=== PATIENT | female | born 1930 | race Caucasian/White ===

== ENCOUNTER 2018-06-20 20:42 | Inpatient (IN) | payer OTHER ==
--- OUTSIDE RECORDS SUMMARY | 2018-06-20 20:44 | XMS REPORT | Clinical Summary ---
:1930 Author Organization [facility] Address [address] [place] [address] Care Team Providers Name Role Phone Pop Severino Primary Care Provider Allergies Active Allergy Reactions Severity Noted Date Comments Codeine Itching 09/28/2015 Doxycycline 09/28/2015 UNKNOWN Morphine 09/28/2015 AWARENESS Nitrofuran Analogues 09/28/2015 UNKNOWN Sulfa (Sulfonamide Antibiotics) 09/28/2015 ORAL BLISTERS Medications Medication Sig Dispensed Refills Start Date End Date Status ALPRAZolam (XANAX XR) Take 0.5 mg by 0 Active 0.5 MG 24 hr tablet mouth as needed. HYDROmorphone Take 2 mg by mouth 0 Active (DILAUDID) 2 MG tablet every 4 (four) hours as needed for Pain. metoprolol (LOPRESSOR) Take 50 mg by 0 Active 50 MG tablet mouth 2 (two) times daily. isosorbide mononitrate Take 30 mg by 0 Active (IMDUR) 30 MG 24 hr mouth daily. tablet levothyroxine Take 150 mcg by 0 Active (SYNTHROID, mouth Every LEVOTHROID) 150 MCG morning on an tablet empty stomach. nitroglycerin Place 0.4 mg under 0 Active (NITROSTAT) 0.4 MG SL the tongue every 5 tablet (five) minutes as needed for Chest pain Put 1 pill under tongue every 5min as needed for chest pain.No more than 3 doses in 15min.Call 911 if pain is unrelieved 5min after 1st dose . omeprazole (PRILOSEC) Take 40 mg by 0 Active 40 MG capsule mouth daily. zolpidem (AMBIEN) 10 Take 10 mg by 0 Active mg tablet mouth every night as needed for Insomnia. rosuvastatin (CRESTOR) Take 10 mg by 0 Active 10 MG tablet mouth daily. aspirin 81 MG EC Take 81 mg by 0 Active tablet mouth daily. Active Problems Not on file Social History Tobacco Use Types Packs/Day Years Used Date Never Smoker Alcohol Use Drinks/Week oz/Week Comments No Sex Assigned at Date Recorded Not on file Job Start Date Occupation Industry Not on file Not on file Not on file Travel History Travel Start Travel End No recent travel history available. Last Filed Vital Signs Not on file Plan of Treatment Not on file Results Not on fileafter 06/19/2017 Insurance Payer Benefit Plan / Group Subscriber ID Type Phone Address MEDICARE MEDICARE A B xxxxxxxxxx Medicare [employer] - [employer] CARE [employer] INDEMNITY NON CONTR xxxxxxxxx Comm
--- OUTSIDE RECORDS SUMMARY | 2018-06-20 20:47 | XMS REPORT | Continuity of Care Document ---
:1930 Author Organization Interface Problems Problem Status Onset Classification Date Comments Source Date Reported COAG Active 12/20/[address] LOW BLOOD Active 11/26/19 [facility] PRESSURE, [address] [place] [address] WEAKNESS ATRIAL Active 11/26/19 [facility] FIBRILLATION WITH 17 [facility] RAPID VENTRICUL FALL Active 11/17/[address] FALL Active 11/17/[address] COAG - ATRIAL FIB Active 09/18/[address] COAG - ATRIAL Active 02/22/20 [facility] [address] ISCHEMIC STROKE Active 02/20/[address] LFLT TRANSFER Active 02/20/20 [facility] #[id number] [place] [address] Breast ca Resolved Problem 01/20/2017 [facility] Diverticulosis of Resolved Problem 01/20/2017 [facility] colon [facility] DM (<span Resolved Problem 01/20/2017 [facility] ID="[id number]" Medical >Confirmed</span> Center, ) [facility] Heart attack Resolved Problem 01/20/2017 [facility] TIA Resolved Problem 01/20/2017 [facility] Atrial Active Problem 01/20/2017 [facility] fibrillation [facility] CEREBRAL Active [facility] ANEURYSM, Medical NONRUPTURED Center UNSPECIFIED Active [facility] ATRIAL Medical FIBRILLATION Center,[facility] Medications Medication Details Route Status Patient Ordering Order Source Instructions Provider Date levothyroxine 125 microgram=1 Active 12/30/ [facility] 125 mcg (0.125 tab, PO, Daily, # 2017 Medical mg) oral tablet 30 tab, 0 Center Refill(s) metoprolol 25 mg=0.5 tab, Active 12/30/ [facility] tartrate 50 mg PO, BID, # 180 2017 Medical oral tablet tab, 0 Refill(s) [place] Thyroxine 125 microgram, No Longer Route: PO, Drug Active 2016 Greater form: TAB, Daily, [facility] Dosing Weight 89.455, kg, Start date: 11/27/16 9:00:00 CDT, Duration: 30 day, Stop date: 12/26/16 9:00:00 CDT Isosorbide 30 mg, 1 tab, No Longer Route: PO, Drug Active 2016 Greater form: ERTAB, QAM, [place] Dosing Weight 89.455, kg, Start date: 11/27/16 9:00:00 CDT, Duration: 30 day, Stop date: 12/26/16 9:00:00 CDTNotes: (Same as:Imdur) "Do Not Crush" Take on empty stomach/ full glass of water. Do not crush aspirin 81 mg 81 mg, 1 tab, No Longer tablet, enteric Route: PO, Drug Active 2016 Greater coated form: ECTAB, [place] Daily, Dosing Weight 89.455, kg, Start date: 11/27/16 9:00:00 CDT, Duration: 30 day, Stop date: 12/26/16 9:00:00 CDTNotes: Do not crush or chew. (Same As: Ecotrin) atorvastatin 80 mg, 2 tab, Inactive Route: PO, Drug 2016 Greater form: TAB, [place] Bedtime, Dosing Weight 89.455, kg, Start date: 11/26/16 21:00:00 CDT, Duration: 30 day, Stop date: 12/25/16 21:00:00 CDTNotes: (Same as: Lipitor) Lopressor 50 mg, 1 tab, Inactive Route: PO, Drug 2016 Greater form: TAB, Q6H, [place] Dosing Weight 89.455, kg, Start date: 11/26/16 18:00:00 CDT, Duration: 30 day, Stop date: 12/26/16 12:00:00 CDTNotes: (Same as: Lopressor) atorvastatin 80 80 mg=1 tab, PO, Active mg oral tablet Bedtime, # 90 2017 [facility] tab, 0 Refill(s) [place] aspirin 81 mg 81 mg=1 tab, PO, Active tablet, enteric Daily, # 90 tab, 2017 [facility] coated 0 Refill(s) [place] warfarin 7.5 mg 7.5 mg=1 tab, PO, Active oral tablet Q5PM, # 30 tab, 0 2017 [facility] Refill(s) [place] levothyroxine 150 microgram=1 Active 150 mcg (0.15 tab, PO, Q630AM, 2017 Greater mg) oral tablet # 100 tab, 0 [place] Refill(s) Meclizine 25 mg, 2 tab, Inactive Route: PO, Drug 2016 Greater form: TAB, TID, [place] Dosing Weight 89.455, kg, PRN as needed for dizziness, Start date: 11/26/16 16:47:00 CDT, Duration: 30 day, Stop date: 12/26/16 16:46:00 CDTNotes: (Same as: Antivert) Acetaminophen 1 tab, Route: PO, Inactive 325 MG / Drug Form: TAB, 2016 [facility] Hydrocodone Dosing Weight [place] Bitartrate 10 89.455, kg, Q4H, MG Oral Tablet PRN Abnormal Lab [[place] 10/325] Result, Start date: 11/26/16 16:47:00 CDT, Duration: 30 day, Stop date: 12/26/16 16:46:00 CDTNotes: Do not exceed 4gm/day of acetaminophen. (Same as: [place] 325/10) Protonix 40 mg, Route: Inactive IVP, Drug form: 2016 INJ, Daily, [place] Dosing Weight 86.364, kg, Patient is NPO, Start date: 11/26/16 9:00:00 CDT, Duration: 30 day, Stop date: 12/25/16 9:00:00 CDTNotes: For IV push reconstitute with 10 ml 0.9% sodium chloride and push over 2 minutes. (Same as: Protonix) Thyroxine 150 microgram, 1 Inactive tab, Route: PO, 2016 Drug form: TAB, [place] Q630AM, Dosing Weight 86.364, kg, Start date: 11/26/16 6:30:00 CDT, Duration: 30 day, Stop date: 12/25/16 6:30:00 CDTNotes: Take 1 hour before or 2 hours after meal; Enteral feeds may interefere with the absorption of this medication. (Same as: Levothroid) Zofran 4 mg, 2 mL, Inactive Route: IVP, Drug 2016 Greater form: INJ, Q4H, [place] Dosing Weight 86.364, kg, PRN Nausea, Start date: 11/26/16 0:33:00 CDT, Duration: 30 day, Stop date: 12/26/16 0:32:00 CDTNotes: (Same as: Zofran) MEDICATION WASTE Product Size: 4 mg Product Wasted: ___ mg Acetaminophen 650 mg, 2 tab, Inactive Route: PO, Drug 2016 Greater form: TAB, Q4H, [place] Dosing Weight 89.455, kg, PRN Pain 1-3/Temp > 100.4 F, Start date: 11/26/16 0:33:00 CDT, Duration: 30 day, Stop date: 12/26/16 0:32:00 CDTNotes: Do not exceed 4 gm/day. (Same as: Tylenol) Saline Flush 10 ml, Route: Inactive 0.9% IVP, Drug Form: 2016 [facility] INJ, Dosing [place] Weight 89.455, kg, PRN, PRN Line Flush, Start date: 11/26/16 0:33:00 CDT, Duration: 30 day, Stop date: 12/26/16 0:32:00 CDTNotes: Same as: BD Posiflush Sterile Sodium Chloride 1,000 mL, Rate: Inactive 0.0769 MEQ/ML 100 ml/hr, Infuse 2016 Greater Injectable over: 10 hr, [place] Solution Route: IV, Dosing Weight 89.455 kg, Total Volume: 1,000, Start date: 11/26/16 0:33:00 CDT, Duration: 30 day, Stop date: 12/26/16 0:32:00 CDT Ondansetron 4 mg, 2 mL, Inactive Route: IVP, Drug 2016 Greater form: INJ, Q6H, [place] Dosing Weight 89.455, kg, PRN Nausea & Vomiting, Start date: 11/26/16 0:33:00 CDT, Duration: 30 day, Stop date: 12/26/16 0:32:00 CDTNotes: (Same as: Zofran) MEDICATION WASTE Product Size: 4 mg Product Wasted: ___ mg Coumadin 7.5 mg, 1 tab, No Longer Route: PO, Drug Active 2017 Greater form: TAB, Q5PM, [place] Dosing Weight 86.364, kg, Start date: 11/25/16 22:00:00 CDT, Duration: 30 day, Stop date: 12/25/16 17:00:00 CDTNotes: Nurse to ensure documentation of patient education per anticoagulation policy. Avoid large intake of vitamin-K containing foods diet. WASTE: F/P - P Waste Black; E - P Waste Black (Same As: Coumadin) Protonix 40 mg, Route: Inactive IVP, Drug form: 2017 [facility] INJ, ONCE, Dosing [place] Weight 86.364, kg, Patient is NPO, Priority: STAT, Start date: 11/25/16 21:56:00 CDT, Stop date: 11/25/16 21:56:00 CDTNotes: For IV push reconstitute with 10 ml 0.9% sodium chloride and push over 2 minutes. (Same as: Protonix) Zofran 4 mg, Route: IV, Inactive ONCE, Dosing 2016 Greater Weight 86.364, [place] kg, Start date: 11/25/16 21:24:00 CDT, Stop date: 11/25/16 21:24:00 CDT Zofran 4 mg, Route: IV, Inactive ONCE, Dosing 2017 Greater Weight 86.364, [place] kg, Start date: 11/25/16 20:11:00 CDT, Stop date: 11/25/16 20:11:00 CDT Metoprolol 5 mg, 5 mL, Inactive Route: IVP, Drug 2017 Greater form: INJ, ONCE, [place] Dosing Weight 86.364, kg, Priority: STAT, Start date: 11/25/16 20:08:00 CDT, Stop date: 11/25/16 20:08:00 CDTNotes: (Same as: Lopressor) Push over 2 minutes Tylenol 650 mg, 2 tab, Inactive [place] Route: PO, Drug 2017 Medical form: TAB, ONCE, Center Dosing Weight 86.364, kg, Priority: STAT, Start date: 11/16/16 19:48:00 CDT, Stop date: 11/16/16 19:48:00 CDTNotes: Do not exceed 4 gm/day. (Same as: Tylenol) meclizine 25 mg 25 mg=1 tab, PO, Active [facility] oral tablet TID, PRN 2017 Medical Other-See Center Comments, # 30 tab, 0 Refill(s) Acetaminophen 1 tab, PO, Q4H, Active [place] 325 MG / PRN for pain, # 2017 Medical Hydrocodone 24 tab, 0 Center Bitartrate 10 Refill(s) MG Oral Tablet [[place] 10/325] Zofran 4 mg, 1 tab, Inactive [facility] Route: PO, Drug 2015 Medical form: TABDIS, Center ONCE, Dosing Weight 79.545, kg, Priority: STAT, Start date: 02/22/16 11:09:00 CDT, Stop date: 02/22/16 11:09:00 CDTNotes: (Same as: Zofran ODT) Warfarin Sodium 5 mg=1 tab, PO, Active [facility] 5 MG Oral Daily, # 10 tab, 2016 Medical Tablet 0 Refill(s) Center [Coumadin] Warfarin Sodium 5 mg=1 tab, PO, Inactive [facility] 5 MG Oral Daily, # 10 tab, 2016 Medical Tablet 0 Refill(s), Center [Coumadin] other Cetirizine 10 mg, 1 tab, Inactive [facility] Route: PO, Drug 2015 Medical form: TAB, ONCE, Center Dosing Weight 79.545, kg, Priority: STAT, Start date: 02/22/16 8:14:00 CDT, Stop date: 02/22/16 8:14:00 CDTNotes: (Same As: Zyrtec) lisinopril 10 10 mg=1 tab, PO, Active [facility] mg oral tablet Daily, # 90 tab, 2016 Medical 0 Refill(s) Center atorvastatin 80 80 mg=1 tab, PO, Active [facility] mg oral tablet Bedtime, # 90 2016 Medical tab, 0 Refill(s) Center Aspirin 81 MG 81 mg=1 tab, PO, Active [facility] Enteric Coated Daily, # 90 tab, 2016 Medical Tablet 0 Refill(s) Center Zofran 4 mg, 1 tab, No Longer [place] Route: PO, Drug Active 2015 Medical form: TAB, Q8H, Center Dosing Weight 79.545, kg, PRN Nausea, Priority: NOW, Start date: 02/21/16 21:10:00 CDT, Duration: 30 day, Stop date: 03/22/16 21:09:00 CDTNotes: (Same as: Zofran) Lipitor 10 mg, 1 tab, No Longer [facility] Route: PO, Drug Active 2015 Medical form: TAB, Center Bedtime, Start date: 02/21/16 21:00:00 CDT, Duration: 30 day, Stop date: 03/21/16 21:00:00 CDTNotes: (Same As: Lipitor) Lovastatin 20 mg, Route: PO, Inactive [facility] Drug form: TAB, 2016 Medical Bedtime, Dosing Center Weight 79.545, kg, Start date: 02/21/16 21:00:00 CDT, Duration: 30 day, Stop date: 03/21/16 21:00:00 CDT Warfarin 5 mg, 1 tab, Inactive [facility] Route: PO, Drug 2015 Medical form: TAB, Q5PM, Center Dosing Weight 79.545, kg, Start date: 02/21/16 17:00:00 CDT, Duration: 1 doses or times, Stop date: 02/21/16 17:00:00 CDTNotes: Nurse to ensure documentation of patient education per anticoagulation policy. Avoid large intake of vitamin-K containing foods diet. WASTE: F/P - P Waste Black; E - P Waste Black (Same As: Coumadin) Lisinopril 10 mg, 1 tab, No Longer [place] Route: PO, Drug Active 2015 Medical form: TAB, Daily, Center Dosing Weight 79.545, kg, Priority: NOW, Start date: 02/21/16 16:48:00 CDT, Duration: 30 day, Stop date: 03/22/16 9:00:00 CDTNotes: (Same as: Prinivil, Zestril) Rosuvastatin 10 mg=1 tab, PO, No Longer [place] calcium 10 MG Bedtime, 0 Active 2015 Medical Oral Tablet Refill(s) Center [Crestor] levothyroxine 125 microgram=1 Active [facility] 125 mcg (0.125 tab, PO, Daily, 0 2015 Medical mg) oral tablet Refill(s) Center Zolpidem 10 mg=1 tab, PO, Active [facility] tartrate 10 MG Bedtime, 0 2015 Medical Oral Tablet Refill(s) Center [Ambien] cetirizine 10 10 mg=1 tab, PO, Active [facility] mg oral tablet Daily, 0 2015 Medical Refill(s) Center metoprolol 25 mg=1 tab, PO, Active [facility] tartrate 25 mg Daily, 0 2015 Medical oral tablet Refill(s) Center omeprazole 10 10 mg=1 cap, PO, Active [facility] mg oral delayed Daily, 0 2015 Medical release capsule Refill(s) Center isosorbide 30 mg=1 tab, PO, Active [facility] mononitrate 30 QAM, 0 Refill(s) 2015 Medical mg oral tablet, Center extended release Aspirin 81 MG 81 mg=1 tab, PO, No Longer [facility] Enteric Coated Daily, # 90 tab, Active 2015 Medical Tablet 3 Refill(s) [place] Saline Flush 10 ml, Route: No Longer [facility] 0.9% IVP, Drug Form: Active 2015 Medical INJ, Dosing Center Weight 79.545, kg, Q12H, Start date: 02/21/16 9:00:00 CDT, Duration: 30 day, Stop date: 03/21/16 21:00:00 CDTNotes: Same as: BD Posiflush Sterile Aspirin 325 MG 325 mg, 1 tab, No Longer [facility] Enteric Coated Route: PO, Drug Active 2015 Medical Tablet form: ECTAB, Center Daily, Dosing Weight 79.545, kg, Start date: 02/21/16 9:00:00 CDT, Duration: 30 day, Stop date: 03/21/16 9:00:00 CDTNotes: (Do Not Crush) Do not crush or chew. pantoprazole 40 mg, Route: No Longer [facility] IVP, Drug form: Active 2015 Medical INJ, Daily, Center Dosing Weight 79.545, kg, Start date: 02/21/16 9:00:00 CDT, Duration: 30 day, Stop date: 03/21/16 9:00:00 CDTNotes: For IV push reconstitute with 10 ml 0.9% sodium chloride and push over 2 minutes. (Same as: Protonix) Rocephin 1 gm, Route: No Longer [facility] IVPB, Drug form: Active 2015 Medical PDR/INJ, [id number], Center Dosing Weight 79.545, kg, Start date: 02/21/16 7:00:00 CDT, Duration: 30 day, Stop date: 03/21/16 7:00:00 CDTNotes: (Same As: Rocephin). Use with 100 mL NS and infuse over 30 min MEDICATION WASTE Product Size: 1000 mg Product Wasted: ___ mg Ativan 0.5 mg, 0.25 mL, No Longer [place] Route: IV, Drug Active 2015 Medical form: INJ, Center Q15Min, Dosing Weight 79.545, kg, PRN Anxiety, Start date: 02/21/16 3:55:00 CDT, Duration: 2 doses or times, Stop date: Limited # of timesNotes: (Same as: Ativan) iodixanol 60 mL, Route: Inactive [place] IVP, Drug Form: 2015 Medical SOLN, Dosing Center Weight 79.545, kg, ONCALL, STAT, Start date: 02/21/16 3:22:00 CDT, Duration: 1 doses or times, Dose=2.2ml/kg, Max fvio=060yg -- "To be infused by Radiology Staff ONLY" Ativan 0.5 mg, 1 tab, Inactive [facility] Route: PO, Drug 2015 Medical form: TAB, TID, Center Dosing Weight 79.545, kg, PRN Anxiety, Start date: 02/21/16 3:16:00 CDT, Duration: 2 doses or times, Stop date: Limited # of timesNotes: (Same as: Ativan) heparin 5,000 unit, 1 mL, No Longer [facility] Route: SUB-Q, Active 2015 Medical Drug form: INJ, Center Q8H, Dosing Weight 79.545, kg, (For patients weighing Notes: porcine heparin Saline Flush 10 ml, Route: No Longer [facility] 0.9% IVP, Drug Form: Active 2016 Medical INJ, Dosing Center Weight 79.545, kg, PRN, PRN Line Flush, Start date: 02/20/16 23:33:00 CDT, Duration: 30 day, Stop date: 03/21/16 23:32:00 CDTNotes: Same as: BD Posiflush Sterile Allergies, Adverse Reactions, Alerts Substance Category Reaction Severity Reaction Status Date Comments Source type Reported morphine Assertion Allergy to Active [facility] sulfa drugs Assertion Drug Active [facility] allergy [facility] Immunizations Immunization Date Given Site Status Last Comments Source Updated pneumococcal 11/26/2016 Not Given [facility] 13-valent Medical vaccine<sup>2</ Center, p> [facility] pneumococcal 11/26/2016 Left completed Mer Result [facility] 13-valent deltoid Comment: Medical vaccine<sup>1</ patient Center, p> refused [facility] Results Order Name Results Value Reference Date Interpretation Comments Source Range HEMATOLOGY POC PT 18.2 s 12.0 - 12/30 [facility] 14.7 [facility] HEMATOLOGY POC INR 1.6 0.9 - 1.2 12/30 [facility] HEMATOLOGY POC INR 1.9 0.9 - 1.2 12/19 [facility] HEMATOLOGY POC PT 22.0 s 12.0 - 12/19 [facility] 14.7 [facility] CARDIAC CK MB Index 1.6 0.0 - 2.5 11/26 [facility] CARDIAC Troponin-I null 0.00 - 11/26 [facility] 0.40 /2017 [facility] CARDIAC CK MB 1.8 ng/mL 0.5 - 3.6 11/26 [facility] CARDIAC Total CK 112 unit/L 12 - 191 11/26 [facility] CHEM PANEL Magnesium Lvl 2.1 mg/dL 1.8 - 2.4 11/26 [facility] CHEM PANEL Lipase Lvl 272 unit/L 73 - 393 11/26 [facility] ELECTROLYTE Sodium Lvl 143 meq/L 135 - 145 11/26 S [facility] ELECTROLYTE Potassium Lvl 3.7 meq/L 3.5 - 5.1 11/26 [facility] ELECTROLYTE Chloride Lvl 107 meq/L 95 - 109 11/26 [facility] ELECTROLYTE CO2 25 meq/L 24 - 32 11/26 [facility] ELECTROLYTE Calcium Lvl 8.4 mg/dL 8.5 - 10.5 11/26 [facility] ELECTROLYTE Glucose Lvl 168 mg/dL 70 - 99 11/26 [facility] ELECTROLYTE BUN 16 mg/dL 7 - 22 11/26 [facility] ELECTROLYTE Creatinine 1.06 mg/dL 0.50 - 11/26 S Lvl 1.40 /2016 [facility] ELECTROLYTE A/G Ratio 1.0 0.7 - 1.6 11/26 [facility] ELECTROLYTE Bili Total 0.5 mg/dL 0.2 - 1.3 11/26 [facility] ELECTROLYTE AGAP 14.7 meq/L 10.0 - 11/26 S 20.0 /2016 [facility] ELECTROLYTE B/C Ratio 15 6 - 25 11/26 [facility] ELECTROL[facility]TE Globulin 3.9 g/dL 2.7 - 4.2 11/26 [facility] ELECTROLYTE Alk Phos 117 unit/L 39 - 136 11/26 [facility] ELECTROLYTE Total Protein 7.8 g/dL 6.4 - 8.4 11/26 [facility] ELECTROLYTE Albumin Lvl 3.9 g/dL 3.5 - 5.0 11/26 [facility] ELECTROLYTE ALT 10 unit/L 0 - 65 11/26 [facility] ELECTROLYTE AST 19 unit/L 0 - 37 11/26 [facility] ELECTROLYTE eGFR 47 11/26 Result Comment: The eGFR is calculated using the CKD-EPI formula. In most young, healthy individuals the eGFR will be >90 mL/ min/1.73m2. The eGFR declines with age. An eGFR of 60-89 may be normal in mL/min/1.7 /2017 some populations, particularly the elderly, for whom the CKD-EPI formula has not been extensively validated. Use of the eGFR is not recommended in the following populations: [place] 3m2 [place] Individuals with unstable creatinine concentrations, including patients and those with serious co-morbid conditions. Patients with extremes in muscle mass or diet. The data above are obtained from the National Kidney Disease Education Program (NKDEP) which additionally recommends that when the eGFR is used in patients with extremes of body mass index for purposes of drug dosing, the eGFR should be multiplied by the estimated BMI. HEMATOLOGY Segs-Bands # 4.3 K/CMM 1.5 - 8.1 / [facility] HEMATOLOGY Lymphocytes # 1.3 K/CMM 1.0 - 5.5 / [facility] HEMATOLOGY Monocytes # 0.4 K/CMM 0.0 - 0.8 / [facility] HEMATOLOGY Eosinophils 1.8 % 0.0 - 4.0 / [facility] HEMATOLOGY Lymphocytes 21.0 % 20.0 - 05/ MH 40.0 /2016 [facility] HEMATOLOGY Monocytes 6.6 % 2.0 - 12.0 / [facility] HEMATOLOGY Basophils 0.6 % 0.0 - 1.0 11/26 [facility] HEMATOLOGY Eosinophils # 0.1 K/CMM 0.0 - 0.5 11/26 [facility] HEMATOLOGY Segs 70.0 % 45.0 - 05 MH 75.0 /2017 [facility] HEMATOLOGY PT 16.9 s 12.0 - 05/ MH 14.7 /2017 [facility] HEMATOLOGY INR 1.35 0.85 - 05/ MH 1.17 /2016 [facility] HEMATOLOGY PTT 33.5 s 22.9 - / MH 35.8 /2017 [facility] HEMATOLOGY RBC 4.34 M/CMM 4.20 - 05/02 MH 5.40 /2017 [facility] HEMATOLOGY MCV 89.8 fL 80.0 - / MH 98.0 /2017 [facility] HEMATOLOGY Hct 39.0 % 36.0 - 05 MH 48.0 /2017 [facility] HEMATOLOGY Hgb 12.5 g/dL 12.0 - 05/ MH 16.0 /2017 [facility] HEMATOLOGY MCH 28.7 pg 27.0 - 05/ MH 31.0 /2017 [facility] HEMATOLOGY MPV 8.7 fL 7.4 - 10.4 11/26 [facility] HEMATOLOGY WBC 6.1 K/CMM 3.7 - 10.4 / [facility] HEMATOLOGY MCHC 32.0 g/dL 32.0 - 05/ MH 36.0 /2016 [facility] HEMATOLOGY Platelet 159 K/CMM 133 - 450 05/2017 [facility] HEMATOLOGY RDW 17.2 % 11.5 - 11/26 14.5 [facility] Brain wo Brain wo Patient Name: LOUISA PALMA 11/25 - contrast CT contrast CT [facility] : 1930; Age: 86 years y/o [place] MR: [id number] Read by: Steven Stahl MD Dictated Date/time: 11/25/16 21:24 Electronically Signed by: Steven Stahl MD 11/25/16 21:33 FINAL REPORT Study: Brain wo contrast CT 11/25/2016 7:52 PM CDT Clinical Indication: Altered mental status OBO, dizzy, Vomiting, on Coumadin - DLP: 1029.93; Comparison: 02/20/2016 TECHNIQUE: CT images were obtained from the foramen magnum to the vertex without the use of intravenous contrast on a multidetector CT. Coronal and sagittal reconstructions were obtained. FINDINGS: BRAIN PARENCHYMA: Bilateral carotid artery calcification. Patchy low density in the subinsular cortex bilaterally, right thalamus, basal ganglia bilaterally, anterior and posterior limbs of the left int ernal capsule, external capsule bilaterally and fenton radiata bilaterally consistent with small vessel changes. 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 No evidence for subarachnoid, intrapar enchymal or intraventricular hemorrhage. No significant extra-axial fluid collection, mass effect or shift. No evidence for an acute infarction. VENTRICLES: Ventricles and sulci are within normal limits for the patient' s age. ORBITS, MASTOIDS AND PARANASAL SINUSES: The visualized orbits and paranasal sinuses are unremarkable. The mastoid air cells are clear. SKULL: There are no osseous abnormalities. If there is further concern for intracranial pathology or acute stroke, MRI of the brain may be performed for complete assessment. IMPRESSION: 1. Bilateral carotid artery calcification. 2. Small vessel changes. 3. 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 4. Otherwise unremarkable head CT without contrast. SL: PENNYOM-PC Chest 1view Chest 1view EXAM: XR CHEST 1 VIEW 11/25 DX DX - [facility] DATE: 11/25/2016 7:51 PM CDT Read by: Steven Lozano MD Dictated Date/time: 11/25/16 20:27 Electronically Signed by: Steven Lozano MD 11/25/16 20:29 FINAL REPORT INDICATION: Shortness of Breath. COMPARISON: 02/21/2016. TECHNIQUE: A single AP view of the chest was obtained. FINDINGS: The examination is limited by patient rotation. Interstitial opacities are noted throughout the lungs. The cardiac silhouette is mildly prominent, with atherosclerotic calcification of the aorta. No acu te osseous abnormality is identified. Multiple surgical clips are noted within the right axillary region. Median sternotomy wires are present. IMPRESSION: Interstitial opacities may represent mild pulmonary edema or atypical infection. SL: [id number] HEMATOLOGY POC INR 1.5 0.9 - 1.2 11/[address] HEMATOLOGY POC PT 17.4 s 12.0 - 11/18 [facility] 14.7 [facility] ELECTROLYTE AGAP 11.7 meq/L 10.0 - 11/16 [facility] 20.0 [facility] ELECTROLYTE Glucose Lvl 168 mg/dL 70 - 99 11/[address] ELECTROLYTE BUN 23 mg/dL 7 - 11/[address] ELECTROLYTE eGFR 36 11/16 Result Comment: The eGFR is calculated using the CKD-EPI formula. In most young, healthy individuals the eGFR will be >90 mL/ min/1.73m2. The eGFR declines with age. An eGFR of 60-89 may be normal in [facility] mL/min/1. some populations, particularly the elderly, for whom the CKD-EPI formula has not been extensively validated. Use of the eGFR is not recommended in the following populations: [address] Individuals with unstable creatinine concentrations, including patients and those with serious co-morbid conditions. Patients with extremes in muscle mass or diet. The data above are obtained from the National Kidney Disease Education Program (NKDEP) which additionally recommends that when the eGFR is used in patients with extremes of body mass index for purposes of drug dosing, the eGFR should be multiplied by the estimated BMI. ELECTROLYTE Calcium Lvl 8.4 mg/dL 8.5 - 10.5 11/[address] ELECTROLYTE CO2 29 meq/L 24 - 32 11/[address] ELECTROLYTE Chloride Lvl 107 meq/L 95 - 109 11/[address] ELECTROLYTE Potassium Lvl 3.7 meq/L 3.5 - 5.1 11/[address] ELECTROLYTE Sodium Lvl 144 meq/L 135 - 145 11/16 [facility] S [facility] ELECTROLYTE Creatinine 1.34 mg/dL 0.50 - 11/16 [facility] S Lvl 1.40 [facility] HEMATOLOGY INR 2.03 0.85 - 11/16 [place] 1.17 [facility] HEMATOLOGY PT 23.3 s 12.0 - 11/16 14.7 [facility] HEMATOLOGY Hgb 11.9 g/dL 12.0 - 11/16 16.0 [facility] HEMATOLOGY MCV 88.3 fL 80.0 - 11/16 98.0 [facility] HEMATOLOGY Hct 36.1 % 36.0 - 11/16 48.0 [facility] HEMATOLOGY MCH 29.1 pg 27.0 - 11/16 [facility] 31.0 [facility] HEMATOLOGY RBC 4.09 M/CMM 4.20 - 11/16 [facility] 5.40 [facility] HEMATOLOGY WBC 4.5 K/CMM 3.7 - 10.4 11/16 [facility] HEMATOLOGY MCHC 32.9 g/dL 32.0 - 11/16 [facility] 36.0 [facility] HEMATOLOGY MPV 9.0 fL 7.4 - 10.4 11/16 [facility] HEMATOLOGY Platelet 145 K/CMM 133 - 450 11/16 [facility] HEMATOLOGY RDW 17.7 % 11.5 - 11/16 [facility] 14.5 [facility] HEMATOLOGY Monocytes # 0.3 K/CMM 0.0 - 0.8 11/16 [facility] HEMATOLOGY Eosinophils # 0.2 K/CMM 0.0 - 0.5 11/16 [facility] HEMATOLOGY Monocytes 7.5 % 2.0 - 12.0 11/16 [facility] HEMATOLOGY Eosinophils 4.5 % 0.0 - 4.0 11/16 [facility] HEMATOLOGY Lymphocytes 24.0 % 20.0 - 11/16 40.0 [facility] HEMATOLOGY Segs-Bands # 2.9 K/CMM 1.5 - 8.1 11/16 [facility] HEMATOLOGY Basophils 0.5 % 0.0 - 1.0 11/16 [facility] HEMATOLOGY Lymphocytes # 1.1 K/CMM 1.0 - 5.5 11/16 [facility] /2016 [facility] HEMATOLOGY Segs 63.5 % 45.0 - 11/16 [facility] 75.0 [facility] Pelvis AP Pelvis AP DX EXAM: XR PELVIS 1 VIEW 11/16 - [facility] - [facility] DATE: 11/16/2016 5:34 PM CDT Read by: Pedro Mckeon MD Dictated Date/time: 11/16/16 18:42 Electronically Signed by: Pedro Mckeon MD 11/16/16 18:43 FINAL REPORT INDICATION: right hip pain - right hip pain COMPARISON: None TECHNIQUE: A single AP supine radiograph of the pelvis FINDINGS: Alignment is normal. There are mild bilateral hip and sacroiliac joint degenerative changes. No acute fracture or dislocation. Mild degenerative changes of the lower lumbar spine are also visualized. No significant soft tissue abnormality. IMPRESSION: 1. Mild degenerative changes of the hip and sacroiliac joints 2. No acute fracture or dislocation Knee 3 Knee 3 views EXAM: XR RIGHT KNEE 3 VIEWS 11/16 - [facility] views DX - [facility] EXAM: XR RIGHT TIBIA-FIBULA 2 VIEWS [place] EXAM: XR RIGHT ANKLE 3 VIEWS Read by: Pedro Mckeon MD Dictated Date/time: 11/16/16 17:56 EXAM: XR RIGHT FOOT 3 VIEWS Electronically Signed by: Pedro Mckeon MD 11/16/16 18:01 FINAL REPORT DATE: 11/16/2016 5:01 PM CDT INDICATION: Pain Post Trauma - coumadin, fall COMPARISON: None TECHNIQUE: AP, lateral and oblique views of the right knee, AP and lateral views of the right tibia-fibula, AP, lateral and oblique radiographs of the right ankle, PA lateral and oblique radiographs of the right foot FINDINGS: Knee: No acute fracture or malalignment is identified. No excessive knee joint fluid is identified. Minimal degenerative changes of the knee joint are visualized with tibial spiking. Joint spaces are preserved. Tibia-fibula: No acute fracture or malalignment is identified. Ankle / Foot: No acute fracture or malalignment is identified. The ankle mortise is congruent. Note made of enthesopathy changes at the insertion of Achilles tendon. Small chronic appearing calcificatio n is visualized in the medial head of 1st metatarsal. Soft tissues: There is diffuse soft tissue swelling most pronounced along the distal leg, ankle and foot. Note made of vascular calcifications. IMPRESSION: 1. Diffuse soft tissue swelling most pronounced along the distal leg, ankle and foot. 2. No underlying acute osseous abnormality. 3. Minimal degenerative changes of the knee joint. Ankle 3 Ankle 3 views EXAM: XR RIGHT KNEE 3 VIEWS 11/16 [place] views DX DX - Medical EXAM: XR RIGHT TIBIA-FIBULA 2 VIEWS Center EXAM: XR RIGHT ANKLE 3 VIEWS Read by: Pedro Mckeon MD Dictated Date/time: 11/16/16 17:56 EXAM: XR RIGHT FOOT 3 VIEWS Electronically Signed by: Pedro Mckeon MD 11/16/16 18:01 FINAL REPORT DATE: 11/16/2016 5:01 PM CDT INDICATION: Pain Post Trauma - coumadin, fall COMPARISON: None TECHNIQUE: AP, lateral and oblique views of the right knee, AP and lateral views of the right tibia-fibula, AP, lateral and oblique radiographs of the right ankle, PA lateral and oblique radiographs of the right foot FINDINGS: Knee: No acute fracture or malalignment is identified. No excessive knee joint fluid is identified. Minimal degenerative changes of the knee joint are visualized with tibial spiking. Joint spaces are preserved. Tibia-fibula: No acute fracture or malalignment is identified. Ankle / Foot: No acute fracture or malalignment is identified. The ankle mortise is congruent. Note made of enthesopathy changes at the insertion of Achilles tendon. Small chronic appearing calcificatio n is visualized in the medial head of 1st metatarsal. Soft tissues: There is diffuse soft tissue swelling most pronounced along the distal leg, ankle and foot. Note made of vascular calcifications. IMPRESSION: 1. Diffuse soft tissue swelling most pronounced along the distal leg, ankle and foot. 2. No underlying acute osseous abnormality. 3. Minimal degenerative changes of the knee joint. Foot series Foot series EXAM: XR RIGHT KNEE 3 VIEWS 11/16 - [place] DX DX - Medical EXAM: XR RIGHT TIBIA-FIBULA 2 VIEWS Center EXAM: XR RIGHT ANKLE 3 VIEWS Read by: Pedro Mckeon MD Dictated Date/time: 11/16/16 17:56 EXAM: XR RIGHT FOOT 3 VIEWS Electronically Signed by: Pedro Mckeon MD 11/16/16 18:01 FINAL REPORT DATE: 11/16/2016 5:01 PM CDT INDICATION: Pain Post Trauma - coumadin, fall COMPARISON: None TECHNIQUE: AP, lateral and oblique views of the right knee, AP and lateral views of the right tibia-fibula, AP, lateral and oblique radiographs of the right ankle, PA lateral and oblique radiographs of the right foot FINDINGS: Knee: No acute fracture or malalignment is identified. No excessive knee joint fluid is identified. Minimal degenerative changes of the knee joint are visualized with tibial spiking. Joint spaces are preserved. Tibia-fibula: No acute fracture or malalignment is identified. Ankle / Foot: No acute fracture or malalignment is identified. The ankle mortise is congruent. Note made of enthesopathy changes at the insertion of Achilles tendon. Small chronic appearing calcificatio n is visualized in the medial head of 1st metatarsal. Soft tissues: There is diffuse soft tissue swelling most pronounced along the distal leg, ankle and foot. Note made of vascular calcifications. IMPRESSION: 1. Diffuse soft tissue swelling most pronounced along the distal leg, ankle and foot. 2. No underlying acute osseous abnormality. 3. Minimal degenerative changes of the knee joint. Tibia Tibia fibula EXAM: XR RIGHT KNEE 3 VIEWS 11/16 - [place] fibula series DX /2016 - Medical series DX EXAM: XR RIGHT TIBIA-FIBULA 2 VIEWS Center EXAM: XR RIGHT ANKLE 3 VIEWS Read by: Pedro Mckeon MD Dictated Date/time: 11/16/16 17:56 EXAM: XR RIGHT FOOT 3 VIEWS Electronically Signed by: Pedro Mckeon MD 11/16/16 18:01 FINAL REPORT DATE: 11/16/2016 5:01 PM CDT INDICATION: Pain Post Trauma - coumadin, fall COMPARISON: None TECHNIQUE: AP, lateral and oblique views of the right knee, AP and lateral views of the right tibia-fibula, AP, lateral and oblique radiographs of the right ankle, PA lateral and oblique radiographs of the right foot FINDINGS: Knee: No acute fracture or malalignment is identified. No excessive knee joint fluid is identified. Minimal degenerative changes of the knee joint are visualized with tibial spiking. Joint spaces are preserved. Tibia-fibula: No acute fracture or malalignment is identified. Ankle / Foot: No acute fracture or malalignment is identified. The ankle mortise is congruent. Note made of enthesopathy changes at the insertion of Achilles tendon. Small chronic appearing calcificatio n is visualized in the medial head of 1st metatarsal. Soft tissues: There is diffuse soft tissue swelling most pronounced along the distal leg, ankle and foot. Note made of vascular calcifications. IMPRESSION: 1. Diffuse soft tissue swelling most pronounced along the distal leg, ankle and foot. 2. No underlying acute osseous abnormality. 3. Minimal degenerative changes of the knee joint. HEMATOLOGY POC INR 2.1 0.9 - 1.2 09/19 [facility] HEMATOLOGY POC PT 24.6 s 12.0 - 09/19 [place] [facility] HEMATOLOGY POC 40.0 % 36.0 - 03/12 [facility] Hematocrit 48.0 [facility] HEMATOLOGY POC 13.6 g/dL 12.0 - 03/12 [facility] Hemoglobin 16.0 [facility] HEMATOLOGY POC PT 37.1 s 12.0 - 03/12 [place] 14. [facility] HEMATOLOGY POC INR 3.3 0.9 - 1.2 03/12 [facility] HEMATOLOGY POC PT 35.1 s 12.0 - 03/05 [place] 14. [facility] HEMATOLOGY POC INR 3.1 0.9 - 1.2 03/05 [facility] HEMATOLOGY POC INR 1.8 0.9 - 1.2 02/27 [facility] HEMATOLOGY POC PT 20.7 s 12.0 - 02/27 [place] 14. [facility] HEMATOLOGY PT 14.3 s 12.0 - 02/21 [place] 14. [facility] HEMATOLOGY INR 1.08 0.85 - 02/21 [place] 1.17 [facility] HEMATOLOGY PTT 31.3 s 22.9 - 02/21 [place] 35.8 [facility] CHEM PANEL eGFR 39 02/21 Result Comment: The eGFR is calculated using the CKD-EPI formula. In most young, healthy individuals the eGFR will be >90 mL/ min/1.73m2. The eGFR declines with age. An eGFR of 60-89 may be normal in [facility] mL/min/1. some populations, particularly the elderly, for whom the CKD-EPI formula has not been extensively validated. Use of the eGFR is not recommended in the following populations: Medical 3m2 Center Individuals with unstable creatinine concentrations, including patients and those with serious co-morbid conditions. Patients with extremes in muscle mass or diet. The data above are obtained from the National Kidney Disease Education Program (NKDEP) which additionally recommends that when the eGFR is used in patients with extremes of body mass index for purposes of drug dosing, the eGFR should be multiplied by the estimated BMI. CHEM PANEL AGAP 14.0 meq/L 10.0 - 02/21 [facility] 20.0 [facility] CHEM PANEL Calcium Lvl 8.6 mg/dL 8.5 - 10.5 02/[address] CHEM PANEL Glucose Lvl 196 mg/dL 70 - 99 02/[address] CHEM PANEL BUN 22 mg/dL 7 - 22 02/[address] CHEM PANEL Potassium Lvl 4.0 meq/L 3.5 - 5.1 02/[address] CHEM PANEL Chloride Lvl 106 meq/L 95 - 109 02/[address] CHEM PANEL Creatinine 1.26 mg/dL 0.50 - 02/21 [facility] Lvl 1.40 [facility] CHEM PANEL Sodium Lvl 142 meq/L 135 - 145 02/[address] CHEM PANEL CO2 26 meq/L 24 - 32 02/[address] HEMATOLOGY Segs 63.9 % 45.0 - 02/21 [facility] 75.0 [facility] HEMATOLOGY Lymphocytes 22.6 % 20.0 - 02/21 40.0 [facility] HEMATOLOGY Eosinophils 5.2 % 0.0 - 4.0 02/[address] HEMATOLOGY Monocytes 7.4 % 2.0 - 12.0 02/[address] HEMATOLOGY Basophils 0.9 % 0.0 - 1.0 02/[address] HEMATOLOGY Segs-Bands # 3.3 K/CMM 1.5 - 8.1 02/[address] HEMATOLOGY Lymphocytes # 1.2 K/CMM 1.0 - 5.5 02/[address] HEMATOLOGY Eosinophils # 0.3 K/CMM 0.0 - 0.5 02/[address] HEMATOLOGY Monocytes # 0.4 K/CMM 0.0 - 0.8 02/[address] HEMATOLOGY MPV 9.4 fL 7.4 - 10.4 02/21 [facility] HEMATOLOGY MCHC 32.0 g/dL 32.0 - 02/21 [place] 36.0 [facility] HEMATOLOGY RDW 16.9 % 11.5 - 02/21 [place] 14.5 [facility] HEMATOLOGY Platelet 133 K/CMM 133 - 450 02/21 [facility] HEMATOLOGY WBC 5.1 K/CMM 3.7 - 10.4 02/21 [facility] HEMATOLOGY RBC 4.16 M/CMM 4.20 - 02/21 [facility] 5.40 [facility] HEMATOLOGY Hgb 11.2 g/dL 12.0 - 02/21 [facility] 16.0 [facility] HEMATOLOGY Hct 35.2 % 36.0 - 02/21 [facility] 48.0 [facility] HEMATOLOGY MCV 84.5 fL 80.0 - 02/21 [facility] 98.0 [facility] HEMATOLOGY MCH 27.0 pg 27.0 - 02/21 [place] 31.0 [facility] ELECTROLYTE AGAP 14.3 meq/L 10.0 - 02/20 [facility] S 20.0 [facility] ELECTROLYTE eGFR 45 02/20 Result Comment: The eGFR is calculated using the CKD-EPI formula. In most young, healthy individuals the eGFR will be >90 mL/ min/1.73m2. The eGFR declines with age. An eGFR of 60-89 may be normal in [facility] mL/min/1. some populations, particularly the elderly, for whom the CKD-EPI formula has not been extensively validated. Use of the eGFR is not recommended in the following populations: [address] Individuals with unstable creatinine concentrations, including patients and those with serious co-morbid conditions. Patients with extremes in muscle mass or diet. The data above are obtained from the National Kidney Disease Education Program (NKDEP) which additionally recommends that when the eGFR is used in patients with extremes of body mass index for purposes of drug dosing, the eGFR should be multiplied by the estimated BMI. ELECTROLYTE Chloride Lvl 104 meq/L 95 - 109 02/20 [facility] ELECTROLYTE Potassium Lvl 4.3 meq/L 3.5 - 5.1 02/20 [facility] ELECTROLYTE Calcium Lvl 8.8 mg/dL 8.5 - 10.5 02/20 [facility] ELECTROLYTE CO2 27 meq/L 24 - 32 02/20 [facility] ELECTROLYTE Creatinine 1.12 mg/dL 0.50 - 02/20 [facility] S Lvl 1.40 [facility] ELECTROLYTE Sodium Lvl 141 meq/L 135 - 145 02/20 [facility] ELECTROLYTE Glucose Lvl 123 mg/dL 70 - 99 02/20 [facility] ELECTROLYTE BUN 21 mg/dL 7 - 22 02/20 [facility] HEMATOLOGY Basophils # 0.1 K/CMM 0.0 - 0.2 02/20 [facility] HEMATOLOGY Eosinophils # 0.2 K/CMM 0.0 - 0.5 02/20 [facility] HEMATOLOGY Monocytes # 0.4 K/CMM 0.0 - 0.8 02/20 [facility] HEMATOLOGY Monocytes 7.3 % 2.0 - 12.0 02/20 [facility] HEMATOLOGY Segs 65.3 % 45.0 - 02/20 75.0 [facility] HEMATOLOGY Lymphocytes 23.4 % 20.0 - 02/20 40.0 [facility] HEMATOLOGY Lymphocytes # 1.3 K/CMM 1.0 - 5.5 02/20 [facility] HEMATOLOGY Basophils 1.0 % 0.0 - 1.0 02/20 [facility] HEMATOLOGY Eosinophils 3.0 % 0.0 - 4.0 02/20 [facility] HEMATOLOGY Segs-Bands # 3.6 K/CMM 1.5 - 8.1 02/20 [facility] HEMATOLOGY RBC 4.09 M/CMM 4.20 - 02/20 5.40 [facility] HEMATOLOGY Hgb 11.2 g/dL 12.0 - 02/20 16.0 [facility] HEMATOLOGY WBC 5.5 K/CMM 3.7 - 10.4 02/20 [facility] HEMATOLOGY Hct 34.5 % 36.0 - 02/20 [place] 48.0 [facility] HEMATOLOGY MCV 84.3 fL 80.0 - 02/20 98.0 [facility] HEMATOLOGY RDW 16.6 % 11.5 - 02/20 [facility] 14.5 [facility] HEMATOLOGY MCH 27.3 pg 27.0 - 02/20 [facility] 31.0 [facility] HEMATOLOGY MCHC 32.4 g/dL 32.0 - 02/20 [facility] 36.0 [facility] HEMATOLOGY Platelet 131 K/CMM 133 - 450 02/20 [facility] HEMATOLOGY MPV 9.6 fL 7.4 - 10.4 02/20 [facility] LIPIDS VLDL 20 02/20 [facility] LIPIDS LDL 130 mg/dL <=99 mg/dL 02/20 [facility] (Calculated) [facility] LIPIDS HDL 31 mg/dL >=61 mg/dL 02/20 [facility] LIPIDS Chol 181 mg/dL <=199 02/20 [facility] mgdL [facility] LIPIDS Trig 101 mg/dL <=149 02/20 [facility] mg/dL [facility] LIPIDS CHD Risk 5.84 3.90 - 02/20 [facility] 5.80 [facility] SPECIAL Hgb A1C 7.0 % <=5.6 % 02/20 [facility] CHEM PANEL eGFR 45 02/20 Result Comment: The eGFR is calculated using the CKD-EPI formula. In most young, healthy individuals the eGFR will be >90 mL/ min/1.73m2. The eGFR declines with age. An eGFR of 60-89 may be normal in [facility] mL/min/1.7 some populations, particularly the elderly, for whom the CKD-EPI formula has not been extensively validated. Use of the eGFR is not recommended in the following populations: [address] Individuals with unstable creatinine concentrations, including patients and those with serious co-morbid conditions. Patients with extremes in muscle mass or diet. The data above are obtained from the National Kidney Disease Education Program (NKDEP) which additionally recommends that when the eGFR is used in patients with extremes of body mass index for purposes of drug dosing, the eGFR should be multiplied by the estimated BMI. CHEM PANEL Bili Total 0.4 mg/dL 0.2 - 1.3 02/20 [facility] CHEM PANEL CO2 27 meq/L 24 - 32 02/20 [facility] CHEM PANEL Calcium Lvl 8.8 mg/dL 8.5 - 10.5 02/20 [facility] CHEM PANEL AST 11 unit/L 0 - 37 02/20 [facility] CHEM PANEL ALT 9 unit/L 0 - 65 02/20 [facility] CHEM PANEL Alk Phos 120 unit/L 39 - 136 02/20 [facility] CHEM PANEL Potassium Lvl 4.2 meq/L 3.5 - 5.1 02/20 [facility] CHEM PANEL Chloride Lvl 105 meq/L 95 - 109 02/20 [facility] CHEM PANEL Sodium Lvl 141 meq/L 135 - 145 02/20 [facility] CHEM PANEL Albumin Lvl 3.6 g/dL 3.5 - 5.0 02/20 [facility] CHEM PANEL Total Protein 7.3 g/dL 6.4 - 8.4 02/20 [facility] CHEM PANEL BUN 21 mg/dL - 02/20 [facility] CHEM PANEL Creatinine 1.12 mg/dL 0.50 - 02/20 [facility] Lvl 1.40 [facility] CHEM PANEL Glucose Lvl 125 mg/dL 70 - 99 02/20 [facility] CHEM PANEL A/G Ratio 1.0 0.7 - 1.6 02/20 [facility] CHEM PANEL Globulin 3.7 g/dL 2.0 - 4.0 02/20 [facility] CHEM PANEL AGAP 13.2 meq/L 10.0 - 02/20 20.0 [facility] CHEM PANEL B/C Ratio 19 6 - 25 02/20 [facility] DRUG SCREEN U Amph Scr Negative Negative 02/20 [facility] *NA* Center (02/21/16 1:34 AM) DRUG SCREEN U Lilian Scr Negative Negative 02/20 [facility] *NA* Center (02/21/16 1:34 AM) DRUG SCREEN U Cannab Scr Negative Negative 02/20 [facility] *NA* Center (02/21/16 1:34 AM) DRUG SCREEN U Phencyc Scr Negative Negative 02/20 [facility] *NA* Center (02/21/16 1:34 AM) DRUG SCREEN U Cocaine Scr Negative Negative 02/20 [facility] *NA* Center (02/21/16 1:34 AM) DRUG SCREEN U Opiate Scr Negative Negative 02/20 [facility] *NA* [place] (02/21/16 1:34 AM) DRUG SCREEN U Benzodia Negative Negative 02/20 [facility] [place] (02/21/16 1:34 AM) DRUG SCREEN UDS Note See Note 02/[facility] [place] (02/21/16 1:34 AM) HEMATOLOGY INR 1.12 0.85 - 02/20 [facility] 1.17 /2015 [facility] HEMATOLOGY PT 14.7 s 12.0 - 02/20 [facility] 14.7 [facility] HEMATOLOGY PTT 31.5 s 22.9 - 02/20 [facility] 35.8 /2015 [facility] IMMUNOLOGY Treponemal Non Reactive Non 02/20 [facility] [place] (02/21/16 1:34 AM) URINE AND UA <=1.0 0.1 - 1.0 02/20 [facility] Urobilinogen mg/dL [facility] URINE AND UA Sq Epi None Seen 02/20 [facility] STOOL [facility] URINE AND UA [place] Yeast Occasional None Seen 02/20 [facility] STOOL /HPF /HPF /2015 [facility] URINE AND UA Bacteria Few /HPF None Seen 02/20 [facility] STOOL /HPF /2015 [facility] URINE AND UA Ketones Negative Negative 02/20 [facility] mg/dL mg/dL [facility] URINE AND UA Glucose Negative Negative 02/20 [facility] mg/dL mg/dL [facility] URINE AND UA Protein Negative Negative 02/20 [facility] mg/dL mg/dL [facility] URINE AND UA pH 5.0 5.0 - 8.0 02/20 [facility] STOOL [facility] URINE AND UA Spec Grav 1.005 <=1.030 02/20 [facility] STOOL [facility] URINE AND UA WBC 8 /HPF 0 - 5 02/20 [facility] URINE AND UA Leuk Est Large Negative 02/20 [facility] [place] (02/21/16 1:34 AM) URINE AND UA Nitrite Negative Negative 02/20 [facility] (02/21/16 1:34 AM) [place] URINE AND UA Blood Negative Negative 02/20 [facility] (02/21/16 1:34 AM) [place] URINE AND UA Bili Negative Negative 02/20 [facility] *NA* Center (02/21/16 1:34 AM) URINE AND UA Turbidity Slight Clear 02/20 [facility] *ABN* Center (02/21/16 1:34 AM) URINE AND UA Color Light Yellow Yellow 02/20 [facility] *NA* Center (02/21/16 1:34 AM) Brain/Neck Brain/Neck EXAM: CT ANGIOGRAM OF THE HEAD 02/20 [facility] CTA CTA - Medical EXAM: CT ANGIOGRAM OF THE NECK Center Read by: Tyler Munoz MD Dictated Date/time: 02/21/16 15:40 DATE: 02/21/2016 Electronically Signed by: Tyler Munoz MD 02/21/16 15:53 FINAL REPORT CLINICAL HISTORY: 85 years old Female patient with Acute cognitive change TECHNIQUE: Rapid acquisition spiral CT images of the neck were obtained between the aortic arch and the skull base during intravenous infusion of iodinated contrast for the purposes of CT angiography. 3 -D CT angiographic images are created using MIP technique at the acquisition workstation. The source images are also presented for interpretation. COMPARISON: MR angiogram of the head dated 11/17/2004 FINDINGS: CT ANGIOGRAM OF THE NECK: The vertebral arteries from V1 to V4 segments including origins are patent bilaterally. The common carotid arteries including origins and carotid bulbs are patent bilaterally. The cervical segments of b ilateral internal carotid arteries are patent bilaterally. Partial retropharyngeal course of the cervical right internal carotid artery. CT ANGIOGRAM OF THE HEAD: No focal occlusion, severe stenosis or aneurysmal dilatation of the anterior or posterior circulation is identified. The vertebral arteries are codominant and patent bilaterally. The basilar artery and posterior cerebral circulation are unremarkable. Visualized paranasal sinuses are clear. No massive effusion is identified. The brain parenchyma is unremarkable except for arachnoid cysts overlying bilateral anterior frontal lobes toward the vertex. IMPRESSION: 1. No definite evidence of flow-limiting stenosis, major branch occlusion, vascular injury or aneurysm is identified of the arteries of [place]. Patent major neck arteries. All quantitative and qualitative measurements of the carotid arteries in the neck are performed utilizing the distal internal carotid artery for reference as per standard NASCET criteria. 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 COMPARISON: Brain CT dated 02/20/2016 TECHNIQUE: Multiplanar, multisequence MRI of the brain without contrast. IV contrast: None. FINDINGS: Restricted diffusion is demonstrated in the right hippocampal formation, with T2 signal changes that are more evident in the posterior portion of the hippocampus. Confluent areas of high T2 signal in the periventricular and subcortical white matter, consistent with chronic microvascular ischemic changes are identified. The vascular flow voids are normal. The ventricles and sulci are normal in size. IMPRESSION: 1. Restricted diffusion in the right hippocampal formation with subtle T2 signal changes. 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 2. Underlying chronic microvascular ischemic changes. Vital Signs Vital Sign Value Date Comments Source Heart Rate 88 11/26/2016 [facility] Respitory Rate 18 11/26/2016 [facility] Systolic (mm Hg) 154 11/26/2016 [facility] Diastolic (mm Hg) 81 11/26/2016 [facility] Temperature Oral (F) 97.5 F 11/26/2016 [facility] Systolic (mm Hg) 146 11/26/2016 [facility] Diastolic (mm Hg) 68 11/26/2016 [facility] Respitory Rate 18 11/26/2016 [facility] Temperature Oral (F) 97.4 F 11/26/2016 [facility] Heart Rate 84 11/26/2016 [facility] Systolic (mm Hg) 121 11/26/2016 [facility] Diastolic (mm Hg) 74 11/26/2016 [facility] Respitory Rate 18 11/26/2016 [facility] Heart Rate 86 11/26/2016 [facility] Temperature Oral (F) 97.3 F 11/26/2016 [facility] Weight 89.455 11/26/2016 [facility] BMI Calculated 31.83 11/26/2016 [facility] Height 167.64 cm 11/26/2016 [facility] Height 167.64 cm 11/26/2016 [facility] Weight 86.364 11/26/2016 [facility] Height 167.64 cm 11/26/2016 [facility] BMI Calculated 30.73 11/26/2016 [facility] Respitory Rate 19 11/17/2016 [facility] Systolic (mm Hg) 137 11/17/2016 [facility] Diastolic (mm Hg) 90 11/17/2016 [facility] Heart Rate 87 11/17/2016 [facility] Temperature Oral (F) 97.8 F 11/17/2016 [facility] Temperature Oral (F) 97.6 F 11/17/2016 [facility] Respitory Rate 18 11/17/2016 [facility] Systolic (mm Hg) 135 11/17/2016 [facility] Diastolic (mm Hg) 89 11/17/2016 [facility] Heart Rate 80 11/17/2016 [facility] Respitory Rate 18 11/16/2016 [facility] Heart Rate 82 11/16/2016 [facility] Temperature Oral (F) 97.4 F 11/16/2016 [facility] Systolic (mm Hg) 139 11/16/2016 [facility] Diastolic (mm Hg) 96 11/16/2016 [facility] BMI Calculated 30.73 11/16/2016 [facility] Height 167.64 cm 11/16/2016 [facility] Weight 86.364 11/16/2016 [facility] Systolic (mm Hg) 136 09/19/2016 [facility] Diastolic (mm Hg) 74 09/19/2016 [facility] Heart Rate 80 09/19/2016 [facility] Height 167.64 cm 09/19/2016 [facility] Weight 86.875 09/19/2016 [facility] BMI Calculated 30.91 09/19/2016 [facility] BMI Calculated 28.3 03/12/2016 [facility] Weight 79.545 03/12/2016 [facility] Height 167.64 cm 03/12/2016 [facility] Heart Rate 74 03/12/2016 [facility] Systolic (mm Hg) 142 03/12/2016 [facility] Diastolic (mm Hg) 86 03/12/2016 [facility] Systolic (mm Hg) 142 03/05/2016 [facility] Diastolic (mm Hg) 78 03/05/2016 [facility] Height 167.64 cm 03/05/2016 [facility] BMI Calculated 28.3 03/05/2016 [facility] Weight 79.545 03/05/2016 [facility] Heart Rate 92 03/05/2016 [facility] Respitory Rate 20 02/22/2016 [facility] Systolic (mm Hg) 122 02/22/2016 [facility] Diastolic (mm Hg) 68 02/22/2016 [facility] Systolic (mm Hg) 168 02/22/2016 [facility] Diastolic (mm Hg) 80 02/22/2016 [facility] Respitory Rate 24 02/22/2016 [facility] Temperature Oral (F) 99.3 F 02/22/2016 [facility] Systolic (mm Hg) 116 02/22/2016 [facility] Diastolic (mm Hg) 55 02/22/2016 [facility] Respitory Rate 02/22/2016 [facility] Temperature Oral (F) 98.4 F 02/22/2016 [facility] Temperature Oral (F) 97.4 F 02/21/2016 [facility] Height 167.64 cm 02/21/2016 [facility] BMI Calculated 28.3 02/21/2016 [facility] Weight 79.545 02/21/2016 [facility] Encounters Location Location Encounter Encounter Reason Attending ADM DC Status Source Details Type Number For Provider Date Date Visit [facility] [id number] Stanton Brannon 02/20 02/21 Nazia Mcbride /2015 [facility] Rec[facility]ring [id number] Girma 02/27 03/29 Nazia Mcbride Doty /2015 [facility] Recurring [id number] Non 09/19 10/19 Nazia Mcbride Physician /2016 [facility] Recurring [id number] Non 10/28 11/27 Nazia Mcbride Physician /2016 [facility] Emergency [id number] Barbara 11/16 11/17 Nazia Mcbride Ann /2016 [facility] Observation [id number] 11/26 11/26 Reed Weimed /2016 [facility] [id number] Non 12/19 01[facility] Procedures Procedure Code Date Perfomer Comments Source Open heart [id number] 07/28/1992 tumor 5cm [facility] surgery<sup>1</sup> [facility] Open heart [id number] 07/28/1992 tumor 5cm [facility]<sup>1</sup> [facility] Abdominal [id number] [facility] Endoscopic laser [id number] [facility] surgery on colon [facility] Mastectomy of right [id number] [facility] Open heart surgery [id number] [facility] Appendectomy [id number] [facility] Partial resection [id number] [facility] Abdominal [id number] [facility] hysterectomy [facility] Appendectomy [id number] [facility] Endoscopic laser [id number] [facility] surgery on colon [facility] Mastectomy of right [id number] [facility] breast [facility] Partial resection [id number] [facility]
--- OUTSIDE RECORDS SUMMARY | 2018-06-20 20:48 | XMS REPORT | Summary of Care ---
:1930 Author Organization [facility] Address [address], [place] [address]- Encounter HQ Lauryn(FIN) [id number] Date(s): 12/19/16 - 01/17/17 [facility] [address] [place] [address] [place] Discharge Disposition: Home or Self Care Attending Physician: Girma Doty MD Referring Physician: Physician, Non Associated MD Vital Signs No data available for this section Problem List Condition Effective Dates Status Health Status Informant Atrial fibrillation(Confirmed) Active Breast ca(Confirmed) Resolved Diverticulosis of colon(Confirmed) Resolved DM (diabetes mellitus)(Confirmed) Resolved Heart attack(Confirmed) Resolved TIA(Confirmed) Resolved Allergies, Adverse Reactions, Alerts Substance Reaction Severity Status morphine Active sulfa drugs Active Medications levothyroxine 125 mcg (0.125 mg) oral tablet 125 microgram=1 tab, PO, Daily, # 30 tab, 0 Refill(s) Start Date: 12/30/16 Status: Orderedmetoprolol tartrate 50 mg oral tablet 25 mg=0.5 tab, PO, BID, # 180 tab, 0 Refill(s) Start Date: 12/30/16 Status: Ordered Results HEMATOLOGY Most recent to oldest [Reference Range]: 1 2 POC PT [12.0-14.7 seconds] 18.2 seconds 22.0 seconds *HI* *HI* (12/30/16 2:47 PM) (12/19/16 2:54 PM) POC INR [0.9-1.2] 1.6 1.9 *HI* *HI* (12/30/16 2:47 PM) (12/19/16 2:54 PM) Immunizations Given and Recorded Vaccine Date Status Refusal Reason pneumococcal 13-valent vaccine1 11/26/16 Given Not Given Vaccine Date Status Refusal Reason pneumococcal 13-valent vaccine2 11/26/16 Not Given Patient Refuses 1Result Comment: patient [id number] Comment: During admission patient said she would take the vaccine but then after already taking the cap off and already said she would take it, she refused and said she wanted to double check with her doctor's office. Procedures Procedure Date Related Diagnosis Body Site Open heart surgery1 1992 Abdominal hysterectomy Appendectomy Endoscopic laser surgery on colon Mastectomy of right breast Partial resection of colon 1tumor 5cm Social History Social History Type Response Substance Abuse Use: None. Alcohol Past, Type Beer. Frequency: 1-2 times per year. Smoking Status Never smoker; Exposure to Tobacco Smoke None; Cigarette Smoking Last 365 Days No; Reg Smoking Cessation Counseling No Assessment and Plan No data available for this section
--- OUTSIDE RECORDS SUMMARY | 2018-06-20 20:48 | XMS REPORT | Summary of Care ---
:1930 Author Organization [facility] Address [address], [place] [address]- Encounter HQ Lauryn(COLIN) [id number] Date(s): 02/28/16 - 03/28/16 [facility] [address] [place] [address]- [place] Discharge Disposition: Home or Self Care Attending Physician: Girma Doty MD Referring Physician: Girma Doty MD Vital Signs Most recent to oldest [Reference Range]: 1 2 Height 167.64 cm 167.64 cm (03/12/16 1:38 PM) (03/05/16 9:23 AM) Blood Pressure [90-140/60-90 mmHg] 142/86 mmHg 142/78 mmHg *HI* *HI* (03/12/16 1:38 PM) (03/05/16 9:23 AM) Peripheral Pulse Rate [60-100 bpm] 74 bpm 92 bpm (03/12/16 1:38 PM) (03/05/16 9:23 AM) Weight 79.545 kg 79.545 kg (03/12/16 1:38 PM) (03/05/16 9:23 AM) Body Mass Index 28.3 m2 28.3 m2 (03/12/16 1:38 PM) (03/05/16 9:23 AM) Problem List Condition Effective Dates Status Health Status Informant Breast ca(Confirmed) Resolved Diverticulosis of colon(Confirmed) Resolved DM (diabetes mellitus)(Confirmed) Resolved Heart attack(Confirmed) Resolved TIA(Confirmed) Resolved Allergies, Adverse Reactions, Alerts Substance Reaction Severity Status morphine Active Medications No data available for this section Results HEMATOLOGY Most recent to oldest 1 2 3 [Reference Range]: POC Hemoglobin [12.0-16.0 13.6 g/dL g/dL] (03/12/16 2:42 PM) POC Hematocrit [36.0-48.0 %] 40.0 % (03/12/16 2:42 PM) POC PT [12.0-14.7 seconds] 37.1 seconds 35.1 seconds 20.7 seconds *HI* *HI* *HI* (03/12/16 1:27 PM) (03/05/16 9:32 AM) (02/28/16 9:52 AM) POC INR [0.9-1.2] 3.3 3.1 1.8 *HI* *HI* *HI* (03/12/16 1:27 PM) (03/05/16 9:32 AM) (02/28/16 9:52 AM) Immunizations No data available for this section Procedures Procedure Date Related Diagnosis Body Site Abdominal hysterectomy Endoscopic laser surgery on colon Mastectomy of right breast Open heart surgery Social History Social History Type Response Smoking Status Never smoker; Exposure to Tobacco Smoke None; Cigarette Smoking Last 365 Days No; Reg Smoking Cessation Counseling No Assessment and Plan No data available for this section
--- OUTSIDE RECORDS SUMMARY | 2018-06-20 20:48 | XMS REPORT | Summary of Care ---
:1930 Author Organization [facility] Address [address], [place] [address]- Encounter HQ Cheri_erwin(FIN) [phone] Date(s): 02/20/16 - 02/22/[address] Professional Services provided by [facility] [place] [address]- Discharge Disposition: Home or Self Care Attending Physician: Girma Doty MD Admitting Physician: Girma Doty MD Referring Physician: Stanton Brannon MD Vital Signs Most recent to oldest 1 2 3 [Reference Range]: Height 167.64 cm (02/20/16 11:24 PM) Temperature Oral [96.4-99.1 99.3 DegF 98.4 DegF 97.4 DegF DegF] *HI* (02/21/16 11:39 PM) (02/21/16 3:48 PM) (02/22/16 8:21 AM) Blood Pressure [90-140/60-90 122/68 mmHg 168/80 mmHg 116/55 mmHg mmHg] (02/22/16 11:30 AM) *HI* (02/22/16 8:21 AM) (02/22/16 9:00 AM) Respiratory Rate [14-20 20 BRMIN 24 BRMIN 27 BRMIN BRMIN] (02/22/16 11:30 AM) *HI* *HI* (02/22/16 9:00 AM) (02/22/16 8:21 AM) Weight 79.545 kg (02/20/16 11:24 PM) Body Mass Index 28.3 m2 (02/20/16 11:24 PM) Problem List Condition Effective Dates Status Health Status Informant Breast ca(Confirmed) Resolved Diverticulosis of colon(Confirmed) Resolved DM (diabetes mellitus)(Confirmed) Resolved Heart attack(Confirmed) Resolved TIA(Confirmed) Resolved Allergies, Adverse Reactions, Alerts Substance Reaction Severity Status morphine Active Medications Ambien 10 mg oral tablet 10 mg=1 tab, PO, Bedtime, 0 Refill(s) Start Date: 02/21/16 Status: Orderedaspirin 325 mg tablet, enteric coated 325 mg, 1 tab, Route: PO, Drug form: ECTAB, Daily, Dosing Weight 79.545, kg, Start date: 02/21/16 9:00:00 CDT, Duration: 30 day, Stop date: 03/21/16 9:00:00 CDT Notes: (Do Not Crush) Do not crush or chew. Start Date: 02/21/16 Stop Date: 02/22/16 Status: Discontinuedaspirin 81 mg tablet, enteric coated 81 mg=1 tab, PO, Daily, # 90 tab, 0 Refill(s) Start Date: 02/22/16 Stop Date: 05/22/16 Status: Orderedaspirin 81 mg tablet, enteric coated 81 mg=1 tab, PO, Daily, # 90 tab, 3 Refill(s) Start Date: 02/21/16 Stop Date: 02/22/16 Status: DiscontinuedAtivan 0.5 mg, 0.25 mL, Route: IV, Drug form: INJ, Q15Min, Dosing Weight 79.545, kg, PRN Anxiety, Start date: 02/21/16 3:55:00 CDT, Duration: 2 doses or times, Stop date: Limited # of times Notes: (Same as: Ativan) Start Date: 02/21/16 Stop Date: 02/22/16 Status: DiscontinuedAtivan 0.5 mg, 1 tab, Route: PO, Drug form: TAB, TID, Dosing Weight 79.545, kg, PRN Anxiety, Start date: 02/21/16 3:16:00 CDT, Duration: 2 doses or times, Stop date : Limited # of times Notes: (Same as: Ativan) Start Date: 02/21/16 Stop Date: 02/21/16 Status: Discontinuedatorvastatin 80 mg oral tablet 80 mg=1 tab, PO, Bedtime, # 90 tab, 0 Refill(s) Start Date: 02/22/16 Status: Orderedcetirizine 10 mg, 1 tab, Route: PO, Drug form: TAB, ONCE, Dosing Weight 79.545, kg, Priority: STAT, Start date:02/22/16 8:14:00 CDT, Stop date: 02/22/16 8:14:00 CDT Notes: (Same As: Zyrtec) Start Date: 02/22/16 Stop Date: 02/22/16 Status: Completedcetirizine 10 mg oral tablet 10 mg=1 tab, PO, Daily, 0 Refill(s) Start Date: 02/21/16 Status: OrderedCoumadin 5 mg oral tablet 5 mg=1 tab, PO, Daily, # 10 tab, 0 Refill(s), other Start Date: 02/22/16 Stop Date: 02/22/16 Status: DiscontinuedCoumadin 5 mg oral tablet 5 mg=1 tab, PO, Daily, # 10 tab, 0 Refill(s) Start Date: 02/22/16 Status: OrderedCrestor 10 mg oral tablet 10 mg=1 tab, PO, Bedtime, 0 Refill(s) Start Date: 02/21/16 Stop Date: 02/22/16 Status: Discontinuedheparin 5,000 unit, 1 mL, Route: SUB-Q, Drug form: INJ, Q8H, Dosing Weight 79.545, kg, ( For patients weighing < 100 kg)., Start date: 02/21/16 0:00:00 CDT, Duration : 30 day, Stop date: 03/21/16 16:00:00 CDT Notes: porcine heparin Start Date: 02/21/16 Stop Date: 02/22/16 Status: Discontinuedisosorbide mononitrate 30 mg oral tablet, extended release 30 mg=1 tab, PO, QAM, 0 Refill(s) Start Date: 02/21/16 Status: Orderedlevothyroxine 125 mcg (0.125 mg) oral tablet 125 microgram=1 tab, PO, Daily, 0 Refill(s) Start Date: 02/21/16 Status: OrderedLipitor 10 mg, 1 tab, Route: PO, Drug form: TAB, Bedtime, Start date: 02/21/16 21:00:00 CDT, Duration: 30 day, Stop date: 03/21/16 21:00:00 CDT Notes: (Same As: Lipitor) Start Date: 02/21/16 Stop Date: 02/22/16 Status: Discontinuedlisinopril 10 mg, 1 tab, Route: PO, Drug form: TAB, Daily, Dosing Weight 79.545, kg, Priority: NOW, Start date:02/21/16 16:48:00 CDT, Duration: 30 day, Stop date: 9:00:00 CDT Notes: (Same as: Prinivil, Zestril) Start Date: 02/21/16 Stop Date: 02/22/16 Status: Discontinuedlisinopril 10 mg oral tablet 10 mg=1 tab, PO, Daily, # 90 tab, 0 Refill(s) Start Date: 02/22/16 Stop Date: 05/22/16 Status: Orderedlovastatin 20 mg, Route: PO, Drug form: TAB, Bedtime, Dosing Weight 79.545, kg, Start date : 02/21/16 21:00:00 CDT, Duration: 30 day, Stop date: 03/21/16 21:00:00 CDT Start Date: 02/21/16 Stop Date: 02/21/16 Status: Deletedmetoprolol tartrate 25 mg oral tablet 25 mg=1 tab, PO, Daily, 0 Refill(s) Start Date: 02/21/16 Status: Orderedomeprazole 10 mg oral delayed release capsule 10 mg=1 cap, PO, Daily, 0 Refill(s) Start Date: 02/21/16 Status: Orderedondansetron 4 mg oral tablet, disintegrating 4 mg, 1 tab, Route: PO, Drug form: TABDIS, ONCE, Dosing Weight 79.545, kg, Priority: STAT, Start date: 02/22/16 11:09:00 CDT, Stop date: 02/22/16 11:09:00 CDT Notes: (Same as: Zofran ODT) Start Date: 02/22/16 Stop Date: 02/22/16 Status: Orderedpantoprazole 40 mg, Route: IVP, Drug form: INJ, Daily, Dosing Weight 79.545, kg, Start date: 02/21/16 9:00:00 CDT, Duration: 30 day, Stop date: 03/21/16 9:00:00 CDT Notes: For IV push reconstitute with 10 ml 0.9% sodium chloride and push over 2 minutes. (Same as: Protonix) Start Date: 02/21/16 Stop Date: 02/22/16 Status: DiscontinuedRocephin 1 gm, Route: IVPB, Drug form: PDR/INJ, [id number], Dosing Weight 79.545, kg, Start date: 02/21/16 7:00:00 CDT, Duration: 30 day, Stop date: 03/21/16 7:00:00 CDT Notes: (Same As: Rocephin).Use with 100 mL NS and infuse over 30 min MEDICATION WASTE Product Size: 1000 mgProduct Wasted: ___ mg Start Date: 02/21/16 Stop Date: 02/22/16 Status: DiscontinuedSaline Flush 0.9% 10 ml, Route: IVP, Drug Form: INJ, Dosing Weight 79.545, kg, PRN, PRN Line Flush , Start date: 02/20/16 23:33:00 CDT, Duration: 30 day, Stop date: 03/21/16 23:32 :00 CDT Notes: Same as: BD Posiflush Sterile Start Date: 02/20/16 Stop Date: 02/22/16 Status: DiscontinuedSaline Flush 0.9% 10 ml, Route: IVP, Drug Form: INJ, Dosing Weight 79.545, kg, Q12H, Start date: 02/21/16 9:00:00 CDT,Duration: 30 day, Stop date: 03/21/16 21:00:00 CDT Notes: Same as: BD Posiflush Sterile Start Date: 02/21/16 Stop Date: 02/22/16 Status: DiscontinuedVisipaque 320mg/ml 60 mL, Route: IVP, Drug Form: SOLN, Dosing Weight 79.545, kg, ONCALL, STAT, Start date: 02/21/16 3:22:00 CDT, Duration: 1 doses or times, Dose=2.2ml/kg, Max dxhn=[id number] -- "To be infused by Radiology Staff ONLY" Start Date: 02/21/16 Stop Date: 02/21/16 Status: Completedwarfarin 5 mg, 1 tab, Route: PO, Drug form: TAB, Q5PM, Dosing Weight 79.545, kg, Start date: 02/21/16 17:00:00 CDT, Duration: 1 doses or times, Stop date: 02/21/16 17: 00:00 CDT Notes: Nurse to ensure documentation of patient education per anticoagulation policy.Avoid large intake of vitamin-K containing foods diet.WASTE: F/P - P Waste Black; E - P Waste Black(Same As: Coumadin) Start Date: 02/21/16 Stop Date: 02/21/16 Status: CompletedZofran 4 mg, 1 tab, Route: PO, Drug form: TAB, Q8H, Dosing Weight 79.545, kg, PRN Nausea, Priority: NOW, Start date: 02/21/16 21:10:00 CDT, Duration: 30 day, Stop date: 03/22/16 21:09:00 CDT Notes: (Same as: Zofran) Start Date: 02/21/16 Stop Date: 02/22/16 Status: Discontinued Results ELECTROLYTES Most recent to oldest 1 2 3 [Reference Range]: Sodium Lvl [135-145 mEq/L] 142 mEq/L 141 mEq/L 141 mEq/L (02/22/16 1:05 AM) (02/21/16 1:38 AM) (02/21/16 1:34 AM) Potassium Lvl [3.5-5.1 4.0 mEq/L 4.3 mEq/L 4.2 mEq/L mEq/L] (02/22/16 1:05 AM) (02/21/16 1:38 AM) (02/21/16 1:34 AM) Chloride Lvl [95-109 mEq/L] 106 mEq/L 104 mEq/L 105 mEq/L (02/22/16 1:05 AM) (02/21/16 1:38 AM) (02/21/16 1:34 AM) CO2 [24-32 mEq/L] 26 mEq/L 27 mEq/L 27 mEq/L (02/22/16 1:05 AM) (02/21/16 1:38 AM) (02/21/16 1:34 AM) AGAP [10.0-20.0 mEq/L] 14.0 mEq/L 14.3 mEq/L 13.2 mEq/L (02/22/16 1:05 AM) (02/21/16 1:38 AM) (02/21/16 1:34 AM) CHEM PANEL Most recent to oldest 1 2 3 [Reference Range]: Creatinine Lvl [0.50-1.40 1.26 mg/dL 1.12 mg/dL 1.12 mg/dL mg/dL] (02/22/16 1:05 AM) (02/21/16 1:38 AM) (02/21/16 1:34 AM) eGFR 39 mL/min/1.73m2 1 45 mL/min/1.73m2 2 45 mL/min/1.73m2 3 *NA* *NA* *NA* (02/22/16 1:05 AM) (02/21/16 1:38 AM) (02/21/16 1:34 AM) BUN [7-22 mg/dL] 22 mg/dL 21 mg/dL 21 mg/dL (02/22/16 1:05 AM) (02/21/16 1:38 AM) (02/21/16 1:34 AM) B/C Ratio [6-25] 19 (02/21/16 1:34 AM) Glucose Lvl [70-99 mg/dL] 196 mg/dL 123 mg/dL 125 mg/dL *HI* *HI* *HI* (02/22/16 1:05 AM) (02/21/16 1:38 AM) (02/21/16 1:34 AM) Total Protein [6.4-8.4 g/dL] 7.3 g/dL (02/21/16 1:34 AM) Albumin Lvl [3.5-5.0 g/dL] 3.6 g/dL (02/21/16 1:34 AM) Globulin [2.0-4.0 g/dL] 3.7 g/dL (02/21/16 1:34 AM) A/G Ratio [0.7-1.6] 1.0 (02/21/16 1:34 AM) Calcium Lvl [8.5-10.5 mg/dL] 8.6 mg/dL 8.8 mg/dL 8.8 mg/dL (02/22/16 1:05 AM) (02/21/16 1:38 AM) (02/21/16 1:34 AM) ALT [0-65 unit/L] 9 unit/L (02/21/16 1:34 AM) AST [0-37 unit/L] 11 unit/L (02/21/16 1:34 AM) Alk Phos [39-136 unit/L] 120 unit/L (02/21/16 1:34 AM) Bili Total [0.2-1.3 mg/dL] 0.4 mg/dL (02/21/16 1:34 AM) 1Result Comment: The eGFR is calculated using the CKD-EPI formula. In most young , healthy individualsthe eGFR will be >90 mL/min/1.73m2. The eGFR declines with age. An eGFR of 60-89 may be normal in some populations, particularly the elderly, for whom the CKD-EPI formula has not been extensively validated. Use of the eGFR is not recommended in the following populations: Individuals with unstable creatinine concentrations, including patients and those with serious co-morbid conditions. Patients with extremes in muscle mass or diet. The data above are obtained from the National Kidney Disease Education Program ( NKDEP) which additionally recommends that when the eGFR is used in patients with extremes of body mass index for purposesof drug dosing, the eGFR should be multiplied by the estimated BMI.2Result Comment: The eGFR is calculated using the CKD-EPI formula. In most young, healthy individualsthe eGFR will be >90 mL/ min/1.73m2. The eGFR declines with age. An eGFR of 60-89 may be normal in some populations, particularly the elderly, for whom the CKD-EPI formula has not been extensively validated. Use of the eGFR is not recommended in the following populations: Individuals with unstable creatinine concentrations, including patients and those with serious co-morbid conditions. Patients with extremes in muscle mass or diet. The data above are obtained from the National Kidney Disease Education Program ( NKDEP) which additionally recommends that when the eGFR is used in patients with extremes of body mass index for purposesof drug dosing, the eGFR should be multiplied by the estimated BMI.3Result Comment: The eGFR is calculated using the CKD-EPI formula. In most young, healthy individualsthe eGFR will be >90 mL/ min/1.73m2. The eGFR declines with age. An eGFR of 60-89 may be normal in some populations, particularly the elderly, for whom the CKD-EPI formula has not been extensively validated. Use of the eGFR is not recommended in the following populations: Individuals with unstable creatinine concentrations, including patients and those with serious co-morbid conditions. Patients with extremes in muscle mass or diet. The data above are obtained from the National Kidney Disease Education Program ( NKDEP) which additionally recommends that when the eGFR is used in patients with extremes of body mass index for purposesof drug dosing, the eGFR should be multiplied by the estimated BMI.LIPIDS Most recent to oldest [Reference Range]: 1 2 3 CHD Risk [3.90-5.80] 5.84 *HI* (02/21/16 1:38 AM) Chol [<=199 mg/dL] 181 mg/dL (02/21/16 1:38 AM) Trig [<=149 mg/dL] 101 mg/dL (02/21/16 1:38 AM) HDL [>=61 mg/dL] 31 mg/dL *LOW* (02/21/16 1:38 AM) LDL (Calculated) [<=99 mg/dL] 130 mg/dL *HI* (02/21/16 1:38 AM) VLDL 20 *NA* (02/21/16 1:38 AM) SPECIAL CHEMISTRY Most recent to oldest [Reference Range]: 1 2 3 Hgb A1C [<=5.6 %] 7.0 % *HI* (02/21/16 1:38 AM) DRUG SCREEN Most recent to oldest [Reference Range]: 1 2 3 U Amph Scr [Negative] Negative *NA* (02/21/16 1:34 AM) U Lilian Scr [Negative] Negative *NA* (02/21/16 1:34 AM) U Benzodia Scr [Negative] Negative *NA* (02/21/16 1:34 AM) U Cocaine Scr [Negative] Negative *NA* (02/21/16 1:34 AM) U Opiate Scr [Negative] Negative *NA* (02/21/16 1:34 AM) U Phencyc Scr [Negative] Negative *NA* (02/21/16 1:34 AM) U Cannab Scr [Negative] Negative *NA* (02/21/16 1:34 AM) UDS Note See Note *NA* (02/21/16 1:34 AM) URINE AND STOOL Most recent to oldest [Reference Range]: 1 2 3 UA Turbidity [Clear] Slight *ABN* (02/21/16 1:34 AM) UA Color [Yellow] Light Yellow *NA* (02/21/16 1:34 AM) UA pH [5.0-8.0] 5.0 (02/21/16 1:34 AM) UA Spec Grav [<=1.030] 1.005 (02/21/16 1:34 AM) UA Glucose [Negative mg/dL] Negative mg/dL *NA* (02/21/16 1:34 AM) UA Blood [Negative] Negative (02/21/16 1:34 AM) UA Ketones [Negative mg/dL] Negative mg/dL *NA* (02/21/16 1:34 AM) UA Protein [Negative mg/dL] Negative mg/dL (02/21/16 1:34 AM) UA Urobilinogen [0.1-1.0 mg/dL] <=1.0 mg/dL *NA* (02/21/16 1:34 AM) UA Bili [Negative] Negative *NA* (02/21/16 1:34 AM) UA Leuk Est [Negative] Large *ABN* (02/21/16 1:34 AM) UA Nitrite [Negative] Negative (02/21/16 1:34 AM) UA WBC [0-5 /HPF] 8 /HPF *HI* (02/21/16 1:34 AM) UA Bacteria [None Seen /HPF] Few /HPF *NA* (02/21/16 1:34 AM) UA Sq Epi None Seen *NA* (02/21/16 1:34 AM) UA [place] Yeast [None Seen /HPF] Occasional /HPF *ABN* (02/21/16 1:34 AM) IMMUNOLOGY Most recent to oldest [Reference Range]: 1 2 3 Treponemal Scr [Non Reactive] Non Reactive *NA* (02/21/16 1:34 AM) HEMATOLOGY Most recent to oldest [Reference Range]: 1 2 3 WBC [3.7-10.4 K/CMM] 5.1 K/CMM 5.5 K/CMM (02/22/16 1:05 AM) (02/21/16 1:38 AM) RBC [4.20-5.40 M/CMM] 4.16 M/CMM 4.09 M/CMM *LOW* *LOW* (02/22/16 1:05 AM) (02/21/16 1:38 AM) Hgb [12.0-16.0 g/dL] 11.2 g/dL 11.2 g/dL *LOW* *LOW* (02/22/16 1:05 AM) (02/21/16 1:38 AM) Hct [36.0-48.0 %] 35.2 % 34.5 % *LOW* *LOW* (02/22/16 1:05 AM) (02/21/16 1:38 AM) MCV [80.0-98.0 fL] 84.5 fL 84.3 fL (02/22/16 1:05 AM) (02/21/16 1:38 AM) MCH [27.0-31.0 pg] 27.0 pg 27.3 pg (02/22/16 1:05 AM) (02/21/16 1:38 AM) MCHC [32.0-36.0 g/dL] 32.0 g/dL 32.4 g/dL (02/22/16 1:05 AM) (02/21/16 1:38 AM) RDW [11.5-14.5 %] 16.9 % 16.6 % *HI* *HI* (02/22/16 1:05 AM) (02/21/16 1:38 AM) Platelet [133-450 K/CMM] 133 K/CMM 131 K/CMM (02/22/16 1:05 AM) *LOW* (02/21/16 1:38 AM) MPV [7.4-10.4 fL] 9.4 fL 9.6 fL (02/22/16 1:05 AM) (02/21/16 1:38 AM) Segs [45.0-75.0 %] 63.9 % 65.3 % (02/22/16 1:05 AM) (02/21/16 1:38 AM) Lymphocytes [20.0-40.0 %] 22.6 % 23.4 % (02/22/16 1:05 AM) (02/21/16 1:38 AM) Monocytes [2.0-12.0 %] 7.4 % 7.3 % (02/22/16 1:05 AM) (02/21/16 1:38 AM) Eosinophils [0.0-4.0 %] 5.2 % 3.0 % *HI* (02/21/16 1:38 AM) (02/22/16 1:05 AM) Basophils [0.0-1.0 %] 0.9 % 1.0 % (02/22/16 1:05 AM) (02/21/16 1:38 AM) Segs-Bands # [1.5-8.1 K/CMM] 3.3 K/CMM 3.6 K/CMM (02/22/16 1:05 AM) (02/21/16 1:38 AM) Lymphocytes # [1.0-5.5 K/CMM] 1.2 K/CMM 1.3 K/CMM (02/22/16 1:05 AM) (02/21/16 1:38 AM) Monocytes # [0.0-0.8 K/CMM] 0.4 K/CMM 0.4 K/CMM (02/22/16 1:05 AM) (02/21/16 1:38 AM) Eosinophils # [0.0-0.5 K/CMM] 0.3 K/CMM 0.2 K/CMM (02/22/16 1:05 AM) (02/21/16 1:38 AM) Basophils # [0.0-0.2 K/CMM] 0.1 K/CMM (02/21/16 1:38 AM) PT [12.0-14.7 seconds] 14.3 seconds 14.7 seconds (02/22/16 9:53 AM) (02/21/16 1:34 AM) INR [0.85-1.17] 1.08 1.12 (02/22/16 9:53 AM) (02/21/16 1:34 AM) PTT [22.9-35.8 seconds] 31.3 seconds 31.5 seconds (02/22/16 9:53 AM) (02/21/16 1:34 AM) Immunizations No data available for this section Procedures Procedure Date Related Diagnosis Body Site Abdominal hysterectomy Endoscopic laser surgery on colon Mastectomy of right breast Open heart surgery Social History Social History Type Response Smoking Status Never smoker; Exposure to Tobacco Smoke None; Cigarette Smoking Last 365 Days No; Reg Smoking Cessation Counseling No Assessment and Plan Extracted from: Title: Stroke Follow Up Author: Marta Gillette Date: 02/22/16 Arranged for patient to follow up with the [facility] [phone] on March 22, 2016 at 10:30am with Tonio. Patient will also follow up with the [facility] for evens toring of Coumadin on February 26, 2016 at 2pm. Patient is aware and agreeable to appointment. Will remain available to assist as needed. Marta Gillette, [facility] Spectralink#[id number] Complex Chute Operator Extracted from: Title: Stroke admission note Author: Juliocesar Bai MD Date: 02/20/16 Stroke History & Physical Requesting Physician/Service: Chief Complaint: History of Present Illness Patient is a 85 year old R haned lady with PMH of TIA, ventricular myxoma and paroxysmal AF not on anticoagulation who refers arounede 4-5 pm had onset of unsteadiness and L hemiparesis. Per patient she was on her usual state of health (as baseline is independent to her ADL, and only uses a walked when she goes out shopping) until today around 4-5 (she does not specify this) and she not iced that sha was walking "unsteady" later noticed L face and arm numbness, for this reason he called her son around that time, and he called 911. There is some inconsistency on the LSN as the OSH paper work refered 7 pm but she refers 4-5 pm. She refers she does not feel any symptoms now and they resolfed at he OSH, sher she was able to walk to the restroom with no problems. 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 Patient refers she has never been on anticoagulation. OSH paperwork revealed: EKG sinus bobby, NIHSS art OSH 2, for left leg drif anf L arm drift, refused tPa, SPB: 151/67, no major medis given, BG 130, BNP 108 , GFR 49CXR: perhiliar opacities, CT negative. She was supposed to be seen by telemedicine, but this was not used due to issues with the internet. She refused tPa there and was trasnfered here for HLOC. At my evlauation patient does not have any current complaints. ACUTE STROKE BENCHMARKS: TIME PATIENT LAST SEEN NORMAL not clear arouund 4-5 pm per patient. CODE STROKE ACTIVATION (CARE4 COMPUTER TIME page time) n/a NEUROLOGY RESIDENT ARRIVAL AT THE BEDSIDE (CARE4 COMPUTER TIME) after admission IV TPA BOLUS (TIME AND DOSE) n/a IV TPA INFUSION (TIME AND DOSE) n/a DELAYS IN THE CODE STROKE PROCESS OSH not able to do telemedicine due to issues with connection. Review of Systems: 1. GEN: no fever, chills, weight loss, fatigue 2. EYES: no blurred vision, double vision 3. CARDIO: no chest pain, palpitations 4. PULM: no shortness of breath, cough 5. GI: no nausea, vomiting, diarrhea, no abdominal pain 6. : no frequency, dysuria, burning, hematuria, no urinary incontinence 7. NEURO: see HPI 8. SKIN: no rash or lesion 9. ENDOCRINE: No constipation, palpitation or diarrhea or fatigue 10. MUSCULOSKELETAL: No joint pain Past Medical History: GI bleed Heart Myxoma Past Surgical History: Hysterectomy, colon resection due to diverticulitis Family Medical History: DM, HTN. Social History: The patient is a . From [place], living on [facility]. Baseline indepentent, sometimes uses a walker. Her son moved with her redcently. No OH, drugs, cigarretes. 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 Medications: She is not sure about this and does not have list or bottles with her: Levothyroxyne 125 daily ASA 81 daily Metoprolol 1 tab daily Isosorbide 50 mg daily? Allergies: Morphine Physical Exam: Vital Signs: Vitals Tmp(F) Pulse BP RR SpO2 FIO2 02/20 00:01 ---- 48 181/78 38 95 --- 02/19 23:24 ---- 52 ----- 31 --- --- 24 Hr Tmax: No Data Available Vital Signs are the last 5 in the past 48 hours. GENERAL: Awake, alert HEENT: - Normocephalic and atraumatic LUNGS - Clear to auscultation bilaterally with no wheezes CV - S1S2 RRR, no m/r/g, equal pulses bilaterally. ABDOMEN - Soft, nontender, nondistended with normoactive BS NEUROLOGY: AAO*3 Speech: fluent, comprehension intact, repetition and naming intact forensic dna analyst: 2-12 intact Motor: - Tone: Normal - Power: 5/5 in all groups of muscles in all four limbs - Reflexes: 2+ symmetrical bilaterally - Plantar: Flexor - Drift: absent Sensory: - Intact light touch and pin prick sensation - Intact vibration and position sense Cerebellar signs: Intact FNT, Rombergs negative Gait: normal NIH Stroke Scale (NIHSS) 0 1a. Level of Consciousness; 0-alert 1-drowsy 2-stupor 0 1b. LOC Questions month and age; 0-both 1-one 2-neither 0 1c. LOC Commands open/close eyes, postage machine operator/release non-paretic hand; 0-both 1- one 2-neither 0 2. Best Gaze; 0-nl 1-partial 2-forced gaze 0 3. Visual Busby; 0-No visual loss. 1-Partial hemianopia 2-Complete 3-Bilateral 0 4. Facial Palsy; 0-none 1-minor 2-partial 3-complete 0 5. Motor - R arm; 0-No drift 1-Drift 2-Some antigravity 3-No antigravity 4- No movement 0 6. Motor - R leg; 0-No drift 1-Drift 2-Some antigravity 3-No antigravity 4- No movement 0 7. Motor - L arm; 0-No drift 1-Drift 2-Some antigravity 3-No antigravity 4- No movement 0 8. Motor - L leg; 0-No drift 1-Drift 2-Some antigravity 3-No antigravity 4- No movement 0 9. Limb Ataxia; 0 absent 1 - 1limb 2 - 2 limbs 0 10. Sensory; 0-nl 1-partial loss 2-dense loss 0 11. Best Language; 0-nl 1-mild/mod 2-severe 3-mute 0 12. Dysarthria; 0-nl 1-mild/mod 2-severe x-untestable 0 13. 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 CTA Head and Neck: Pending MRI brain: Ordered 2 D Echo: Ordered Lab w/up: [facility] BUN: 21 02/21/16 Hct: 34.5 Low 02/21/16 Hgb: 11.2 Low 02/21/16 MCH: 27.3 02/21/16 MCHC: 32.4 02/21/16 MCV: 84.3 02/21/16 MPV: 9.6 02/21/16 Platelet: 131 Low 02/21/16 RBC: 4.09 Low 02/21/16 RDW: 16.6 High 02/21/16 WBC: 5.5 02/21/16 CHD Risk: 5.84 High 02/21/16 Chol: 181 02/21/16 HDL: 31 Low 02/21/16 LDL (Calculated): 130 High 02/21/16 Tri 02/21/16 VLDL: 20 02/21/16 ASSESSMENT: 85 year old R handed lady presenting with TIA, now resolved, at OSH NIHSS 2 but refused tPa. Not asymptomatic. The patient's symptoms are concerning for R /MCA syndrome and patient's imaging has pos sible ischgemic changes on L subcortical area. The patient will be admitted to the Stroke Unit under the stroke service. Etiology: TBD, cardioembolic: myxoma vs AF? PLAN # Acute Ischemic Stroke: NO TpA - ASA 81 mg po daily - Lipitor 80 mg po daily, order lipid panel and hepatic panel, adjust Lipitor accordingly - Sliding scale insulin for tight glucose control, send A1c - MRI of brain ordered - 2D echo with bubble study consider CONCHA later? - PT/OT/ ST evaluation - DVT Prophylaxis: Heparin 5000 units sq q8h, SCD, SHARON - Code Status: Full code -Disposition: Pending OT, PT evaluation Hypothyroidism: Restart levothyroxyne. PMH AF: Will need to discuss anticoagulation? (PMH GI bleeding) CHF? Conisder restart metoprolol F/u ECHO Juliocesar More MD Neurology resident/ PGY2 Pager [phone] STROKE NEUROLOGY ATTENDING I have seen and examined the patient. Furthermore, I have discussed the case with and reviewed the resident's note and agree with the history, exam, assessment and plan. See note below for additions a nd/or exceptions and my findings. I have personally viewed the patient's radiographic studies and laboratory tests. Transient episode of NIHSS=2. Transferred from OSH at to our center with NIHSS =0. History of pAfib, but not on anticoagulation. She refused tPA at OSH. Notable Exam findings: no VF cut for me on confrontation. 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 No other LVO or flow-limiting stenoses. 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 cardiac telemetry. Treatment/Plan: Antiplatelet (ASA) bridge to coumadin (she does not want to take any of the NOACs) High-dose statin (lovastatin). PT/OT/Speech therapy evaluations. I10 Essential (primary) hypertension Treatment: Start low-dose ACIE (oral BP meds). Holding beta-sabas due to pulse of 49. CAD - history of cardiac stents - aspirin 81mg. I48.0 Paroxysmal atrial fibrillation Treatment: Rate control, will discuss anticoagulants - she has chosen coumadin. Chronic and acute bacteruia - denies dysuria or symptoms. She does not want antibiotics (refusing). Follow-up Urine Culture. E78.5 Hyperlipidemia, unspecified Treatment: start statin. Goal LDL is <70. Physical Therapy/Occupational Therapy Evaluation Disposition recommendation: pending Speech and Language Recommendations: evaluation today DVT Prophylaxis Treatment: SHARON madera and SCD s. SQ Heparin. I discussed the philosophy of care with patient and available family, reviewed and updated on plan of care and prognosis. CORE MEASURES: 1) Antithrombotics have been ordered and given before the end of hospital day 2 and continued on discharge. 2) Statins have been ordered for LDL > 100 and will be continued on discharge. 3) Rehab assessment has been ordered 4) Stroke education: I have discussed with the patient and/or family in detail about 1. the signs and symptoms of stroke; 2. the importance of their early recognition and activation of EMS via 911; 3. s troke risk factors have been clearly identified and communicated to the patient ; 4. The importance of taking prescribed medication to treat these risk factors for secondary stroke prevention; and 5. th e importance of regular follow- up appointments to prevent stroke has also been emphasized. Girma Doty MD MS Vascular Neurology [employer] - [facility] Pager: [phone]
--- OUTSIDE RECORDS SUMMARY | 2018-06-20 20:48 | XMS REPORT | Summary of Care ---
:1930 Author Organization [facility] Address [address], [place] [address]- Encounter HQ Lauryn(COLIN) [id number] Date(s): 11/25/16 - 11/26/16 [facility] [address] [place] [address]- [phone] Discharge Disposition: Home or Self Care Attending Physician: Sheikh Ronal Hernadez MD Admitting Physician: Sheikh Ronal Hernadez MD Vital Signs Most recent to oldest [Reference 1 2 3 Range]: Height 167.64 cm 167.64 cm 167.64 cm (11/26/16 12:32 AM) (11/25/16 11:15 PM) (11/25/16 7:32 PM) Current Weight 89.318 kg (11/25/16 11:15 PM) Temperature Oral [96.4-99.1 97.5 DegF 97.4 DegF 97.3 DegF DegF] (11/26/16 3:32 PM) (11/26/16 11:36 AM) (11/26/16 7:51 AM) Blood Pressure [90-140/60-90 154/81 mmHg 146/68 mmHg 121/74 mmHg mmHg] *HI* *HI* (11/26/16 7:51 AM) (11/26/16 3:32 PM) (11/26/16 11:36 AM) Respiratory Rate [14-20 BRMIN] 18 BRMIN 18 BRMIN 18 BRMIN (11/26/16 3:32 PM) (11/26/16 11:36 AM) (11/26/16 7:51 AM) Peripheral Pulse Rate [60-100 88 bpm 84 bpm 86 bpm bpm] (11/26/16 3:32 PM) (11/26/16 11:36 AM) (11/26/16 7:51 AM) Weight 89.455 kg 86.364 kg (11/26/16 12:32 AM) (11/25/16 7:32 PM) Body Mass Index 31.83 m2 30.73 m2 (11/26/16 12:32 AM) (11/25/16 7:32 PM) Problem List Condition Effective Dates Status Health Status Informant Atrial fibrillation(Confirmed) Active Breast ca(Confirmed) Resolved Diverticulosis of colon(Confirmed) Resolved DM (diabetes mellitus)(Confirmed) Resolved Heart attack(Confirmed) Resolved TIA(Confirmed) Resolved Allergies, Adverse Reactions, Alerts Substance Reaction Severity Status morphine Active sulfa drugs Active Medications acetaminophen 650 mg, 2 tab, Route: PO, Drug form: TAB, Q4H, Dosing Weight 89.455, kg, PRN Pain 1-3/Temp > 100.4 F, Start date: 11/26/16 0:33:00 CDT, Duration: 30 day, Stop date: 12/26/16 0:32:00 CDT Notes: Do not exceed 4 gm/day. (Same as: Tylenol) Start Date: 11/26/16 Stop Date: 11/26/16 Status: Discontinuedaspirin 81 mg tablet, enteric coated 81 mg, 1 tab, Route: PO, Drug form: ECTAB, Daily, Dosing Weight 89.455, kg, Start date: 11/27/16 9:00:00 CDT, Duration: 30 day, Stop date: 12/26/16 9:00:00 CDT Notes: Do not crush or chew.(Same As: Ecotrin) Start Date: 11/27/16 Stop Date: 11/26/16 Status: Canceledaspirin 81 mg tablet, enteric coated 81 mg=1 tab, PO, Daily, # 90 tab, 0 Refill(s) Start Date: 11/26/16 Stop Date: 02/24/17 Status: Orderedatorvastatin 80 mg, 2 tab, Route: PO, Drug form: TAB, Bedtime, Dosing Weight 89.455, kg, Start date: 11/26/16 21:00:00 CDT, Duration: 30 day, Stop date: 12/25/16 21:00: 00 CDT Notes: (Same as: Lipitor) Start Date: 11/26/16 Stop Date: 11/26/16 Status: Canceledatorvastatin 80 mg oral tablet 80 mg=1 tab, PO, Bedtime, # 90 tab, 0 Refill(s) Start Date: 11/26/16 Status: OrderedCoumadin 7.5 mg, 1 tab, Route: PO, Drug form: TAB, Q5PM, Dosing Weight 86.364, kg, Start date: 11/25/16 22:00:00 CDT, Duration: 30 day, Stop date: 12/25/16 17:00:00 CDT Notes: Nurse to ensure documentation of patient education per anticoagulation policy.Avoid large intake of vitamin-K containing foods diet.WASTE: F/P - P Waste Black; E - P Waste Black(Same As: Coumadin) Start Date: 11/25/16 Stop Date: 11/26/16 Status: Discontinuedisosorbide mononitrate 30 mg, 1 tab, Route: PO, Drug form: ERTAB, QAM, Dosing Weight 89.455, kg, Start date: 11/27/16 9:00:00 CDT, Duration: 30 day, Stop date: 12/26/16 9:00:00 CDT Notes: (Same as:Imdur)"Do Not Crush" Take on empty stomach/ full glass of water. Do not crush Start Date: 11/27/16 Stop Date: 11/26/16 Status: Canceledlevothyroxine 125 microgram, Route: PO, Drug form: TAB, Daily, Dosing Weight 89.455, kg, Start date: 11/27/16 9:00:00 CDT, Duration: 30 day, Stop date: 12/26/16 9:00:00 CDT Start Date: 11/27/16 Stop Date: 11/26/16 Status: Canceledlevothyroxine 150 microgram, 1 tab, Route: PO, Drug form: TAB, Q630AM, Dosing Weight 86.364, kg, Start date: 11/26/16 6:30:00 CDT, Duration: 30 day, Stop date: 12/25/16 6:30 :00 CDT Notes: Take 1 hour before or 2 hours after meal; Enteral feeds may interefere with the absorption ofthis medication. (Same as: Levothroid) Start Date: 11/26/16 Stop Date: 11/26/16 Status: Voided With Resultslevothyroxine 150 mcg (0.15 mg) oral tablet 150 microgram=1 tab, PO, Q630AM, # 100 tab, 0 Refill(s) Start Date: 11/26/16 Status: OrderedLopressor 50 mg, 1 tab, Route: PO, Drug form: TAB, Q6H, Dosing Weight 89.455, kg, Start date: 11/26/16 18:00:00 CDT, Duration: 30 day, Stop date: 12/26/16 12:00:00 CDT Notes: (Same as: Lopressor) Start Date: 11/26/16 Stop Date: 11/26/16 Status: Canceledmeclizine 25 mg, 2 tab, Route: PO, Drug form: TAB, TID, Dosing Weight 89.455, kg, PRN as needed for dizziness,Start date: 11/26/16 16:47:00 CDT, Duration: 30 day, Stop date: 12/26/16 16:46:00 CDT Notes: (Same as: Antivert) Start Date: 11/26/16 Stop Date: 11/26/16 Status: Discontinuedmetoprolol 5 mg/5 ml INJ 5 mg, 5 mL, Route: IVP, Drug form: INJ, ONCE, Dosing Weight 86.364, kg, Priority : STAT, Start date: 11/25/16 20:08:00 CDT, Stop date: 11/25/16 20:08:00 CDT Notes: (Same as: Lopressor)Push over 2 minutes Start Date: 11/25/16 Stop Date: 11/25/16 Status: CompletedNorco 10/325 oral tablet 1 tab, Route: PO, Drug Form: TAB, Dosing Weight 89.455, kg, Q4H, PRN Abnormal Lab Result, Start date: 11/26/16 16:47:00 CDT, Duration: 30 day, Stop date: 08/13 16:46:00 CDT Notes: Do not exceed 4gm/day of acetaminophen. (Same as: [place] 325/10) Start Date: 11/26/16 Stop Date: 11/26/16 Status: Discontinuedondansetron 4 mg, 2 mL, Route: IVP, Drug form: INJ, Q6H, Dosing Weight 89.455, kg, PRN Nausea & Vomiting, Start date: 11/26/16 0:33:00 CDT, Duration: 30 day, Stop date: 12/26/16 0:32:00 CDT Notes: (Same as: Johnnie) MEDICATION WASTE Product Size: 4 mgProduct Wasted: ___ mg Start Date: 11/26/16 Stop Date: 11/26/16 Status: DiscontinuedProtonix 40 mg, Route: IVP, Drug form: INJ, ONCE, Dosing Weight 86.364, kg, Patient is NPO, Priority: STAT, Start date: 11/25/16 21:56:00 CDT, Stop date: 11/25/16 21: 56:00 CDT Notes: For IV push reconstitute with 10 ml 0.9% sodium chloride and push over 2 minutes. (Same as: Protonix) Start Date: 11/25/16 Stop Date: 11/25/16 Status: CompletedProtonix 40 mg, Route: IVP, Drug form: INJ, Daily, Dosing Weight 86.364, kg, Patient is NPO, Start date: 11/26/16 9:00:00 CDT, Duration: 30 day, Stop date: 12/25/16 9: 00:00 CDT Notes: For IV push reconstitute with 10 ml 0.9% sodium chloride and push over 2 minutes. (Same as: Protonix) Start Date: 11/26/16 Stop Date: 11/26/16 Status: DiscontinuedSaline Flush 0.9% 10 ml, Route: IVP, Drug Form: INJ, Dosing Weight 89.455, kg, PRN, PRN Line Flush , Start date: 11/26/16 0:33:00 CDT, Duration: 30 day, Stop date: 12/26/16 0:32: 00 CDT Notes: Same as: BD Posiflush Sterile Start Date: 11/26/16 Stop Date: 11/26/16 Status: Discontinuedsodium chloride 0.45% 1000 ml INJ 1,000 mL 1,000 mL, Rate: 100 ml/hr, Infuse over: 10 hr, Route: IV, Dosing Weight 89.455 kg, Total Volume: 1,000, Start date: 11/26/16 0:33:00 CDT, Duration: 30 day, Stop date: 12/26/16 0:32:00 CDT Start Date: 11/26/16 Stop Date: 11/26/16 Status: Discontinuedwarfarin 7.5 mg oral tablet 7.5 mg=1 tab, PO, Q5PM, # 30 tab, 0 Refill(s) Start Date: 11/26/16 Status: OrderedZofran 4 mg, 2 mL, Route: IVP, Drug form: INJ, Q4H, Dosing Weight 86.364, kg, PRN Nausea, Start date: 11/26/16 0:33:00 CDT, Duration: 30 day, Stop date: 12/26/16 0:32:00 CDT Notes: (Same as: Zofran) MEDICATION WASTE Product Size: 4 mgProduct Wasted: ___ mg Start Date: 11/26/16 Stop Date: 11/26/16 Status: DiscontinuedZofran 4 mg, Route: IV, ONCE, Dosing Weight 86.364, kg, Start date: 11/25/16 21:24:00 CDT, Stop date: 11/25/16 21:24:00 CDT Start Date: 11/25/16 Stop Date: 11/25/16 Status: CompletedZofran 4 mg, Route: IV, ONCE, Dosing Weight 86.364, kg, Start date: 11/25/16 20:11:00 CDT, Stop date: 11/25/16 20:11:00 CDT Start Date: 11/25/16 Stop Date: 11/25/16 Status: Completed Results ELECTROLYTES Most recent to oldest [Reference Range]: 1 Sodium Lvl [135-145 mEq/L] 143 mEq/L (11/25/16 8:18 PM) Potassium Lvl [3.5-5.1 mEq/L] 3.7 mEq/L (11/25/16 8:18 PM) Chloride Lvl [95-109 mEq/L] 107 mEq/L (11/25/16 8:18 PM) CO2 [24-32 mEq/L] 25 mEq/L (11/25/16 8:18 PM) AGAP [10.0-20.0 mEq/L] 14.7 mEq/L (11/25/16 8:18 PM) CHEM PANEL Most recent to oldest [Reference Range]: 1 Creatinine Lvl [0.50-1.40 mg/dL] 1.06 mg/dL (11/25/16 8:18 PM) eGFR 47 mL/min/1.73m2 1 *NA* (11/25/16 8:18 PM) BUN [7-22 mg/dL] 16 mg/dL (11/25/16 8:18 PM) B/C Ratio [6-25] 15 (11/25/16 8:18 PM) Glucose Lvl [70-99 mg/dL] 168 mg/dL *HI* (11/25/16 8:18 PM) Total Protein [6.4-8.4 g/dL] 7.8 g/dL (11/25/16 8:18 PM) Albumin Lvl [3.5-5.0 g/dL] 3.9 g/dL (11/25/16 8:18 PM) Globulin [2.7-4.2 g/dL] 3.9 g/dL (11/25/16 8:18 PM) A/G Ratio [0.7-1.6] 1.0 (11/25/16 8:18 PM) Calcium Lvl [8.5-10.5 mg/dL] 8.4 mg/dL *LOW* (11/25/16 8:18 PM) Magnesium Lvl [1.8-2.4 mg/dL] 2.1 mg/dL (11/25/16 8:18 PM) ALT [0-65 unit/L] 10 unit/L (11/25/16 8:18 PM) AST [0-37 unit/L] 19 unit/L (11/25/16 8:18 PM) Alk Phos [39-136 unit/L] 117 unit/L (11/25/16 8:18 PM) Bili Total [0.2-1.3 mg/dL] 0.5 mg/dL (11/25/16 8:18 PM) Lipase Lvl [73-393 unit/L] 272 unit/L (11/25/16 8:18 PM) 1Result Comment: The eGFR is calculated using [...] eGFR should be multiplied by the estimated BMI.CARDIAC ENZYMES Most recent to oldest [Reference Range]: 1 Total CK [12-191 unit/L] 112 unit/L (11/25/16 8:18 PM) CK MB [0.5-3.6 ng/mL] 1.8 ng/mL (11/25/16 8:18 PM) CK MB Index [0.0-2.5] 1.6 (11/25/16 8:18 PM) Troponin-I [0.00-0.40 ng/mL] <0.02 ng/mL (11/25/16 8:18 PM) HEMATOLOGY Most recent to oldest [Reference Range]: 1 WBC [3.7-10.4 K/CMM] 6.1 K/CMM (11/25/16 8:18 PM) RBC [4.20-5.40 M/CMM] 4.34 M/CMM (11/25/16 8:18 PM) Hgb [12.0-16.0 g/dL] 12.5 g/dL (11/25/16 8:18 PM) Hct [36.0-48.0 %] 39.0 % (11/25/16 8:18 PM) MCV [80.0-98.0 fL] 89.8 fL (11/25/16 8:18 PM) MCH [27.0-31.0 pg] 28.7 pg (11/25/16 8:18 PM) MCHC [32.0-36.0 g/dL] 32.0 g/dL (11/25/16 8:18 PM) RDW [11.5-14.5 %] 17.2 % *HI* (11/25/16 8:18 PM) Platelet [133-450 K/CMM] 159 K/CMM (11/25/16 8:18 PM) MPV [7.4-10.4 fL] 8.7 fL (11/25/16 8:18 PM) Segs [45.0-75.0 %] 70.0 % (11/25/16 8:18 PM) Lymphocytes [20.0-40.0 %] 21.0 % (11/25/16 8:18 PM) Monocytes [2.0-12.0 %] 6.6 % (11/25/16 8:18 PM) Eosinophils [0.0-4.0 %] 1.8 % (11/25/16 8:18 PM) Basophils [0.0-1.0 %] 0.6 % (11/25/16 8:18 PM) Segs-Bands # [1.5-8.1 K/CMM] 4.3 K/CMM (11/25/16 8:18 PM) Lymphocytes # [1.0-5.5 K/CMM] 1.3 K/CMM (11/25/16 8:18 PM) Monocytes # [0.0-0.8 K/CMM] 0.4 K/CMM (11/25/16 8:18 PM) Eosinophils # [0.0-0.5 K/CMM] 0.1 K/CMM (11/25/16 8:18 PM) PT [12.0-14.7 seconds] 16.9 seconds *HI* (11/25/16 8:18 PM) INR [0.85-1.17] 1.35 *HI* (11/25/16 8:18 PM) PTT [22.9-35.8 seconds] 33.5 seconds (11/25/16 8:18 PM) Immunizations Given and Recorded Vaccine Date Status Refusal Reason pneumococcal 13-valent vaccine1 11/26/16 Given Not Given Vaccine Date Status Refusal Reason pneumococcal 13-valent vaccine2 11/26/16 Not Given Patient Refuses 1Result Comment: patient [id number] Comment: During admission patient said she would [...]
--- OUTSIDE RECORDS SUMMARY | 2018-06-20 20:48 | XMS REPORT | Summary of Care ---
:1930 Author Organization [facility] Address [address], [place] [address]- Encounter HQ Cheri_erwin(FIN) [id number] Date(s): 11/16/16 - 11/16/[address] Professional Services provided by [facility] [place] [address]- Discharge Disposition: Home or Self Care Attending Physician: Barbara Juarez MD Vital Signs Most recent to oldest 1 2 3 [Reference Range]: Height 167.64 cm (11/16/16 4:43 PM) Temperature Oral [96.4-99.1 97.8 DegF 97.6 DegF 97.4 DegF DegF] (11/16/16 9:29 PM) (11/16/16 7:30 PM) (11/16/16 6:17 PM) Blood Pressure [90-140/60-90 137/90 mmHg 135/89 mmHg 139/96 mmHg mmHg] (11/16/16 9:29 PM) (11/16/16 7:30 PM) (11/16/16 6:17 PM) Respiratory Rate [14-20 BRMIN] 19 BRMIN 18 BRMIN 18 BRMIN (11/16/16 9:29 PM) (11/16/16 7:30 PM) (11/16/16 6:17 PM) Peripheral Pulse Rate [60-100 87 bpm 80 bpm 82 bpm bpm] (11/16/16 9:29 PM) (11/16/16 7:30 PM) (11/16/16 6:17 PM) Weight 86.364 kg (11/16/16 4:43 PM) Body Mass Index 30.73 m2 (11/16/16 4:43 PM) Problem List Condition Effective Dates Status Health Status Informant Breast ca(Confirmed) Resolved Diverticulosis of colon(Confirmed) Resolved DM (diabetes mellitus)(Confirmed) Resolved Heart attack(Confirmed) Resolved TIA(Confirmed) Resolved Allergies, Adverse Reactions, Alerts Substance Reaction Severity Status morphine Active sulfa drugs Active Medications Tylenol 650 mg, 2 tab, Route: PO, Drug form: TAB, ONCE, Dosing Weight 86.364, kg, Priority: STAT, Start date: 11/16/16 19:48:00 CDT, Stop date: 11/16/16 19:48:00 CDT Notes: Do not exceed 4 gm/day. (Same as: Tylenol) Start Date: 11/16/16 Stop Date: 11/16/16 Status: Completed Results ELECTROLYTES Most recent to oldest [Reference Range]: 1 Sodium Lvl [135-145 mEq/L] 144 mEq/L (11/16/16 5:40 PM) Potassium Lvl [3.5-5.1 mEq/L] 3.7 mEq/L (11/16/16 5:40 PM) Chloride Lvl [95-109 mEq/L] 107 mEq/L (11/16/16 5:40 PM) CO2 [24-32 mEq/L] 29 mEq/L (11/16/16 5:40 PM) AGAP [10.0-20.0 mEq/L] 11.7 mEq/L (11/16/16 5:40 PM) CHEM PANEL Most recent to oldest [Reference Range]: 1 Creatinine Lvl [0.50-1.40 mg/dL] 1.34 mg/dL (11/16/16 5:40 PM) eGFR 36 mL/min/1.73m2 1 *NA* (11/16/16 5:40 PM) BUN [7-22 mg/dL] 23 mg/dL *HI* (11/16/16 5:40 PM) Glucose Lvl [70-99 mg/dL] 168 mg/dL *HI* (11/16/16 5:40 PM) Calcium Lvl [8.5-10.5 mg/dL] 8.4 mg/dL *LOW* (11/16/16 5:40 PM) 1Result Comment: The eGFR is calculated [...] eGFR should be multiplied by the estimated BMI.HEMATOLOGY Most recent to oldest [Reference Range]: 1 WBC [3.7-10.4 K/CMM] 4.5 K/CMM (11/16/16 5:40 PM) RBC [4.20-5.40 M/CMM] 4.09 M/CMM *LOW* (11/16/16 5:40 PM) Hgb [12.0-16.0 g/dL] 11.9 g/dL *LOW* (11/16/16 5:40 PM) Hct [36.0-48.0 %] 36.1 % (11/16/16 5:40 PM) MCV [80.0-98.0 fL] 88.3 fL (11/16/16 5:40 PM) MCH [27.0-31.0 pg] 29.1 pg (11/16/16 5:40 PM) MCHC [32.0-36.0 g/dL] 32.9 g/dL (11/16/16 5:40 PM) RDW [11.5-14.5 %] 17.7 % *HI* (11/16/16 5:40 PM) Platelet [133-450 K/CMM] 145 K/CMM (11/16/16 5:40 PM) MPV [7.4-10.4 fL] 9.0 fL (11/16/16 5:40 PM) Segs [45.0-75.0 %] 63.5 % (11/16/16 5:40 PM) Lymphocytes [20.0-40.0 %] 24.0 % (11/16/16 5:40 PM) Monocytes [2.0-12.0 %] 7.5 % (11/16/16 5:40 PM) Eosinophils [0.0-4.0 %] 4.5 % *HI* (11/16/16 5:40 PM) Basophils [0.0-1.0 %] 0.5 % (11/16/16 5:40 PM) Segs-Bands # [1.5-8.1 K/CMM] 2.9 K/CMM (11/16/16 5:40 PM) Lymphocytes # [1.0-5.5 K/CMM] 1.1 K/CMM (11/16/16 5:40 PM) Monocytes # [0.0-0.8 K/CMM] 0.3 K/CMM (11/16/16 5:40 PM) Eosinophils # [0.0-0.5 K/CMM] 0.2 K/CMM (11/16/16 5:40 PM) PT [12.0-14.7 seconds] 23.3 seconds *HI* (11/16/16 5:40 PM) INR [0.85-1.17] 2.03 *HI* (11/16/16 5:40 PM) Immunizations No data available for this section [...]
--- OUTSIDE RECORDS SUMMARY | 2018-06-20 20:48 | XMS REPORT | Summary of Care ---
:1930 Author Organization [facility] Address [address] [place], [place] [address]- Encounter HQ Lauryn(FIN) [id number] Date(s): 10/28/16 - 11/26/16 [facility] [address] [place] [address] [place] Discharge Disposition: Home or Self Care [...] Status morphine Active sulfa drugs Active Medications No data available for this section Results HEMATOLOGY Most recent to oldest [Reference Range]: 1 POC PT [12.0-14.7 seconds] 17.4 seconds *HI* (11/18/16 3:18 PM) POC INR [0.9-1.2] 1.5 *HI* (11/18/16 3:18 PM) Immunizations Given and Recorded Vaccine Date Status Refusal Reason pneumococcal 13-valent vaccine1 11/26/16 Given Not Given Vaccine Date Status Refusal Reason pneumococcal 13-valent vaccine2 11/26/16 Not Given Patient Refuses 1Result Comment: patient [id number] Comment: During admission patient said she would [...]
--- OUTSIDE RECORDS SUMMARY | 2018-06-20 20:48 | XMS REPORT | Summary of Care ---
:1930 Author Organization [facility] Address [address], [place] [address]- Encounter HQ Lauryn(COLIN) [id number] Date(s): 09/19/16 - 10/18/16 [facility] [address] [place] [address]- [place] Discharge Disposition: Home or Self Care Attending Physician: Physician, Non Associated MD Referring Physician: Jose Cruz Dolan MD Vital Signs Most recent to oldest [Reference Range]: 1 Height 167.64 cm (09/19/16 10:57 AM) Blood Pressure [90-140/60-90 mmHg] 136/74 mmHg (09/19/16 10:57 AM) Peripheral Pulse Rate [60-100 bpm] 80 bpm (09/19/16 10:57 AM) Weight 86.875 kg (09/19/16 10:57 AM) Body Mass Index 30.91 m2 (09/19/16 10:57 AM) Problem List Condition Effective Dates Status Health Status Informant Breast ca(Confirmed) Resolved Diverticulosis of colon(Confirmed) Resolved DM (diabetes mellitus)(Confirmed) Resolved Heart attack(Confirmed) Resolved TIA(Confirmed) Resolved Allergies, Adverse Reactions, Alerts Substance Reaction Severity Status morphine Active Medications meclizine 25 mg oral tablet 25 mg=1 tab, PO, TID, PRN Other-See Comments, # 30 tab, 0 Refill(s) Start Date: 09/19/16 Stop Date: 09/29/16 Status: OrderedNorco 10/325 oral tablet 1 tab, PO, Q4H, PRN for pain, # 24 tab, 0 Refill(s) Start Date: 09/19/16 Stop Date: 09/23/16 Status: Ordered Results HEMATOLOGY Most recent to oldest [Reference Range]: 1 POC PT [12.0-14.7 seconds] 24.6 seconds *HI* (09/19/16 10:58 AM) POC INR [0.9-1.2] 2.1 *HI* (09/19/16 10:58 AM) Immunizations No data available for this [...]
[2018-06-20] MEDS ORDERED: NA CHLORIDE 0.9% 1,000 ML ONE (21:19)
[2018-06-20] MEDS ORDERED: ONDANSETRON 4 MG/2 ML VIAL ONE (21:19)
[2018-06-20 21:43] LABS: Absolute Lymphocytes (CBC) 0.5 K/uL (0.7-4.9); Absolute Monocytes 0.2 K/uL (0.1-1.3); Absolute Neutrophil 4.7 K/uL (1.8-8.0); Basophils % 0.3 % (0-1.3); Eosinophils % 0.9 % (0-4.4); Hematocrit 42.6 % (36.0-45.0); Lymphocytes % 8.4 % (15.3-44.8); MCH 28.5 pg (27.0-35.0); MCV 87.9 fL (80-100); MPV 9.8 fL (7.6-11.3); Monocytes % 4.4 % (3.3-12.3); RBC Red Blood Cell Count 4.84 M/uL (3.86-4.86)
[2018-06-20 21:51] LABS: Albumin 3.7 g/dL (3.4-5.0); Bilirubin Direct 0.2 mg/dL (0-0.2); Bilirubin Total 0.5 mg/dL (0.2-1.0); Potassium 3.8 mmol/L (3.5-5.1); Protein, Total 7.5 g/dL (6.4-8.2)
[2018-06-20 22:21] LABS: Blood Morphology Comment NOT SEEN (NOT SEEN); Platelet Estimate ADEQ
[2018-06-20] MEDS ORDERED: CEFTRIAXONE/SWI 1gm 1 GM/10 ML SYR ONE (23:02)
[2018-06-20] MEDS ORDERED: METRONIDAZOLE 500mg IVPB 500 MG/100 ML BAG IV ONE (23:02)
--- NOTE | 2018-06-21 00:32 | ER ---
Nurse's Notes [facility] Name: Kortney Brar Age: 87 yrs Sex: Female : 1930 Arrival Date: 06/20/2018 Time: 20:50 Bed 28 Private MD: Diagnosis: Acute pancreatitis, unspecified Presentation: 06/20 20:51 Presenting complaint: EMS states: Called to residence pt reports she ate turkey and ham ea around 2 PM reported she started having nausea/ vomiting and diarrhea about an hour ago. Transition of care: patient was not received from another setting of care. Onset of symptoms was June 20, 2018. Risk Assessment: Do you want to hurt yourself or someone else? Patient reports no desire to harm self or others. Initial Sepsis Screen: Does the patient meet any 2 criteria? No. Patient's initial sepsis screen is negative. Does the patient have a suspected source of infection? No. Patient's initial sepsis screen is negative. Care prior to arrival: None. 20:51 Method Of Arrival: EMS: [facility] ea 20:51 Acuity: JASON 3 ea Triage Assessment: 20:55 General: Appears uncomfortable, Behavior is calm, cooperative, appropriate for age. ea Pain: Complains of pain in abdomen Quality of pain is described as aching, crampy. Neuro: Level of Consciousness is awake, alert, obeys commands, Oriented to person, place, time, situation. Cardiovascular: Patient's skin is warm and dry. Respiratory: Airway is patent Respiratory effort is even, unlabored, Respiratory pattern is regular, symmetrical. GI: Bowel sounds present X 4 quads. Abd is soft X 4 quads Abdomen is tender to palpation X 4 quads. Reports lower abdominal pain, upper abdominal pain, cramping, diarrhea, nausea, vomiting, since 1 hour ago. : No signs and/or symptoms were reported regarding the genitourinary system. Derm: Skin is pink, warm \T\ dry. Historical: - Allergies: 20:55 Codeine; ea 20:55 Demerol; ea 20:55 Morphine; ea 20:55 sulfamethoxazole; ea 20:55 TRIMETHOPRIM; ea - Home Meds: 20:55 aspirin 81 mg Oral TbEC [Active]; Coumadin 4 mg Oral tab 1 tab once daily [Active]; ea levothyroxine 125 mcg tab 1 tab once daily [Active]; Lipitor 80 mg Oral tab 1 tab once daily [Active]; - PMHx: 20:55 TIA; stents; heart attack; GI Bleed; Diabetes - NIDDM; chronic uti; Atrial Fib; ea - PSHx: 20:55 stents; ea - Immunization history:: Adult Immunizations up to date. - Social history:: Smoking status: Patient/guardian denies using tobacco, Patient/guardian denies using alcohol, street drugs, The patient lives with family. - Ebola Screening: : No symptoms or risks identified at this time. - Family history:: not pertinent, pertinent for. - Hospitalizations: : No recent hospitalization is reported. Screenin:56 Abuse screen: Denies threats or abuse. Nutritional screening: No deficits noted. ea Tuberculosis screening: No symptoms or risk factors identified. Fall Risk None identified. Assessment: 22:09 Reassessment: Patient and/or family updated on plan of care and expected duration. Pain ea level reassessed. Patient is alert, oriented x 3, equal unlabored respirations, skin warm/dry/pink. 23:55 Reassessment: Patient and/or family updated on plan of care and expected duration. Pain ea level reassessed. Patient is alert, oriented x 3, equal unlabored respirations, skin warm/dry/pink. 06/21 00:14 Reassessment: Patient and/or family updated on plan of care and expected duration. Pain ea level reassessed. Patient is alert, oriented x 3, equal unlabored respirations, skin warm/dry/pink. 01:50 Reassessment: Patient and/or family updated on plan of care and expected duration. Pain ea level reassessed. Pt resting with eyes closed, respirations even and unlabored. Chest expansions even and symmetrical. Vital Signs: 06/20 20:55 BP 133 / 77; Pulse 80; Resp 18; Temp 97.5; Pulse Ox 99% ; Weight 62.6 kg; Height 5 ft. ea 7 in. (170.18 cm); Pain 0/10; 21:55 BP 138 / 70; Pulse 60; Resp 18; Pulse Ox 98% on R/A; ea 23:55 BP 140 / 70; Pulse 67; Resp 18; Pulse Ox 98% on R/A; ea 06/21 00:45 BP 142 / 68; Pulse 88; Resp 18; Pulse Ox 99% ; ea 01:50 BP 150 / 60; Pulse 78; Resp 18; Pulse Ox 99% ; ea 06/20 20:55 Body Mass Index 21.61 (62.60 kg, 170.18 cm) ea ED Course: 06/20 20:50 Patient arrived in ED. ea 20:51 Carmen Michaels, DEWEY is Primary Nurse. ea 20:52 Triage completed. ea 20:55 Yoly Brandt MD is Attending Physician. ma2 20:56 Patient has correct armband on for positive identification. Bed in low position. Call ea light in reach. Adult w/ patient. 20:57 Arm band placed on right wrist. Patient placed in an exam room, on a stretcher. ea 21:20 Inserted saline lock: 22 gauge in left forearm, using aseptic technique. Blood ea collected. 22:21 Notified ED physician of a critical lab result(s). band count of 15% Dr Debora vera notified. 22:41 CT Abd/Pelvis - W/Contrast: no po contrast In Process Unspecified. EDMS 06/21 00:31 Yoly Melara MD is Hospitalizing Provider. ma2 00:38 No provider procedures requiring assistance completed. Patient admitted, IV remains in ea place. Administered Medications: 06/20 21:15 Drug: NS 0.9% 1000 ml Route: IV; Rate: 1 bolus; Site: left forearm; ea 22:30 Follow up: Response: No adverse reaction; IV Status: Completed infusion; IV Intake: ea 1000ml 21:15 Drug: Zofran 4 mg Route: IVP; Site: left forearm; ea 22:24 Follow up: Response: No adverse reaction; Nausea is decreased ea 22:58 Drug: Rocephin 1 grams Route: IV; Rate: calculated rate; Site: left forearm; ea 06/21 00:00 Follow up: Response: No adverse reaction; IV Status: Completed infusion ea 06/20 23:02 Drug: Flagyl 500 mg Volume: 100 ml; Route: IVPB; Rate: 200 ml/hr; Infused Over: 30 ea mins; Site: left forearm; 06/21 00:00 Follow up: Response: No adverse reaction; IV Status: Completed infusion ea 00:13 Follow up: Response: No adverse reaction; IV Status: Completed infusion ea Intake: 06/20 22:30 IV: 1000ml; Total: 1000ml. ea Outcome: 06/21 00:32 Decision to Hospitalize by Provider. ma2 00:38 Instructed on the need for admit, Demonstrated understanding of instructions. ea 02:28 Admitted to ER Hold. Please see [facility] for further documentation. ea 02:28 Condition: stable 16:16 Patient left the ED. iw Signatures: Dispatcher [employer] EDFaina Gomez RN RN bb Williams, Irene, RN RN iw Antunez, Elena, RN RN ea Alzahri, Mohammad, MD MD ma2 Corrections: (The following items were deleted from the chart) 06/20 21:26 20:15 Zofran 4 mg IVP in left forearm yosvany bar
--- NOTE | 2018-06-21 00:32 | EDPHYS ---
Physician Documentation [facility] Name: Kortney Brar Age: 87 yrs Sex: Female : 1930 Arrival Date: 06/20/2018 Time: 20:50 Bed 28 Private MD: ED Physician Yoly Brandt HPI: 06/20 21:07 This 87 yrs old Female presents to ER via EMS with complaints of nausea ma2 vomiting diarrhea. 21:07 The patient presents to the emergency department with nausea, vomiting, diarrhea. ma2 Onset: The symptoms/episode began/occurred gradually, 1 day(s) ago. Possible causes: bad food exposure. Associated signs and symptoms: Pertinent positives: abdominal pain, constipation, diarrhea, Pertinent negatives: anorexia, flatulence, hematuria. The symptoms are described as constant. Severity of pain: At its worst the pain was moderate in the emergency department the pain is unchanged. Severity of symptoms: At their worst the symptoms were moderate in the emergency department the symptoms are unchanged. Historical: - Allergies: 20:55 Codeine; ea 20:55 Demerol; ea 20:55 Morphine; ea 20:55 sulfamethoxazole; ea 20:55 TRIMETHOPRIM; ea - Home Meds: 20:55 aspirin 81 mg Oral TbEC [Active]; Coumadin 4 mg Oral tab 1 tab once daily [Active]; ea levothyroxine 125 mcg tab 1 tab once daily [Active]; Lipitor 80 mg Oral tab 1 tab once daily [Active]; - PMHx: 20:55 TIA; stents; heart attack; GI Bleed; Diabetes - NIDDM; chronic uti; Atrial Fib; ea - PSHx: 20:55 stents; ea - Immunization history:: Adult Immunizations up to date. - Social history:: Smoking status: Patient/guardian denies using tobacco, Patient/guardian denies using alcohol, street drugs, The patient lives with family. - Ebola Screening: : No symptoms or risks identified at this time. - Family history:: not pertinent, pertinent for. - Hospitalizations: : No recent hospitalization is reported. ROS: 21:07 Constitutional: Negative for fever, chills, and weight loss, Cardiovascular: Negative ma2 for chest pain, palpitations, and edema, Respiratory: Negative for shortness of breath, cough, wheezing, and pleuritic chest pain. 21:07 Abdomen/GI: Positive for nausea, vomiting, and diarrhea, Negative for abdominal pain, black/tarry stool, rectal bleeding, flatulence. 21:07 All other systems are negative. Exam: 21:07 Constitutional: This is a well developed, well nourished patient who is awake, alert, ma2 and in no acute distress. Chest/axilla: Normal chest wall appearance and motion. Nontender with no deformity. No lesions are appreciated. Cardiovascular: Regular rate and rhythm with a normal S1 and S2. No gallops, murmurs, or rubs. Normal PMI, no JVD. No pulse deficits. Respiratory: Lungs have equal breath sounds bilaterally, clear to auscultation and percussion. No rales, rhonchi or wheezes noted. No increased work of breathing, no retractions or nasal flaring. Abdomen/GI: Soft, non-tender, with normal bowel sounds. No distension or tympany. No guarding or rebound. No evidence of tenderness throughout. MS/ Extremity: Pulses equal, no cyanosis. Neurovascular intact. Full, normal range of motion. Neuro: Awake and alert, GCS 15, oriented to person, place, time, and situation. Cranial nerves II-XII grossly intact. Motor strength 5/5 in all extremities. Sensory grossly intact. Cerebellar exam normal. Normal gait. Vital Signs: 20:55 BP 133 / 77; Pulse 80; Resp 18; Temp 97.5; Pulse Ox 99% ; Weight 62.6 kg; Height 5 ft. ea 7 in. (170.18 cm); Pain 0/10; 21:55 BP 138 / 70; Pulse 60; Resp 18; Pulse Ox 98% on R/A; ea 23:55 BP 140 / 70; Pulse 67; Resp 18; Pulse Ox 98% on R/A; ea 06/21 00:45 BP 142 / 68; Pulse 88; Resp 18; Pulse Ox 99% ; ea 01:50 BP 150 / 60; Pulse 78; Resp 18; Pulse Ox 99% ; ea 06/20 20:55 Body Mass Index 21.61 (62.60 kg, 170.18 cm) ea MDM: 06/20 20:57 Patient medically screened. ma2 21:07 Differential diagnosis: Cholelithiasis, gastritis, gastroesophageal reflux disease, ma2 pancreatitis. 06/21 00:30 Data reviewed: vital signs, nurses notes, EMS record, radiologic studies. Counseling: I juanita had a detailed discussion with the patient and/or guardian regarding: the historical points, exam findings, and any diagnostic results supporting the discharge/admit diagnosis, the presence of at least one elevated blood pressure reading (>120/80) during this emergency department visit. Response to treatment: the patient's symptoms have mildly improved after treatment. 06/20 21:06 Order name: Basic Metabolic Panel; Complete Time: 22:38 [facility] 06/20 21:06 Order name: CBC with Diff; Complete Time: 22:38 [facility] 06/20 21:06 Order name: Creatinine for Radiology; Complete Time: 22:38 [facility] 06/20 21:06 Order name: Hepatic Function; Complete Time: 22:38 [facility] 06/20 21:06 Order name: Lipase; Complete Time: 22:38 [facility] 06/20 22:18 Order name: Manual Differential; Complete Time: 22:38 [facility] 06/20 23:18 Order name: Urine Dipstick--Ancillary (enter results) [facility] 06/21 04:44 Order name: Creatine Phosphokinase [facility] 06/21 04:44 Order name: CKMB Creatine Kinase MB [facility] 06/21 04:44 Order name: Troponin I [facility] 06/21 05:54 Order name: Lipid Profile [facility] 06/21 05:55 Order name: Troponin I [facility] 06/21 12:16 Order name: CBC with Automated Diff [facility] 06/20 21:06 Order name: IV Saline Lock; Complete Time: 22:09 [facility] 06/20 21:06 Order name: Labs collected and sent; Complete Time: 22:09 [facility] 06/20 21:06 Order name: Urine Dipstick-Ancillary (obtain specimen); Complete Time: 00:13 [facility] 06/20 21:06 Order name: CT Abd/Pelvis - W/Contrast: no po contrast [facility] 06/21 12:32 Order name: Creatine Phosphokinase [facility] 06/21 12:32 Order name: CKMB Creatine Kinase MB [facility] 06/21 12:49 Order name: Comprehensive Metabolic Panel [facility] 06/21 12:49 Order name: Phosphorus [facility] 06/21 12:49 Order name: Magnesium [facility] 06/21 12:49 Order name: Lipase [facility] 06/21 12:53 Order name: Protime (+INR) [facility] 06/21 14:49 Order name: Glucose, Ancillary Testing EDPR Administered Medications: 06/20 21:15 Drug: NS 0.9% 1000 ml Route: IV; Rate: 1 bolus; Site: left forearm; ea 22:30 Follow up: Response: No adverse reaction; IV Status: Completed infusion; IV Intake: ea 1000ml 21:15 Drug: Zofran 4 mg Route: IVP; Site: left forearm; ea 22:24 Follow up: Response: No adverse reaction; Nausea is decreased ea 22:58 Drug: Rocephin 1 grams Route: IV; Rate: calculated rate; Site: left forearm; ea 06/21 00:00 Follow up: Response: No adverse reaction; IV Status: Completed infusion ea 06/20 23:02 Drug: Flagyl 500 mg Volume: 100 ml; Route: IVPB; Rate: 200 ml/hr; Infused Over: 30 ea mins; Site: left forearm; 06/21 00:00 Follow up: Response: No adverse reaction; IV Status: Completed infusion ea 00:13 Follow up: Response: No adverse reaction; IV Status: Completed infusion ea Disposition: 06/21/18 00:32 Hospitalization ordered by Yoly Melara for Inpatient Admission. Preliminary diagnosis is Acute pancreatitis, unspecified. - Bed requested for Telemetry/MedSurg (Inpatient). - Status is Inpatient Admission. iw - Condition is Stable. - Problem is new. - Symptoms are unchanged. UTI on Admission? No Signatures: Dispatcher [employer] [facility] Rosita Ingram RN RN mw Woody, Diana RN Janet Peterson RN RN iw Antunez, Elena, RN RN ea Alzahri, Mohammad, MD MD ma2 Corrections: (The following items were deleted from the chart) 06/20 22:18 21:52 CBC Smear Scan ordered. [facility] 06/21 01:04 00:32 Hospitalization Ordered by Yoly Melara MD for Inpatient Admission. Preliminary diagnosis is Acute pancreatitis, unspecified. Bed requested for Telemetry/MedSurg (Inpatient). Status is Inpatient Admission. Condition is Stable. Problem is new. Symptoms are unchanged. UTI on Admission? No. ma2 12:28 01:04 06/21/2018 00:32 Hospitalization Ordered by Yoly Melara MD for Inpatient dw Admission. Preliminary diagnosis is Acute pancreatitis, unspecified. Bed requested for [facility] ER HOLD. Status is Inpatient Admission. Condition is Stable. Problem is new. Symptoms are unchanged. UTI on Admission? No. mw 16:16 12:28 06/21/2018 00:32 Hospitalization Ordered by Yoly Melara MD for Inpatient iw Admission. Preliminary diagnosis is Acute pancreatitis, unspecified. Bed requested for Telemetry/MedSurg (Inpatient). Status is Inpatient Admission. Condition is Stable. Problem is new. Symptoms are unchanged. UTI on Admission? No. dw
[2018-06-21 01:39] LABS: Urine Blood 1+ (NEG); Urine Glucose NEGATIVE (NEG); Urine Protein NEGATIVE (NEG); Urine Specific Gravity 1.015 (1.005-1.030)
[2018-06-21] MEDS ORDERED: ACETAMINOPHEN 500 MG TAB PO PRN (01:42)
[2018-06-21] MEDS ORDERED: MORPHINE 2 MG/ML SYR IV PRN (01:42)
[2018-06-21] MEDS ORDERED: ONDANSETRON 4 MG/2 ML VIAL IV PRN (01:42)
[2018-06-21] MEDS ORDERED: HYDROMORPHONE HCL 0.5 MG/0.5 ML INJ IV PRN (01:46)
[2018-06-21] MEDS ORDERED: NA CHLORIDE 0.9% 1,000 ML IV SCH (02:00)
[2018-06-21 04:27] VITALS: BMI 22.2
[2018-06-21 04:43] LABS: CKMB Creatine Kinase MB 1.2 ng/mL (0.3-3.6); Creatine Phosphokinase 64 U/L (26-192); Troponin I < 0.02 ng/mL (0.0-0.045)
[2018-06-21] MEDS ORDERED: NA CHLORIDE 0.9% 1,000 ML ONE (05:08)
[2018-06-21] MEDS ORDERED: PNEUMOCOCCAL VACCINE 0.5 ML IMVAC ONE (08:00)
[2018-06-21 12:12] LABS: Absolute Lymphocytes (CBC) 0.8 K/uL (0.7-4.9); Absolute Monocytes 0.3 K/uL (0.1-1.3); Absolute Neutrophil 3.1 K/uL (1.8-8.0); Basophils % 0.5 % (0-1.3); Eosinophils % 1.6 % (0-4.4); Hematocrit 32.4 % (36.0-45.0); Lymphocytes % 19.2 % (15.3-44.8); MCH 28.4 pg (27.0-35.0); MCV 87.3 fL (80-100); MPV 9.7 fL (7.6-11.3); Monocytes % 7.8 % (3.3-12.3); RBC Red Blood Cell Count 3.72 M/uL (3.86-4.86)
[2018-06-21 12:32] LABS: CKMB Creatine Kinase MB < 1.0 ng/mL (0.3-3.6); Creatine Phosphokinase 46 U/L (26-192)
[2018-06-21 12:44] LABS: Protime INR 5.96
[2018-06-21 12:45] LABS: Albumin 2.4 g/dL (3.4-5.0); Bilirubin Total 0.5 mg/dL (0.2-1.0); Magnesium 1.6 mg/dL (1.8-2.4); Phosphorus 2.1 mg/dL (2.5-4.9); Potassium 3.3 mmol/L (3.5-5.1); Protein, Total 5.1 g/dL (6.4-8.2)
[2018-06-21] MEDS ORDERED: MAGNESIUM SULFATE 1 gm IVPB 1 GM/100 ML BAG IV ONE ×2 (12:56→13:30)
[2018-06-21] MEDS ORDERED: CALCIUM GLUC 10% INJ 9.3 MEQ in NA CHLORIDE 0.9% 100 ML IV ONE (13:30)
--- NOTE | 2018-06-21 13:46 | P.HP ---
Certification for Inpatient Patient admitted to: Inpatient With expected LOS: >2 Midnights Patient will require the following post-hospital care: None Practitioner: I am a practitioner with admitting privileges, knowledge of patient current condition, hospital course, and medical plan of care. Services: Services provided to patient in accordance with Admission requirements found in Title 42 Section 412.3 of the Code of Federal Regulations Patient History Date of Service: 06/21/18 Reason for admission: Acute pancreatitis History of Present Illness: Patient is an 87-year-old female who came the hospital with abdominal pain along with nausea and vomiting. Patient was diagnosed with acute pancreatitis. Patient states she has never had pancreatitis before. She does have a lot of other chronic medical issues. She has coronary artery disease with atrial fibrillation. She was in the hospital quite regularly up until a couple of years ago. She apparently moved out of town. She presents with abdominal pain along with nausea and vomiting. We admitted her for treatment of her acute pancreatitis. She may need an MRCP to further evaluate this. Patient's UA also will appears to have leukocyte and nitrates. Will get a UA microscopy in the start on antibiotics. Patient had a bandemia for unknown etiology. Repeat labs later today. She also has a history fibrillation and currently she is in AFib with normal ventricular response. Will continue to monitor her cardiac status closely. Allergies codeine [Codeine] Allergy (Mild, Verified 11/29/14 23:09) Hives/Rash nitrofurantoin [From Macrobid] Allergy (Verified 11/29/14 23:09) Unknown nitrofurantoin macrocrystal [From Macrobid] Allergy (Verified 11/29/14 23:09) Unknown sulfamethoxazole [From Bactrim] Allergy (Verified 09/24/15 00:27) Itching/Hives/Rash trimethoprim [From Bactrim] Allergy (Verified 09/24/15 00:27) Itching/Hives/Rash morphine Adverse Reaction (Mild, Verified 11/29/14 23:09) Hives/Rash De Allergy (Uncoded 11/07/16 01:27) Unknown Doxycycline Allergy (Uncoded 11/29/14 23:09) Unknown No Known Aller Allergy (Uncoded 02/20/16 22:12) Unknown Home Medications: Levothyroxine Sodium 150 mcg PO DAILY 08/09/14 Aspirin 81 mg PO DAILY 06/21/18 Atorvastatin Calcium [Lipitor*] 80 mg PO DAILY 06/21/18 Warfarin Sodium [Coumadin] 4 mg PO DAILY 06/21/18 - Past Medical/Surgical History Diabetic: Yes -: heart tumor -: pneumonia -: gastritis,with polyps -: gastric ulcers -: diverticuitis -: a-fib -: uterine prolapse -: hyperlipidemia -: hypothyroidism -: CAD -: cardiac stents -: UTI -: 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 moist/pink, EOMI, Sclerae nonicteric Neck: Supple, 2+ carotid pulse no bruit, No LAD, Without JVD or thyroid abnormality Respiratory: Clear to auscultation bilaterally, Normal air movement Cardiovascular: Normal S1 S2, Irregular heart rate/rhythm, Systolic murmur Gastrointestinal: Normal bowel sounds, Soft and benign, Non-distended, No rebound, No guarding, Tenderness (minimal) Musculoskeletal: No clubbing, No swelling, No tenderness Integumentary: No rashes Neurological: Normal speech, Normal tone, Sensation intact, Cranial nerves 3-12 intact, Normal affect, Abnormal gait, Abnormal strength Lymphatics: No axilla or inguinal lymphadenopathy - Studies Laboratory Data (last 24 hrs) 06/20/18 21:23: Creatinine 1.20 06/20/18 21:23: WBC 5.5, Hgb 13.8, Hct 42.6, Plt Count 117 L 06/20/18 21:23: Sodium 143, Potassium 3.8, BUN 15, Creatinine 1.20, Glucose 139 H, Total Bilirubin 0.5, AST 32, ALT 16, Alkaline Phosphatase 111, Lipase 732 H Assessment & Plan - Problems (Diagnosis) (1) Acute pancreatitis Current Visit: Yes Status: Acute (2) Atrial fibrillation Onset Date: 11/14/14 Current Visit: No Status: Acute (3) CAD (coronary artery disease) Onset Date: 11/14/14 Current Visit: No Status: Acute (4) Hyperlipidemia Current Visit: No Status: Chronic (5) Hypertension Current Visit: No Status: Chronic (6) UTI (urinary tract infection) Current Visit: Yes Status: Acute (7) Coagulopathy Current Visit: Yes Status: Acute (8) Hypocalcemia Current Visit: Yes Status: Acute (9) Bandemia Current Visit: Yes Status: Acute (10) Hypoalbuminemia Current Visit: Yes Status: Acute - Plan 1. Continue with IV hydration 2. Continue with IV antibiotics 3. Continue with pain control 4. NPO 5. GI consultation; may get MRCP to further evaluate 6. Serial H&H, and we will monitor CBC, BMP, LFTs and lipase along with electrolytes. 7. GI and DVT prophylaxis Discharge Plan: Home Plan to discharge in: Greater than 2 days - Advance Directives Does patient have a Living Will: No Does patient have a Durable POA for Healthcare: No - Code Status/Comfort Care Code Status Assessed: Yes Code Status: Full Code Critical Care: No Time Spent Managing PTS Care (In Minutes): 55
[2018-06-21] MEDS ORDERED: POTASSIUM PHOS IN 0.9 % NACL 15 MMOL/250 ML BAG IV ONE (14:00)
--- NOTE | 2018-06-21 14:09 | RAD REPORT ---
EXAM DESCRIPTION: CTAbdomen Pelvis W Contrast - 06/21/2018 3:17 am CLINICAL HISTORY: Abdominal pain. ABD PAIN COMPARISON: CT ABD PELVIS W CONTRAST dated 09/24/2015; CT ABD PELVIS W CONTRAST dated 08/09/2015; CT A BD PELVIS W CONTRAST dated 05/19/2015; CT ABD PELVIS W CONTRAST dated 11/11/2014 TECHNIQUE: Biphasic CT imaging of the abdomen and pelvis was performed with 100 ml non-ionic IV cont rast. All CT scans are performed using dose optimization technique as appropriate and may include automated exposure control or mA/KV adjustment according to patient size. FINDINGS: Emphysematous changes are present in both lung bases with linear subsegmental atelectasis in the left base. Mild diffuse fatty liver is seen with pneumobilia present. The gallbladder surgically absent. The spl een, adrenal glands and kidneys are within normal limits. Several benign left renal cysts are present . The pancreas is unremarkable. No bowel obstruction, free air, free fluid or abscess. Sigmoid diverticulosis is present without dive rticulitis. The appendix is not identified as a discrete structure, however, no secondary findings of appendicitis are identified. Mild mesenteric edema is present in the small bowel mesentery with a few small lymph nodes present. Prominent degenerative changes at L5-S1 with grade 1 anterolisthesis. IMPRESSION: Mild fat stranding is present in the small bowel mesenteric which is nonspecific but can be seen in mild panniculitis. Descending colon and sigmoid colon diverticulosis is present without diverticulitis. 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
[2018-06-21] MEDS: NA CHLORIDE 0.9% 1,000 ML IV SCH ×3 (15:32→21:07)
[2018-06-21 19:19] LABS: CKMB Creatine Kinase MB < 1.0 ng/mL (0.3-3.6); Creatine Phosphokinase 66 U/L (26-192)
[2018-06-21] MEDS ORDERED: ZOLPIDEM TARTRATE 5 MG TABLET PO PRN (19:40)
[2018-06-21] MEDS ORDERED: ZOLPIDEM TARTRATE 5 MG TABLET ONE (20:29)
[2018-06-21] MEDS: NYSTATIN 100MU/GM CREAM 15GM TOP SCH (21:07)
[2018-06-21] MEDS: ATORVASTATIN 80 MG TAB PO SCH (21:07)
[2018-06-21] MEDS ORDERED: METOPROLOL TARTRATE 5 MG/5 ML INJ IV STA (23:07)
[2018-06-21] MEDS ORDERED: CEFTRIAXONE 1 GM/NS 50 ML 1 GM/50 ML BAG IV ONE (23:18)
[2018-06-21] MEDS ORDERED: METOPROLOL TARTRATE 5 MG/5 ML INJ IV ONE (23:30)
--- NOTE | 2018-06-21 23:57 | P.PN ---
- Date of Service Date of Service: 06/21/18 - Subjective Patient went atrial fibrillation with rapid ventricular response. Given IV Lopressor. Patient is resting comfortably with no complaints. Will go ahead and get the EKG now wane can't echocardiogram cardiology Consul for in the morning. Patient's INR is supratherapeutic at this time. - Vital Signs Temp Pulse Resp BP Pulse Ox 98.4 F 78 18 122/95 H 94 06/21/18 23:55 06/21/18 23:55 06/21/18 23:55 06/21/18 23:55 06/21/18 23:55 - Physical Exam Lungs: Bilateral good equal air entry Heart: Other (Irregularly irregular rate rhythm with no murmur) Abdomen: Soft, Bowel sounds are normal with no guarding - Problems (Diagnosis) (1) Acute pancreatitis Current Visit: Yes Status: Acute (2) Atrial fibrillation Onset Date: 11/14/14 Current Visit: No Status: Acute Comment: during start of ERCP with A fib with RVR to 160s and O2 sat to 70s. Procedure terminated and patient recovered (3) CAD (coronary artery disease) Onset Date: 11/14/14 Current Visit: No Status: Acute (4) Hyperlipidemia Current Visit: No Status: Chronic (5) Hypertension Current Visit: No Status: Chronic (6) UTI (urinary tract infection) Current Visit: Yes Status: Acute (7) Coagulopathy Current Visit: Yes Status: Acute (8) Hypocalcemia Current Visit: Yes Status: Acute (9) Bandemia Current Visit: Yes Status: Acute (10) Hypoalbuminemia Current Visit: Yes Status: Acute - Assessment and Plan -Lopressor 5 mg IV push x1 now and repeat in 5 min. Echocardiogram and Cardiology Consult for the morning. Patient INR is supratherapeutic and will continue to monitor. Continue with antibiotics for UTI and wait for urine micro. May need to get MRCP and GI consultation as well. Continue with current plan of care as mentioned below: 1. Continue with IV hydration 2. Continue with IV antibiotics 3. Continue with pain control 4. NPO 5. GI consultation; may get MRCP to further evaluate 6. Serial H&H, and we will monitor CBC, BMP, LFTs and lipase along with electrolytes. 7. GI and DVT prophylaxis - Discharge Plan Discharge Plan: Home Plan to discharge in: Greater than 2 days - Code Status/Comfort Care Code Status: Full Code - Physician Review Critical Care: No Time Spent Managing Pts Care (In Minutes): 50
[2018-06-22] MEDS ORDERED: CEFTRIAXONE/SWI 1gm 0 GM/0 ML SYR ONE (00:24)
[2018-06-22] MEDS ORDERED: CEFTRIAXONE/SWI 1gm 1 GM/10 ML SYR ONE (00:26)
[2018-06-22] MEDS: LEVOTHYROXINE SOD 0.075 MG TAB PO SCH (05:20)
[2018-06-22] MEDS: NA CHLORIDE 0.9% 1,000 ML IV SCH ×2 (05:37→12:00)
[2018-06-22] MEDS ORDERED: METOPROLOL TAR 25 MG TAB PO SCH (06:00)
[2018-06-22 06:41] LABS: Protime INR 4.6
[2018-06-22 06:44] LABS: Thyroid Stimulating Hormone 0.351 uIU/mL (0.360-3.740)
[2018-06-22 07:34] LABS: Absolute Lymphocytes (CBC) 0.8 K/uL (0.7-4.9); Absolute Monocytes 0.3 K/uL (0.1-1.3); Absolute Neutrophil 3.4 K/uL (1.8-8.0); Basophils % 0.3 % (0-1.3); Eosinophils % 3.9 % (0-4.4); Lymphocytes % 16.3 % (15.3-44.8); MCH 28.2 pg (27.0-35.0); MCV 88.1 fL (80-100); MPV 9.9 fL (7.6-11.3); Monocytes % 6.2 % (3.3-12.3); RBC Red Blood Cell Count 4.54 M/uL (3.86-4.86)
[2018-06-22 07:37] LABS: Albumin 3.1 g/dL (3.4-5.0); Bilirubin Total 0.5 mg/dL (0.2-1.0); Magnesium 2.1 mg/dL (1.8-2.4); Phosphorus 3.1 mg/dL (2.5-4.9); Potassium 4.1 mmol/L (3.5-5.1); Protein, Total 6.6 g/dL (6.4-8.2)
[2018-06-22 07:43] LABS: Urine Appearance CLEAR; Urine Bilirubin NEGATIVE (NEG); Urine Blood NEGATIVE (NEG); Urine Color YELLOW; Urine Glucose NEGATIVE (NEG); Urine Protein NEGATIVE (NEG); Urine Urobilinogen 0.2 mg/dL (0.2-1.0); Urine pH 5.5 (5.0-7.0)
[2018-06-22 07:55] LABS: Urine Bacteria NONE SEEN /HPF (<20); Urine Culture Reflex Order NOT NEEDED; Urine RBC <5 /HPF (NONE SEEN)
[2018-06-22] MEDS ORDERED: ASPIRIN 81 MG CHEWABLE TABLET PO SCH (09:00)
[2018-06-22] MEDS ORDERED: WARFARIN SODIUM 4 MG TAB PO SCH (09:00)
[2018-06-22] MEDS ORDERED: CEFTRIAXONE 1 GM/NS 50 ML 1 GM/50 ML BAG IV SCH (09:00)
[2018-06-22] MEDS: NYSTATIN 100MU/GM CREAM 15GM TOP SCH ×2 (09:28→21:14)
[2018-06-22] MEDS: CEFTRIAXONE/SWI 1gm 1 GM/10 ML SYR IV SCH (09:29)
--- NOTE | 2018-06-22 10:27 | EKG ---
Test Date: 2018-06-22 Test Time: 08:59:30 Bilingual Customer Service: GREYSON MEASUREMENT RESULTS: Intervals: Rate: 58 [place]: QRSD: 112 QT: 440 QTc: 431 [place]: P: OR: QRS: 58 T: 53 INTERPRETIVE STATEMENTS: Atrial fibrillation with slow ventricular response with premature ventricular or aberrantly conducted complexes Low voltage QRS Incomplete right bundle branch block Abnormal ECG Compared to ECG 06/21/2018 21:22:43 Ventricular premature complex(es) now present Low QRS voltage now present Electronically Signed On 06-22-18 10:26:50 HOME AIDE by Matthew Willard
--- NOTE | 2018-06-22 10:28 | EKG ---
Test Date: 2018-06-21 Test Time: 21:22:43 Asbestos Worker: JENNIFER MEASUREMENT RESULTS: Intervals: Rate: 67 [place]: QRSD: 112 QT: 450 QTc: 475 [place]: P: [place]: QRS: 63 T: 54 INTERPRETIVE STATEMENTS: Atrial fibrillation with a competing junctional pacemaker Incomplete right bundle branch block Abnormal ECG Compared to ECG 05/28/2016 13:38:51 Incomplete right bundle-branch block now present Sinus bradycardia no longer present Electronically Signed On 06-22-18 10:27:27 REPLENISHMENT BUYER by Matthew Willard
--- NOTE | 2018-06-22 15:27 | CON ---
Chief Complaint: Abdominal pain. Reason For Consult: Atrial fibrillation. History Of Present Illness: Mrs. Brar is a woman who has a past history of atrial fibrillation. She has been in normal sinus rhythm for the most part, but we actually do not have any EKGs over the last 3 years. She has been living in [place]. Her first EKG we did here showed atrial fib, but her EKGs from 2016 were normal rhythm. I believe she is in sinus rhythm now by looking at telemetry and listening to her, so we will repeat an EKG and see if that is true. The patient has a history of an intracoronary stent. She had a cardiac cath in 2014. She takes aspirin, atorvastatin, warfarin, and levothyroxine. She reports drug intolerance to codeine, nitrofurantoin. Social History: She uses no tobacco, no alcohol, no illegal drugs. Physical Examination: Vital Signs: 5 feet 6 inches, 138 pounds. General: Alert, oriented, pleasant, not in distress. Lungs: Clear. Heart: Seems to be regular. Abdomen: Soft. Extremities: Unremarkable. Free T4 is normal. TSH is slightly low. Blood sugars have been close to normal, the highest one I s ee is 123. Calcium level was 6.2. She had a normal lipase level. Amylase has not been checked. A CT of the abdomen. There is mild fat stranding in the small bowel mesentery and the diagnosis is pos sible mild panniculitis. The liver is fatty. There is pneumobilia. Gallbladder surgically absent. There are not any comments made on the pancreas, so I do not think her diagnosis is actually pancrea titis. Her INR is supratherapeutic at 4.6. I think we should initiate therapy with dronedarone to t ry and keep her in normal rhythm. She is fully anticoagulated more than needed. I am not sure what the treatment will be whether it is pancreatitis or panniculitis or what kind of things are in order, but she needs a therapeutic INR. KIMBERLY/WHIT Voice ID: [id number] Report ID: [id number]
--- NOTE | 2018-06-22 15:52 | ECHO ---
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 DOPPLER/COLOR FLOW: MILD TRICUSPID REGURGITATION. MILD PULMONARY HYPERTENSION. ESTIMATED RIGHT VENTRICULAR SYSTOLIC PRESSURE 43mmHg. COMMENTS: NORMAL LEFT VENTRICULAR EJECTION FRACTION. DILATED LEFT ATRIUM. LEFT VENTRICULAR HYPERTROPHY. MILD TRICUSPID REGURGITATION. MILD PULMONARY HYPERTENSION. TECHNOLOGIST: SHAGGY MCBRIDE
[2018-06-22] MEDS ORDERED: HYDROCODONE/APAP 7.5/325 MG TAB PO PRN (17:38)
--- NOTE | 2018-06-22 17:38 | P.PN ---
Subjective Date of Service: 06/22/18 Primary Care Provider: Dr. Miranda; GI-Dr. Carreon; Cardiology-Dr. Aldana Chief Complaint: Acute pancreatitis Subjective: Improving Physical Examination - Vital Signs Temperature: 97.6 F Blood Pressure: 154/72 Pulse: 73 Respirations: 18 Pulse Ox (%): 92 - Physical Exam General: Alert, In no apparent distress, Oriented x3, Cooperative HEENT: Atraumatic Neck: Supple Respiratory: Clear to auscultation bilaterally, Normal air movement Cardiovascular: Normal pulses, Regular rate/rhythm Gastrointestinal: Normal bowel sounds, Soft and benign, Non-distended, No tenderness, No masses, No rebound, No guarding Musculoskeletal: No erythema, No tenderness, No warmth Integumentary: No tenderness/swelling, No erythema, No warmth, No cyanosis Neurological: Normal speech, Normal strength at 5/5 x4 extr, Normal tone, Normal affect - Studies Medications List Reviewed: Yes Assessment & Plan Discharge Plan: Home Plan to discharge in: 24 Hours Physician Review Additional Text: Impression: Abdominal pain secondary to acute pancreatitis with possible panniculitis Atrial fibrillation on chronic anti coagulation therapy Hyperlipidemia Hypothyroidism Plan: Abdominal pain secondary to acute pancreatitis with possible panniculitis: Overall improved. Will advance diet. Patient with history of ERCP procedure in the distant past. Lipase improved. Liver functions unremarkable. Continue with Rocephin. Will ambulate with physical therapy. CT scan reviewed. No significant pancreatitis noted. Anticipate discharge tomorrow. Will discuss with her GI doctor. Atrial fibrillation on chronic anti coagulation therapy: Will continue to hold Coumadin 4 mg daily due to elevated INR. Will recheck and monitor INR. Will continue with her medications sotalol 80 mg 1 pill twice daily. Hyperlipidemia: Will continue with Lipitor. Will monitor and adjust appropriately. Lipid panel unremarkable. Hypothyroidism: Will continue his medication. Will monitor closely. Time Spent Managing Pts Care (In Minutes): 55
[2018-06-22] MEDS: SOTALOL HCL 80 MG TAB PO SCH (18:35)
[2018-06-22] MEDS: NACHLORIDE 0.45% 1,000 ML IV SCH (18:37)
[2018-06-22] MEDS: ATORVASTATIN 80 MG TAB PO SCH (21:12)
[2018-06-23] MEDS: NACHLORIDE 0.45% 1,000 ML IV SCH ×2 (04:30→18:03)
[2018-06-23] MEDS: SOTALOL HCL 80 MG TAB PO SCH ×2 (05:33→17:22)
[2018-06-23] MEDS: LEVOTHYROXINE SOD 0.075 MG TAB PO SCH (05:33)
[2018-06-23 06:02] LABS: Absolute Lymphocytes (CBC) 0.9 K/uL (0.7-4.9); Absolute Monocytes 0.4 K/uL (0.1-1.3); Absolute Neutrophil 3.6 K/uL (1.8-8.0); Basophils % 0.5 % (0-1.3); Eosinophils % 3.4 % (0-4.4); MCH 28.6 pg (27.0-35.0); MCV 87.1 fL (80-100); MPV 9.2 fL (7.6-11.3); Monocytes % 7.6 % (3.3-12.3); RBC Red Blood Cell Count 4.24 M/uL (3.86-4.86)
[2018-06-23 06:10] LABS: Protime INR 3.73
[2018-06-23 06:17] LABS: Albumin 2.9 g/dL (3.4-5.0); Bilirubin Total 0.6 mg/dL (0.2-1.0); Magnesium 2.1 mg/dL (1.8-2.4); Potassium 4.3 mmol/L (3.5-5.1); Protein, Total 6.3 g/dL (6.4-8.2)
[2018-06-23] MEDS: NYSTATIN 500,000 UNIT/5 ML UDC PO SCH ×3 (08:24→20:44)
[2018-06-23] MEDS: NYSTATIN 100MU/GM CREAM 15GM TOP SCH ×2 (08:25→20:44)
[2018-06-23] MEDS: CEFTRIAXONE/SWI 1gm 1 GM/10 ML SYR IV SCH (08:25)
[2018-06-23] MEDS ORDERED: MELATONIN 3 MG TABLET PO PRN (08:35)
--- NOTE | 2018-06-23 12:11 | EKG ---
Test Date: 2018-06-22 Test Time: 21:36:08 Russet Repairer: RT MEASUREMENT RESULTS: Intervals: Rate: 66 [place]: QRSD: 110 QT: 440 QTc: 461 [place]: P: [place]: QRS: 69 T: 57 INTERPRETIVE STATEMENTS: Atrial fibrillation Incomplete right bundle branch block Abnormal ECG Compared to ECG 06/22/2018 08:59:30 Ventricular premature complex(es) no longer present Electronically Signed On 06-23-18 12:09:12 EMAIL MARKETING MANAGER by Jeff Noguera
--- NOTE | 2018-06-23 16:19 | P.PN ---
Subjective Date of Service: 06/23/18 Primary Care Provider: Dr. Miranda; GI-Dr. Carreon; Cardiology-Dr. Aldana Chief Complaint: Acute pancreatitis Subjective: Improving (No significant abdominal pain noted. No significant nausea vomiting. Patient with dry mouth.) Physical Examination - Vital Signs Temperature: 98 F Blood Pressure: 128/59 Pulse: 51 Respirations: 18 Pulse Ox (%): 94 - Physical Exam General: Alert, In no apparent distress, Oriented x3, Cooperative HEENT: Atraumatic, Other (Dry mouth noted) Neck: Supple Respiratory: Clear to auscultation bilaterally, Normal air movement Cardiovascular: Normal pulses, Regular rate/rhythm Gastrointestinal: Normal bowel sounds, Soft and benign, Non-distended, No tenderness, No masses, No rebound, No guarding Musculoskeletal: No erythema, No tenderness, No warmth Integumentary: No tenderness/swelling, No erythema, No warmth, No cyanosis Neurological: Normal speech, Normal strength at 5/5 x4 extr, Normal tone, Normal affect - Studies Medications List Reviewed: Yes Assessment & Plan Discharge Plan: Skilled Nursing Plan to discharge in: 24 Hours Physician Review Additional Text: Impression: Abdominal pain secondary to acute pancreatitis with possible panniculitis Atrial fibrillation on chronic anti coagulation therapy Hyperlipidemia Hypothyroidism Thrush Plan: Abdominal pain secondary to acute pancreatitis with possible panniculitis likely viral: Overall improved. Patient without significant abdominal pain, nausea or vomiting. Will continue with current diet. Patient with history of ERCP procedure in the distant past. Lipase improved. Liver functions unremarkable. CT scan reveals no dialect a rodriguez of biliary system. Continue with physical therapy. Patient currently being assess for skilled placement. Awaiting approval. Will discontinue antibiotic therapy at this time as this is likely viral in nature. Atrial fibrillation on chronic anti coagulation therapy: Will continue to hold Coumadin 4 mg daily due to elevated INR. Will recheck and monitor INR. Restart Coumadin once INR less than 3.0. Will continue with her medications sotalol 80 mg 1 pill twice daily. Hyperlipidemia: Will continue with Lipitor. Will monitor and adjust appropriately. Lipid panel unremarkable. Hypothyroidism: Will continue his medication. Will monitor closely. Thrush: Will start nystatin. Will provide Carafate as needed. Time Spent Managing Pts Care (In Minutes): 55
[2018-06-23] MEDS ORDERED: ENOXAPARIN 30 MG/0.3 ML SQ SCH (17:00)
[2018-06-23] MEDS: SUCRALFATE 1 GM TABLET PO PRN (17:22)
[2018-06-23] MEDS: ATORVASTATIN 80 MG TAB PO SCH (20:44)
--- NOTE | 2018-06-23 23:52 | PN ---
Date of Progress Note: 06/23/2018 Ms. Brar was seen by Dr. Willard for atrial fibrillation. She has been on Coumadin with high INR. Her INR is improving. She is on Betapace right now 80 mg b.i.d. She is in sinus rhythm. We will c ontinue her present medical regimen. Once her INR is back to therapeutic level of about 2.5, we will restart her Coumadin at a lower dose than she was taking. That obviously has to wait till final dec isions regarding her abdominal issues. We will continue to be available for question. ASIF/WHIT Voice ID: [id number] Report ID: [id number]
[2018-06-24] MEDS: SUCRALFATE 1 GM TABLET PO PRN (04:40)
[2018-06-24] MEDS: SOTALOL HCL 80 MG TAB PO SCH (06:00)
[2018-06-24] MEDS: LEVOTHYROXINE SOD 0.075 MG TAB PO SCH (06:46)
[2018-06-24] MEDS: NACHLORIDE 0.45% 1,000 ML IV SCH (06:50)
[2018-06-24 07:28] LABS: Absolute Lymphocytes (CBC) 1.1 K/uL (0.7-4.9); Absolute Monocytes 0.4 K/uL (0.1-1.3); Basophils % 0.9 % (0-1.3); Eosinophils % 3.8 % (0-4.4); Hematocrit 38.4 % (36.0-45.0); Lymphocytes % 22.8 % (15.3-44.8); MCH 28.8 pg (27.0-35.0); MCV 87.9 fL (80-100); MPV 9.6 fL (7.6-11.3); Monocytes % 8.7 % (3.3-12.3); RBC Red Blood Cell Count 4.37 M/uL (3.86-4.86)
[2018-06-24 07:30] LABS: Protime INR 2.23
[2018-06-24 07:42] LABS: Albumin 2.8 g/dL (3.4-5.0); Bilirubin Total 0.8 mg/dL (0.2-1.0); Magnesium 2.1 mg/dL (1.8-2.4); Potassium 3.9 mmol/L (3.5-5.1); Protein, Total 6.3 g/dL (6.4-8.2)
[2018-06-24] MEDS ORDERED: MAGIC MOUTHWASH 180 ML BTL PO PRN (08:10)
[2018-06-24] MEDS: NYSTATIN 100MU/GM CREAM 15GM TOP SCH (09:00)
[2018-06-24] MEDS: NYSTATIN 500,000 UNIT/5 ML UDC PO SCH ×2 (10:03→13:00)
--- NOTE | 2018-06-24 10:54 | RAD REPORT ---
EXAM DESCRIPTION: RAD - Chest Pa And Lat (2 Views) - 06/24/2018 10:33 am CLINICAL HISTORY: Shortness of breath COMPARISON: Nose are 2016 TECHNIQUE: PA and lateral views of the chest were obtained. FINDINGS: The lungs are fibrotic as a baseline. Pattern is not substantially different. Minimal inte rstitial edema or infiltrate could be masked by the degree of chronic change. Heart size is normal ra nge. Trachea is midline. No pleural effusion or pneumothorax seen. Osteopenic and degenerative bony changes are present. There is accentuated kyphosis. Acute vertebral body finding is not suspected. N o aortic abnormality. IMPRESSION: Chronic interstitial lung disease is present without focal consolidation. Early interstitial infiltrate or early interstitial pulmonary edema could be masked by the chronic nazario ng change.
[2018-06-24 11:43] VITALS: O2SAT 95
--- NOTE | 2018-06-24 12:58 | P.DS ---
Admission Date: 06/21/18 Discharge Date: 06/24/18 Primary Care Provider: Dr. Miranda; GI-Dr. Carreon; Cardiology-Dr. Aldana Disposition: TRANSFER TO SNF - MEDICAL Discharge Condition: GOOD Reason for Admission: Acute pancreatitis Consultations: GI-Dr. Carreon Cardiology-Dr. Willard Procedures: CT scan: COMPARISON: CT ABD PELVIS W CONTRAST dated 09/24/2015; CT ABD PELVIS W CONTRAST dated 08/09/2015; CT ABD PELVIS W CONTRAST dated 05/19/2015; CT ABD PELVIS W CONTRAST dated 11/11/2014 TECHNIQUE: Biphasic CT imaging of the abdomen and pelvis was performed with 100 ml non-ionic IV contrast. All CT scans are performed using dose optimization technique as appropriate and may include automated exposure control or mA/KV adjustment according to patient size. FINDINGS: Emphysematous changes are present in both lung bases with linear subsegmental atelectasis in the left base. Mild diffuse fatty liver is seen with pneumobilia present. The gallbladder surgically absent. The spleen, adrenal glands and kidneys are within normal limits. Several benign left renal cysts are present. The pancreas is unremarkable. No bowel obstruction, free air, free fluid or abscess. Sigmoid diverticulosis is present without diverticulitis. The appendix is not identified as a discrete structure, however, no secondary findings of appendicitis are identified. Mild mesenteric edema is present in the small bowel mesentery with a few small lymph nodes present. Prominent degenerative changes at L5-S1 with grade 1 anterolisthesis. IMPRESSION: Mild fat stranding is present in the small bowel mesenteric which is nonspecific but can be seen in mild panniculitis. Descending colon and sigmoid colon diverticulosis is present without diverticulitis. 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 ECHO: EF-64% LEFT VENTRICULAR WALL MOTION: NORMAL. DOPPLER/COLOR FLOW: MILD TRICUSPID REGURGITATION. MILD PULMONARY HYPERTENSION. ESTIMATED RIGHT VENTRICULAR SYSTOLIC PRESSURE 43mmHg. COMMENTS: NORMAL LEFT VENTRICULAR EJECTION FRACTION. DILATED LEFT ATRIUM. LEFT VENTRICULAR HYPERTROPHY. MILD TRICUSPID REGURGITATION. 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 Patient found to have pancreatitis. CT scan revealed mild fat stranding in the small bowel mesenteric area likely mild panniculitis. Patient admitted for further treatment. Hospital Course: Patient presented with abdominal pain, nausea and vomiting. Patient found to have elevated lipase likely related to pancreatitis. CT scan revealed mild diffuse fatty liver. Pancreas appeared unremarkable. Mild mesenteric edema present to the small bowel mesentery with few small lymph nodes noted likely related to panniculitis. Patient was given IV fluids and antibiotic therapy. Patient did well during the course of her stay. Antibiotics were discontinued as white count was unremarkable. This was likely viral in nature. Patient had no significant abdominal pain, nausea vomiting at discharge. She was tolerating her diet. Patient was evaluated for skilled placement. She was approved. At discharge she will continue at skilled facility to continue rehabilitation. No need for further antibiotic at this time. Patient may require GI evaluation as an outpatient to further monitor and address. Patient had thrush to the mouth. Medication was provided. At discharge she will continue with nystatin oral swish and swallow 4 times a day for 7 days. Patient will be provided Magic mouthwash as well to be use as needed. This can be further monitored and treated as an outpatient. Patient has history of chronic atrial fibrillation on chronic anti coagulation therapy. Patient was seen and evaluated by Cardiology. No cardiac intervention was required. Echocardiogram shows normal ejection fraction. INR was slightly elevated upon admission. Coumadin was held during her stay but was restarted once INR therapeutic. She will continue with Coumadin 4 mg daily at discharge. Patient also started on sotalol during her stay. She will also continue with sotalol 80 mg 1 pill twice daily. Patient may follow up with cardiology as an outpatient in 1-2 weeks to follow up this hospitalization and to continue to adjust her medication. Her INR will need to be monitored at least every week. INR goal 2-3. Patient has hyperlipidemia. She will continue with Lipitor 80 mg daily. Patient has hypothyroidism. She will continue with her medication Levoxyl 150 mcg daily. Patient with CAD with prior stent. Patient will continue with aspirin 81 mg daily. Patient likely with GERD. Patient will be started on Protonix 40 mg 1 pill once daily. Patient with degenerative disc and joint disease of the lumbar spine. She will continue with physical therapy. This can be further evaluated as an outpatient. we need to be monitored at least every week. Vital Signs/Physical Exam: Temp Pulse Resp BP Pulse Ox 97.3 F 75 18 96/55 L 95 06/24/18 08:00 06/24/18 08:00 06/24/18 08:00 06/24/18 08:00 06/24/18 08:00 General: Alert, In no apparent distress, Oriented x3, Cooperative HEENT: Atraumatic, Other (Dry mouth noted) Neck: Supple Respiratory: Clear to auscultation bilaterally, Normal air movement Cardiovascular: Irregular heart rate/rhythm (Atrial fibrillation, rate controlled) Gastrointestinal: Normal bowel sounds, Soft and benign, Non-distended, No ascites, No tenderness, No masses, No rebound, No guarding Musculoskeletal: No erythema, No tenderness, No warmth Integumentary: No tenderness/swelling, No erythema, No warmth, No cyanosis Neurological: Normal speech, Normal strength at 5/5 x4 extr, Normal tone, Normal affect Laboratory Data at Discharge: WBC 4.6 K/uL (4.3-10.9) 06/24/18 07:05 Hgb 12.6 g/dL (12.0-15.0) 06/24/18 07:05 Hct 38.4 % (36.0-45.0) 06/24/18 07:05 Plt Count 104 K/uL (152-406) L 06/24/18 07:05 PT 26.5 SECONDS (9.5-12.5) H 06/24/18 07:05 INR 2.23 06/24/18 07:05 Sodium 143 mmol/L (136-145) 06/24/18 07:05 Potassium 3.9 mmol/L (3.5-5.1) 06/24/18 07:05 BUN 11 mg/dL (7-18) 06/24/18 07:05 Creatinine 1.00 mg/dL (0.55-1.3) 06/24/18 07:05 Glucose 98 mg/dL (74-106) 06/24/18 07:05 Phosphorus 3.1 mg/dL (2.5-4.9) 06/22/18 07:07 Magnesium 2.1 mg/dL (1.8-2.4) 06/24/18 07:05 Total Bilirubin 0.8 mg/dL (0.2-1.0) 06/24/18 07:05 AST 28 U/L (15-37) 06/24/18 07:05 ALT 13 U/L (12-78) 06/24/18 07:05 Alkaline Phosphatase 76 U/L (45-117) 06/24/18 07:05 Troponin I < 0.02 ng/mL (0.0-0.045) 06/21/18 05:20 Triglycerides 98 mg/dL (<150) 06/22/18 07:07 Cholesterol 106 mg/dL (<200) 06/22/18 07:07 HDL Cholesterol 31 mg/dL (40-60) L 06/22/18 07:07 Cholesterol/HDL Ratio 3.42 06/22/18 07:07 Lipase 323 U/L (73-393) 06/24/18 07:05 Home Medications: Levothyroxine Sodium 150 mcg PO DAILY 08/09/14 Aspirin 81 mg PO DAILY 06/21/18 Atorvastatin Calcium [Lipitor*] 80 mg PO DAILY 06/21/18 Warfarin Sodium [Coumadin] 4 mg PO DAILY 06/21/18 Magic Mouthwash [Magic Mouthwash*] 15 ml PO QID PRN #1 btl 06/24/18 Nystatin 5 ml PO QID #1 bottle 06/24/18 Pantoprazole [Protonix Tab] 40 mg PO DAILY #30 tab 06/24/18 Sotalol HCl [Betapace*] 80 mg PO BID 6AM 6PM #60 tab 06/24/18 New Medications: Magic Mouthwash [Magic Mouthwash*] 15 ml PO QID PRN #1 btl PRN Reason: Sore Throat Nystatin 5 ml PO QID #1 bottle Pantoprazole [Protonix Tab] 40 mg PO DAILY #30 tab Sotalol HCl [Betapace*] 80 mg PO BID 6AM 6PM #60 tab Patient Discharge Instructions: 1. Patient be transferred to skilled facility to continue her care. 2. Patient presented with abdominal pain, nausea and vomiting. Patient found to have elevated lipase likely related to pancreatitis. CT scan revealed mild diffuse fatty liver. Pancreas appeared unremarkable. Mild mesenteric edema present to the small bowel mesentery with few small lymph nodes noted likely related to panniculitis. Patient was given IV fluids and antibiotic therapy. Patient did well during the course of her stay. Antibiotics were discontinued as white count was unremarkable. This was likely viral in nature. Patient had no significant abdominal pain, nausea vomiting at discharge. She was tolerating her diet. Patient was evaluated for skilled placement. She was approved. At discharge she will continue at skilled facility to continue rehabilitation. No need for further antibiotic at this time. Patient may require GI evaluation as an outpatient to further monitor and address. 3. Patient had thrush to the mouth. Medication was provided. At discharge she will continue with nystatin [id number] units oral swish and swallow 4 times a day for 7 days. Patient will be provided Magic mouthwash as well to be use as needed. This can be further monitored and treated as an outpatient. 4. Patient has history of chronic atrial fibrillation on chronic anti coagulation therapy. Patient was seen and evaluated by Cardiology. No cardiac intervention was required. Echocardiogram shows normal ejection fraction. INR was slightly elevated upon admission. Coumadin was held during her stay but was restarted once INR therapeutic. She will continue with Coumadin 4 mg daily at discharge. Patient also started on sotalol during her stay. She will also continue with sotalol 80 mg 1 pill twice daily. Patient may follow up with cardiology as an outpatient in 1-2 weeks to follow up this hospitalization and to continue to adjust her medication. Her INR will need to be monitored at least every week. INR goal 2-3. 5. Patient has hyperlipidemia. She will continue with Lipitor 80 mg daily. 6. Patient has hypothyroidism. She will continue with her medication Levoxyl 150 mcg daily. 7. Patient with CAD with prior stent. Patient will continue with aspirin 81 mg daily. 8. Patient likely with GERD. Patient will be started on Protonix 40 mg 1 pill once daily. 9. Patient with degenerative disc and joint disease of the lumbar spine. She will continue with physical therapy. This can be further evaluated as an outpatient. we need to be monitored at least every week. Diet: AHA Activity: Fall precautions Time spent managing pt's care (in minutes): 55
[2018-06-24 13:03] VITALS: BP 153/66; TEMP 97.4
[2018-06-24] MEDS ORDERED: WARFARIN SODIUM 4 MG TAB PO SCH (17:00)
== END 2018-06-24 16:30 | DRG 439 ==
LOC: ER 20:42 → ERHOLD 06-21 01:39 → 2ND 06-21 15:25
PROVIDERS: ADMIT Hospitalist; ATTEND Family Medicine
DX: K85.90 Acute pancreatitis without necrosis or infection, unspecified (principal); B37.0 Candidal stomatitis; D68.9 Coagulation defect, unspecified; N39.0 Urinary tract infection, site not specified; M79.3 Panniculitis, unspecified; I48.2 Chronic atrial fibrillation; Z79.01 Long term (current) use of anticoagulants; I25.10 Atherosclerotic heart disease of native coronary artery without angina pectoris; Z95.5 Presence of coronary angioplasty implant and graft; E78.5 Hyperlipidemia, unspecified; E03.9 Hypothyroidism, unspecified; M51.36 Other intervertebral disc degeneration, lumbar region; K21.9 Gastro-esophageal reflux disease without esophagitis; K76.0 Fatty (change of) liver, not elsewhere classified; Z88.5 Allergy status to narcotic agent; I10 Essential (primary) hypertension; E83.51 Hypocalcemia; D72.825 Bandemia; E88.09 Other disorders of plasma-protein metabolism, not elsewhere classified
CPT/HCPCS: 36415; 71046; 74177; 80048; 80053; 80061; 80076; 81001; 81003; 82550; 82553; 82962; 83690; 83735; 84100; 84439; 84443; 84484; 85025; 85610; 93005; 93306; 96361; 96365; 96375; 97163; 99285; J0610; J0696; J1650; J2405; J3475; J7030; Q9967

== ENCOUNTER 2018-06-26 16:29 | Emergency (ER) | payer OTHER ==
--- OUTSIDE RECORDS SUMMARY | 2018-06-26 16:32 | XMS REPORT | Clinical Summary ---
:1930 Author Organization [facility] Address [address] [place] [address] Care Team Providers Name Role Phone Pop [...] Not on file Results Not on fileafter 06/25/2017 Insurance Payer Benefit Plan / Group Subscriber ID Type Phone Address MEDICARE MEDICARE A B xxxxxxxxxx Medicare A[employer] - [place] CARE A[employer] INDEMNITY NON CONTR xxxxxxxxx Comm
--- OUTSIDE RECORDS SUMMARY | 2018-06-26 16:34 | XMS REPORT | Continuity of Care Document ---
:1930 Author Organization Interface Problems Problem Status Onset Classification Date Comments Source Date Reported COAG Active 12/20/[address] LOW BLOOD Active 11/26/19 [facility] PRESSURE, [address] [place] [address] WEAKNESS ATRIAL Active 11/26/19 [facility] FIBRILLATION WITH 17 [facility] RAPID VENTRICUL FALL Active 11/17/[address] FALL Active 11/17/[address] COAG - ATRIAL FIB Active 09/18/[address] COAG - ATRIAL Active 02/22/20 [facility] [address]IB[address] ISCHEMIC STROKE Active 02/20/[address] LFLT TRANSFER Active 02/20/20 [facility] #[id number] [place] [address] Breast ca Resolved Problem 01/20/2017 [facility] Diverticulosis of Resolved Problem 01/20/2017 [facility] colon [facility] DM (<span Resolved Problem 01/20/2017 [facility] ID="[id number]" Medical >Confirmed</span> Center, ) [facility] Heart attack Resolved Problem 01/20/2017 [facility] TIA Resolved Problem 01/20/2017 [facility] Atrial Active Problem 01/20/2017 [facility] fibrillation [facility] CEREBRAL Active [facility] ANEURYSM, Medical NONRUPTURED Center UNSPECIFIED Active [facility] ATRIAL Medical FIBRILLATION Center,[facility] Medications Medication Details Route Status Patient Ordering Order Source Instructions Provider Date levothyroxine 125 microgram=1 Active 12/30/ [facility] 125 mcg (0.125 tab, PO, Daily, # 2017 Medical mg) oral tablet 30 tab, 0 Center Refill(s) metoprolol 25 mg=0.5 tab, Active 12/30/ [facility] tartrate 50 mg PO, BID, # 180 2017 Medical oral tablet tab, 0 Refill(s) [place] Thyroxine 125 microgram, No Longer Route: PO, Drug Active 2016 [facility] form: TAB, Daily, [facility] Dosing Weight 89.455, kg, Start date: 11/27/16 [...] Q4H, MG Oral Tablet PRN Abnormal Lab [[place] 10/325] Result, Start date: 11/26/16 16:47:00 CDT, Duration: 30 day, Stop date: 12/26/16 16:46:00 CDTNotes: Do not exceed 4gm/day of acetaminophen. (Same as: [place] 325/10) Protonix 40 mg, Route: Inactive IVP, [...] 25 mg 25 mg=1 tab, PO, Active [facility] oral tablet TID, PRN 2017 Medical Other-See Center Comments, # 30 tab, 0 Refill(s) Acetaminophen 1 tab, PO, Q4H, Active [place] 325 MG / PRN for pain, # 2017 Medical Hydrocodone 24 tab, 0 Center Bitartrate 10 Refill(s) MG Oral Tablet [[place] 10/325] Zofran 4 mg, 1 tab, Inactive [facility] Route: PO, Drug 2015 Medical form: TABDIS, Center ONCE, Dosing Weight 79.545, kg, Priority: STAT, Start date: 02/22/16 11:09:00 CDT, Stop date: 02/22/16 11:09:00 CDTNotes: (Same as: Zofran ODT) Warfarin Sodium 5 mg=1 tab, PO, Active [facility] 5 MG Oral Daily, # 10 tab, 2016 Medical Tablet 0 Refill(s) Center [Coumadin] Warfarin Sodium 5 mg=1 tab, PO, Inactive [facility] 5 MG Oral Daily, # 10 tab, 2016 Medical Tablet 0 Refill(s), Center [Coumadin] other Cetirizine 10 mg, 1 tab, Inactive [facility] Route: PO, Drug 2015 Medical form: TAB, ONCE, Center Dosing Weight 79.545, kg, Priority: STAT, Start date: 02/22/16 8:14:00 CDT, Stop date: 02/22/16 8:14:00 CDTNotes: (Same As: Zyrtec) lisinopril 10 10 mg=1 tab, PO, Active [facility] mg oral tablet Daily, # 90 tab, 2016 Medical 0 Refill(s) Center atorvastatin 80 80 mg=1 tab, PO, Active [facility] mg oral tablet Bedtime, # 90 2016 Medical tab, 0 Refill(s) Center Aspirin 81 MG 81 mg=1 tab, PO, Active [facility] Enteric Coated Daily, # 90 tab, 2016 Medical Tablet 0 Refill(s) Center Zofran 4 mg, 1 tab, No Longer [place] Route: PO, Drug Active 2015 Medical form: TAB, Q8H, Center Dosing Weight 79.545, kg, PRN Nausea, Priority: NOW, Start date: 02/21/16 21:10:00 CDT, Duration: 30 day, Stop date: 03/22/16 21:09:00 CDTNotes: (Same as: Zofran) Lipitor 10 mg, 1 tab, No Longer [facility] Route: PO, Drug Active 2015 Medical form: TAB, Center Bedtime, Start date: 02/21/16 21:00:00 CDT, Duration: 30 day, Stop date: 03/21/16 21:00:00 CDTNotes: (Same As: Lipitor) Lovastatin 20 mg, Route: PO, Inactive [facility] Drug form: TAB, 2016 Medical Bedtime, Dosing Center Weight 79.545, kg, Start date: 02/21/16 21:00:00 CDT, Duration: 30 day, Stop date: 03/21/16 21:00:00 CDT Warfarin 5 mg, 1 tab, Inactive [facility] Route: PO, Drug 2015 Medical form: TAB, [...] Lisinopril 10 mg, 1 tab, No Longer [place] Route: PO, Drug Active 2015 Medical form: TAB, Daily, Center Dosing Weight 79.545, kg, Priority: NOW, Start date: 02/21/16 16:48:00 CDT, Duration: 30 day, Stop date: 03/22/16 9:00:00 CDTNotes: (Same as: Prinivil, Zestril) Rosuvastatin 10 mg=1 tab, PO, No Longer [place] calcium 10 MG Bedtime, 0 Active 2015 Medical Oral Tablet Refill(s) Center [Crestor] levothyroxine 125 microgram=1 Active [facility] 125 mcg (0.125 tab, PO, Daily, 0 2015 Medical mg) oral tablet Refill(s) Center Zolpidem 10 mg=1 tab, PO, Active [facility] tartrate 10 MG Bedtime, 0 2015 Medical Oral Tablet Refill(s) Center [Ambien] cetirizine 10 10 mg=1 tab, PO, Active [facility] mg oral tablet Daily, 0 2015 Medical Refill(s) Center metoprolol 25 mg=1 tab, PO, Active [facility] tartrate 25 mg Daily, 0 2015 Medical oral tablet Refill(s) Center omeprazole 10 10 mg=1 cap, PO, Active [facility] mg oral delayed Daily, 0 2015 Medical release capsule Refill(s) Center isosorbide 30 mg=1 tab, PO, Active [facility] mononitrate 30 QAM, 0 Refill(s) 2015 Medical mg oral tablet, Center extended release Aspirin 81 MG 81 mg=1 tab, PO, No Longer [facility] Enteric Coated Daily, # 90 tab, Active 2015 Medical Tablet 3 Refill(s) [place] Saline Flush 10 ml, Route: No Longer [facility] 0.9% IVP, Drug Form: Active 2015 Medical INJ, Dosing Center Weight 79.545, kg, Q12H, Start date: 02/21/16 9:00:00 CDT, Duration: 30 day, Stop date: 03/21/16 21:00:00 CDTNotes: Same as: BD Posiflush Sterile Aspirin 325 MG 325 mg, 1 tab, No Longer [facility] Enteric Coated Route: PO, Drug Active 2015 Medical Tablet form: ECTAB, Center Daily, Dosing Weight 79.545, kg, Start date: 02/21/16 9:00:00 CDT, Duration: 30 day, Stop date: 03/21/16 9:00:00 CDTNotes: (Do Not Crush) Do not crush or chew. pantoprazole 40 mg, Route: No Longer [facility] IVP, Drug form: Active 2015 Medical INJ, Daily, Center Dosing Weight 79.545, kg, Start date: 02/21/16 9:00:00 CDT, Duration: 30 day, Stop date: 03/21/16 9:00:00 CDTNotes: For IV push reconstitute with 10 ml 0.9% sodium chloride and push over 2 minutes. (Same as: Protonix) Rocephin 1 gm, Route: No Longer [facility] IVPB, Drug form: Active 2015 Medical PDR/INJ, [id number], Center Dosing Weight 79.545, kg, Start date: 02/21/16 7:00:00 CDT, Duration: 30 day, Stop date: 03/21/16 7:00:00 CDTNotes: (Same As: Rocephin). Use with 100 mL NS and infuse over 30 min MEDICATION WASTE Product Size: 1000 mg Product Wasted: ___ mg Ativan 0.5 mg, 0.25 mL, No Longer [place] Route: IV, Drug Active 2015 Medical form: INJ, Center Q15Min, Dosing Weight 79.545, kg, PRN Anxiety, Start date: 02/21/16 3:55:00 CDT, Duration: 2 doses or times, Stop date: Limited # of timesNotes: (Same as: Ativan) iodixanol 60 mL, Route: Inactive [place] IVP, Drug Form: 2015 Medical SOLN, Dosing Center Weight 79.545, kg, ONCALL, STAT, Start date: 02/21/16 3:22:00 CDT, Duration: 1 doses or times, Dose=2.2ml/kg, Max [id number] -- "To be infused by Radiology Staff ONLY" Ativan 0.5 mg, 1 tab, Inactive [facility] Route: PO, Drug 2015 Medical form: TAB, TID, Center Dosing Weight 79.545, kg, PRN Anxiety, Start date: 02/21/16 3:16:00 CDT, Duration: 2 doses or times, Stop date: Limited # of timesNotes: (Same as: Ativan) heparin 5,000 unit, 1 mL, No Longer [facility] Route: SUB-Q, Active 2015 Medical Drug form: INJ, Center Q8H, Dosing Weight 79.545, kg, (For patients weighing Notes: porcine heparin Saline Flush 10 ml, Route: No Longer [facility] 0.9% IVP, Drug Form: Active 2016 Medical INJ, Dosing Center Weight 79.545, kg, PRN, PRN Line Flush, Start date: 02/20/16 23:33:00 CDT, Duration: 30 day, Stop date: 03/21/16 23:32:00 CDTNotes: Same as: [facility] Posiflush Sterile Allergies, Adverse Reactions, Alerts Substance Category Reaction Severity Reaction Status Date Comments Source type Reported morphine Assertion Allergy to Active [facility] sulfa drugs Assertion Drug Active [facility] allergy [facility] Immunizations Immunization Date Given Site Status Last Comments Source Updated pneumococcal 11/26/2016 Not Given [facility] 13-valent Medical vaccine<sup>2</ Center, p> [facility] pneumococcal 11/26/2016 Left completed Mer Result [facility] 13-valent deltoid Comment: Medical vaccine<sup>1</ patient Center, p> refused [facility] Results Order Name Results Value Reference Date Interpretation Comments Source Range HEMATOLOGY POC PT 18.2 s 12.0 - 12/30 [facility] 14.[address] [facility] HEMATOLOGY POC INR 1.6 0.9 - 1.2 12/[address] [facility] HEMATOLOGY POC INR 1.9 0.9 - 1.2 12/19 [facility] HEMATOLOGY POC PT 22.0 s 12.0 - 12/19 [facility] 14.[address] [facility] CARDIAC CK MB Index 1.6 0.0 - 2.5 11/26 [facility] CARDIAC Troponin-I null 0.00 - 11/26 [facility] 0.40 /2017 [facility] CARDIAC CK MB 1.8 ng/mL 0.5 - 3.6 11/26 [facility] CARDIAC Total CK 112 unit/L 12 - 191 11/26 [facility] CHEM PANEL Magnesium Lvl 2.1 mg/dL 1.8 - 2.4 11/26 [facility] CHEM PANEL Lipase Lvl 272 unit/L 73 - 393 11/26 [facility] ELECTROLYTE Sodium Lvl 143 meq/L 135 - 145 11/26 S [facility] ELECTROLYTE Potassium Lvl 3.7 meq/L 3.5 - 5.1 11/26 [facility] ELECTROLYTE Chloride Lvl 107 meq/L 95 - 109 11/26 [facility] ELECTROLYTE CO2 25 meq/L 24 - 32 11/26 [facility] ELECTROLYTE Calcium Lvl 8.4 mg/dL 8.5 - 10.5 11/26 [facility] ELECTROLYTE Glucose Lvl 168 mg/dL 70 - 99 11/26 [facility] ELECTROLYTE BUN 16 mg/dL 7 - 22 11/26 [facility] ELECTROLYTE Creatinine 1.06 mg/dL 0.50 - 11/26 S Lvl 1.40 /2016 [facility] ELECTROLYTE A/G Ratio 1.0 0.7 - 1.6 11/26 [facility] ELECTROLYTE Bili Total 0.5 mg/dL 0.2 - 1.3 11/26 [facility] ELECTROLYTE AGAP 14.7 meq/L 10.0 - 11/26 S 20.0 /2016 [facility] ELECTROLYTE B/C Ratio 15 6 - 25 11/26 [facility] ELECTROLYTE Globulin 3.9 g/dL 2.7 - 4.2 11/26 [facility] ELECTROLYTE Alk Phos 117 unit/L 39 - 136 11/26 [facility] ELECTROLYTE Total Protein 7.8 g/dL 6.4 - 8.4 11/26 [facility] ELECTROLYTE Albumin Lvl 3.9 g/dL 3.5 - 5.0 11/26 [facility] ELECTROLYTE ALT 10 unit/L 0 - 65 11/26 [facility] ELECTROLYTE AST 19 unit/L 0 - 37 11/26 [facility] ELECTROLYTE eGFR 47 11/26 Result Comment: The [...] 4.3 K/CMM 1.5 - 8.1 / [facility] HEMATOLOGY Lymphocytes # 1.3 K/CMM 1.0 - 5.5 / [facility] HEMATOLOGY Monocytes # 0.4 K/CMM 0.0 - 0.8 / [facility] HEMATOLOGY Eosinophils 1.8 % 0.0 - 4.0 / [facility] HEMATOLOGY Lymphocytes 21.0 % 20.0 - 05/ MH 40.0 /2016 [facility] HEMATOLOGY Monocytes 6.6 % 2.0 - 12.0 / [facility] HEMATOLOGY Basophils 0.6 % 0.0 - 1.0 11/26 [facility] HEMATOLOGY Eosinophils # 0.1 K/CMM 0.0 - 0.5 11/26 [facility] HEMATOLOGY Segs 70.0 % 45.0 - 05 MH 75.0 /2017 [facility] HEMATOLOGY PT 16.9 s 12.0 - 05/ MH 14.7 /2017 [facility] HEMATOLOGY INR 1.35 0.85 - 05/ MH 1.17 /2016 [facility] HEMATOLOGY PTT 33.5 s 22.9 - / MH 35.8 /2017 [facility] HEMATOLOGY RBC 4.34 M/CMM 4.20 - 05/02 MH 5.40 /2017 [facility] HEMATOLOGY MCV 89.8 fL 80.0 - / MH 98.0 /2017 [facility] HEMATOLOGY Hct 39.0 % 36.0 - 05 MH 48.0 /2017 [facility] HEMATOLOGY Hgb 12.5 g/dL 12.0 - 05/ MH 16.0 /2017 [facility] HEMATOLOGY MCH 28.7 pg 27.0 - 05/ MH 31.0 /2017 [facility] HEMATOLOGY MPV 8.7 fL 7.4 - 10.4 11/26 [facility] HEMATOLOGY WBC 6.1 K/CMM 3.7 - 10.4 / [facility] HEMATOLOGY MCHC 32.0 g/dL 32.0 - 05/ MH 36.0 /2016 [facility] HEMATOLOGY Platelet 159 K/CMM 133 - 450 05/2017 [facility] HEMATOLOGY RDW 17.2 % 11.5 - 11/26 14.5 [facility] Brain wo Brain wo Patient Name: LOUISA PALMA 11/25 - contrast CT contrast CT [facility] : 1930; Age: 86 years y/o [place] MR: [id number] Read by: Steven Stahl MD Dictated Date/time: 11/25/16 21:24 Electronically Signed by: Steven Stahl MD 11/25/16 21:33 FINAL REPORT Study: Brain wo contrast CT 11/25/2016 7:52 PM CDT Clinical Indication: Altered mental status BOO, dizzy, Vomiting, on Coumadin - DLP: 1029.93; [...] CHEST 1 VIEW 11/25 DX DX - [facility] DATE: 11/25/2016 7:51 PM CDT Read by: [...] mild pulmonary edema or atypical infection. SL: [id number] HEMATOLOGY POC INR 1.5 0.9 - 1.2 11/[address] HEMATOLOGY POC PT 17.4 s 12.0 - 11/18 [facility] 14.[address] [facility] ELECTROLYTE AGAP 11.7 meq/L 10.0 - 11/16 [facility] 20.[address] [facility] ELECTROLYTE Glucose Lvl 168 mg/dL 70 - 99 11/[address] ELECTROLYTE BUN 23 mg/dL 7 - 11/[address] ELECTROLYTE eGFR 36 11/16 Result Comment: The eGFR is calculated using the CKD-EPI formula. In most young, healthy individuals the eGFR will be >90 mL/ min/1.73m2. The eGFR declines with age. An eGFR of 60-89 may be normal in [facility] mL/min/1. some populations, particularly the elderly, for whom the CKD-EPI formula has not been extensively validated. Use of the eGFR is not recommended in the following populations: [address] Individuals with unstable creatinine concentrations, including [...] Lvl 8.4 mg/dL 8.5 - 10.5 11/[address] ELECTROLYTE CO2 29 meq/L 24 - 32 11/[address] ELECTROLYTE Chloride Lvl 107 meq/L 95 - 109 11/[address] ELECTROLYTE Potassium Lvl 3.7 meq/L 3.5 - 5.1 11/[address] ELECTROLYTE Sodium Lvl 144 meq/L 135 - 145 11/16 [facility] S [facility] ELECTROLYTE Creatinine 1.34 mg/dL 0.50 - 11/16 [facility] S Lvl 1.[address] [facility] HEMATOLOGY INR 2.03 0.85 - 11/16 [place] 1.[address] [facility] HEMATOLOGY PT 23.3 s 12.0 - 11/[address] [facility] HEMATOLOGY Hgb 11.9 g/dL 12.0 - 11/[address] [facility] HEMATOLOGY MCV 88.3 fL 80.0 - 11/[address] [facility] HEMATOLOGY Hct 36.1 % 36.0 - 11/[address] [facility] HEMATOLOGY MCH 29.1 pg 27.0 - 11/16 [facility] 31.[address] [facility] HEMATOLOGY RBC 4.09 M/CMM 4.20 - 11/16 [facility] 5.[address] [facility] HEMATOLOGY WBC 4.5 K/CMM 3.7 - 10.4 11/[address] [facility] HEMATOLOGY MCHC 32.9 g/dL 32.0 - 11/16 [facility] 36.[address] [facility] HEMATOLOGY MPV 9.0 fL 7.4 - 10.4 11/[address] [facility] HEMATOLOGY Platelet 145 K/CMM 133 - 450 11/[address] [facility] HEMATOLOGY RDW 17.7 % 11.5 - 11/16 [facility] 14.[address] [facility] HEMATOLOGY Monocytes # 0.3 K/CMM 0.0 - 0.8 11/[address] [facility] HEMATOLOGY Eosinophils # 0.2 K/CMM 0.0 - 0.5 11/[address] [facility] HEMATOLOGY Monocytes 7.5 % 2.0 - 12.0 11/[address] [facility] HEMATOLOGY Eosinophils 4.5 % 0.0 - 4.0 11/[address] [facility] HEMATOLOGY Lymphocytes 24.0 % 20.0 - 11/[address] [facility] HEMATOLOGY Segs-Bands # 2.9 K/CMM 1.5 - 8.1 11/[address] [facility] HEMATOLOGY Basophils 0.5 % 0.0 - 1.0 11/[address] [facility] HEMATOLOGY Lymphocytes # 1.1 K/CMM 1.0 - 5.5 11/16 [facility] /[address] [facility] HEMATOLOGY Segs 63.5 % 45.0 - 11/16 [facility] 75.[address] [facility] Pelvis AP Pelvis AP DX EXAM: XR PELVIS 1 VIEW 11/16 - [facility] DATE: 11/16/2016 5:34 PM CDT [...] XR RIGHT KNEE 3 VIEWS 11/16 - [facility] views DX - [facility] EXAM: XR RIGHT TIBIA-FIBULA 2 VIEWS [place] EXAM: XR RIGHT ANKLE 3 VIEWS Read [...] POC INR 2.1 0.9 - 1.2 09/[address] [facility] HEMATOLOGY POC PT 24.6 s 12.0 - 09/[address] [place] [facility] HEMATOLOGY POC 40.0 % 36.0 - 03/12 [facility] Hematocrit 48.[address] [facility] HEMATOLOGY POC 13.6 g/dL 12.0 - 03/12 [facility] Hemoglobin 16.[address] [facility] HEMATOLOGY POC PT 37.1 s 12.0 - 03/12 [place] [address] [facility] HEMATOLOGY POC INR 3.3 0.9 - 1.2 03/[address] [facility] HEMATOLOGY POC PT 35.1 s 12.0 - 03/05 [place] [address] [facility] HEMATOLOGY POC INR 3.1 0.9 - 1.2 03/[address] [facility] HEMATOLOGY POC INR 1.8 0.9 - 1.2 02/[address] [facility] HEMATOLOGY POC PT 20.7 s 12.0 - 02/27 [place] [address] [facility] HEMATOLOGY PT 14.3 s 12.0 - 02/21 [place] [address] [facility] HEMATOLOGY INR 1.08 0.85 - 02/21 [place] 1.[address] [facility] HEMATOLOGY PTT 31.3 s 22.9 - 02/21 [place] 35.[address] [facility] CHEM PANEL eGFR 39 02/21 Result Comment: The eGFR is calculated using the CKD-EPI formula. In most young, healthy individuals the eGFR will be >90 mL/ min/1.73m2. The eGFR declines with age. An eGFR of 60-89 may be normal in [facility] mL/min/1. some populations, particularly the elderly, for [...] PANEL AGAP 14.0 meq/L 10.0 - 02/21 [facility] 20.[address] [facility] CHEM PANEL Calcium Lvl 8.6 mg/dL 8.5 - 10.5 02/[address] CHEM PANEL Glucose Lvl 196 mg/dL 70 - 99 02/[address] CHEM PANEL BUN 22 mg/dL 7 - 22 02/[address] CHEM PANEL Potassium Lvl 4.0 meq/L 3.5 - 5.1 02/[address] CHEM PANEL Chloride Lvl 106 meq/L 95 - 109 02/[address] CHEM PANEL Creatinine 1.26 mg/dL 0.50 - 02/21 [facility] Lvl 1.[address] [facility] CHEM PANEL Sodium Lvl 142 meq/L 135 - 145 02/[address] CHEM PANEL CO2 26 meq/L 24 - 32 02/[address] HEMATOLOGY Segs 63.9 % 45.0 - 02/21 [facility] 75.[address] [facility] HEMATOLOGY Lymphocytes 22.6 % 20.0 - 02/[address] [facility] HEMATOLOGY Eosinophils 5.2 % 0.0 - 4.0 02/[address] HEMATOLOGY Monocytes 7.4 % 2.0 - 12.0 02/[address] HEMATOLOGY Basophils 0.9 % 0.0 - 1.0 02/[address] HEMATOLOGY Segs-Bands # 3.3 K/CMM 1.5 - 8.1 02/[address] HEMATOLOGY Lymphocytes # 1.2 K/CMM 1.0 - 5.5 02/[address] HEMATOLOGY Eosinophils # 0.3 K/CMM 0.0 - 0.5 02/[address] HEMATOLOGY Monocytes # 0.4 K/CMM 0.0 - 0.8 02/[address] HEMATOLOGY MPV 9.4 fL 7.4 - 10.4 02/[address] [facility] HEMATOLOGY MCHC 32.0 g/dL 32.0 - 02/21 [place] 36.[address] [facility] HEMATOLOGY RDW 16.9 % 11.5 - 02/21 [place] 14.[address] [facility] HEMATOLOGY Platelet 133 K/CMM 133 - 450 02/[address] [facility] HEMATOLOGY WBC 5.1 K/CMM 3.7 - 10.4 02/[address] [facility] HEMATOLOGY RBC 4.16 M/CMM 4.20 - 02/21 [facility] 5.[address] [facility] HEMATOLOGY Hgb 11.2 g/dL 12.0 - 02/21 [facility] 16.[address] [facility] HEMATOLOGY Hct 35.2 % 36.0 - 02/21 [facility] 48.[address] [facility] HEMATOLOGY MCV 84.5 fL 80.0 - 02/21 [facility] 98.[address] [facility] HEMATOLOGY MCH 27.0 pg 27.0 - 02/21 [place] 31.[address] [facility] ELECTROLYTE AGAP 14.3 meq/L 10.0 - 02/20 [facility] S 20.[address] [facility] ELECTROLYTE eGFR 45 02/20 Result Comment: The eGFR is calculated using the CKD-EPI formula. In most young, healthy individuals the eGFR will be >90 mL/ min/1.73m2. The eGFR declines with age. An eGFR of 60-89 may be normal in [facility] mL/min/1. some populations, particularly the elderly, for whom the CKD-EPI formula has not been extensively validated. Use of the eGFR is not recommended in the following populations: [address] Individuals with unstable creatinine concentrations, including [...] Lvl 104 meq/L 95 - 109 02/[address] [facility] ELECTROLYTE Potassium Lvl 4.3 meq/L 3.5 - 5.1 02/20 [facility] ELECTROLYTE Calcium Lvl 8.8 mg/dL 8.5 - 10.5 02/[address] [facility] ELECTROLYTE CO2 27 meq/L 24 - 32 02/20 [facility] ELECTROLYTE Creatinine 1.12 mg/dL 0.50 - 02/20 [facility] S Lvl 1.[address] [facility] ELECTROLYTE Sodium Lvl 141 meq/L 135 - 145 02/20 [facility] ELECTROLYTE Glucose Lvl 123 mg/dL 70 - 99 02/20 [facility] ELECTROLYTE BUN 21 mg/dL 7 - 22 02/20 [facility] HEMATOLOGY Basophils # 0.1 K/CMM 0.0 - 0.2 02/[address] [facility] HEMATOLOGY Eosinophils # 0.2 K/CMM 0.0 - 0.5 02/[address] [facility] HEMATOLOGY Monocytes # 0.4 K/CMM 0.0 - 0.8 02/[address] [facility] HEMATOLOGY Monocytes 7.3 % 2.0 - 12.0 02/[address] [facility] HEMATOLOGY Segs 65.3 % 45.0 - 02/[address] [facility] HEMATOLOGY Lymphocytes 23.4 % 20.0 - 02/[address] [facility] HEMATOLOGY Lymphocytes # 1.3 K/CMM 1.0 - 5.5 02/[address] [facility] HEMATOLOGY Basophils 1.0 % 0.0 - 1.0 02/[address] [facility] HEMATOLOGY Eosinophils 3.0 % 0.0 - 4.0 02/[address] [facility] HEMATOLOGY Segs-Bands # 3.6 K/CMM 1.5 - 8.1 02/[address] [facility] HEMATOLOGY RBC 4.09 M/CMM 4.20 - 02/[address] [facility] HEMATOLOGY Hgb 11.2 g/dL 12.0 - 02/[address] [facility] HEMATOLOGY WBC 5.5 K/CMM 3.7 - 10.4 02/[address] [facility] HEMATOLOGY Hct 34.5 % 36.0 - 02/20 [place] [address] [facility] HEMATOLOGY MCV 84.3 fL 80.0 - 02/[address] [facility] HEMATOLOGY RDW 16.6 % 11.5 - 02/20 [facility] 14.[address] [facility] HEMATOLOGY MCH 27.3 pg 27.0 - 02/20 [facility] 31.[address] [facility] HEMATOLOGY MCHC 32.4 g/dL 32.0 - 02/20 [facility] 36.[address] [facility] HEMATOLOGY Platelet 131 K/CMM 133 - 450 02/[address] [facility] HEMATOLOGY MPV 9.6 fL 7.4 - 10.4 02/[address] [facility] LIPIDS VLDL 20 02/[address] [facility] LIPIDS LDL 130 mg/dL <=99 mg/dL 02/20 [facility] (Calculated) [facility] LIPIDS HDL 31 mg/dL >=61 mg/dL 02/[address] [facility] LIPIDS Chol 181 mg/dL <=199 02/20 [facility] mgdL [facility] LIPIDS Trig 101 mg/dL <=149 02/20 [facility] mg/dL [facility] LIPIDS CHD Risk 5.84 3.90 - 02/20 [facility] 5.[address] [facility] SPECIAL Hgb A1C 7.0 % <=5.6 % 02/20 [facility] CHEM PANEL eGFR 45 02/20 Result Comment: The eGFR is calculated using the CKD-EPI formula. In most young, healthy individuals the eGFR will be >90 mL/ min/1.73m2. The eGFR declines with age. An eGFR of 60-89 may be normal in [facility] mL/min/1.7 some populations, particularly the elderly, for whom the CKD-EPI formula has not been extensively validated. Use of the eGFR is not recommended in the following populations: [address] Individuals with unstable creatinine concentrations, including [...] Total 0.4 mg/dL 0.2 - 1.3 02/[address] [facility] CHEM PANEL CO2 27 meq/L 24 - 32 02/[address] [facility] CHEM PANEL Calcium Lvl 8.8 mg/dL 8.5 - 10.5 02/[address] [facility] CHEM PANEL AST 11 unit/L 0 - 37 02/[address] [facility] CHEM PANEL ALT 9 unit/L 0 - 65 02/[address] [facility] CHEM PANEL Alk Phos 120 unit/L 39 - 136 02/[address] [facility] CHEM PANEL Potassium Lvl 4.2 meq/L 3.5 - 5.1 02/[address] [facility] CHEM PANEL Chloride Lvl 105 meq/L 95 - 109 02/[address] [facility] CHEM PANEL Sodium Lvl 141 meq/L 135 - 145 02/[address] [facility] CHEM PANEL Albumin Lvl 3.6 g/dL 3.5 - 5.0 02/[address] [facility] CHEM PANEL Total Protein 7.3 g/dL 6.4 - 8.4 02/[address] [facility] CHEM PANEL BUN 21 mg/dL - 02/[address] [facility] CHEM PANEL Creatinine 1.12 mg/dL 0.50 - 02/20 [facility] Lvl 1.[address] [facility] CHEM PANEL Glucose Lvl 125 mg/dL 70 - 99 02/[address] [facility] CHEM PANEL A/G Ratio 1.0 0.7 - 1.6 02/[address] [facility] CHEM PANEL Globulin 3.7 g/dL 2.0 - 4.0 02/[address] [facility] CHEM PANEL AGAP 13.2 meq/L 10.0 - 02/[address] [facility] CHEM PANEL B/C Ratio 19 6 - 25 02/[address] [facility] DRUG SCREEN U Amph Scr Negative Negative 02/20 [facility] *NA* Center (02/21/16 1:34 AM) DRUG SCREEN U Lilian Scr Negative Negative 02/20 [facility] (02/21/16 1:34 AM) DRUG SCREEN U Cannab Scr Negative Negative 02/20 [facility] (02/21/16 1:34 AM) DRUG SCREEN U Phencyc Scr Negative Negative 02/20 [facility] (02/21/16 1:34 AM) DRUG SCREEN U Cocaine Scr Negative Negative 02/20 [facility] (02/21/16 1:34 AM) DRUG SCREEN U Opiate Scr Negative Negative 02/20 [facility] *NA* [place] (02/21/16 1:34 AM) DRUG SCREEN U Benzodia Negative Negative 02/20 [facility] [place] [facility]02/21/16 1:34 AM) DRUG SCREEN UDS Note See Note 02/[facility] [place] (02/21/16 1:34 AM) HEMATOLOGY INR 1.12 0.85 - 02/20 [facility] 1.17 /[address] [facility] HEMATOLOGY PT 14.7 s 12.0 - 02/20 [facility] 14.[address] [facility] HEMATOLOGY PTT 31.5 s 22.9 - 02/20 [facility] 35.8 /[address] [facility] IMMUNOLOGY Treponemal Non Reactive Non 02/20 [facility] Scr [facility] [place] (02/21/16 1:34 AM) URINE AND UA <=1.0 0.1 - 1.0 02/20 [facility] Urobilinogen mg/dL [facility] URINE AND UA Sq Epi None Seen 02/20 [facility] STOOL [facility] URINE AND UA [employer] Yeast Occasional None Seen 02/20 [facility] STOOL /HPF /HPF /[address] [facility] URINE AND UA Bacteria Few /HPF None Seen 02/20 [facility] STOOL /HPF /[address] [facility] URINE AND UA Ketones Negative Negative 02/20 [facility] mg/dL mg/dL [facility] URINE AND UA Glucose Negative Negative 02/20 [facility] mg/dL mg/dL [facility] URINE AND UA Protein Negative Negative 02/20 [facility] mg/dL mg/dL [facility] URINE AND UA pH 5.0 5.0 - 8.0 02/20 [facility] STOOL [facility] URINE AND UA Spec Grav 1.005 <=1.030 02/20 [facility] STOOL [facility] URINE AND UA WBC 8 /HPF 0 - 5 02/20 [facility] URINE AND UA Leuk Est Large Negative 02/[address] [facility] [place] (02/21/16 1:34 AM) URINE AND UA Nitrite Negative Negative 02/20 [facility] (02/21/16 1:34 AM) [place] URINE AND UA Blood Negative Negative 02/20 [facility] (02/21/16 1:34 AM) [place] URINE AND UA Bili Negative Negative 02/20 [facility] *NA* Center (02/21/16 1:34 AM) URINE AND UA Turbidity Slight Clear 02/20 [facility] *ABN* Center (02/21/16 1:34 AM) URINE AND UA Color Light Yellow Yellow 02/20 [facility]NA* [facility] (02/21/16 1:34 AM) Brain/Neck Brain/Neck EXAM: CT ANGIOGRAM OF THE HEAD 02/20 [facility] CTA CTA - Medical EXAM: CT [...] 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 Patent major neck arteries. All quantitative and qualitative measurements of the carotid arteries in the neck are performed utilizing the distal internal carotid artery for reference as per standard NASCET criteria. Brain wo Brain wo EXAM: MRI BRAIN WITHOUT CONTRAST 02/20 [facility] contrast contrast MRI /2015 - Medical [...] than an ischemic insult in the right SENIOR RESEARCH SCIENTIST territory. 2. Underlying chronic microvascular ischemic changes. [...] [facility] [place] Height 167.64 cm 11/26/2016 [facility] BMI Calculated 30.73 11/26/2016 [facility] Respitory Rate 19 11/17/2016 [facility] Systolic (mm Hg) 137 11/17/2016 [facility] Diastolic (mm Hg) 90 11/17/2016 [facility] Heart Rate 87 11/17/2016 [facility] Temperature Oral (F) 97.8 F 11/17/2016 [facility] Temperature Oral (F) 97.6 F 11/17/2016 [facility] Respitory Rate 18 11/17/2016 [facility] Systolic (mm Hg) 135 11/17/2016 [facility] Diastolic (mm Hg) 89 11/17/2016 [facility] Heart Rate 80 11/17/2016 [facility] Respitory Rate 18 11/16/2016 [facility] Heart Rate 82 11/16/2016 [facility] Temperature Oral (F) 97.4 F 11/16/2016 [facility] Systolic (mm Hg) 139 11/16/2016 [facility] Diastolic (mm Hg) 96 11/16/2016 [facility] BMI Calculated 30.73 11/16/2016 [facility] Height 167.64 cm 11/16/2016 [facility] Weight 86.364 11/16/2016 [facility] Systolic (mm Hg) 136 09/19/2016 [facility] Diastolic (mm Hg) 74 09/19/2016 [facility] Heart Rate 80 09/19/2016 [facility] Height 167.64 cm 09/19/2016 [facility] Weight 86.875 09/19/2016 [facility] BMI Calculated 30.91 09/19/2016 [facility] BMI Calculated 28.3 03/12/2016 [facility] Weight 79.545 03/12/2016 [facility] Height 167.64 cm 03/12/2016 [facility] Heart Rate 74 03/12/2016 [facility] Systolic (mm Hg) 142 03/12/2016 [facility] Diastolic (mm Hg) 86 03/12/2016 [facility] Systolic (mm Hg) 142 03/05/2016 [facility] Diastolic (mm Hg) 78 03/05/2016 [facility] Height 167.64 cm 03/05/2016 [facility] BMI Calculated 28.3 03/05/2016 [facility] Weight 79.545 03/05/2016 [facility] Heart Rate 92 03/05/2016 [facility] Respitory Rate 20 02/22/2016 [facility] Systolic (mm Hg) 122 02/22/2016 [facility] Diastolic (mm Hg) 68 02/22/2016 [facility] Systolic (mm Hg) 168 02/22/2016 [facility] Diastolic (mm Hg) 80 02/22/2016 [facility] Respitory Rate 24 02/22/2016 [facility] Temperature Oral (F) 99.3 F 02/22/2016 [facility] Systolic (mm Hg) 116 02/22/2016 [facility] Diastolic (mm Hg) 55 02/22/2016 [facility] Respitory Rate 02/22/2016 [facility] Temperature Oral (F) 98.4 F 02/22/2016 [facility] Temperature Oral (F) 97.4 F 02/21/2016 [facility] Height 167.64 cm 02/21/2016 [facility] BMI Calculated 28.3 02/21/2016 [facility] Weight 79.545 02/21/2016 [facility] Encounters Location Location Encounter Encounter Reason Attending ADM DC Status Source Details Type Number For Provider Date Date Visit [facility] [id number] Stanton Brannon 02/20 02/21 Nazia Mcbride /2015 [facility] [id number] Girma 02/27 03/29 Nazia Mcbride Doty /2015 [facility] [id number] Non 09/19 10/19 Nazia Mcbride Physician /2016 [facility] [id number] Non 10/28 11/27 Nazia Mcbride Physician /2016 [facility] Emergency [id number] Barbara 11/16 11/17 Nazia Mcbride Ann /2016 [facility] Observation [id number] 11/26 11/26 Reed Weimed /2016 [facility] [id number] Non 12/19 01/18 [facility] Phys[facility] /2016 [facility] Procedures Procedure Code Date Perfomer Comments Source Open heart [id number] 07/28/1992 tumor 5cm [facility] surgery<sup>1</sup> [facility] Open heart [id number] 07/28/1992 tumor 5cm [facility]<sup>1</sup> [facility] Abdominal [id number] [facility] Endoscopic laser [id number] [facility] surgery on colon [facility] Mastectomy of right [id number] [facility] Open heart surgery [id number] [facility] Appendectomy [id number] [facility] Partial resection [id number] [facility] Abdominal [id number] [facility] hysterectomy [facility] Appendectomy [id number] [facility] Endoscopic laser [id number] [facility] surgery on colon [facility] Mastectomy of right [id number] [facility] breast [facility] Partial resection [id number] [facility]
--- NOTE | 2018-06-26 18:34 | EDPHYS ---
Physician Documentation [facility] Name: Kortney Brar Age: 87 yrs Sex: Female : 1930 Arrival Date: 06/26/2018 Time: 16:34 Bed 17 Private MD: Pop Severino E ED Physician Ortiz Wne HPI: 06/26 18:26 This 87 yrs old Female presents to ER via Wheelchair with complaints of snw Congestion. 18:26 Onset: The symptoms/episode began/occurred suddenly, today. Associated signs and snw symptoms: Pertinent positives: cough, mouth blisters and erythema. Modifying factors: The patient symptoms are alleviated by rest. The patient has not experienced similar symptoms in the past. The patient has been recently seen by a physician: The patient has been recently been admitted at [facility], was discharged earlier this week. 18:29 pt developed stomatitis post abx given in the hospital, severe thrush dx and pt given snw magic mouthwash. Pt and Son state condition of mouth is improving but then pt had the coughing spell today and they became worried.. Historical: - Allergies: 17:52 Codeine; ph 17:52 Demerol; ph 17:52 Morphine; ph 17:52 sulfamethoxazole; ph 17:52 TRIMETHOPRIM; ph - PMHx: 17:52 Atrial Fib; chronic uti; Diabetes - NIDDM; GI Bleed; heart attack; stents; TIA; ph - PSHx: 17:52 stents; ph ROS: 18:25 Constitutional: Negative for fever, chills, and weight loss, Eyes: Negative for injury, snw pain, redness, and discharge, ENT: Negative for injury, pain, and discharge, Neck: Negative for injury, pain, and swelling, Cardiovascular: Negative for chest pain, palpitations, and edema, Abdomen/GI: Negative for abdominal pain, nausea, vomiting, diarrhea, and constipation, Back: Negative for injury and pain, : Negative for injury, bleeding, discharge, and swelling, MS/Extremity: Negative for injury and deformity, Skin: Negative for injury, rash, and discoloration, Neuro: Negative for headache, weakness, numbness, tingling, and seizure. 18:25 Respiratory: Positive for cough, lots of clear liquid in throat and mouth, coughing spell prior to arrival, resolved at this time. Exam: 18:24 Constitutional: This is a well developed, well nourished patient who is awake, alert, snw and in no acute distress. Head/Face: Normocephalic, atraumatic. Eyes: Pupils equal round and reactive to light, extra-ocular motions intact. Lids and lashes normal. Conjunctiva and sclera are non-icteric and not injected. Cornea within normal limits. Periorbital areas with no swelling, redness, or edema. Neck: Trachea midline, no thyromegaly or masses palpated, and no cervical lymphadenopathy. Supple, full range of motion without nuchal rigidity, or vertebral point tenderness. No Meningismus. Chest/axilla: Normal chest wall appearance and motion. Nontender with no deformity. No lesions are appreciated. Cardiovascular: Regular rate and rhythm with a normal S1 and S2. No gallops, murmurs, or rubs. Normal PMI, no JVD. No pulse deficits. Respiratory: Lungs have equal breath sounds bilaterally, clear to auscultation and percussion. No rales, rhonchi or wheezes noted. No increased work of breathing, no retractions or nasal flaring. Abdomen/GI: Soft, non-tender, with normal bowel sounds. No distension or tympany. No guarding or rebound. No evidence of tenderness throughout. Back: No spinal tenderness. No costovertebral tenderness. Full range of motion. Skin: Warm, dry with normal turgor. Normal color with no rashes, no lesions, and no evidence of cellulitis. MS/ Extremity: Pulses equal, no cyanosis. Neurovascular intact. Full, normal range of motion. Neuro: Awake and alert, GCS 15, oriented to person, place, time, and situation. Cranial nerves II-XII grossly intact. Motor strength 5/5 in all extremities. Sensory grossly intact. Cerebellar exam normal. Normal gait. Psych: Awake, alert, with orientation to person, place and time. Behavior, mood, and affect are within normal limits. 18:24 ENT: External ear(s): are unremarkable, Nose: is normal, Mouth: Oral mucosa: noted to have obvious stomatitis, noted to have ulceration(s), on the lower lip and lower michele border and left tip of tongue. Vital Signs: 17:51 BP 130 / 50; Pulse 62; Resp 20; Temp 98.0; Pulse Ox 95% on R/A; Weight 79.38 kg; ph MDM: 18:12 Patient medically screened. snw 18:33 Data reviewed: vital signs, nurses notes. Data interpreted: Pulse oximetry: on room air snw is 95 %. Interpretation: acceptable. Counseling: I had a detailed discussion with the patient and/or guardian regarding: the historical points, exam findings, and any diagnostic results supporting the discharge/admit diagnosis, the presence of at least one elevated blood pressure reading (>120/80) during this emergency department visit, radiology results, the need for outpatient follow up, to return to the emergency department if symptoms worsen or persist or if there are any questions or concerns that arise at home. Special discussion: I have referred the patient to see his PCP for further evaluation of high blood pressure. Based on the history and exam findings, there is no indication for further emergent testing or inpatient evaluation. I discussed with the patient/guardian the need to see the primary care provider for further evaluation of the symptoms. 06/26 18:13 Order name: Chest Single View XRAY snw Administered Medications: No medications were administered Disposition: 06/26/18 18:33 Discharged to Home. Impression: Stomatitis and related lesions, Choking spell. - Condition is Stable. - Discharge Instructions: Choking, Adult, Stomatitis. - Medication Reconciliation Form, Thank You Letter, Antibiotic Education, Prescription Opioid Use form. - Follow up: Pop Severino MD; When: 1 week; Reason: Recheck today's complaints, Continuance of care, Re-evaluation by your physician. Follow up: Emergency Department; When: As needed; Reason: Worsening of condition. Addendum: 06/28/2018 09:16 Co-signature as Attending Physician, Ortiz Wen MD I agree with the assessment and k dr plan of care. Signatures: Dispatcher [employer] EDMS Ortiz Wen MD MD [facility] Madhuri Crouch, RESTAURANT LINE COOK-C RESTAURANT LINE COOK-Jonow Caleb Espinosa, MONITORING TECH MONITORING TECH em Kaci Willis, DEWEY RN ph Corrections: (The following items were deleted from the chart) 06/26 18:54 18:33 06/26/2018 18:33 Discharged to Home. Impression: Stomatitis and related lesions; em Choking spell. Condition is Stable. Forms are Medication Reconciliation Form, Thank You Letter, Antibiotic Education, Prescription Opioid Use. Follow up: Pop Severino; When: 1 week; Reason: Recheck today's complaints, Continuance of care, Re-evaluation by your physician. Follow up: Emergency Department; When: As needed; Reason: Worsening of condition. snw
--- NOTE | 2018-06-26 18:34 | ER ---
Nurse's Notes [facility] Name: Kortney Brar Age: 87 yrs Sex: Female : 1930 Arrival Date: 06/26/2018 Time: 16:34 Bed 17 Private MD: Pop Severino E Diagnosis: Stomatitis and related lesions;Choking spell Presentation: 06/26 17:47 Presenting complaint: Child states: "She was discharged on Fri for pancreatitis and ph A-fib and has been at [facility] for rehab, today around 3 she started having a bad coughing fit and couldn't catch her breath, she was coughing up clear stuff and had clear d/c from her nose." Pt denies SOB at this time, no coughing noted. Son also reports pt having oral lesions after starting new medications and wants that evaluated as well. Transition of care: patient was not received from another setting of care. Onset of symptoms was June 26, 2018. Risk Assessment: Do you want to hurt yourself or someone else? Patient reports no desire to harm self or others. Care prior to arrival: None. 17:47 Method Of Arrival: Wheelchair ph 17:47 Acuity: JASON 3 ph 18:15 Initial Sepsis Screen: Does the patient meet any 2 criteria? No. Patient's initial em sepsis screen is negative. Does the patient have a suspected source of infection? No. Patient's initial sepsis screen is negative. Historical: - Allergies: 17:52 Codeine; ph 17:52 Demerol; ph 17:52 Morphine; ph 17:52 sulfamethoxazole; ph 17:52 TRIMETHOPRIM; ph - PMHx: 17:52 Atrial Fib; chronic uti; Diabetes - NIDDM; GI Bleed; heart attack; stents; TIA; ph - PSHx: 17:52 stents; ph Screenin:14 Abuse screen: Denies threats or abuse. Nutritional screening: No deficits noted. em Tuberculosis screening: No symptoms or risk factors identified. Fall Risk None identified. Assessment: 18:14 General: Appears in no apparent distress. comfortable, Behavior is calm, cooperative, em appropriate for age. Pain: Denies pain. Neuro: Level of Consciousness is awake, alert, obeys commands, Oriented to person, place, time, situation, Gait is steady, Speech is normal. Cardiovascular: Heart tones S1 S2 present Capillary refill < 3 seconds Patient's skin is warm and dry. Respiratory: Reports shortness of breath cough that is dry, persistent Airway is patent Respiratory effort is even, unlabored, Respiratory pattern is regular, symmetrical, Breath sounds are clear bilaterally. the patient reports symptoms have resolved. GI: Abdomen is round non-distended. : No signs and/or symptoms were reported regarding the genitourinary system. EENT: Lesions noted. Derm: Skin is intact, Skin is pink, warm \\T\\ dry. Musculoskeletal: Range of motion: intact in all extremities. Vital Signs: 17:51 BP 130 / 50; Pulse 62; Resp 20; Temp 98.0; Pulse Ox 95% on R/A; Weight 79.38 kg; ph ED Course: 16:34 Patient arrived in ED. sb2 16:34 Pop Severino MD is Private Physician. sb2 17:51 Triage completed. ph 17:53 Arm band placed on. ph 18:05 Caleb Espinosa LVN is Primary Nurse. em 18:11 Madhuri Crouch FNP-C is PHCP. snw 18:11 Ortiz Wen MD is Attending Physician. snw 18:14 Patient has correct armband on for positive identification. Bed in low position. Call em light in reach. Side rails up X2. Adult w/ patient. 18:14 No provider procedures requiring assistance completed. Patient did not have IV access em during this emergency room visit. 18:31 Pop Severino MD is Referral Physician. snw Administered Medications: No medications were administered Outcome: 18:33 Discharge ordered by . snw 18:53 Discharged to home via wheelchair. em 18:53 Condition: good 18:53 Discharge instructions given to patient, family, Instructed on discharge instructions, follow up and referral plans. Demonstrated understanding of instructions, follow-up care. 18:54 Patient left the ED. em Signatures: Madhuri Crouch FNP-C METAL DRILL PRESS OPERATOR-Csnw Caleb Espinosa LVN LVN em Kaci Willis RN RN Velia Melendez sb2 Corrections: (The following items were deleted from the chart) 19:35 18:14 EENT: No signs and/or symptoms were reported regarding the EENT system. em em
[2018-06-26 18:58] VITALS: BP 130/50; TEMP 98; O2SAT 95
--- NOTE | 2018-06-26 19:04 | RAD REPORT ---
EXAM DESCRIPTION: RAD - Chest Single View - 06/26/2018 6:36 pm CLINICAL HISTORY: COUGH Chest pain. COMPARISON: Chest Pa And Lat (2 Views) dated 06/24/2018; Chest Single View dated 05/28/2016; Chest Si ngle View dated 02/20/2016; CHEST SINGLE VIEW dated 09/23/2015 FINDINGS: Portable technique limits examination quality. Mild interstitial pulmonary edema is seen. The heart is normal in size. No displaced fractures.Sterno iglesia wires present. IMPRESSION: Mild CHF versus volume overload.
== END 2018-06-26 18:54 | disposition home or self-care (01) ==
LOC: ER 16:29
DX: K12.1 Other forms of stomatitis (principal); Z88.2 Allergy status to sulfonamides; Z88.5 Allergy status to narcotic agent; Z88.8 Allergy status to other drugs, medicaments and biological substances
CPT/HCPCS: 71045; 99281

== ENCOUNTER 2018-08-05 16:30 | Inpatient (IN) | payer OTHER ==
--- OUTSIDE RECORDS SUMMARY | 2018-08-05 16:32 | XMS REPORT | Clinical Summary ---
:1930 Author Organization [facility] Address [address] [place] [address] Care Team Providers Name Role Phone Pop [...] Not on file Results Not on fileafter 08/04/2017 Insurance Payer Benefit Plan / Group Subscriber ID Type Phone Address MEDICARE MEDICARE A B xxxxxxxxxx Medicare AETNA - MGD CARE [employer]ET[employer] INDEMNITY NON CONTR xxxxxxxxx Comm
--- OUTSIDE RECORDS SUMMARY | 2018-08-05 16:34 | XMS REPORT | Continuity of Care Document ---
:1930 Author Organization Interface Problems Problem Status Onset Classification Date Comments Source Date Reported COAG Active 12/20/[address] LOW BLOOD Active 11/26/19 [facility] PRESSURE, [address] [place] [address] WEAKNESS ATRIAL Active 11/26/19 [facility] FIBRILLATION WITH 17 [facility] RAPID VENTRICUL FALL Active 11/17/[address] FALL Active 11/17/[address] COAG - ATRIAL FIB Active 09/18/[address] COAG - ATRIAL Active 02/22/20 [facility] [address] LFLT TRANSFER Active 02/20/20 [facility] #[id number] [place] [address] ISCHEMIC STROKE Active 02/20/[address] Breast ca Resolved Problem 01/20/2017 [facility] Diverticulosis of Resolved Problem 01/20/2017 [facility] colon [facility] DM (<span Resolved Problem 01/20/2017 [facility] ID="[id number]" Medical >Confirmed</span> Center, ) [facility] Heart attack Resolved Problem 01/20/2017 [facility] TIA Resolved Problem 01/20/2017 [facility] Atrial Active Problem 01/20/2017 [facility] fibrillation [facility] CEREBRAL Active [facility] ANEURYSM, Medical NONRUPTURED Center UNSPECIFIED Active [facility] ATRIAL Medical FIBRILLATION Center,[facility] Medications Medication Details Route Status Patient Ordering Order Source Instructions Provider Date levothyroxine 125 microgram=1 Active 12/30/ [facility] 125 mcg (0.125 tab, PO, Daily, # 2017 Medical mg) oral tablet 30 tab, 0 Center Refill(s) metoprolol 25 mg=0.5 tab, Active 12/30/ [facility] tartrate 50 mg PO, BID, # 180 2017 Medical oral tablet tab, 0 Refill(s) [place] Thyroxine 125 microgram, No Longer Route: PO, Drug Active 2016 [facility] form: TAB, Daily, [facility] Dosing Weight 89.455, kg, Start date: 11/27/16 [...] Q4H, MG Oral Tablet PRN Abnormal Lab [Mcdougal 10/325] Result, Start date: 11/26/16 16:47:00 CDT, Duration: 30 day, Stop date: 12/26/16 16:46:00 CDTNotes: Do not exceed 4gm/day of acetaminophen. (Same as: Mcdougal 325/10) Protonix 40 mg, Route: Inactive IVP, [...] 25 mg 25 mg=1 tab, PO, Active [facility] oral tablet TID, PRN 2017 Medical Other-See Center Comments, # 30 tab, 0 Refill(s) Acetaminophen 1 tab, PO, Q4H, Active [place] 325 MG / PRN for pain, # 2017 Medical Hydrocodone 24 tab, 0 Center Bitartrate 10 Refill(s) MG Oral Tablet [Mcdougal 10/325] Zofran 4 mg, 1 tab, Inactive [facility] Route: PO, Drug 2015 Medical form: TABDIS, Center ONCE, Dosing Weight 79.545, kg, Priority: STAT, Start date: 02/22/16 11:09:00 CDT, Stop date: 02/22/16 11:09:00 CDTNotes: (Same as: Zofran ODT) Warfarin Sodium 5 mg=1 tab, PO, Active [facility] 5 MG Oral Daily, # 10 tab, 2016 Medical Tablet 0 Refill(s) Center [Coumadin] Warfarin Sodium 5 mg=1 tab, PO, Inactive [facility] 5 MG Oral Daily, # 10 tab, 2016 Medical Tablet 0 Refill(s), Center [Coumadin] other Cetirizine 10 mg, 1 tab, Inactive [facility] Route: PO, Drug 2015 Medical form: TAB, ONCE, Center Dosing Weight 79.545, kg, Priority: STAT, Start date: 02/22/16 8:14:00 CDT, Stop date: 02/22/16 8:14:00 CDTNotes: (Same As: Zyrtec) lisinopril 10 10 mg=1 tab, PO, Active [facility] mg oral tablet Daily, # 90 tab, 2016 Medical 0 Refill(s) Center atorvastatin 80 80 mg=1 tab, PO, Active [facility] mg oral tablet Bedtime, # 90 2016 Medical tab, 0 Refill(s) Center Aspirin 81 MG 81 mg=1 tab, PO, Active [facility] Enteric Coated Daily, # 90 tab, 2016 Medical Tablet 0 Refill(s) Center Zofran 4 mg, 1 tab, No Longer [place] Route: PO, Drug Active 2015 Medical form: TAB, Q8H, Center Dosing Weight 79.545, kg, PRN Nausea, Priority: NOW, Start date: 02/21/16 21:10:00 CDT, Duration: 30 day, Stop date: 03/22/16 21:09:00 CDTNotes: (Same as: Zofran) Lipitor 10 mg, 1 tab, No Longer [facility] Route: PO, Drug Active 2015 Medical form: TAB, Center Bedtime, Start date: 02/21/16 21:00:00 CDT, Duration: 30 day, Stop date: 03/21/16 21:00:00 CDTNotes: (Same As: Lipitor) Lovastatin 20 mg, Route: PO, Inactive [facility] Drug form: TAB, 2016 Medical Bedtime, Dosing Center Weight 79.545, kg, Start date: 02/21/16 21:00:00 CDT, Duration: 30 day, Stop date: 03/21/16 21:00:00 CDT Warfarin 5 mg, 1 tab, Inactive [facility] Route: PO, Drug 2015 Medical form: [...] Lisinopril 10 mg, 1 tab, No Longer [place] Route: PO, Drug Active 2015 Medical form: TAB, Daily, Center Dosing Weight 79.545, kg, Priority: NOW, Start date: 02/21/16 16:48:00 CDT, Duration: 30 day, Stop date: 03/22/16 9:00:00 CDTNotes: (Same as: Prinivil, Zestril) Rosuvastatin 10 mg=1 tab, PO, No Longer [place] calcium 10 MG Bedtime, 0 Active 2015 Medical Oral Tablet Refill(s) Center [Crestor] levothyroxine 125 microgram=1 Active [facility] 125 mcg (0.125 tab, PO, Daily, 0 2015 Medical mg) oral tablet Refill(s) Center Zolpidem 10 mg=1 tab, PO, Active [facility] tartrate 10 MG Bedtime, 0 2015 Medical Oral Tablet Refill(s) Center [Ambien] cetirizine 10 10 mg=1 tab, PO, Active [facility] mg oral tablet Daily, 0 2015 Medical Refill(s) Center metoprolol 25 mg=1 tab, PO, Active [facility] tartrate 25 mg Daily, 0 2015 Medical oral tablet Refill(s) Center omeprazole 10 10 mg=1 cap, PO, Active [facility] mg oral delayed Daily, 0 2015 Medical release capsule Refill(s) Center isosorbide 30 mg=1 tab, PO, Active [facility] mononitrate 30 QAM, 0 Refill(s) 2015 Medical mg oral tablet, Center extended release Aspirin 81 MG 81 mg=1 tab, PO, No Longer [facility] Enteric Coated Daily, # 90 tab, Active 2015 Medical Tablet 3 Refill(s) [place] Saline Flush 10 ml, Route: No Longer [facility] 0.9% IVP, Drug Form: Active 2015 Medical INJ, Dosing Center Weight 79.545, kg, Q12H, Start date: 02/21/16 9:00:00 CDT, Duration: 30 day, Stop date: 03/21/16 21:00:00 CDTNotes: Same as: BD Posiflush Sterile Aspirin 325 MG 325 mg, 1 tab, No Longer [facility] Enteric Coated Route: PO, Drug Active 2015 Medical Tablet form: ECTAB, Center Daily, Dosing Weight 79.545, kg, Start date: 02/21/16 9:00:00 CDT, Duration: 30 day, Stop date: 03/21/16 9:00:00 CDTNotes: (Do Not Crush) Do not crush or chew. pantoprazole 40 mg, Route: No Longer [facility] IVP, Drug form: Active 2015 Medical INJ, Daily, Center Dosing Weight 79.545, kg, Start date: 02/21/16 9:00:00 CDT, Duration: 30 day, Stop date: 03/21/16 9:00:00 CDTNotes: For IV push reconstitute with 10 ml 0.9% sodium chloride and push over 2 minutes. (Same as: Protonix) Rocephin 1 gm, Route: No Longer [facility] IVPB, Drug form: Active 2015 Medical PDR/INJ, [id number], Center Dosing Weight 79.545, kg, Start date: 02/21/16 7:00:00 CDT, Duration: 30 day, Stop date: 03/21/16 7:00:00 CDTNotes: (Same As: Rocephin). Use with 100 mL NS and infuse over 30 min MEDICATION WASTE Product Size: 1000 mg Product Wasted: ___ mg Ativan 0.5 mg, 0.25 mL, No Longer [place] Route: IV, Drug Active 2015 Medical form: INJ, Center Q15Min, Dosing Weight 79.545, kg, PRN Anxiety, Start date: 02/21/16 3:55:00 CDT, Duration: 2 doses or times, Stop date: Limited # of timesNotes: (Same as: Ativan) iodixanol 60 mL, Route: Inactive [place] IVP, Drug Form: 2015 Medical SOLN, Dosing Center Weight 79.545, kg, ONCALL, STAT, Start date: 02/21/16 3:22:00 CDT, Duration: 1 doses or times, Dose=2.2ml/kg, Max [id number] -- "To be infused by Radiology Staff ONLY" Ativan 0.5 mg, 1 tab, Inactive [facility] Route: PO, Drug 2015 Medical form: TAB, TID, Center Dosing Weight 79.545, kg, PRN Anxiety, Start date: 02/21/16 3:16:00 CDT, Duration: 2 doses or times, Stop date: Limited # of timesNotes: (Same as: Ativan) heparin 5,000 unit, 1 mL, No Longer [facility] Route: SUB-Q, Active 2015 Medical Drug form: INJ, Center Q8H, Dosing Weight 79.545, kg, (For patients weighing Notes: porcine heparin Saline Flush 10 ml, Route: No Longer [facility] 0.9% IVP, Drug Form: Active 2016 Medical INJ, Dosing Center Weight 79.545, kg, PRN, PRN Line Flush, Start date: 02/20/16 23:33:00 CDT, Duration: 30 day, Stop date: 03/21/16 23:32:00 CDTNotes: Same as: BD Posiflush Sterile Allergies, Adverse Reactions, Alerts Substance Category Reaction Severity Reaction Status Date Comments Source type Reported morphine Assertion Allergy to Active [facility] sulfa drugs Assertion Drug Active [facility] allergy [facility] Immunizations Immunization Date Given Site Status Last Comments Source Updated pneumococcal 11/26/2016 Not Given [facility] 13-valent Medical vaccine<sup>2</ Center, p> [facility] pneumococcal 11/26/2016 Left completed Mer Result [facility] 13-valent deltoid Comment: Medical vaccine<sup>1</ patient Center, p> refused [facility] Results Order Name Results Value Reference Date Interpretation Comments Source Range HEMATOLOGY POC PT 18.2 s 12.0 - 12/30 [facility] 14.7 [facility] HEMATOLOGY POC INR 1.6 0.9 - 1.2 12/30 [facility] HEMATOLOGY POC INR 1.9 0.9 - 1.2 12/19 [facility] HEMATOLOGY POC PT 22.0 s 12.0 - 12/19 [facility] 14.7 [facility] CARDIAC CK MB Index 1.6 0.0 - 2.5 11/26 [facility] CARDIAC Troponin-I null 0.00 - 11/26 [facility] 0.40 /2017 [facility] CARDIAC CK MB 1.8 ng/mL 0.5 - 3.6 11/26 [facility] CARDIAC Total CK 112 unit/L 12 - 191 11/26 [facility] CHEM PANEL Magnesium Lvl 2.1 mg/dL 1.8 - 2.4 11/26 [facility] CHEM PANEL Lipase Lvl 272 unit/L 73 - 393 11/26 [facility] ELECTROLYTE Sodium Lvl 143 meq/L 135 - 145 11/26 S [facility] ELECTROLYTE Potassium Lvl 3.7 meq/L 3.5 - 5.1 11/26 [facility] ELECTROLYTE Chloride Lvl 107 meq/L 95 - 109 11/26 [facility] ELECTROLYTE CO2 25 meq/L 24 - 32 11/26 [facility] ELECTROLYTE Calcium Lvl 8.4 mg/dL 8.5 - 10.5 11/26 [facility] ELECTROLYTE Glucose Lvl 168 mg/dL 70 - 99 11/26 [facility] ELECTROLYTE BUN 16 mg/dL 7 - 22 11/26 [facility] ELECTROLYTE Creatinine 1.06 mg/dL 0.50 - 11/26 S Lvl 1.40 /2016 [facility] ELECTROLYTE A/G Ratio 1.0 0.7 - 1.6 11/26 [facility] ELECTROLYTE Bili Total 0.5 mg/dL 0.2 - 1.3 11/26 [facility] ELECTROLYTE AGAP 14.7 meq/L 10.0 - 11/26 S 20.0 /2016 [facility] ELECTROLYTE B/C Ratio 15 6 - 25 11/26 [facility] ELECTROLYTE Globulin 3.9 g/dL 2.7 - 4.2 11/26 [facility] ELECTROLYTE Alk Phos 117 unit/L 39 - 136 11/26 [facility] ELECTROLYTE Total Protein 7.8 g/dL 6.4 - 8.4 11/26 [facility] ELECTROLYTE Albumin Lvl 3.9 g/dL 3.5 - 5.0 11/26 [facility] ELECTROLYTE ALT 10 unit/L 0 - 65 11/26 [facility] ELECTROLYTE AST 19 unit/L 0 - 37 11/26 [facility] ELECTROLYTE eGFR 47 11/26 Result Comment: The [...] 4.3 K/CMM 1.5 - 8.1 / [facility] HEMATOLOGY Lymphocytes # 1.3 K/CMM 1.0 - 5.5 / [facility] HEMATOLOGY Monocytes # 0.4 K/CMM 0.0 - 0.8 / [facility] HEMATOLOGY Eosinophils 1.8 % 0.0 - 4.0 / [facility] HEMATOLOGY Lymphocytes 21.0 % 20.0 - 05/ MH 40.0 /2016 [facility] HEMATOLOGY Monocytes 6.6 % 2.0 - 12.0 / [facility] HEMATOLOGY Basophils 0.6 % 0.0 - 1.0 11/26 [facility] HEMATOLOGY Eosinophils # 0.1 K/CMM 0.0 - 0.5 11/26 [facility] HEMATOLOGY Segs 70.0 % 45.0 - 05 MH 75.0 /2017 [facility] HEMATOLOGY PT 16.9 s 12.0 - 05/ MH 14.7 /2017 [facility] HEMATOLOGY INR 1.35 0.85 - 05/ MH 1.17 /2016 [facility] HEMATOLOGY PTT 33.5 s 22.9 - / MH 35.8 /2017 [facility] HEMATOLOGY RBC 4.34 M/CMM 4.20 - 05/02 MH 5.40 /2017 [facility] HEMATOLOGY MCV 89.8 fL 80.0 - / MH 98.0 /2017 [facility] HEMATOLOGY Hct 39.0 % 36.0 - 05 MH 48.0 /2017 [facility] HEMATOLOGY Hgb 12.5 g/dL 12.0 - 05/ MH 16.0 /2017 [facility] HEMATOLOGY MCH 28.7 pg 27.0 - 05/ MH 31.0 /2017 [facility] HEMATOLOGY MPV 8.7 fL 7.4 - 10.4 11/26 [facility] HEMATOLOGY WBC 6.1 K/CMM 3.7 - 10.4 / [facility] HEMATOLOGY MCHC 32.0 g/dL 32.0 - 05/ MH 36.0 /2016 [facility] HEMATOLOGY Platelet 159 K/CMM 133 - 450 05/2017 [facility] HEMATOLOGY RDW 17.2 % 11.5 - 11/26 14.5 [facility] Brain wo Brain wo Patient Name: LOUISA PALMA 11/25 - contrast CT contrast CT [facility] : 1930; Age: 86 years y/o [place] MR: [id number] Read by: Steven Stahl MD Dictated Date/time: [...] CHEST 1 VIEW 11/25 DX DX - [facility] DATE: 11/25/2016 7:51 PM CDT Read by: [...] mild pulmonary edema or atypical infection. SL: [id number] HEMATOLOGY POC INR 1.5 0.9 - 1.2 11/[address] HEMATOLOGY POC PT 17.4 s 12.0 - 11/18 [facility] 14.7 [facility] ELECTROLYTE AGAP 11.7 meq/L 10.0 - 11/16 [facility] 20.0 [facility] ELECTROLYTE Glucose Lvl 168 mg/dL 70 - 99 11/[address] ELECTROLYTE BUN 23 mg/dL 7 - 11/[address] ELECTROLYTE eGFR 36 11/16 Result Comment: The eGFR is calculated using the CKD-EPI formula. In most young, healthy individuals the eGFR will be >90 mL/ min/1.73m2. The eGFR declines with age. An eGFR of 60-89 may be normal in [facility] mL/min/1. some populations, particularly the elderly, for whom the CKD-EPI formula has not been extensively validated. Use of the eGFR is not recommended in the following populations: [address] Individuals with unstable creatinine concentrations, including [...] Lvl 8.4 mg/dL 8.5 - 10.5 11/[address] ELECTROLYTE CO2 29 meq/L 24 - 32 11/[address] ELECTROLYTE Chloride Lvl 107 meq/L 95 - 109 11/[address] ELECTROLYTE Potassium Lvl 3.7 meq/L 3.5 - 5.1 11/[address] ELECTROLYTE Sodium Lvl 144 meq/L 135 - 145 11/16 [facility] S [facility] ELECTROLYTE Creatinine 1.34 mg/dL 0.50 - 11/16 [facility] S Lvl 1.40 [facility] HEMATOLOGY INR 2.03 0.85 - 11/16 [place] 1.17 [facility] HEMATOLOGY PT 23.3 s 12.0 - 11/16 14.7 [facility] HEMATOLOGY Hgb 11.9 g/dL 12.0 - 11/16 16.0 [facility] HEMATOLOGY MCV 88.3 fL 80.0 - 11/16 98.0 [facility] HEMATOLOGY Hct 36.1 % 36.0 - 11/16 48.0 [facility] HEMATOLOGY MCH 29.1 pg 27.0 - 11/16 [facility] 31.0 [facility] HEMATOLOGY RBC 4.09 M/CMM 4.20 - 11/16 [facility] 5.40 [facility] HEMATOLOGY WBC 4.5 K/CMM 3.7 - 10.4 11/16 [facility] HEMATOLOGY MCHC 32.9 g/dL 32.0 - 11/16 [facility] 36.0 [facility] HEMATOLOGY MPV 9.0 fL 7.4 - 10.4 11/16 [facility] HEMATOLOGY Platelet 145 K/CMM 133 - 450 11/16 [facility] HEMATOLOGY RDW 17.7 % 11.5 - 11/16 [facility] 14.5 [facility] HEMATOLOGY Monocytes # 0.3 K/CMM 0.0 - 0.8 11/16 [facility] HEMATOLOGY Eosinophils # 0.2 K/CMM 0.0 - 0.5 11/16 [facility] HEMATOLOGY Monocytes 7.5 % 2.0 - 12.0 11/16 [facility] HEMATOLOGY Eosinophils 4.5 % 0.0 - 4.0 11/16 [facility] HEMATOLOGY Lymphocytes 24.0 % 20.0 - 11/16 40.0 [facility] HEMATOLOGY Segs-Bands # 2.9 K/CMM 1.5 - 8.1 11/16 [facility] HEMATOLOGY Basophils 0.5 % 0.0 - 1.0 11/16 [facility] HEMATOLOGY Lymphocytes # 1.1 K/CMM 1.0 - 5.5 11/16 [facility] /2016 [facility] HEMATOLOGY Segs 63.5 % 45.0 - 11/16 [facility] 75.0 [facility] Pelvis AP Pelvis AP DX EXAM: XR PELVIS 1 VIEW 11/16 - [facility] DATE: 11/16/2016 5:34 PM CDT [...] XR RIGHT KNEE 3 VIEWS 11/16 - [facility] views DX - [facility] EXAM: XR RIGHT TIBIA-FIBULA 2 VIEWS [place] EXAM: XR RIGHT ANKLE 3 VIEWS Read [...] INR 2.1 0.9 - 1.2 09/19 [facility] HEMATOLOGY POC PT 24.6 s 12.0 - 09/19 [place] [facility] HEMATOLOGY POC 40.0 % 36.0 - 03/12 [facility] Hematocrit 48.0 [facility] HEMATOLOGY POC 13.6 g/dL 12.0 - 03/12 [facility] Hemoglobin 16.0 [facility] HEMATOLOGY POC PT 37.1 s 12.0 - 03/12 [place] 14. [facility] HEMATOLOGY POC INR 3.3 0.9 - 1.2 03/12 [facility] HEMATOLOGY POC PT 35.1 s 12.0 - 03/05 [place] 14. [facility] HEMATOLOGY POC INR 3.1 0.9 - 1.2 03/05 [facility] HEMATOLOGY POC INR 1.8 0.9 - 1.2 02/27 [facility] HEMATOLOGY POC PT 20.7 s 12.0 - 02/27 [place] 14. [facility] HEMATOLOGY PT 14.3 s 12.0 - 02/21 [place] 14. [facility] HEMATOLOGY INR 1.08 0.85 - 02/21 [place] 1.17 [facility] HEMATOLOGY PTT 31.3 s 22.9 - 02/21 [place] 35.8 [facility] CHEM PANEL eGFR 39 02/21 Result Comment: The eGFR is calculated using the CKD-EPI formula. In most young, healthy individuals the eGFR will be >90 mL/ min/1.73m2. The eGFR declines with age. An eGFR of 60-89 may be normal in [facility] mL/min/1. some populations, particularly the [...] PANEL AGAP 14.0 meq/L 10.0 - 02/21 [facility] 20.0 [facility] CHEM PANEL Calcium Lvl 8.6 mg/dL 8.5 - 10.5 02/[address] CHEM PANEL Glucose Lvl 196 mg/dL 70 - 99 02/[address] CHEM PANEL BUN 22 mg/dL 7 - 22 02/[address] CHEM PANEL Potassium Lvl 4.0 meq/L 3.5 - 5.1 02/[address] CHEM PANEL Chloride Lvl 106 meq/L 95 - 109 02/[address] CHEM PANEL Creatinine 1.26 mg/dL 0.50 - 02/21 [facility] Lvl 1.40 [facility] CHEM PANEL Sodium Lvl 142 meq/L 135 - 145 02/[address] CHEM PANEL CO2 26 meq/L 24 - 32 02/[address] HEMATOLOGY Segs 63.9 % 45.0 - 02/21 [facility] 75.0 [facility] HEMATOLOGY Lymphocytes 22.6 % 20.0 - 02/21 40.0 [facility] HEMATOLOGY Eosinophils 5.2 % 0.0 - 4.0 02/[address] HEMATOLOGY Monocytes 7.4 % 2.0 - 12.0 02/[address] HEMATOLOGY Basophils 0.9 % 0.0 - 1.0 02/[address] HEMATOLOGY Segs-Bands # 3.3 K/CMM 1.5 - 8.1 02/[address] HEMATOLOGY Lymphocytes # 1.2 K/CMM 1.0 - 5.5 02/[address] HEMATOLOGY Eosinophils # 0.3 K/CMM 0.0 - 0.5 02/[address] HEMATOLOGY Monocytes # 0.4 K/CMM 0.0 - 0.8 02/[address] HEMATOLOGY MPV 9.4 fL 7.4 - 10.4 02/21 [facility] HEMATOLOGY MCHC 32.0 g/dL 32.0 - 02/21 [place] 36.0 [facility] HEMATOLOGY RDW 16.9 % 11.5 - 02/21 [place] 14.5 [facility] HEMATOLOGY Platelet 133 K/CMM 133 - 450 02/21 [facility] HEMATOLOGY WBC 5.1 K/CMM 3.7 - 10.4 02/21 [facility] HEMATOLOGY RBC 4.16 M/CMM 4.20 - 02/21 [facility] 5.40 [facility] HEMATOLOGY Hgb 11.2 g/dL 12.0 - 02/21 [facility] 16.0 [facility] HEMATOLOGY Hct 35.2 % 36.0 - 02/21 [facility] 48.0 [facility] HEMATOLOGY MCV 84.5 fL 80.0 - 02/21 [facility] 98.0 [facility] HEMATOLOGY MCH 27.0 pg 27.0 - 02/21 [place] 31.0 [facility] ELECTROLYTE AGAP 14.3 meq/L 10.0 - 02/20 [facility] S 20.0 [facility] ELECTROLYTE eGFR 45 02/20 Result Comment: The eGFR is calculated using the CKD-EPI formula. In most young, healthy individuals the eGFR will be >90 mL/ min/1.73m2. The eGFR declines with age. An eGFR of 60-89 may be normal in [facility] mL/min/1. some populations, particularly the elderly, for whom the CKD-EPI formula has not been extensively validated. Use of the eGFR is not recommended in the following populations: [address] Individuals with unstable creatinine concentrations, including [...] 104 meq/L 95 - 109 02/20 [facility] ELECTROLYTE Potassium Lvl 4.3 meq/L 3.5 - 5.1 02/20 [facility] ELECTROLYTE Calcium Lvl 8.8 mg/dL 8.5 - 10.5 02/20 [facility] ELECTROLYTE CO2 27 meq/L 24 - 32 02/20 [facility] ELECTROLYTE Creatinine 1.12 mg/dL 0.50 - 02/20 [facility] S Lvl 1.40 [facility] ELECTROLYTE Sodium Lvl 141 meq/L 135 - 145 02/20 [facility] ELECTROLYTE Glucose Lvl 123 mg/dL 70 - 99 02/20 [facility] ELECTROLYTE BUN 21 mg/dL 7 - 22 02/20 [facility] HEMATOLOGY Basophils # 0.1 K/CMM 0.0 - 0.2 02/20 [facility] HEMATOLOGY Eosinophils # 0.2 K/CMM 0.0 - 0.5 02/20 [facility] HEMATOLOGY Monocytes # 0.4 K/CMM 0.0 - 0.8 02/20 [facility] HEMATOLOGY Monocytes 7.3 % 2.0 - 12.0 02/20 [facility] HEMATOLOGY Segs 65.3 % 45.0 - 02/20 75.0 [facility] HEMATOLOGY Lymphocytes 23.4 % 20.0 - 02/20 40.0 [facility] HEMATOLOGY Lymphocytes # 1.3 K/CMM 1.0 - 5.5 02/20 [facility] HEMATOLOGY Basophils 1.0 % 0.0 - 1.0 02/20 [facility] HEMATOLOGY Eosinophils 3.0 % 0.0 - 4.0 02/20 [facility] HEMATOLOGY Segs-Bands # 3.6 K/CMM 1.5 - 8.1 02/20 [facility] HEMATOLOGY RBC 4.09 M/CMM 4.20 - 02/20 5.40 [facility] HEMATOLOGY Hgb 11.2 g/dL 12.0 - 02/20 16.0 [facility] HEMATOLOGY WBC 5.5 K/CMM 3.7 - 10.4 02/20 [facility] HEMATOLOGY Hct 34.5 % 36.0 - 02/20 [place] 48.0 [facility] HEMATOLOGY MCV 84.3 fL 80.0 - 02/20 98.0 [facility] HEMATOLOGY RDW 16.6 % 11.5 - 02/20 [facility] 14.5 [facility] HEMATOLOGY MCH 27.3 pg 27.0 - 02/20 [facility] 31.0 [facility] HEMATOLOGY MCHC 32.4 g/dL 32.0 - 02/20 [facility] 36.0 [facility] HEMATOLOGY Platelet 131 K/CMM 133 - 450 02/20 [facility] HEMATOLOGY MPV 9.6 fL 7.4 - 10.4 02/20 [facility] LIPIDS VLDL 20 02/20 [facility] LIPIDS LDL 130 mg/dL <=99 mg/dL 02/20 [facility] (Calculated) [facility] LIPIDS HDL 31 mg/dL >=61 mg/dL 02/20 [facility] LIPIDS Chol 181 mg/dL <=199 02/20 [facility] mgdL [facility] LIPIDS Trig 101 mg/dL <=149 02/20 [facility] mg/dL [facility] LIPIDS CHD Risk 5.84 3.90 - 02/20 [facility] 5.80 [facility] SPECIAL Hgb A1C 7.0 % <=5.6 % 02/20 [facility] CHEM PANEL eGFR 45 02/20 Result Comment: The eGFR is calculated using the CKD-EPI formula. In most young, healthy individuals the eGFR will be >90 mL/ min/1.73m2. The eGFR declines with age. An eGFR of 60-89 may be normal in [facility] mL/min/1.7 some populations, particularly the elderly, for whom the CKD-EPI formula has not been extensively validated. Use of the eGFR is not recommended in the following populations: [address] Individuals with unstable creatinine concentrations, including [...] 0.4 mg/dL 0.2 - 1.3 02/20 [facility] CHEM PANEL CO2 27 meq/L 24 - 32 02/20 [facility] CHEM PANEL Calcium Lvl 8.8 mg/dL 8.5 - 10.5 02/20 [facility] CHEM PANEL AST 11 unit/L 0 - 37 02/20 [facility] CHEM PANEL ALT 9 unit/L 0 - 65 02/20 [facility] CHEM PANEL Alk Phos 120 unit/L 39 - 136 02/20 [facility] CHEM PANEL Potassium Lvl 4.2 meq/L 3.5 - 5.1 02/20 [facility] CHEM PANEL Chloride Lvl 105 meq/L 95 - 109 02/20 [facility] CHEM PANEL Sodium Lvl 141 meq/L 135 - 145 02/20 [facility] CHEM PANEL Albumin Lvl 3.6 g/dL 3.5 - 5.0 02/20 [facility] CHEM PANEL Total Protein 7.3 g/dL 6.4 - 8.4 02/20 [facility] CHEM PANEL BUN 21 mg/dL - 02/20 [facility] CHEM PANEL Creatinine 1.12 mg/dL 0.50 - 02/20 [facility] Lvl 1.40 [facility] CHEM PANEL Glucose Lvl 125 mg/dL 70 - 99 02/20 [facility] CHEM PANEL A/G Ratio 1.0 0.7 - 1.6 02/20 [facility] CHEM PANEL Globulin 3.7 g/dL 2.0 - 4.0 02/20 [facility] CHEM PANEL AGAP 13.2 meq/L 10.0 - 02/20 20.0 [facility] CHEM PANEL B/C Ratio 19 6 - 25 02/20 [facility] DRUG SCREEN U Amph Scr Negative Negative 02/20 [facility] (02/21/16 1:34 AM) DRUG SCREEN U Lilian Scr Negative Negative 02/20 [facility] (02/21/16 1:34 AM) DRUG SCREEN U Cannab Scr Negative Negative 02/20 [facility] (02/21/16 1:34 AM) DRUG SCREEN U Phencyc Scr Negative Negative 02/20 [facility] (02/21/16 1:34 AM) DRUG SCREEN U Cocaine Scr Negative Negative 02/20 [facility] (02/21/16 1:34 AM) DRUG SCREEN U Opiate Scr Negative Negative 02/20 [facility] *NA* [place] (02/21/16 1:34 AM) DRUG SCREEN U Benzodia Negative Negative 02/20 [facility] [place] [facility]02/21/16 1:34 AM[facility] DRUG SCREEN UDS Note See Note 02[facility] [place] (02/21/16 1:34 AM) HEMATOLOGY INR 1.12 0.85 - 02/20 [facility] 1.17 /2015 [facility] HEMATOLOGY PT 14.7 s 12.0 - 02/20 [facility] 14.7 [facility] HEMATOLOGY PTT 31.5 s 22.9 - 02/20 [facility] 35.8 /2015 [facility] IMMUNOLOGY Treponemal Non Reactive Non 02/20 [facility] [place] (02/21/16 1:34 AM) URINE AND UA <=1.0 0.1 - 1.0 02/20 [facility] Urobilinogen mg/dL [facility] URINE AND UA Sq Epi None Seen 02/20 [facility] STOOL [facility] URINE AND UA [place] Yeast Occasional None Seen 02/20 [facility] STOOL /HPF /HPF /2015 [facility] URINE AND UA Bacteria Few /HPF None Seen 02/20 [facility] STOOL /HPF /2015 [facility] URINE AND UA Ketones Negative Negative 02/20 [facility] mg/dL mg/dL [facility] URINE AND UA Glucose Negative Negative 02/20 [facility] mg/dL mg/dL [facility] URINE AND UA Protein Negative Negative 02/20 [facility] mg/dL mg/dL [facility] URINE AND UA pH 5.0 5.0 - 8.0 02/20 [facility] STOOL [facility] URINE AND UA Spec Grav 1.005 <=1.030 02/20 [facility] STOOL [facility] URINE AND UA WBC 8 /HPF 0 - 5 02/20 [facility] URINE AND UA Leuk Est Large Negative 02/20 [facility] [place] (02/21/16 1:34 AM) URINE AND UA Nitrite Negative Negative 02/20 [facility] (02/21/16 1:34 AM) [place] URINE AND UA Blood Negative Negative 02/20 [facility] (02/21/16 1:34 AM) [place] URINE AND UA Bili Negative Negative 02/20 [facility] (02/21/16 1:34 AM) URINE AND UA Turbidity Slight Clear 02/20 [facility]ABN* [facility] (02/21/16 1:34 AM) URINE AND UA Color Light Yellow Yellow 02/20 [facility] (02/21/16 1:34 AM) Brain/Neck Brain/Neck EXAM: CT ANGIOGRAM OF THE HEAD 02/20 [facility] CTA CTA - Medical EXAM: CT ANGIOGRAM [...] aneurysm is identified of the arteries of [place] of [place]. Patent major neck arteries. All quantitative and qualitative measurements of the carotid arteries in the neck are performed utilizing the distal internal carotid artery for reference as per standard NASCET criteria. Brain wo Brain wo EXAM: MRI BRAIN WITHOUT CONTRAST 02/20 [facility] contrast contrast MRI /2015 [facility] DATE: 02/21/2016 04:20 AM CDT Read by: Rose Arrington Dictated Date/time: 02/21/16 08:54 Electronically Signed by: Rose Arringtno 02/21/16 09:08 FINAL REPORT INDICATION: Acute cognitive [...] than an ischemic insult in the right [employer] territory. 2. Underlying chronic microvascular ischemic changes. [...] [facility] [place] Height 167.64 cm 11/26/2016 [facility] BMI Calculated 30.73 11/26/2016 [facility] Respitory Rate 19 11/17/2016 [facility] Center Systolic (mm Hg) 137 11/17/2016 [facility] Diastolic (mm Hg) 90 11/17/2016 [facility] Heart Rate 87 11/17/2016 [facility] Temperature Oral (F) 97.8 F 11/17/2016 [facility] Temperature Oral (F) 97.6 F 11/17/2016 [facility] Respitory Rate 18 11/17/2016 [facility] Systolic (mm Hg) 135 11/17/2016 [facility] Diastolic (mm Hg) 89 11/17/2016 [facility] Heart Rate 80 11/17/2016 [facility] Respitory Rate 18 11/16/2016 [facility] Heart Rate 82 11/16/2016 [facility] Temperature Oral (F) 97.4 F 11/16/2016 [facility] Systolic (mm Hg) 139 11/16/2016 [facility] Diastolic (mm Hg) 96 11/16/2016 [facility] BMI Calculated 30.73 11/16/2016 [facility] Height 167.64 cm 11/16/2016 [facility] Weight 86.364 11/16/2016 [facility] Systolic (mm Hg) 136 09/19/2016 [facility] Diastolic (mm Hg) 74 09/19/2016 [facility] Heart Rate 80 09/19/2016 [facility] Height 167.64 cm 09/19/2016 [facility] Weight 86.875 09/19/2016 [facility] BMI Calculated 30.91 09/19/2016 [facility] BMI Calculated 28.3 03/12/2016 [facility] Weight 79.545 03/12/2016 [facility] Height 167.64 cm 03/12/2016 [facility] Heart Rate 74 03/12/2016 [facility] Systolic (mm Hg) 142 03/12/2016 [facility] Diastolic (mm Hg) 86 03/12/2016 [facility] Systolic (mm Hg) 142 03/05/2016 [facility] Diastolic (mm Hg) 78 03/05/2016 [facility] Height 167.64 cm 03/05/2016 [facility] BMI Calculated 28.3 03/05/2016 [facility] Weight 79.545 03/05/2016 [facility] Heart Rate 92 03/05/2016 [facility] Respitory Rate 20 02/22/2016 [facility] Systolic (mm Hg) 122 02/22/2016 [facility] Diastolic (mm Hg) 68 02/22/2016 [facility] Systolic (mm Hg) 168 02/22/2016 [facility] Diastolic (mm Hg) 80 02/22/2016 [facility] Respitory Rate 24 02/22/2016 [facility] Temperature Oral (F) 99.3 F 02/22/2016 [facility] Systolic (mm Hg) 116 02/22/2016 [facility] Diastolic (mm Hg) 55 02/22/2016 [facility] Respitory Rate 02/22/2016 [facility] Temperature Oral (F) 98.4 F 02/22/2016 [facility] Temperature Oral (F) 97.4 F 02/21/2016 [facility] Height 167.64 cm 02/21/2016 [facility] BMI Calculated 28.3 02/21/2016 [facility] Weight 79.545 02/21/2016 [facility] Encounters Location Location Encounter Encounter Reason Attending ADM DC Status Source Details Type Number For Provider Date Date Visit [facility] [id number] Stanton Brannon 02/20 02/21 Nazia Mcbride /2015 [facility] Recurring [id number] Girma 02/27 03/29 Nazia Mcbride Doty /2015 [facility] Recurring [id number] Non 09/19 10/19 Nazia Mcbride Physician /2016 [facility] Recurring [id number] Non 10/28 11/27 Nazia Mcbride Physician /2016 [facility] Emergency [id number] Barbara 11/16 11/17 Nazia Mcbride Ann /2016 [facility] Observation [id number] 11/26 11/26 Reed Weimed /2016 [facility] Recurring [id number] Non 12/19 01[facility]18 [facility]2016 [facility] Procedures Procedure Code Date Perfomer Comments Source Open heart [id number] 07/28/1992 tumor 5cm [facility] surgery<sup>1</sup> [facility] Open heart [id number] 07/28/1992 tumor 5cm [facility]<sup>1</sup> [facility] Abdominal [id number] [facility] Endoscopic laser [id number] [facility] surgery on colon [facility] Mastectomy of right [id number] [facility] Open heart surgery [id number] [facility] Appendectomy [id number] [facility] Partial resection [id number] [facility] Abdominal [id number] [facility] hysterectomy [facility] Appendectomy [id number] [facility] Endoscopic laser [id number] [facility] surgery on colon [facility] Mastectomy of right [id number] [facility] breast [facility] Partial resection [id number] [facility]
[2018-08-05] MEDS ORDERED: ONDANSETRON 4 MG/2 ML VIAL ONE (17:07)
[2018-08-05] MEDS ORDERED: NA CHLORIDE 0.9% 500 ML ONE (17:07)
[2018-08-05 17:21] LABS: Absolute Lymphocytes (CBC) 0.7 K/uL (0.7-4.9); Absolute Monocytes 0.5 K/uL (0.1-1.3); Basophils % 0.5 % (0-1.3); Eosinophils % 3.2 % (0-4.4); Hematocrit 38.9 % (36.0-45.0); Lymphocytes % 16.2 % (15.3-44.8); MPV 9.9 fL (7.6-11.3); Monocytes % 10.9 % (3.3-12.3); RBC Red Blood Cell Count 4.41 M/uL (3.86-4.86)
[2018-08-05 17:37] LABS: Albumin 3.2 g/dL (3.4-5.0); Bilirubin Direct 0.5 mg/dL (0-0.2); Bilirubin Total 1.1 mg/dL (0.2-1.0); Potassium 3.4 mmol/L (3.5-5.1); Protein, Total 7.2 g/dL (6.4-8.2)
[2018-08-05 18:41] LABS: Protime INR 5.56
--- NOTE | 2018-08-05 18:48 | RAD REPORT ---
EXAM DESCRIPTION: RAD - Chest Single View - 08/05/2018 6:38 pm CLINICAL HISTORY: hypoxia Chest pain. COMPARISON: Chest Single View dated 06/26/2018; Chest Pa And Lat (2 Views) dated 06/24/2018; Chest S holger View dated 05/28/2016; Chest Single View dated 02/20/2016 FINDINGS: Portable technique limits examination quality. The lungs are grossly clear. The heart is normal in size. Sternotomy wires.Right axillary blanquita disse ction. IMPRESSION: No acute intrathoracic process suspected.
--- NOTE | 2018-08-05 19:57 | RAD REPORT ---
EXAM DESCRIPTION: CTAbdomen Pelvis W Contrast - 08/05/2018 7:46 pm CLINICAL HISTORY: Abdominal pain. nausea/diarrhea;Abd pain COMPARISON: Abdomen Pelvis W Contrast dated 06/20/2018; CT ABD PELVIS W CONTRAST dated 09/24/2015; CT ABD PELVIS W CONTRAST dated 08/09/2015; CT ABD PELVIS W CONTRAST dated 05/19/2015 TECHNIQUE: Biphasic CT imaging of the abdomen and pelvis was performed with 100 ml non-ionic IV cont rast. All CT scans are performed using dose optimization technique as appropriate and may include automated exposure control or mA/KV adjustment according to patient size. FINDINGS: Linear subsegmental atelectasis is present in both lung bases. Small granulomata are present throughout the liver parenchyma and splenic parenchyma. The gallbladder surgically absent. Poorly defined soft tissue is seen in the common bile duct distally. The adrenal glands pancreas are within normal limits. Several cysts are present involving the left kidney. No hyd ronephrosis. No bowel obstruction, free air, free fluid or abscess. Prominent descending and sigmoid diverticulosi s coli is present without diverticulitis. The appendix is not identified as a discrete structure, how ever, no secondary findings of appendicitis are identified. No evidence of significant lymphadenopa thy. Mild degenerative anterolisthesis of L5 on S1. IMPRESSION: Prominent colonic diverticulosis without diverticulitis. Poorly defined soft tissue in the common bile duct distally. If clinically indicated, MRCP may be of value for followup assessment.
--- NOTE | 2018-08-05 20:11 | ER ---
Nurse's Notes [facility] Name: Kortney Brar Age: 88 yrs Sex: Female : 1930 Arrival Date: 08/05/2018 Time: 16:32 Bed 26 Private MD: Pop Severino E Diagnosis: Diarrhea, unspecified Presentation: 08/05 16:36 Presenting complaint: Friend states: Diarrhea x 2 days now unable to control her jl7 bowels, Reports nausea but no vomiting yet. And she's dizzy now too. Transition of care: patient was not received from another setting of care. Onset of symptoms was August 03, 2018. Risk Assessment: Do you want to hurt yourself or someone else? Patient reports no desire to harm self or others. Initial Sepsis Screen: Does the patient meet any 2 criteria? No. Patient's initial sepsis screen is negative. Does the patient have a suspected source of infection? No. Patient's initial sepsis screen is negative. Care prior to arrival: None. 16:36 Method Of Arrival: Ambulatory [facility] 16:36 Acuity: JASON 3 jl7 Triage Assessment: 16:41 General: Appears in no apparent distress. uncomfortable, Behavior is calm, cooperative, jl7 appropriate for age. Pain: Complains of pain in right upper quadrant Pain currently is 5 out of 10 on a pain scale. GI: Reports diarrhea, nausea, Patient currently denies vomiting. Historical: - Allergies: 16:41 Codeine; jl7 16:41 Demerol; jl7 16:41 Morphine; jl7 16:41 sulfamethoxazole; jl7 16:41 TRIMETHOPRIM; jl7 - Home Meds: 16:41 Coumadin 4 mg Oral tab 1 tab once daily [Active]; Imdur 30 mg Oral Tb24 [Active]; jl7 levothyroxine 125 mcg tab 1 tab once daily [Active]; Januvia oral oral [Active]; sotalol 80 mg Oral tab 1 tab 2 times per day [Active]; Lipitor 80 mg Oral tab 1 tab once daily [Active]; - PMHx: 16:41 Atrial Fib; chronic uti; Diabetes - NIDDM; GI Bleed; heart attack; stents; TIA; jl7 - Immunization history:: Adult Immunizations up to date. - Social history:: Smoking status: Patient/guardian denies using tobacco. - Ebola Screening: : No symptoms or risks identified at this time. - Family history:: not pertinent. - Hospitalizations: : The patient was recently seen at [facility]. Screenin:16 Abuse screen: Denies threats or abuse. Nutritional screening: No deficits noted. la1 Tuberculosis screening: No symptoms or risk factors identified. Fall Risk No fall in past 12 months (0 pts). Secondary diagnosis (15 points) Ambulatory Aid- None/Bed Rest/Nurse Assist (0 pts). Assessment: 17:14 General: Appears in no apparent distress. Behavior is calm, cooperative. Pain: la1 Complains of pain in abdomen and right upper quadrant. Neuro: Level of Consciousness is awake, alert, obeys commands, Oriented to person, place, time, situation. Cardiovascular: Heart tones S1 S2 present Capillary refill < 3 seconds Patient's skin is warm and dry. Respiratory: Airway is patent Respiratory effort is even, unlabored, Respiratory pattern is regular, symmetrical, Breath sounds are clear bilaterally. GI: Abdomen is round non-distended, Bowel sounds present X 4 quads. Abd is soft and non tender X 4 quads. GI: Reports nausea. : No signs and/or symptoms were reported regarding the genitourinary system. 18:17 Reassessment: Patient appears in no apparent distress at this time. No changes from la1 previously documented assessment. Patient and/or family updated on plan of care and expected duration. Pain level reassessed. Patient is alert, oriented x 3, equal unlabored respirations, skin warm/dry/pink. 20:08 Reassessment: Patient appears in no apparent distress at this time. No changes from la1 previously documented assessment. Patient and/or family updated on plan of care and expected duration. Pain level reassessed. Patient is alert, oriented x 3, equal unlabored respirations, skin warm/dry/pink. Vital Signs: 16:41 BP 103 / 49; Pulse 51; Resp 16 S; Temp 99.1(O); Pulse Ox 95% on R/A; Weight 83.46 kg jl7 (R); Height 5 ft. 6 in. (167.64 cm) (R); Pain 5/10; 18:17 BP 125 / 68; Pulse 70; Resp 16; Pulse Ox 96% on 3 lpm NC; la1 21:00 BP 117 / 69; Pulse 65; Resp 18; Temp 97.4; Pulse Ox 98% on 2 lpm NC; la1 16:41 Body Mass Index 29.70 (83.46 kg, 167.64 cm) jl7 ED Course: 16:32 Patient arrived in ED. rg4 16:32 Pop Severino MD is Private Physician. rg4 16:38 Triage completed. jl7 16:41 Arm band placed on right wrist. jl7 16:45 Kimo Villatoro MD is Attending Physician. rn 16:56 Ronen Barrios RN is Primary Nurse. la1 17:13 EKG done, by him tech. reviewed by Kimo Villatoro MD. 3 17:15 Bed in low position. Call light in reach. Side rails up X 1. la1 17:16 No provider procedures requiring assistance completed. Inserted saline lock: 22 gauge la1 in left antecubital area, using aseptic technique. Blood collected. 18:39 XRAY Chest (1 view) In Process Unspecified. EDMS 19:12 Attending Physician role handed off by Kimo Villatoro MD ma2 19:12 Yoly Brandt MD is Attending Physician. ma2 19:45 CT completed. Patient tolerated procedure well. Patient moved back from CT. nj 19:46 CT Abd/Pelvis - W/Contrast In Process Unspecified. EDMS 20:10 Kaden Duncan MD is Hospitalizing Provider. ma2 21:50 Patient admitted, IV remains in place. la1 Administered Medications: 17:14 Drug: Zofran 4 mg Route: IVP; Site: left antecubital; la1 17:32 Follow up: Response: No adverse reaction la1 17:14 Drug: NS 0.9% 500 ml Route: IV; Rate: bolus; Site: left antecubital; la1 17:32 Follow up: IV Status: Completed infusion la1 21:05 Drug: Potassium Chloride 40 mEq Route: PO; la1 21:06 Follow up: Response: No adverse reaction la1 Outcome: 20:11 Decision to Hospitalize by Provider. ma2 21:50 Admitted to Med/surg accompanied by tech, via wheelchair, with chart. la1 21:50 Condition: stable 21:50 Instructed on the need for admit. 21:51 Patient left the ED. la1 Signatures: Dispatcher [employer] EDMS Kimo Villatoro MD MD rn Attema, DEWEY Hardwick RN la1 Cara Sylvester rg4 Naeem Biswas Jahala, RN RN jl7 Yoly Brandt MD MD ma2 Jayshree Doe 3
--- NOTE | 2018-08-05 20:11 | EDPHYS ---
Physician Documentation [facility] Name: Kortney Brar Age: 88 yrs Sex: Female : 1930 Arrival Date: 08/05/2018 Time: 16:32 Bed 26 Private MD: Pop Severino E ED Physician Yoly Brandt HPI: 08/05 17:25 This 88 yrs old Female presents to ER via Ambulatory with complaints of rn Dizziness, Diarrhea, Nausea. 17:25 The patient presents with generalized weakness. rn 17:26 The patient presents to the emergency department with nausea, diarrhea, abdominal pain. rn Onset: The symptoms/episode began/occurred yesterday. Possible causes: unknown. The symptoms are aggravated by nothing. The symptoms are alleviated by nothing. Associated signs and symptoms: Pertinent positives: abdominal pain, diarrhea, nausea. Severity of symptoms: At their worst the symptoms were moderate in the emergency department the symptoms are unchanged. The patient has experienced similar episodes in the past. Reports similar episode and diagnosed with pancreatitis, reports diarrhea, difficult to control and make it to bathroom, + mild fever, + nausea, no blood in stool. . Historical: - Allergies: 16:41 Codeine; jl7 16:41 Demerol; jl7 16:41 Morphine; jl7 16:41 sulfamethoxazole; jl7 16:41 TRIMETHOPRIM; jl7 - Home Meds: 16:41 Coumadin 4 mg Oral tab 1 tab once daily [Active]; Imdur 30 mg Oral Tb24 [Active]; jl7 levothyroxine 125 mcg tab 1 tab once daily [Active]; Januvia oral oral [Active]; sotalol 80 mg Oral tab 1 tab 2 times per day [Active]; Lipitor 80 mg Oral tab 1 tab once daily [Active]; - PMHx: 16:41 Atrial Fib; chronic uti; Diabetes - NIDDM; GI Bleed; heart attack; stents; TIA; jl7 - Immunization history:: Adult Immunizations up to date. - Social history:: Smoking status: Patient/guardian denies using tobacco. - Ebola Screening: : No symptoms or risks identified at this time. - Family history:: not pertinent. - Hospitalizations: : The patient was recently seen at [facility]. ROS: 17:26 Constitutional: + fever Eyes: Negative for injury, pain, redness, and discharge, Neck: rn Negative for injury, pain, and swelling, Cardiovascular: Negative for chest pain, palpitations, and edema, Respiratory: Negative for shortness of breath, cough, wheezing, and pleuritic chest pain, Abdomen/GI: + abd pain/nausea/diarrhea MS/Extremity: Negative for injury and deformity, Skin: Negative for injury, rash, and discoloration, Neuro: + generalized weakness Exam: 17:26 Constitutional: This is a well developed, well nourished patient who is awake, alert, rn and in no acute distress. Head/Face: Normocephalic, atraumatic. Eyes: Pupils equal round and reactive to light, extra-ocular motions intact. Lids and lashes normal. Conjunctiva and sclera are non-icteric and not injected. Cornea within normal limits. Periorbital areas with no swelling, redness, or edema. ENT: dry MM Cardiovascular: Irregular rhythm, no murmur, bradycardic Respiratory: Lungs have equal breath sounds bilaterally, clear to auscultation. No increased work of breathing, no retractions or nasal flaring. Abdomen/GI: soft, mild epigastric RUQ tenderness MS/ Extremity: Pulses equal, no cyanosis. Neurovascular intact. Full, normal range of motion. Equal circumference. Neuro: Awake and alert, GCS 15, oriented to person, place, time, and situation. Cranial nerves II-XII grossly intact. Motor strength 5/5 in all extremities. Sensory grossly intact. Vital Signs: 16:41 BP 103 / 49; Pulse 51; Resp 16 S; Temp 99.1(O); Pulse Ox 95% on R/A; Weight 83.46 kg 7 (R); Height 5 ft. 6 in. (167.64 cm) (R); Pain 5/10; 18:17 BP 125 / 68; Pulse 70; Resp 16; Pulse Ox 96% on 3 lpm NC; la1 21:00 BP 117 / 69; Pulse 65; Resp 18; Temp 97.4; Pulse Ox 98% on 2 lpm NC; la1 16:41 Body Mass Index 29.70 (83.46 kg, 167.64 cm) [facility] MDM: 16:45 Patient medically screened. rn 20:09 Differential diagnosis: gastroenteritis, CT showing diverticulosis without ma2 diverticulitis has dehydration hypokalemia and high inr, of 5, will hold off warfarine, discussed with dr. Britt. Data reviewed: vital signs, nurses notes. Counseling: I had a detailed discussion with the patient and/or guardian regarding: the historical points, exam findings, and any diagnostic results supporting the discharge/admit diagnosis, the presence of at least one elevated blood pressure reading (>120/80) during this emergency department visit, the need for further work-up and treatment in the hospital. 08/05 16:55 Order name: Basic Metabolic Panel; Complete Time: 18:07 rn 08/05 16:55 Order name: CBC with Diff; Complete Time: 18:07 rn 08/05 16:55 Order name: Creatinine for Radiology; Complete Time: 18:07 rn 08/05 16:55 Order name: Hepatic Function; Complete Time: 18:07 rn 08/05 16:55 Order name: Lipase; Complete Time: 18:07 rn 08/05 17:25 Order name: PT-INR; Complete Time: 18:48 rn 08/05 16:55 Order name: CT Abd/Pelvis - W/Contrast 08/05 18:17 Order name: XRAY Chest (1 view) 08/05 20:33 Order name: Urine Microscopic Only [facility] 08/05 20:33 Order name: Urine Culture [facility] 08/05 20:36 Order name: Urine Dipstick--Ancillary (enter results) [facility] 08/05 16:55 Order name: IV Saline Lock; Complete Time: 17:14 rn 08/05 16:55 Order name: Labs collected and sent; Complete Time: 17:14 08/05 16:55 Order name: EKG; Complete Time: 16:57 rn 08/05 16:55 Order name: EKG - Nurse/Tech; Complete Time: 17:14 rn Administered Medications: 17:14 Drug: Zofran 4 mg Route: IVP; Site: left antecubital; la1 17:32 Follow up: Response: No adverse reaction la1 17:14 Drug: NS 0.9% 500 ml Route: IV; Rate: bolus; Site: left antecubital; la1 17:32 Follow up: IV Status: Completed infusion la1 21:05 Drug: Potassium Chloride 40 mEq Route: PO; la1 21:06 Follow up: Response: No adverse reaction la1 Disposition: 08/05/18 20:11 Hospitalization ordered by Kaden Duncan for Observation. Preliminary diagnosis is Diarrhea, unspecified. - Bed requested for Telemetry/MedSurg (observation). - Status is Observation. la1 - Condition is Stable. - Problem is new. - Symptoms have improved. UTI on Admission? No Signatures: Dispatcher [employer] EDMS Kimo Villatoro MD MD rn Attema, Lee, RN RN la1 Lee Ann Sylvester RN RN Tom Contreras RN RN jl7 Yoly Brandt MD MD ma2 Corrections: (The following items were deleted from the chart) 21:02 20:11 Hospitalization Ordered by Kaden Duncan MD for Observation. Preliminary cg diagnosis is Diarrhea, unspecified. Bed requested for Telemetry/MedSurg (observation). Status is Observation. Condition is Stable. Problem is new. Symptoms have improved. UTI on Admission? No. ma2 21:51 21:02 08/05/2018 20:11 Hospitalization Ordered by Kaden Duncan MD for Observation. la1 Preliminary diagnosis is Diarrhea, unspecified. Bed requested for Telemetry/MedSurg (observation). Status is Observation. Condition is Stable. Problem is new. Symptoms have improved. UTI on Admission? No.
[2018-08-05 20:58] LABS: Urine Bacteria 20-50 /HPF (<20); Urine Culture Reflex Order NOT NEEDED; Urine Mucus 1+ /HPF (NONE SEEN)
[2018-08-05 20:59] LABS: Urine Blood NEGATIVE (NEG); Urine Glucose NEGATIVE (NEG); Urine Protein NEGATIVE (NEG); Urine Specific Gravity <1.005 (1.005-1.030); Urine pH 5.5 (5.0-7.0)
--- NOTE | 2018-08-05 21:03 | P.HP ---
Certification for Inpatient Patient admitted to: Observation With expected LOS: <2 Midnights Practitioner: I am a practitioner with admitting privileges, knowledge of patient current condition, hospital course, and medical plan of care. Services: Services provided to patient in accordance with Admission requirements found in Title 42 Section 412.3 of the Code of Federal Regulations Patient History Date of Service: 08/05/18 Reason for admission: UTI, volume depletion History of Present Illness: Ms Brar is an 88 years old woman with multiple medical problems, including chronic atrial fibrillation, anticoagulated with warfarin, DM II, HTN, CAD, TIA , who start about 2 days ago with diffuse abdominal pain associated with diarrhea and nausea. She was having dizziness episodes as well. Today, her symptoms got worse and decided to come to ED for evaluation. She denied fever, chills or sweating episodes. She denied bloody stools either. Lab work was remarkable for normal WBC count, mild hypokalemia, INR 5.5, elevated AST with normal alk phos and ALT. Bili borderline high. CT abd/pelvis shows diverticulosis without diverticulitis, basically no acute abnormalities. UA was abnormal consistent with UTI. At my encounter the patient was weaker than normal , and still having nausea. Allergies codeine [Codeine] Allergy (Mild, Verified 11/29/14 23:09) Hives/Rash nitrofurantoin [From Macrobid] Allergy (Verified 11/29/14 23:09) Unknown nitrofurantoin macrocrystal [From Macrobid] Allergy (Verified 11/29/14 23:09) Unknown sulfamethoxazole [From Bactrim] Allergy (Verified 09/24/15 00:27) Itching/Hives/Rash trimethoprim [From Bactrim] Allergy (Verified 09/24/15 00:27) Itching/Hives/Rash morphine Adverse Reaction (Mild, Verified 11/29/14 23:09) Hives/Rash De Allergy (Uncoded 11/07/16 01:27) Unknown Doxycycline Allergy (Uncoded 11/29/14 23:09) Unknown No Known Aller Allergy (Uncoded 02/20/16 22:12) Unknown Home Medications: Levothyroxine Sodium 150 mcg PO DAILY 08/09/14 Aspirin 81 mg PO DAILY 06/21/18 Atorvastatin Calcium [Lipitor*] 80 mg PO DAILY 06/21/18 Warfarin Sodium [Coumadin] 4 mg PO DAILY 06/21/18 Magic Mouthwash [Magic Mouthwash*] 15 ml PO QID PRN #1 btl 06/24/18 Nystatin 5 ml PO QID #1 bottle 06/24/18 Pantoprazole [Protonix Tab] 40 mg PO DAILY #30 tab 06/24/18 Sotalol HCl [Betapace*] 80 mg PO BID 6AM 6PM #60 tab 06/24/18 - Past Medical/Surgical History Diabetic: Yes -: heart tumor -: pneumonia -: gastritis,with polyps -: gastric ulcers -: diverticuitis -: a-fib -: uterine prolapse -: hyperlipidemia -: hypothyroidism -: CAD -: cardiac stents -: UTI -: 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 moist/pink, EOMI, Sclerae nonicteric Neck: Supple, 2+ carotid pulse no bruit, No LAD, Without JVD or thyroid abnormality Respiratory: Clear to auscultation bilaterally, Normal air movement Cardiovascular: Regular rate/rhythm, Normal S1 S2 Gastrointestinal: Normal bowel sounds, Tenderness (mild diffuse tenderness to palpation) Musculoskeletal: No tenderness Integumentary: No rashes Neurological: Normal speech, Normal strength at 5/5 x4 extr, Normal tone, Normal affect Lymphatics: No axilla or inguinal lymphadenopathy - Studies Laboratory Data (last 24 hrs) 08/05/18 17:44: PT 66.8 H, INR 5.56 H* 08/05/18 17:01: Creatinine 1.06 08/05/18 17:01: WBC 4.3, Hgb 12.6, Hct 38.9, Plt Count 128 L 08/05/18 17:01: Sodium 142, Potassium 3.4 L, BUN 11, Creatinine 1.13, Glucose 134 H, Total Bilirubin 1.1 H, AST 123 H, ALT 35, Alkaline Phosphatase 113, Lipase 259 Assessment and Plan - Problems (Diagnosis) (1) Warfarin-induced coagulopathy Current Visit: Yes Status: Acute (2) Abdominal pain Onset Date: 11/30/14 Current Visit: No Status: Acute Qualifiers: Abdominal location: generalized Qualified Code(s): R10.84 - Generalized abdominal pain (3) Atrial fibrillation Onset Date: 11/14/14 Current Visit: No Status: Acute Qualifiers: Atrial fibrillation type: chronic Qualified Code(s): I48.2 - Chronic atrial fibrillation (4) UTI (urinary tract infection) Onset Date: 06/22/18 Current Visit: No Status: Acute Qualifiers: Urinary tract infection type: acute cystitis Hematuria presence: without hematuria Qualified Code(s): N30.00 - Acute cystitis without hematuria (5) Weakness Onset Date: 08/09/14 Current Visit: No Status: Acute - Plan The patient will be admitted to the hospital due to weakness in context of UTI, and volume depletion. Will Start IV Rocephin, IV fluids, hold Warfarin, check C.Diff, urine culture in process. Consult PT. - Advance Directives Does patient have a Living Will: No Does patient have a Durable POA for Healthcare: No - Code Status/Comfort Care Code Status Assessed: Yes Code Status: Full Code
[2018-08-05] MEDS ORDERED: POTASSIUM CL SA 10 MEQ TAB PO ONE (21:11)
[2018-08-05 22:19] VITALS: BMI 27.1
[2018-08-05] MEDS ORDERED: ONDANSETRON 4 MG/2 ML VIAL IV PRN (22:25)
[2018-08-05] MEDS ORDERED: ACETAMINOPHEN 500 MG TAB PO PRN (22:25)
[2018-08-05] MEDS: INSULIN -REGULAR HUMAN 50 UNIT/0.5 ML ML SQ SCH (22:25)
[2018-08-05] MEDS ORDERED: INSULIN -REGULAR HUMAN 50 UNIT/0.5 ML ML SQ SCH (22:25)
[2018-08-05] MEDS: NA CHLORIDE 0.9% 1,000 ML IV SCH (23:01)
[2018-08-06 06:39] LABS: Magnesium 2.1 mg/dL (1.8-2.4); Potassium 3.6 mmol/L (3.5-5.1)
[2018-08-06 06:45] LABS: Protime INR 6.46
--- NOTE | 2018-08-06 06:59 | EKG ---
Test Date: 2018-08-05 Test Time: 17:05:12 Development Analyst: JAVIER MEASUREMENT RESULTS: Intervals: Rate: 63 [place]: QRSD: 112 QT: 514 QTc: 525 [place]: P: [place]: QRS: 45 T: 24 INTERPRETIVE STATEMENTS: Atrial fibrillation with pauses Incomplete right bundle branch block Prolonged QT Abnormal ECG Compared to ECG 06/22/2018 21:36:08 Pauses now present longest 1.8 seconds Electronically Signed On 08-06-18 06:58:13 COMMERCIAL ARTIST by Matthew Willard
[2018-08-06] MEDS ORDERED: POTASSIUM CL SA 10 MEQ TAB PO ONE (07:30)
[2018-08-06] MEDS: INSULIN -REGULAR HUMAN 50 UNIT/0.5 ML ML SQ SCH ×4 (07:30→21:00)
[2018-08-06 07:41] LABS: Absolute Lymphocytes (CBC) 0.7 K/uL (0.7-4.9); Absolute Monocytes 0.5 K/uL (0.1-1.3); Absolute Neutrophil 2.8 K/uL (1.8-8.0); Basophils % 0.5 % (0-1.3); Eosinophils % 2.7 % (0-4.4); Lymphocytes % 16.4 % (15.3-44.8); MPV 10.1 fL (7.6-11.3); Monocytes % 12.1 % (3.3-12.3); RBC Red Blood Cell Count 4.17 M/uL (3.86-4.86)
[2018-08-06] MEDS: NA CHLORIDE 0.9% 1,000 ML IV SCH ×4 (08:25→22:32)
[2018-08-06] MEDS ORDERED: CEFTRIAXONE 1 GM/NS 50 ML 1 GM/50 ML BAG IV SCH (09:00)
[2018-08-06] MEDS: CEFTRIAXONE/SWI 1gm 1 GM/10 ML SYR IV SCH (09:47)
--- NOTE | 2018-08-06 13:20 | P.PN ---
Subjective Date of Service: 08/06/18 Primary Care Provider: Dr. Severino; GI-Dr. Carreon Chief Complaint: UTI, volume depletion Subjective: Other (Patient stable this time. Abdominal pain improved. Patient reports chronic diarrhea.) Physical Examination - Vital Signs Temperature: 97.5 F Blood Pressure: 123/61 Pulse: 57 Respirations: 28 Pulse Ox (%): 91 - Physical Exam General: Alert, In no apparent distress, Cooperative HEENT: Atraumatic Neck: Supple Respiratory: Clear to auscultation bilaterally, Normal air movement Cardiovascular: Irregular heart rate/rhythm (Atrial fibrillation, rate controlled) Gastrointestinal: Normal bowel sounds, Soft and benign, Non-distended, No masses , No rebound, No guarding Musculoskeletal: No tenderness, No warmth Integumentary: No erythema, No warmth, No cyanosis Neurological: Normal speech, Normal strength at 5/5 x4 extr, Normal tone, Normal affect - Studies Laboratory Data (last 24 hrs) 08/05/18 17:44: PT 66.8 H, INR 5.56 H* 08/05/18 17:01: Creatinine 1.06 08/05/18 17:01: WBC 4.3, Hgb 12.6, Hct 38.9, Plt Count 128 L 08/05/18 17:01: Sodium 142, Potassium 3.4 L, BUN 11, Creatinine 1.13, Glucose 134 H, Total Bilirubin 1.1 H, AST 123 H, ALT 35, Alkaline Phosphatase 113, Lipase 259 Medications List Reviewed: Yes Assessment & Plan Discharge Plan: Home Plan to discharge in: 48 Hours Physician Review Additional Text: Impression: Abdominal pain with chronic diarrhea and CT scan showing ill-defined soft tissue to the distal common bile duct with elevated liver function tests UTI Atrial fibrillation on chronic anti coagulation therapy, supratherapeutic INR on Coumadin Hyperlipidemia Hypothyroidism Acute renal insufficiency likely from dehydration Plan: Abdominal pain with chronic diarrhea and CT scan showing ill-defined soft tissue to the distal common bile duct with elevated liver function tests: Will need to monitor closely. Will continue with IV fluids. Will order MRCP to further evaluate common bile duct. Patient reports that she was to see GI today. Will consult GI to further evaluate her condition. Will obtain stool culture for C diff. Will monitor closely. Will discuss with GI later. UTI: Will start Rocephin. Patient with history of recurrent UTI. Atrial fibrillation on chronic anti coagulation therapy, supratherapeutic INR on Coumadin: Will hold Coumadin at this time. Will monitor INR. Will restart Coumadin once INR below 3.0. Goal INR 2-3. No rectal bleeding noted. Will hold off on vitamin K. Will continue with Betapace. Hyperlipidemia: Will hold Lipitor at this time due to elevated liver function tests. Hypothyroidism: Will continue with her medication. Acute renal insufficiency likely from dehydration: Continue with IV fluids. Time Spent Managing Pts Care (In Minutes): 55
[2018-08-06] MEDS: LACTOBACILLUS/ACIDOPHILUS TAB PO SCH ×2 (13:53→22:33)
[2018-08-06] MEDS: FAMOTIDINE 20 MG TAB PO SCH ×2 (13:55→22:33)
[2018-08-06] MEDS: SOTALOL HCL 80 MG TAB PO SCH ×2 (14:21→18:00)
--- NOTE | 2018-08-06 20:14 | RAD REPORT ---
EXAM DESCRIPTION: MRI - Cholangiogram - 08/06/2018 7:26 pm CLINICAL HISTORY: Abdominal pain COMPARISON: MRCP August 2015, CT study August 05 TECHNIQUE: Axial and coronal heavily T2 weighted sequences were obtained. Coronal T2 HASTE fat satur ation static and coronal multiplane reconstruction imaging generated and reviewed. Horizontal and stanford tical axis rotational views obtained using maximum intensity projection (MIP) protocol. FINDINGS: Gallbladder is absent. No intrahepatic biliary tree dilatation identified. Common bile duglas t is 13 mm. There are multiple intraluminal filling defects present. Exam is degraded by motion. No p ancreatic ductal dilatation. IMPRESSION: Multi stone choledocholithiasis.
[2018-08-06] MEDS ORDERED: ATORVASTATIN 80 MG TAB PO SCH (21:00)
[2018-08-07] MEDS: LEVOTHYROXINE SOD 0.075 MG TAB PO SCH (05:45)
[2018-08-07] MEDS: SOTALOL HCL 80 MG TAB PO SCH (05:45)
[2018-08-07 06:22] LABS: Absolute Lymphocytes (CBC) 0.6 K/uL (0.7-4.9); Absolute Monocytes 0.4 K/uL (0.1-1.3); Absolute Neutrophil 2.5 K/uL (1.8-8.0); Basophils % 0.6 % (0-1.3); Eosinophils % 2.4 % (0-4.4); Hematocrit 36.8 % (36.0-45.0); Lymphocytes % 17.5 % (15.3-44.8); MPV 10.5 fL (7.6-11.3); Monocytes % 11.8 % (3.3-12.3); RBC Red Blood Cell Count 4.13 M/uL (3.86-4.86)
--- NOTE | 2018-08-07 06:24 | EKG ---
Test Date: 2018-08-06 Test Time: 14:40:31 Business Case Analyst: GREYSON MEASUREMENT RESULTS: Intervals: Rate: 134 [place]: QRSD: 100 QT: 316 QTc: 471 [place]: P: [place]: QRS: 86 T: 30 INTERPRETIVE STATEMENTS: Atrial fibrillation with rapid ventricular response Incomplete right bundle branch block Nonspecific ST and T wave abnormality, probably digitalis effect Abnormal ECG Compared to ECG 08/05/2018 17:05:12 ST (T wave) deviation now present Prolonged QT interval no longer present Electronically Signed On 08-07-18 06:13:48 EXECUTOR OF ESTATE by Matthew Willard
[2018-08-07 06:37] LABS: Magnesium 2.2 mg/dL (1.8-2.4); Potassium 4.1 mmol/L (3.5-5.1)
[2018-08-07 06:41] LABS: Protime INR 7.4
[2018-08-07] MEDS: INSULIN -REGULAR HUMAN 50 UNIT/0.5 ML ML SQ SCH ×4 (07:30→21:00)
[2018-08-07] MEDS ORDERED: DIPHENOX/ATROP SULF 1 TAB PO PRN (08:48)
[2018-08-07] MEDS: FAMOTIDINE 20 MG TAB PO SCH ×2 (09:08→21:23)
[2018-08-07] MEDS: LACTOBACILLUS/ACIDOPHILUS TAB PO SCH ×2 (09:08→21:19)
[2018-08-07] MEDS: CEFTRIAXONE/SWI 1gm 1 GM/10 ML SYR IV SCH (09:08)
[2018-08-07] MEDS ORDERED: VITAMIN K (ADULT) 10 MG/ML SQ SCH (10:00)
--- NOTE | 2018-08-07 11:31 | CON ---
CARDIOLOGY CONSULT History Of Present Illness: Ms. Brar is 88. She has chronic atrial fib, takes Coumadin and manag es to keep her INR at therapeutic range fairly well. Presently, it is way above therapeutic range an d we are not giving her any anticoagulation now. Her chief complaint was diarrhea and abdominal pain . I think, she has been eating very little and that is probably why her INR has gone up so much. Kimberly ascencio has had a previous gallbladder surgery, but there are multiple intraluminal filling defects within her common bile duct, so she has choledocholithiasis, probably the cause of her symptoms. Physical Examination: General: She looks a little uncomfortable. HEENT: Normal. Lungs: Clear. Heart: Irregularly irregular. Vital Signs: Blood pressure is 143/72, pulse 64. Impression: The patient is stable enough to go through surgery to relieve obstruction of her gallsto ne surgery or ERCP. We would of course need to get her INR less than 1.5 before doing so. If we nee d to, we can give vitamin K, we probably will need to since there is very little oral intake. Regard ing her use of sotalol, we have no intention of trying to re-establish sinus rhythm, so we could alvarado ge it to metoprolol instead of sotalol and might be less confusing that we will not see her, either o ne is capable of rate control, but the sotalol is usually reserved for patients that we are trying to establish or maintain sinus rhythm. KIMBERLY/WHIT Voice ID: [id number] Report ID: [id number]
[2018-08-07] MEDS: NA CHLORIDE 0.9% 1,000 ML IV SCH (12:21)
--- NOTE | 2018-08-07 15:18 | P.PN ---
Subjective Date of Service: 08/07/18 Primary Care Provider: Dr. Severino; GI-Dr. Carreon Chief Complaint: UTI, volume depletion Subjective: Other (Patient reports slight improvement. Some sores noted to the mouth. Diarrhea improved.) Physical Examination - Vital Signs Temperature: 97.4 F Blood Pressure: 121/54 Pulse: 65 Respirations: 18 Pulse Ox (%): 93 - Physical Exam General: Alert, In no apparent distress, Oriented x3, Cooperative HEENT: Atraumatic Neck: Supple Respiratory: Clear to auscultation bilaterally, Normal air movement Cardiovascular: Irregular heart rate/rhythm (Atrial fibrillation, rate controlled) Gastrointestinal: Normal bowel sounds, Soft and benign, Non-distended, No masses , No rebound, No guarding Musculoskeletal: No erythema, No tenderness, No warmth Integumentary: No tenderness/swelling, No erythema, No warmth, No cyanosis Neurological: Normal speech, Normal strength at 5/5 x4 extr, Normal tone, Normal affect - Studies Laboratory Data (last 24 hrs) 08/07/18 05:32: PT 89.1 H, INR 7.40 H* 08/07/18 05:32: WBC 3.7 L, Hgb 12.1, Hct 36.8, Plt Count 104 L 08/07/18 05:32: Sodium 144, Potassium 4.1, BUN 7, Creatinine 0.80, Glucose 91, Magnesium 2.2 Microbiology Data (last 24 hrs): 08/05/18 22:36 Stool Clostridium difficile Toxin Assay - Final Medications List Reviewed: Yes Assessment & Plan Discharge Plan: Other (Skilled facility) Plan to discharge in: Greater than 2 days Physician Review Additional Text: Impression: Abdominal pain and elevated liver function secondary to chronic diarrhea and MRCP showing multi stone choledocholithiasis with history of cholecystectomy UTI Atrial fibrillation on chronic anti coagulation therapy, supratherapeutic INR on Coumadin Hyperlipidemia Hypothyroidism Acute renal insufficiency likely from dehydration Possible oral thrush Plan: Abdominal pain and elevated liver function secondary to chronic diarrhea and MRCP showing multi stone choledocholithiasis with history of cholecystectomy: Will monitor closely. Continue IV fluids. MRCP reviewed. Case discussed with GI. Will see how she progresses without the need for possible ERCP. If abdominal pain persists patient will require ERCP. INR will need to be below 1.5. Currently INR supratherapeutic. Patient has been cleared for E ERCP by Cardiology. Will discuss further with GI. So far C diff culture negative. UTI: Will continue with Rocephin. Patient with history of recurrent UTI. Urine culture shows Gram negative rods Atrial fibrillation on chronic anti coagulation therapy, supratherapeutic INR on Coumadin: Will continue to hold Coumadin at this time. Will monitor INR. INR elevated likely due to poor intake. Will restart Coumadin once INR below 3.0. Goal INR 2-3. No rectal bleeding noted. Will hold off on vitamin K at this time. Cardiology recommended to discontinue Betapace. Patient now on metoprolol. Hyperlipidemia: Will hold Lipitor at this time due to elevated liver function tests. Hypothyroidism: Will continue with her medication. Acute renal insufficiency likely from dehydration: Continue with IV fluids. Possible oral thrush: Will start nystatin and provide Magic mouthwash. Time Spent Managing Pts Care (In Minutes): 55
[2018-08-07] MEDS: NACHLORIDE 0.45% 1,000 ML IV SCH (16:05)
[2018-08-07] MEDS: NYSTATIN 500,000 UNIT/5 ML UDC PO SCH ×2 (16:05→21:20)
[2018-08-07 16:09] LABS: Albumin 2.4 g/dL (3.4-5.0); Bilirubin Direct 0.2 mg/dL (0-0.2); Bilirubin Total 0.4 mg/dL (0.2-1.0); Protein, Total 5.5 g/dL (6.4-8.2)
[2018-08-07] MEDS: METOPROLOL TAR 25 MG TAB PO SCH (17:16)
[2018-08-07] MEDS: MAGIC MOUTHWASH 180 ML BTL PO PRN (17:18)
--- NOTE | 2018-08-07 18:53 | P.PN ---
Subjective Date of Service: 08/07/18 Primary Care Provider: Dr. Severino; GI-Dr. Carreon Chief Complaint: UTI, volume depletion, diarrhea Subjective: Improving (No diarrhea. No abdominal pain now.) Review of Systems 10-point ROS is otherwise unremarkable General: Weakness Physical Examination - Vital Signs Temperature: 97.4 F Blood Pressure: 120/60 Pulse: 69 Respirations: 18 Pulse Ox (%): 94 - Physical Exam General: Alert, In no apparent distress, Oriented x3, Cooperative HEENT: Atraumatic, Normocephalic, PERRLA, EOMI, Sclerae nonicteric Neck: Supple Respiratory: Normal air movement Cardiovascular: Normal pulses Gastrointestinal: No tenderness, No rebound, No guarding (obese) Neurological: Normal speech, Normal strength at 5/5 x4 extr - Studies Laboratory Data (last 24 hrs) 08/07/18 05:32: PT 89.1 H, INR 7.40 H* 08/07/18 05:32: WBC 3.7 L, Hgb 12.1, Hct 36.8, Plt Count 104 L 08/07/18 05:32: Sodium 144, Potassium 4.1, BUN 7, Creatinine 0.80, Glucose 91, Magnesium 2.2 Microbiology Data (last 24 hrs): 08/05/18 22:36 Stool Clostridium difficile Toxin Assay - Final Medications List Reviewed: Yes Assessment And Plan - Current Problems (Diagnosis) (1) Diarrhea Current Visit: Yes Status: Acute Comment: None for 2 days. (2) Choledocholithiasis Current Visit: Yes Status: Acute Comment: Prior ERCP with stone removal at tertiary center in [place], [place] ~ 2 years by verbal history. No significant abdominal pain, F/C, sepsis, jaundice, N/V. (3) Abnormal magnetic resonance cholangiopancreatography (MRCP) Current Visit: Yes Status: Acute (4) Warfarin-induced coagulopathy Onset Date: 08/06/18 Current Visit: Yes Status: Acute Comment: INR 7.4 today. (5) Abnormal CT of the abdomen Current Visit: No Status: Acute - Plan REC: 1) correct coagulopathy 2) monitor for any return of diarrhea but none now 3) once coagulopathy corrected can monitor or address biliary stones here or return to tertiary center where last ERCP performed (prior large biliary sphincterotomy probable, so stone can probably pass) Physician Review Additional Text: Impression: Abdominal pain and elevated liver function secondary to chronic diarrhea and MRCP showing multi stone choledocholithiasis with history of cholecystectomy UTI Atrial fibrillation on chronic anti coagulation therapy, supratherapeutic INR on Coumadin Hyperlipidemia Hypothyroidism Acute renal insufficiency likely from dehydration Possible oral thrush Plan: Abdominal pain and elevated liver function secondary to chronic diarrhea and MRCP showing multi stone choledocholithiasis with history of cholecystectomy: Will monitor closely. Continue IV fluids. MRCP reviewed. Case discussed with GI. Will see how she progresses without the need for possible ERCP. If abdominal pain persists patient will require ERCP. INR will need to be below 1.5. Currently INR supratherapeutic. Patient has been cleared for E ERCP by Cardiology. Will discuss further with GI. So far C diff culture negative. UTI: Will continue with Rocephin. Patient with history of recurrent UTI. Urine culture shows Gram negative rods Atrial fibrillation on chronic anti coagulation therapy, supratherapeutic INR on Coumadin: Will continue to hold Coumadin at this time. Will monitor INR. INR elevated likely due to poor intake. Will restart Coumadin once INR below 3.0. Goal INR 2-3. No rectal bleeding noted. Will hold off on vitamin K at this time. Cardiology recommended to discontinue Betapace. Patient now on metoprolol. Hyperlipidemia: Will hold Lipitor at this time due to elevated liver function tests. Hypothyroidism: Will continue with her medication. Acute renal insufficiency likely from dehydration: Continue with IV fluids. Possible oral thrush: Will start nystatin and provide Magic mouthwash.
[2018-08-08] MEDS: METOPROLOL TAR 25 MG TAB PO SCH (05:03)
[2018-08-08] MEDS: LEVOTHYROXINE SOD 0.075 MG TAB PO SCH (05:04)
[2018-08-08] MEDS: NACHLORIDE 0.45% 1,000 ML IV SCH ×2 (05:06→19:00)
[2018-08-08] MEDS: MAGIC MOUTHWASH 180 ML BTL PO PRN ×2 (05:17→13:34)
[2018-08-08 05:42] LABS: Absolute Lymphocytes (CBC) 0.8 K/uL (0.7-4.9); Absolute Monocytes 0.5 K/uL (0.1-1.3); Absolute Neutrophil 3.2 K/uL (1.8-8.0); Basophils % 0.6 % (0-1.3); Eosinophils % 4.6 % (0-4.4); Hematocrit 39.8 % (36.0-45.0); Lymphocytes % 16.8 % (15.3-44.8); RBC Red Blood Cell Count 4.41 M/uL (3.86-4.86)
[2018-08-08 05:50] LABS: Protime INR 2.35
[2018-08-08 06:12] LABS: Bilirubin Total 0.9 mg/dL (0.2-1.0); Magnesium 1.9 mg/dL (1.8-2.4); Potassium 4.1 mmol/L (3.5-5.1); Protein, Total 6.9 g/dL (6.4-8.2)
[2018-08-08] MEDS: INSULIN -REGULAR HUMAN 50 UNIT/0.5 ML ML SQ SCH ×4 (07:30→21:00)
[2018-08-08] MEDS: NYSTATIN 500,000 UNIT/5 ML UDC PO SCH ×4 (08:51→21:00)
[2018-08-08] MEDS: CEFTRIAXONE/SWI 1gm 1 GM/10 ML SYR IV SCH (08:51)
[2018-08-08] MEDS: LACTOBACILLUS/ACIDOPHILUS TAB PO SCH ×2 (08:51→21:00)
[2018-08-08] MEDS: FAMOTIDINE 20 MG TAB PO SCH ×2 (08:51→21:00)
--- NOTE | 2018-08-08 11:17 | PN ---
Subjective: An 88-year-old woman. She still feels uncomfortable in a vague way. Her INR today was 2.35, so that is much better. I recommend we do not give any Coumadin, so that her stones in the com mon bile duct can be addressed. She remains on ceftriaxone, atrial fib. I think she is a stable marisa ugh candidate to undergo ERCP and stone extraction if that is what is deemed necessary. She has actu ally had that procedure done within the last few months. Thank you very much for your kind referral of Mrs. Brar. I will follow her with you. KIMBERLY/WHIT Voice ID: [id number] Report ID: [id number]
--- NOTE | 2018-08-08 12:54 | P.PN ---
Subjective Date of Service: 08/08/18 Primary Care Provider: Dr. Severino; GI-Dr. Carreon Chief Complaint: UTI, volume depletion, diarrhea Subjective: Improving (Patient is slowly improving. Patient did not like food this morning. Diarrhea improved.) Physical Examination - Vital Signs Temperature: 98.2 F Blood Pressure: 136/70 Pulse: 75 Respirations: 20 Pulse Ox (%): 92 - Physical Exam General: Alert, In no apparent distress, Cooperative HEENT: Atraumatic, Other (Whitish exudate to the tongue) Neck: Supple Respiratory: Clear to auscultation bilaterally, Normal air movement Cardiovascular: Irregular heart rate/rhythm (Atrial fibrillation, rate controlled) Gastrointestinal: Normal bowel sounds, Soft and benign, Non-distended, No tenderness, No masses, No rebound, No guarding Musculoskeletal: No erythema, No tenderness, No warmth Integumentary: No tenderness/swelling, No erythema, No warmth, No cyanosis Neurological: Normal speech, Normal strength at 5/5 x4 extr, Normal tone, Normal affect - Studies Microbiology Data (last 24 hrs): 08/05/18 20:20 Clean Catch Urine [place] Count - Final >100,000 CFU/ML. 08/05/18 20:20 Clean Catch Urine - Final Escherichia Coli Medications List Reviewed: Yes Assessment & Plan Discharge Plan: Other (Home with home health versus skilled placement) Plan to discharge in: 48 Hours Physician Review Additional Text: Impression: Abdominal pain and elevated liver function secondary to chronic diarrhea and MRCP showing multi stone choledocholithiasis with history of cholecystectomy UTI, urine culture positive for E coli Atrial fibrillation on chronic anti coagulation therapy, supratherapeutic INR on Coumadin Hyperlipidemia Hypothyroidism Acute renal insufficiency likely from dehydration Possible oral thrush Plan: Abdominal pain and elevated liver function secondary to chronic diarrhea and MRCP showing multi stone choledocholithiasis with history of cholecystectomy: Patient is slowly improving. Continue with IV fluids. Will Dc fluids once taking good oral intake. Will change oral intake to full liquid with supplementation then advance as tolerated. Continue with Lomotil as needed and provide pro biotics. Patient with prior ERCP at tertiary care center. GI recommends to monitor choledocholithiasis. Patient without significant symptoms. If able to tolerate her diet and significant improvement made this can be further addressed as an outpatient at tertiary care center. Will continue have patient work with physical therapy. Case discussed at length with patient and son. Anticipate home with home health by Friday or skilled placement. I will turn the service over to Dr. Leyva tomorrow. I will go over plan of care with her. UTI, urine culture positive for E coli: Will discontinue IV Rocephin and change to Ceftin. Patient with history of recurrent UTI. UTI prevention provided. Atrial fibrillation on chronic anti coagulation therapy, supratherapeutic INR on Coumadin: INR now therapeutic. Will restart Coumadin 3 mg daily. Goal INR 2-3. Patient now on metoprolol instead of Betapace as per Cardiology. Hyperlipidemia: Will hold Lipitor at this time due to elevated liver function tests. Hypothyroidism: Will continue with her medication. Acute renal insufficiency likely from dehydration: Continue with IV fluids. Will discontinue IV fluids if taking good oral intake. Possible oral thrush: Will continue with nystatin and provide Magic mouthwash. Time Spent Managing Pts Care (In Minutes): 55
--- NOTE | 2018-08-08 14:32 | P.PN ---
Subjective Date of Service: 08/08/18 Primary Care Provider: Dr. Severino; GI-Dr. Carreon Chief Complaint: UTI, volume depletion, diarrhea Subjective: No new changes (Small amount of diarrhea this AM, RN reports. No abdominal pain, F/C/N/V.) Review of Systems Gastrointestinal: Diarrhea (small amount this AM.) Physical Examination - Vital Signs Temperature: 98.2 F Blood Pressure: 136/70 Pulse: 75 Respirations: 20 Pulse Ox (%): 92 - Physical Exam General: Alert, In no apparent distress, Oriented x3, Cooperative HEENT: Atraumatic, Normocephalic, PERRLA, EOMI, Sclerae nonicteric Neck: Supple Respiratory: Normal air movement Cardiovascular: Normal pulses Gastrointestinal: Soft and benign, No tenderness, No rebound, No guarding (obese ) Neurological: Normal speech, Normal strength at 5/5 x4 extr - Studies Microbiology Data (last 24 hrs): 08/05/18 20:20 Clean Catch Urine [place] Count - Final >100,000 CFU/ML. 08/05/18 20:20 Clean Catch Urine - Final Escherichia Coli Medications List Reviewed: Yes Assessment And Plan - Current Problems (Diagnosis) (1) Diarrhea Current Visit: Yes Status: Acute Comment: Small amount this AM. (2) Choledocholithiasis Current Visit: Yes Status: Acute Comment: Prior ERCP with stone removal at tertiary center in [place], [place] ~ 2 years by verbal history. No significant abdominal pain, F/C, sepsis, jaundice, N/V. (3) Abnormal magnetic resonance cholangiopancreatography (MRCP) Current Visit: Yes Status: Acute (4) Warfarin-induced coagulopathy Onset Date: 08/06/18 Current Visit: Yes Status: Acute Comment: INR 7.4 today. (5) Abnormal CT of the abdomen Current Visit: No Status: Acute - Plan REC: 1) check stool studies 2) Bentyl tid Physician Review Additional Text: Impression: Abdominal pain and elevated liver function secondary to chronic diarrhea and MRCP showing multi stone choledocholithiasis with history of cholecystectomy UTI, urine culture positive for E coli Atrial fibrillation on chronic anti coagulation therapy, supratherapeutic INR on Coumadin Hyperlipidemia Hypothyroidism Acute renal insufficiency likely from dehydration Possible oral thrush Plan: Abdominal pain and elevated liver function secondary to chronic diarrhea and MRCP showing multi stone choledocholithiasis with history of cholecystectomy: Patient is slowly improving. Continue with IV fluids. Will Dc fluids once taking good oral intake. Will change oral intake to full liquid with supplementation then advance as tolerated. Continue with Lomotil as needed and provide pro biotics. Patient with prior ERCP at tertiary [facility]. GI recommends to monitor choledocholithiasis. Patient without significant symptoms. If able to tolerate her diet and significant improvement made this can be further addressed as an outpatient at [facility]. Will continue have patient work with physical therapy. Case discussed at length with patient and son. Anticipate home with home health by Friday or skilled placement. I will turn the service over to Dr. Leyva tomorrow. I will go over plan of care with her. UTI, urine culture positive for E coli: Will discontinue IV Rocephin and change to Ceftin. Patient with history of recurrent UTI. UTI prevention provided. Atrial fibrillation on chronic anti coagulation therapy, supratherapeutic INR on Coumadin: INR now therapeutic. Will restart Coumadin 3 mg daily. Goal INR 2-3. Patient now on metoprolol instead of Betapace as per Cardiology. Hyperlipidemia: Will hold Lipitor at this time due to elevated liver function tests. Hypothyroidism: Will continue with her medication. Acute renal insufficiency likely from dehydration: Continue with IV fluids. Will discontinue IV fluids if taking good oral intake. Possible oral thrush: Will continue with nystatin and provide Magic mouthwash.
[2018-08-08] MEDS: METOPROLOL TAR 50 MG TAB PO SCH (17:18)
[2018-08-08] MEDS: WARFARIN SODIUM 3 MG TAB PO SCH (17:22)
[2018-08-08] MEDS: CEFUROXIME 250 MG TAB PO SCH (21:00)
[2018-08-08] MEDS: DICYCLOMINE HCL 10 MG CAP PO SCH (21:00)
[2018-08-09] MEDS: METOPROLOL TAR 50 MG TAB PO SCH ×2 (04:40→17:17)
[2018-08-09 06:13] LABS: Absolute Monocytes 0.6 K/uL (0.1-1.3); Absolute Neutrophil 3.1 K/uL (1.8-8.0); Basophils % 0.6 % (0-1.3); Eosinophils % 1.2 % (0-4.4); Hematocrit 39.4 % (36.0-45.0); Lymphocytes % 20.3 % (15.3-44.8); MPV 10.5 fL (7.6-11.3); Monocytes % 13.4 % (3.3-12.3); RBC Red Blood Cell Count 4.44 M/uL (3.86-4.86)
[2018-08-09 06:14] LABS: Protime INR 1.41
[2018-08-09 06:29] LABS: Albumin 2.8 g/dL (3.4-5.0); Bilirubin Total 1.1 mg/dL (0.2-1.0); Magnesium 2.1 mg/dL (1.8-2.4); Potassium 3.6 mmol/L (3.5-5.1); Protein, Total 6.7 g/dL (6.4-8.2)
[2018-08-09] MEDS: LEVOTHYROXINE SOD 0.075 MG TAB PO SCH (06:39)
[2018-08-09] MEDS: MAGIC MOUTHWASH 180 ML BTL PO PRN (06:59)
[2018-08-09] MEDS: INSULIN -REGULAR HUMAN 50 UNIT/0.5 ML ML SQ SCH ×4 (07:30→21:00)
[2018-08-09] MEDS: NACHLORIDE 0.45% 1,000 ML IV SCH ×2 (08:00→21:20)
[2018-08-09] MEDS ORDERED: POTASSIUM 25 MEQ EFFERV TAB PO ONE (09:00)
[2018-08-09] MEDS: NYSTATIN 500,000 UNIT/5 ML UDC PO SCH ×4 (09:36→21:29)
[2018-08-09] MEDS: FAMOTIDINE 20 MG TAB PO SCH ×2 (09:36→21:29)
[2018-08-09] MEDS: DICYCLOMINE HCL 10 MG CAP PO SCH ×3 (09:36→21:29)
[2018-08-09] MEDS: CEFUROXIME 250 MG TAB PO SCH ×2 (09:37→21:28)
[2018-08-09] MEDS: LACTOBACILLUS/ACIDOPHILUS TAB PO SCH ×2 (09:37→21:00)
--- NOTE | 2018-08-09 14:56 | P.PN ---
Subjective Date of Service: 08/09/18 Primary Care Provider: Dr. Severino; GI-Dr. Carreon Chief Complaint: UTI, volume depletion, diarrhea Patient seen and examined at bedside with RN. Chart reviewed. Case discussed with GI at this time. No complaints to offer overnight. Patient states that she has been getting up with physical therapy but not as much as she would like to. Today has been feeling weak more than usual. Has had no diarrheal episodes overnight and this morning. Review of Systems 10-point ROS is otherwise unremarkable Physical Examination - Vital Signs Temperature: 98 F Blood Pressure: 142/69 Pulse: 83 Respirations: 20 Pulse Ox (%): 91 - Physical Exam General: Alert, In no apparent distress, Oriented x3 HEENT: Atraumatic, PERRLA, EOMI Neck: Supple, JVD not distended Respiratory: Normal air movement, Expiratory wheezes, Inspiratory wheezes Cardiovascular: Regular rate/rhythm, Normal S1 S2 Gastrointestinal: Normal bowel sounds, No tenderness Musculoskeletal: No tenderness Integumentary: No rashes Neurological: Normal speech, Normal tone, Normal affect Lymphatics: No axilla or inguinal lymphadenopathy - Studies Medications List Reviewed: Yes Assessment And Plan - Current Problems (Diagnosis) (1) Choledocholithiasis Current Visit: Yes Status: Acute Plan: Currently Stable. Chronic H/o Choledocholithiasis. -GI consulted. Appreciated recommendations at this time -Prior ERCP with stone removal at [facility] in [place], [place] ~ 2 years by verbal history. -No significant abdominal pain, F/C, sepsis, jaundice, N/V. -medical management at this time. Once patient is stable patient can be followed up at the tertiary center with the GI doctor there for further workup and treatment -continue with IV fluids at this time. Advance diet as tolerated. (2) Diarrhea Current Visit: Yes Status: Acute Plan: Improved today. Most likely secondary to functional diarrhea. Patient started on Lomotil. Does have marked improvement after starting the medication. Will continue to monitor. Continue with IV fluids this time Qualifiers: Diarrhea type: due to malabsorption Qualified Code(s): K90.9 - Intestinal malabsorption, unspecified; R19.7 - Diarrhea, unspecified (3) UTI (urinary tract infection) Onset Date: 06/22/18 Current Visit: No Status: Acute Plan: UTI, urine culture positive for E coli: -on PO Ceftin -Patient with history of recurrent UTI. -UTI prevention provided. Qualifiers: Urinary tract infection type: acute cystitis Hematuria presence: without hematuria Qualified Code(s): N30.00 - Acute cystitis without hematuria (4) Warfarin-induced coagulopathy Onset Date: 08/06/18 Current Visit: Yes Status: Resolved Plan: INR back to within normal limits at this time. Patient currently takes warfarin for atrial fibrillation. INR goal is between 2-3. -restarted on warfarin here in the hospital. Will continue to monitor closely (5) Atrial fibrillation Onset Date: 11/14/14 Current Visit: No Status: Chronic Qualifiers: Atrial fibrillation type: chronic Qualified Code(s): I48.2 - Chronic atrial fibrillation (6) CAD (coronary artery disease) Onset Date: 11/14/14 Current Visit: No Status: Chronic Qualifiers: Coronary Disease-Associated Artery/Lesion type: [place] artery [place] vs. transplanted heart: [place] heart Associated angina: without angina Qualified Code(s): I25.10 - Atherosclerotic heart disease of [place] coronary artery without angina pectoris (7) Hyperlipidemia Current Visit: No Status: Chronic Qualifiers: Hyperlipidemia type: mixed hyperlipidemia Qualified Code(s): E78.2 - Mixed hyperlipidemia (8) Hypertension Onset Date: 06/22/18 Current Visit: No Status: Chronic Qualifiers: Hypertension type: essential hypertension Qualified Code(s): I10 - Essential (primary) hypertension Discharge Plan: Home Plan to discharge in: 48 Hours - Code Status/Comfort Care Code Status Assessed: Yes Critical Care: No
[2018-08-09] MEDS ORDERED: ALPRAZOLAM 0.25 MG TABLET PO ONE (15:41)
--- NOTE | 2018-08-09 16:27 | EKG ---
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
--- NOTE | 2018-08-09 16:59 | PN ---
Subjective: Ms. Brar has stones. Dr. Carreon does not plan to do any procedures. I think he pref ers that she have any procedures done at a [facility]. I am not sure if he is recommending a procedure or not. Warfarin has been resumed. I think resuming warfarin at the previous dose may get us very severely over-anticoagulated, so I have cautioned that the dose probably needs to be redu benjamin from what it was previously. I would suggest we start at 1 mg a day. KIMBERLY/WHIT Voice ID: [id number] Report ID: [id number]
[2018-08-09] MEDS: WARFARIN SODIUM 3 MG TAB PO SCH (17:18)
[2018-08-09 22:26] LABS: Absolute Lymphocytes (CBC) 1.1 K/uL (0.7-4.9); Absolute Monocytes 0.6 K/uL (0.1-1.3); Absolute Neutrophil 3.1 K/uL (1.8-8.0); Basophils % 0.6 % (0-1.3); Eosinophils % 1.6 % (0-4.4); Hematocrit 39.1 % (36.0-45.0); Lymphocytes % 22.2 % (15.3-44.8); MPV 10.1 fL (7.6-11.3); Monocytes % 11.9 % (3.3-12.3); RBC Red Blood Cell Count 4.42 M/uL (3.86-4.86)
[2018-08-09 22:39] LABS: Albumin 2.8 g/dL (3.4-5.0); Bilirubin Total 1.2 mg/dL (0.2-1.0); Potassium 3.8 mmol/L (3.5-5.1); Protein, Total 6.6 g/dL (6.4-8.2)
[2018-08-10 02:31] VITALS: O2SAT 92
[2018-08-10] MEDS: MAGIC MOUTHWASH 180 ML BTL PO PRN (03:30)
[2018-08-10] MEDS: METOPROLOL TAR 50 MG TAB PO SCH (03:58)
[2018-08-10 04:26] LABS: Albumin 2.8 g/dL (3.4-5.0); Bilirubin Total 1.3 mg/dL (0.2-1.0); Potassium 3.7 mmol/L (3.5-5.1); Protein, Total 6.6 g/dL (6.4-8.2)
[2018-08-10] MEDS: NACHLORIDE 0.45% 1,000 ML IV SCH (05:56)
[2018-08-10] MEDS: LEVOTHYROXINE SOD 0.075 MG TAB PO SCH (05:56)
[2018-08-10] MEDS ORDERED: KCL 20 MEQ/100 mL IVPB 20 MEQ/100 ML BAG IV SCH (06:00)
[2018-08-10] MEDS: INSULIN -REGULAR HUMAN 50 UNIT/0.5 ML ML SQ SCH ×2 (07:30→11:30)
[2018-08-10] MEDS: DICYCLOMINE HCL 10 MG CAP PO SCH ×2 (09:12→14:38)
[2018-08-10] MEDS: NYSTATIN 500,000 UNIT/5 ML UDC PO SCH ×2 (09:12→14:38)
[2018-08-10] MEDS: LACTOBACILLUS/ACIDOPHILUS TAB PO SCH (09:12)
[2018-08-10] MEDS: CEFUROXIME 250 MG TAB PO SCH (09:12)
[2018-08-10] MEDS: FAMOTIDINE 20 MG TAB PO SCH (09:12)
--- NOTE | 2018-08-10 11:42 | P.DS ---
Admission Date: 08/07/18 Discharge Date: 08/10/18 Primary Care Provider: Dr. Severino; GI-Dr. Carreon Disposition: ROUTINE DISCHARGE Discharge Condition: GOOD Reason for Admission: UTI, volume depletion, diarrhea Consultations: General surgery GI Cardiology - Problems (1) Choledocholithiasis Onset Date: 08/10/18 Current Visit: Yes Status: Acute (2) Diarrhea Onset Date: 08/10/18 Current Visit: Yes Status: Resolved Qualifiers: Diarrhea type: due to malabsorption Qualified Code(s): K90.9 - Intestinal malabsorption, unspecified; R19.7 - Diarrhea, unspecified (3) UTI (urinary tract infection) Onset Date: 06/22/18 Current Visit: No Status: Acute Qualifiers: Urinary tract infection type: acute cystitis Hematuria presence: without hematuria Qualified Code(s): N30.00 - Acute cystitis without hematuria (4) Warfarin-induced coagulopathy Onset Date: 08/06/18 Current Visit: Yes Status: Resolved (5) Atrial fibrillation Onset Date: 11/14/14 Current Visit: No Status: Chronic Qualifiers: Atrial fibrillation type: chronic Qualified Code(s): I48.2 - Chronic atrial fibrillation (6) CAD (coronary artery disease) Onset Date: 11/14/14 Current Visit: No Status: Chronic Qualifiers: Coronary Disease-Associated Artery/Lesion type: [place] artery [place] vs. transplanted heart: [place] heart Associated angina: without angina Qualified Code(s): I25.10 - Atherosclerotic heart disease of [place] coronary artery without angina pectoris (7) Hyperlipidemia Current Visit: No Status: Chronic Qualifiers: Hyperlipidemia type: mixed hyperlipidemia Qualified Code(s): E78.2 - Mixed hyperlipidemia (8) Hypertension Onset Date: 06/22/18 Current Visit: No Status: Chronic Qualifiers: Hypertension type: essential hypertension Qualified Code(s): I10 - Essential (primary) hypertension Brief History of Present Illness: Ms Brar is an 88 years old woman with multiple medical problems, including chronic atrial fibrillation, anticoagulated with warfarin, DM II, HTN, CAD, TIA , who start about 2 days ago with diffuse abdominal pain associated with diarrhea and nausea. She was having dizziness episodes as well. Today, her symptoms got worse and decided to come to ED for evaluation. She denied fever, chills or sweating episodes. She denied bloody stools either. Lab work was remarkable for normal WBC count, mild hypokalemia, INR 5.5, elevated AST with normal alk phos and ALT. Bili borderline high. CT abd/pelvis shows diverticulosis without diverticulitis, basically no acute abnormalities. UA was abnormal consistent with UTI. At my encounter the patient was weaker than normal , and still having nausea. Hospital Course: Overall during the hospital stay patient remained stable Patient was initially admitted to the hospital for nausea vomiting abdominal pain. Abdominal CT was consistent with choledocholithiasis. GI was consulted. GI mentioned the patient had a recent ERCP done at a tertiary care center where stones removed. Patient then was discharged home under stable condition. This time GI recommends medical management for her choledocholithiasis due to chronic medical condition. Once patient is medically clear she could call followup with the tertiary care center to repeat the ERCP for further workup. Patient was kept on IV antibiotics while here in the hospital. Had significant improvement in her nausea vomiting and abdominal pain. Patient's diet was advanced to a clear liquid diet and to a GI soft diet. Patient was not able to tolerate the diet well due to oral sores. Patient thus was given Magic mouth was which did improve her symptoms and was able to tolerate her diet well. Patient then was discharged home under stable condition was asked to follow up with tertiary [facility] for for outpatient ERCP if needed per GI reccd. Patient was found to have warfarin coagulopathy on admission. Cardiology was consulted. Who recommended stopping the warfarin and monitoring the PT INR. INR did decline slowly. Patient's warfarin was restarted at a lower dose of 1 mg. Coagulopathy did resolve. Patient was thus discharged home on warfarin 1 g. patient takes warfarin for her chronic atrial fibrillation. Cardiology also recommended the patient's Betapace be stopped and patient be transferred over to metoprolol 50 mg b.i.d. While here in the hospital patient also had urinary tract infection. Patient does have a history of chronic UTI. Urine cultures were positive for E. coli. Patient was started on Ceftin. Patient was also educated extensively on prevention of UTI and need to take Ceftin for longer period time due to chronic history of UTI. While here in the hospital patient was also found to have diarrhea and volume depletion. Patient had stool cultures done which were negative for any acute abnormality. Patient at that time was given Imodium and Bentyl. Patient's diarrhea did resolve. The patient received IV fluids which helped with volume depletion. Patient at that time was then discharged home under stable condition. Patient was asked to continue follow up with her primary care doctor, cardiology , GI doctor and tertiary care center for further care. Patient remained stable. Home health was arranged for her. Worked with physical therapy able to tolerate her diet and thus was discharged home under stable condition. Vital Signs/Physical Exam: Temp Pulse Resp BP Pulse Ox 97.2 F 162 H 28 H 109/79 95 08/10/18 04:00 08/10/18 04:00 08/10/18 04:00 08/10/18 04:00 08/10/18 04:00 Laboratory Data at Discharge: WBC 4.8 K/uL (4.3-10.9) 08/09/18 22:08 Hgb 12.8 g/dL (12.0-15.0) 08/09/18 22:08 Hct 39.1 % (36.0-45.0) 08/09/18 22:08 Plt Count 110 K/uL (152-406) L 08/09/18 22:08 PT 16.7 SECONDS (9.5-12.5) H 08/09/18 05:34 INR 1.41 08/09/18 05:34 Sodium 141 mmol/L (136-145) 08/10/18 03:46 Potassium 3.7 mmol/L (3.5-5.1) 08/10/18 03:46 BUN 9 mg/dL (7-18) 08/10/18 03:46 Creatinine 0.80 mg/dL (0.55-1.3) 08/10/18 03:46 Glucose 116 mg/dL (74-106) H 08/10/18 03:46 Magnesium 2.1 mg/dL (1.8-2.4) 08/09/18 05:34 Total Bilirubin 1.3 mg/dL (0.2-1.0) H 08/10/18 03:46 AST 57 U/L (15-37) H 08/10/18 03:46 ALT 24 U/L (12-78) 08/10/18 03:46 Alkaline Phosphatase 90 U/L (45-117) 08/10/18 03:46 Lipase 259 U/L (73-393) 08/05/18 17:01 Home Medications: Levothyroxine Sodium 150 mcg PO DAILY 08/09/14 Atorvastatin Calcium [Lipitor*] 80 mg PO DAILY 06/21/18 Cefuroxime [Ceftin*] 250 mg PO BID #28 tab 08/10/18 Dicyclomine [Bentyl*] 10 mg PO TID #60 cap 08/10/18 Diphenox/Atropine [Lomotil*] 1 tab PO QID PRN #90 tab 08/10/18 Magic Mouthwash [Magic Mouthwash*] 15 ml PO QID PRN #1 btl 08/10/18 Metoprolol Tartrate [Lopressor*] 50 mg PO BID 6AM 6PM #60 tab 08/10/18 Warfarin Sodium [Coumadin*] 1 mg PO DAILY 5 PM #30 tab 08/10/18 New Medications: Cefuroxime [Ceftin*] 250 mg PO BID #28 tab Dicyclomine [Bentyl*] 10 mg PO TID #60 cap Diphenox/Atropine [Lomotil*] 1 tab PO QID PRN #90 tab PRN Reason: Diarrhea Magic Mouthwash [Magic Mouthwash*] 15 ml PO QID PRN #1 btl PRN Reason: Sore Throat Metoprolol Tartrate [Lopressor*] 50 mg PO BID 6AM 6PM #60 tab Warfarin Sodium [Coumadin*] 1 mg PO DAILY 5 PM #30 tab Patient Discharge Instructions: Please followup with GI and general surgery in about 1-2 weeks post discharge. Please followup with the PCP and cardiology in about 1-2 weeks post discharge as well. New medication. Ceftin 250 mg b.i.d. for total of 7 days for urinary tract infection. Bentyl and Lomotil as needed for diarrhea. Metoprolol 50 mg b.i.d. for atrial fibrillation. Magic mouthwash for oral sores. Please stop taking following medication. Sotalol that you were taking for atrial fibrillation. Instead you were going to be prescribed metoprolol 50 mg b.i.d. Change following medications. Warfarin 1 g daily. Stop taking warfarin 3 g daily Diet: Regular Activity: Ad abhijit Followup: Pop Severino MD [Primary Care Provider] - Matthew Willard MD [ACTIVE - CAN ADMIT] - Sam Schmitt MD [ACTIVE - CAN ADMIT] - Pop Carreon MD [ASSOCIATE-ACTIVE - CAN ADMIT] -
[2018-08-10 15:53] VITALS: BP 119/58; TEMP 97.8
[2018-08-10] MEDS ORDERED: WARFARIN SODIUM 1 MG TAB PO SCH (17:00)
== END 2018-08-10 15:48 | disposition home health service (06) | DRG 445 ==
LOC: ER 16:30 → ERHOLD 20:44 → 4TH 21:34 → OBSVTOIN 08-07 13:14
PROVIDERS: ADMIT Internal Medicine; ATTEND Family Medicine
DX: K80.50 Calculus of bile duct without cholangitis or cholecystitis without obstruction (principal); N30.00 Acute cystitis without hematuria; D68.9 Coagulation defect, unspecified; B37.0 Candidal stomatitis; K90.9 Intestinal malabsorption, unspecified; I48.2 Chronic atrial fibrillation; Z79.01 Long term (current) use of anticoagulants; Z86.73 Personal history of transient ischemic attack (TIA), and cerebral infarction without residual deficits; E87.6 Hypokalemia; I25.10 Atherosclerotic heart disease of native coronary artery without angina pectoris; E11.9 Type 2 diabetes mellitus without complications; I10 Essential (primary) hypertension; K57.90 Diverticulosis of intestine, part unspecified, without perforation or abscess without bleeding; Z88.5 Allergy status to narcotic agent; Z88.2 Allergy status to sulfonamides; E03.9 Hypothyroidism, unspecified; Z95.5 Presence of coronary angioplasty implant and graft; T45.515A Adverse effect of anticoagulants, initial encounter; Y92.019 Unspecified place in single-family (private) house as the place of occurrence of the external cause; E86.0 Dehydration; B96.20 Unspecified Escherichia coli [E. coli] as the cause of diseases classified elsewhere; R19.7 Diarrhea, unspecified; E78.2 Mixed hyperlipidemia
CPT/HCPCS: 36415; 71045; 74177; 74181; 80048; 80053; 80076; 81003; 81015; 82962; 83605; 83690; 83735; 85025; 85610; 87040; 87077; 87086; 87088; 87186; 87493; 93005; 96374; 97116; 97161; 97530; 99285; G0378; J0696; J2405; J3430; J7030; Q9967

== ENCOUNTER 2018-08-16 18:50 | Inpatient (IN) | payer OTHER ==
--- OUTSIDE RECORDS SUMMARY | 2018-08-16 18:52 | XMS REPORT | Clinical Summary ---
:1930 Author Organization [facility] Address [address] [place] [address] Care Team Providers Name Role Phone Pop [...] Not on file Results Not on fileafter 08/15/2017 Insurance Payer Benefit Plan / Group Subscriber ID Type Phone Address MEDICARE MEDICARE A B xxxxxxxxxx Medicare [employer] - [place] CARE [employer] INDEMNITY NON CONTR xxxxxxxxx Comm
--- OUTSIDE RECORDS SUMMARY | 2018-08-16 18:55 | XMS REPORT | Continuity of Care Document ---
:1930 Author Organization Interface Problems Problem Status Onset Classification Date Comments Source Date Reported COAG Active 12/20/[address] LOW BLOOD Active 11/26/19 [facility] PRESSURE, [address] [place] [address] WEAKNESS ATRIAL Active 11/26/19 [facility] FIBRILLATION WITH 17 [facility] RAPID VENTRICUL FALL Active 11/17/[address] FALL Active 11/17/[address] COAG - ATRIAL FIB Active 09/18/[address] COAG - ATRIAL Active 02/22/20 [facility] [address] LFLT TRANSFER Active 02/20/20 [facility] #[id number] [place] [address] ISCHEMIC STROKE Active 02/20/[address] Breast ca Resolved Problem 01/20/2017 [facility] Diverticulosis of Resolved Problem 01/20/2017 [facility] colon [facility] DM (<span Resolved Problem 01/20/2017 [facility] ID="[id number]" Medical >Confirmed</span> Center, ) [facility] Heart attack Resolved Problem 01/20/2017 [facility] TIA Resolved Problem 01/20/2017 [facility] Atrial Active Problem 01/20/2017 [facility] fibrillation [facility] CEREBRAL Active [facility] ANEURYSM, Medical NONRUPTURED Center UNSPECIFIED Active [facility] ATRIAL Medical FIBRILLATION Center,[facility] Medications Medication Details Route Status Patient Ordering Order Source Instructions Provider Date levothyroxine 125 microgram=1 Active 12/30/ [facility] 125 mcg (0.125 tab, PO, Daily, # 2017 Medical mg) oral tablet 30 tab, 0 Center Refill(s) metoprolol 25 mg=0.5 tab, Active 12/30/ [facility] tartrate 50 mg PO, BID, # 180 2017 Medical oral tablet tab, 0 Refill(s) [facility] Thyroxine 125 microgram, No Longer Route: PO, Drug Active 2016 [facility] form: TAB, Daily, [facility] Dosing Weight 89.455, kg, Start date: 11/27/16 [...] Q4H, MG Oral Tablet PRN Abnormal Lab [[place] 10/325] Result, Start date: 11/26/16 16:47:00 CDT, Duration: 30 day, Stop date: 12/26/16 16:46:00 CDTNotes: Do not exceed 4gm/day of acetaminophen. (Same as: [place] 325/10) Protonix 40 mg, Route: Inactive IVP, [...] 25 mg 25 mg=1 tab, PO, Active [facility] oral tablet TID, PRN 2017 Medical Other-See Center Comments, # 30 tab, 0 Refill(s) Acetaminophen 1 tab, PO, Q4H, Active [place] 325 MG / PRN for pain, # 2017 Medical Hydrocodone 24 tab, 0 Center Bitartrate 10 Refill(s) MG Oral Tablet [[place] 10/325] Zofran 4 mg, 1 tab, Inactive [facility] Route: PO, Drug 2015 Medical form: TABDIS, Center ONCE, Dosing Weight 79.545, kg, Priority: STAT, Start date: 02/22/16 11:09:00 CDT, Stop date: 02/22/16 11:09:00 CDTNotes: (Same as: Zofran ODT) Warfarin Sodium 5 mg=1 tab, PO, Active [facility] 5 MG Oral Daily, # 10 tab, 2016 Medical Tablet 0 Refill(s) Center [Coumadin] Warfarin Sodium 5 mg=1 tab, PO, Inactive [facility] 5 MG Oral Daily, # 10 tab, 2016 Medical Tablet 0 Refill(s), Center [Coumadin] other Cetirizine 10 mg, 1 tab, Inactive [facility] Route: PO, Drug 2015 Medical form: TAB, ONCE, Center Dosing Weight 79.545, kg, Priority: STAT, Start date: 02/22/16 8:14:00 CDT, Stop date: 02/22/16 8:14:00 CDTNotes: (Same As: Zyrtec) lisinopril 10 10 mg=1 tab, PO, Active [facility] mg oral tablet Daily, # 90 tab, 2016 Medical 0 Refill(s) Center atorvastatin 80 80 mg=1 tab, PO, Active [facility] mg oral tablet Bedtime, # 90 2016 Medical tab, 0 Refill(s) Center Aspirin 81 MG 81 mg=1 tab, PO, Active [facility] Enteric Coated Daily, # 90 tab, 2016 Medical Tablet 0 Refill(s) Center Zofran 4 mg, 1 tab, No Longer [place] Route: PO, Drug Active 2015 Medical form: TAB, Q8H, Center Dosing Weight 79.545, kg, PRN Nausea, Priority: NOW, Start date: 02/21/16 21:10:00 CDT, Duration: 30 day, Stop date: 03/22/16 21:09:00 CDTNotes: (Same as: Zofran) Lipitor 10 mg, 1 tab, No Longer [facility] Route: PO, Drug Active 2015 Medical form: TAB, Center Bedtime, Start date: 02/21/16 21:00:00 CDT, Duration: 30 day, Stop date: 03/21/16 21:00:00 CDTNotes: (Same As: Lipitor) Lovastatin 20 mg, Route: PO, Inactive [facility] Drug form: TAB, 2016 Medical Bedtime, Dosing Center Weight 79.545, kg, Start date: 02/21/16 21:00:00 CDT, Duration: 30 day, Stop date: 03/21/16 21:00:00 CDT Warfarin 5 mg, 1 tab, Inactive [facility] Route: PO, Drug 2015 Medical form: [...] Lisinopril 10 mg, 1 tab, No Longer [place] Route: PO, Drug Active 2015 Medical form: TAB, Daily, Center Dosing Weight 79.545, kg, Priority: NOW, Start date: 02/21/16 16:48:00 CDT, Duration: 30 day, Stop date: 03/22/16 9:00:00 CDTNotes: (Same as: Prinivil, Zestril) Rosuvastatin 10 mg=1 tab, PO, No Longer [place] calcium 10 MG Bedtime, 0 Active 2015 Medical Oral Tablet Refill(s) Center [Crestor] levothyroxine 125 microgram=1 Active [facility] 125 mcg (0.125 tab, PO, Daily, 0 2015 Medical mg) oral tablet Refill(s) Center Zolpidem 10 mg=1 tab, PO, Active [facility] tartrate 10 MG Bedtime, 0 2015 Medical Oral Tablet Refill(s) Center [Ambien] cetirizine 10 10 mg=1 tab, PO, Active [facility] mg oral tablet Daily, 0 2015 Medical Refill(s) Center metoprolol 25 mg=1 tab, PO, Active [facility] tartrate 25 mg Daily, 0 2015 Medical oral tablet Refill(s) Center omeprazole 10 10 mg=1 cap, PO, Active [facility] mg oral delayed Daily, 0 2015 Medical release capsule Refill(s) Center isosorbide 30 mg=1 tab, PO, Active [facility] mononitrate 30 QAM, 0 Refill(s) 2015 Medical mg oral tablet, Center extended release Aspirin 81 MG 81 mg=1 tab, PO, No Longer [facility] Enteric Coated Daily, # 90 tab, Active 2015 Medical Tablet 3 Refill(s) [place] Saline Flush 10 ml, Route: No Longer [facility] 0.9% IVP, Drug Form: Active 2015 Medical INJ, Dosing Center Weight 79.545, kg, Q12H, Start date: 02/21/16 9:00:00 CDT, Duration: 30 day, Stop date: 03/21/16 21:00:00 CDTNotes: Same as: BD Posiflush Sterile Aspirin 325 MG 325 mg, 1 tab, No Longer [facility] Enteric Coated Route: PO, Drug Active 2015 Medical Tablet form: ECTAB, Center Daily, Dosing Weight 79.545, kg, Start date: 02/21/16 9:00:00 CDT, Duration: 30 day, Stop date: 03/21/16 9:00:00 CDTNotes: (Do Not Crush) Do not crush or chew. pantoprazole 40 mg, Route: No Longer [facility] IVP, Drug form: Active 2015 Medical INJ, Daily, Center Dosing Weight 79.545, kg, Start date: 02/21/16 9:00:00 CDT, Duration: 30 day, Stop date: 03/21/16 9:00:00 CDTNotes: For IV push reconstitute with 10 ml 0.9% sodium chloride and push over 2 minutes. (Same as: Protonix) Rocephin 1 gm, Route: No Longer [facility] IVPB, Drug form: Active 2015 Medical PDR/INJ, [id number], Center Dosing Weight 79.545, kg, Start date: 02/21/16 7:00:00 CDT, Duration: 30 day, Stop date: 03/21/16 7:00:00 CDTNotes: (Same As: Rocephin). Use with 100 mL NS and infuse over 30 min MEDICATION WASTE Product Size: 1000 mg Product Wasted: ___ mg Ativan 0.5 mg, 0.25 mL, No Longer [place] Route: IV, Drug Active 2015 Medical form: INJ, Center Q15Min, Dosing Weight 79.545, kg, PRN Anxiety, Start date: 02/21/16 3:55:00 CDT, Duration: 2 doses or times, Stop date: Limited # of timesNotes: (Same as: Ativan) iodixanol 60 mL, Route: Inactive [place] IVP, Drug Form: 2015 Medical SOLN, Dosing Center Weight 79.545, kg, ONCALL, STAT, Start date: 02/21/16 3:22:00 CDT, Duration: 1 doses or times, Dose=2.2ml/kg, Max [id number] -- "To be infused by Radiology Staff ONLY" Ativan 0.5 mg, 1 tab, Inactive [facility] Route: PO, Drug 2015 Medical form: TAB, TID, Center Dosing Weight 79.545, kg, PRN Anxiety, Start date: 02/21/16 3:16:00 CDT, Duration: 2 doses or times, Stop date: Limited # of timesNotes: (Same as: Ativan) heparin 5,000 unit, 1 mL, No Longer [facility] Route: SUB-Q, Active 2015 Medical Drug form: INJ, Center Q8H, Dosing Weight 79.545, kg, (For patients weighing Notes: porcine heparin Saline Flush 10 ml, Route: No Longer [facility] 0.9% IVP, Drug Form: Active 2016 Medical INJ, Dosing Center Weight 79.545, kg, PRN, PRN Line Flush, Start date: 02/20/16 23:33:00 CDT, Duration: 30 day, Stop date: 03/21/16 23:32:00 CDTNotes: Same as: [facility] Posiflush Sterile Allergies, Adverse Reactions, Alerts Substance Category Reaction Severity Reaction Status Date Comments Source type Reported morphine Assertion Allergy to Active [facility] sulfa drugs Assertion Drug Active [facility] allergy [facility] Immunizations Immunization Date Given Site Status Last Comments Source Updated pneumococcal 11/26/2016 Not Given [facility] 13-valent Medical vaccine<sup>2</ Center, p> [facility] pneumococcal 11/26/2016 Left completed Mer Result [facility] 13-valent deltoid Comment: Medical vaccine<sup>1</ patient Center, p> refused [facility] Results Order Name Results Value Reference Date Interpretation Comments Source Range HEMATOLOGY POC PT 18.2 s 12.0 - 12/30 [facility] 14.7 [facility] HEMATOLOGY POC INR 1.6 0.9 - 1.2 12/30 [facility] HEMATOLOGY POC INR 1.9 0.9 - 1.2 12/19 [facility] HEMATOLOGY POC PT 22.0 s 12.0 - 12/19 [facility] 14.7 [facility] CARDIAC CK MB Index 1.6 0.0 - 2.5 11/26 [facility] CARDIAC Troponin-I null 0.00 - 11/26 [facility] 0.40 /2017 [facility] CARDIAC CK MB 1.8 ng/mL 0.5 - 3.6 11/26 [facility] CARDIAC Total CK 112 unit/L 12 - 191 11/26 [facility] CHEM PANEL Magnesium Lvl 2.1 mg/dL 1.8 - 2.4 11/26 [facility] CHEM PANEL Lipase Lvl 272 unit/L 73 - 393 11/26 [facility] ELECTROLYTE Sodium Lvl 143 meq/L 135 - 145 11/26 S [facility] ELECTROLYTE Potassium Lvl 3.7 meq/L 3.5 - 5.1 11/26 [facility] ELECTROLYTE Chloride Lvl 107 meq/L 95 - 109 11/26 [facility] ELECTROLYTE CO2 25 meq/L 24 - 32 11/26 [facility] ELECTROLYTE Calcium Lvl 8.4 mg/dL 8.5 - 10.5 11/26 [facility] ELECTROLYTE Glucose Lvl 168 mg/dL 70 - 99 11/26 [facility] ELECTROLYTE BUN 16 mg/dL 7 - 22 11/26 [facility] ELECTROLYTE Creatinine 1.06 mg/dL 0.50 - 11/26 S Lvl 1.40 /2016 [facility] ELECTROLYTE A/G Ratio 1.0 0.7 - 1.6 11/26 [facility] ELECTROLYTE Bili Total 0.5 mg/dL 0.2 - 1.3 11/26 [facility] ELECTROLYTE AGAP 14.7 meq/L 10.0 - 11/26 S 20.0 /2016 [facility] ELECTROLYTE B/C Ratio 15 6 - 25 11/26 [facility] ELECTROLYTE Globulin 3.9 g/dL 2.7 - 4.2 11/26 [facility] ELECTROLYTE Alk Phos 117 unit/L 39 - 136 11/26 [facility] ELECTROLYTE Total Protein 7.8 g/dL 6.4 - 8.4 11/26 [facility] ELECTROLYTE Albumin Lvl 3.9 g/dL 3.5 - 5.0 11/26 [facility] ELECTROLYTE ALT 10 unit/L 0 - 65 11/26 [facility] ELECTROLYTE AST 19 unit/L 0 - 37 11/26 [facility] ELECTROLYTE eGFR 47 11/26 Result Comment: [...] K/CMM 1.5 - 8.1 / [facility] HEMATOLOGY Lymphocytes # 1.3 K/CMM 1.0 - 5.5 / [facility] HEMATOLOGY Monocytes # 0.4 K/CMM 0.0 - 0.8 / [facility] HEMATOLOGY Eosinophils 1.8 % 0.0 - 4.0 / [facility] HEMATOLOGY Lymphocytes 21.0 % 20.0 - 05/ MH 40.0 /2016 [facility] HEMATOLOGY Monocytes 6.6 % 2.0 - 12.0 / [facility] HEMATOLOGY Basophils 0.6 % 0.0 - 1.0 11/26 [facility] HEMATOLOGY Eosinophils # 0.1 K/CMM 0.0 - 0.5 11/26 [facility] HEMATOLOGY Segs 70.0 % 45.0 - 05 MH 75.0 /2017 [facility] HEMATOLOGY PT 16.9 s 12.0 - 05/ MH 14.7 /2017 [facility] HEMATOLOGY INR 1.35 0.85 - 05/ MH 1.17 /2016 [facility] HEMATOLOGY PTT 33.5 s 22.9 - / MH 35.8 /2017 [facility] HEMATOLOGY RBC 4.34 M/CMM 4.20 - 05/02 MH 5.40 /2017 [facility] HEMATOLOGY MCV 89.8 fL 80.0 - / MH 98.0 /2017 [facility] HEMATOLOGY Hct 39.0 % 36.0 - 05 MH 48.0 /2017 [facility] HEMATOLOGY Hgb 12.5 g/dL 12.0 - 05/ MH 16.0 /2017 [facility] HEMATOLOGY MCH 28.7 pg 27.0 - 05/ MH 31.0 /2017 [facility] HEMATOLOGY MPV 8.7 fL 7.4 - 10.4 11/26 [facility] HEMATOLOGY WBC 6.1 K/CMM 3.7 - 10.4 / [facility] HEMATOLOGY MCHC 32.0 g/dL 32.0 - 05/ MH 36.0 /2016 [facility] HEMATOLOGY Platelet 159 K/CMM 133 - 450 05/2017 [facility] HEMATOLOGY RDW 17.2 % 11.5 - 11/26 14.5 [facility] Brain wo Brain wo Patient Name: LOUISA PALMA 11/25 - contrast CT contrast CT [facility] : 1930; Age: 86 years y/o [place] MR: [id number] Read by: Steven Stahl MD Dictated Date/time: [...] CHEST 1 VIEW 11/25 DX DX - [facility] DATE: 11/25/2016 7:51 PM CDT Read [...] mild pulmonary edema or atypical infection. SL: [id number] HEMATOLOGY POC INR 1.5 0.9 - 1.2 11/[address] HEMATOLOGY POC PT 17.4 s 12.0 - 11/18 [facility] 14.7 [facility] ELECTROLYTE AGAP 11.7 meq/L 10.0 - 11/16 [facility] 20.0 [facility] ELECTROLYTE Glucose Lvl 168 mg/dL 70 - 99 11/[address] ELECTROLYTE BUN 23 mg/dL 7 - 11/[address] ELECTROLYTE eGFR 36 11/16 Result Comment: The eGFR is calculated using the CKD-EPI formula. In most young, healthy individuals the eGFR will be >90 mL/ min/1.73m2. The eGFR declines with age. An eGFR of 60-89 may be normal in [facility] mL/min/1. some populations, particularly the elderly, for whom the CKD-EPI formula has not been extensively validated. Use of the eGFR is not recommended in the following populations: [address] Individuals with unstable creatinine concentrations, including [...] Lvl 8.4 mg/dL 8.5 - 10.5 11/[address] ELECTROLYTE CO2 29 meq/L 24 - 32 11/[address] ELECTROLYTE Chloride Lvl 107 meq/L 95 - 109 11/[address] ELECTROLYTE Potassium Lvl 3.7 meq/L 3.5 - 5.1 11/[address] ELECTROLYTE Sodium Lvl 144 meq/L 135 - 145 11/16 [facility] S [facility] ELECTROLYTE Creatinine 1.34 mg/dL 0.50 - 11/16 [facility] S Lvl 1.40 [facility] HEMATOLOGY INR 2.03 0.85 - 11/16 [place] 1.17 [facility] HEMATOLOGY PT 23.3 s 12.0 - 11/16 14.7 [facility] HEMATOLOGY Hgb 11.9 g/dL 12.0 - 11/16 16.0 [facility] HEMATOLOGY MCV 88.3 fL 80.0 - 11/16 98.0 [facility] HEMATOLOGY Hct 36.1 % 36.0 - 11/16 48.0 [facility] HEMATOLOGY MCH 29.1 pg 27.0 - 11/16 [facility] 31.0 [facility] HEMATOLOGY RBC 4.09 M/CMM 4.20 - 11/16 [facility] 5.40 [facility] HEMATOLOGY WBC 4.5 K/CMM 3.7 - 10.4 11/16 [facility] HEMATOLOGY MCHC 32.9 g/dL 32.0 - 11/16 [facility] 36.0 [facility] HEMATOLOGY MPV 9.0 fL 7.4 - 10.4 11/16 [facility] HEMATOLOGY Platelet 145 K/CMM 133 - 450 11/16 [facility] HEMATOLOGY RDW 17.7 % 11.5 - 11/16 [facility] 14.5 [facility] HEMATOLOGY Monocytes # 0.3 K/CMM 0.0 - 0.8 11/16 [facility] HEMATOLOGY Eosinophils # 0.2 K/CMM 0.0 - 0.5 11/16 [facility] HEMATOLOGY Monocytes 7.5 % 2.0 - 12.0 11/16 [facility] HEMATOLOGY Eosinophils 4.5 % 0.0 - 4.0 11/16 [facility] HEMATOLOGY Lymphocytes 24.0 % 20.0 - 11/16 40.0 [facility] HEMATOLOGY Segs-Bands # 2.9 K/CMM 1.5 - 8.1 11/16 [facility] HEMATOLOGY Basophils 0.5 % 0.0 - 1.0 11/16 [facility] HEMATOLOGY Lymphocytes # 1.1 K/CMM 1.0 - 5.5 11/16 [facility] /2016 [facility] HEMATOLOGY Segs 63.5 % 45.0 - 11/16 [facility] 75.0 [facility] Pelvis AP Pelvis AP DX EXAM: XR PELVIS 1 VIEW 11/16 - [facility] - [facility] DATE: 11/16/2016 5:34 PM CDT Read [...] XR RIGHT KNEE 3 VIEWS 11/16 - [facility] views DX - [facility] EXAM: XR RIGHT TIBIA-FIBULA 2 VIEWS [place] EXAM: XR RIGHT ANKLE 3 VIEWS Read [...] POC INR 2.1 0.9 - 1.2 09/19 [facility] HEMATOLOGY POC PT 24.6 s 12.0 - 09/19 [place] [facility] HEMATOLOGY POC 40.0 % 36.0 - 03/12 [facility] Hematocrit 48.0 [facility] HEMATOLOGY POC 13.6 g/dL 12.0 - 03/12 [facility] Hemoglobin 16.0 [facility] HEMATOLOGY POC PT 37.1 s 12.0 - 03/12 [place] 14. [facility] HEMATOLOGY POC INR 3.3 0.9 - 1.2 03/12 [facility] HEMATOLOGY POC PT 35.1 s 12.0 - 03/05 [place] 14. [facility] HEMATOLOGY POC INR 3.1 0.9 - 1.2 03/05 [facility] HEMATOLOGY POC INR 1.8 0.9 - 1.2 02/27 [facility] HEMATOLOGY POC PT 20.7 s 12.0 - 02/27 [place] 14. [facility] HEMATOLOGY PT 14.3 s 12.0 - 02/21 [place] 14. [facility] HEMATOLOGY INR 1.08 0.85 - 02/21 [place] 1.17 [facility] HEMATOLOGY PTT 31.3 s 22.9 - 02/21 [place] 35.8 [facility] CHEM PANEL eGFR 39 02/21 Result Comment: The eGFR is calculated using the CKD-EPI formula. In most young, healthy individuals the eGFR will be >90 mL/ min/1.73m2. The eGFR declines with age. An eGFR of 60-89 may be normal in [facility] mL/min/1. some populations, particularly the elderly, [...] PANEL AGAP 14.0 meq/L 10.0 - 02/21 [facility] 20.0 [facility] CHEM PANEL Calcium Lvl 8.6 mg/dL 8.5 - 10.5 02/[address] CHEM PANEL Glucose Lvl 196 mg/dL 70 - 99 02/[address] CHEM PANEL BUN 22 mg/dL 7 - 22 02/[address] CHEM PANEL Potassium Lvl 4.0 meq/L 3.5 - 5.1 02/[address] CHEM PANEL Chloride Lvl 106 meq/L 95 - 109 02/[address] CHEM PANEL Creatinine 1.26 mg/dL 0.50 - 02/21 [facility] Lvl 1.40 [facility] CHEM PANEL Sodium Lvl 142 meq/L 135 - 145 02/[address] CHEM PANEL CO2 26 meq/L 24 - 32 02/[address] HEMATOLOGY Segs 63.9 % 45.0 - 02/21 [facility] 75.0 [facility] HEMATOLOGY Lymphocytes 22.6 % 20.0 - 02/21 40.0 [facility] HEMATOLOGY Eosinophils 5.2 % 0.0 - 4.0 02/[address] HEMATOLOGY Monocytes 7.4 % 2.0 - 12.0 02/[address] HEMATOLOGY Basophils 0.9 % 0.0 - 1.0 02/[address] HEMATOLOGY Segs-Bands # 3.3 K/CMM 1.5 - 8.1 02/[address] HEMATOLOGY Lymphocytes # 1.2 K/CMM 1.0 - 5.5 02/[address] HEMATOLOGY Eosinophils # 0.3 K/CMM 0.0 - 0.5 02/[address] HEMATOLOGY Monocytes # 0.4 K/CMM 0.0 - 0.8 02/[address] HEMATOLOGY MPV 9.4 fL 7.4 - 10.4 02/21 [facility] HEMATOLOGY MCHC 32.0 g/dL 32.0 - 02/21 [place] 36.0 [facility] HEMATOLOGY RDW 16.9 % 11.5 - 02/21 [place] 14.5 [facility] HEMATOLOGY Platelet 133 K/CMM 133 - 450 02/21 [facility] HEMATOLOGY WBC 5.1 K/CMM 3.7 - 10.4 02/21 [facility] HEMATOLOGY RBC 4.16 M/CMM 4.20 - 02/21 [facility] 5.40 [facility] HEMATOLOGY Hgb 11.2 g/dL 12.0 - 02/21 [facility] 16.0 [facility] HEMATOLOGY Hct 35.2 % 36.0 - 02/21 [facility] 48.0 [facility] HEMATOLOGY MCV 84.5 fL 80.0 - 02/21 [facility] 98.0 [facility] HEMATOLOGY MCH 27.0 pg 27.0 - 02/21 [place] 31.0 [facility] ELECTROLYTE AGAP 14.3 meq/L 10.0 - 02/20 [facility] S 20.0 [facility] ELECTROLYTE eGFR 45 02/20 Result Comment: The eGFR is calculated using the CKD-EPI formula. In most young, healthy individuals the eGFR will be >90 mL/ min/1.73m2. The eGFR declines with age. An eGFR of 60-89 may be normal in [facility] mL/min/1. some populations, particularly the elderly, for whom the CKD-EPI formula has not been extensively validated. Use of the eGFR is not recommended in the following populations: [address] Individuals with unstable creatinine concentrations, including [...] Lvl 104 meq/L 95 - 109 02/20 [facility] ELECTROLYTE Potassium Lvl 4.3 meq/L 3.5 - 5.1 02/20 [facility] ELECTROLYTE Calcium Lvl 8.8 mg/dL 8.5 - 10.5 02/20 [facility] ELECTROLYTE CO2 27 meq/L 24 - 32 02/20 [facility] ELECTROLYTE Creatinine 1.12 mg/dL 0.50 - 02/20 [facility] S Lvl 1.40 [facility] ELECTROLYTE Sodium Lvl 141 meq/L 135 - 145 02/20 [facility] ELECTROLYTE Glucose Lvl 123 mg/dL 70 - 99 02/20 [facility] ELECTROLYTE BUN 21 mg/dL 7 - 22 02/20 [facility] HEMATOLOGY Basophils # 0.1 K/CMM 0.0 - 0.2 02/20 [facility] HEMATOLOGY Eosinophils # 0.2 K/CMM 0.0 - 0.5 02/20 [facility] HEMATOLOGY Monocytes # 0.4 K/CMM 0.0 - 0.8 02/20 [facility] HEMATOLOGY Monocytes 7.3 % 2.0 - 12.0 02/20 [facility] HEMATOLOGY Segs 65.3 % 45.0 - 02/20 75.0 [facility] HEMATOLOGY Lymphocytes 23.4 % 20.0 - 02/20 40.0 [facility] HEMATOLOGY Lymphocytes # 1.3 K/CMM 1.0 - 5.5 02/20 [facility] HEMATOLOGY Basophils 1.0 % 0.0 - 1.0 02/20 [facility] HEMATOLOGY Eosinophils 3.0 % 0.0 - 4.0 02/20 [facility] HEMATOLOGY Segs-Bands # 3.6 K/CMM 1.5 - 8.1 02/20 [facility] HEMATOLOGY RBC 4.09 M/CMM 4.20 - 02/20 5.40 [facility] HEMATOLOGY Hgb 11.2 g/dL 12.0 - 02/20 16.0 [facility] HEMATOLOGY WBC 5.5 K/CMM 3.7 - 10.4 02/20 [facility] HEMATOLOGY Hct 34.5 % 36.0 - 02/20 [place] 48.0 [facility] HEMATOLOGY MCV 84.3 fL 80.0 - 02/20 98.0 [facility] HEMATOLOGY RDW 16.6 % 11.5 - 02/20 [facility] 14.5 [facility] HEMATOLOGY MCH 27.3 pg 27.0 - 02/20 [facility] 31.0 [facility] HEMATOLOGY MCHC 32.4 g/dL 32.0 - 02/20 [facility] 36.0 [facility] HEMATOLOGY Platelet 131 K/CMM 133 - 450 02/20 [facility] HEMATOLOGY MPV 9.6 fL 7.4 - 10.4 02/20 [facility] LIPIDS VLDL 20 02/20 [facility] LIPIDS LDL 130 mg/dL <=99 mg/dL 02/20 [facility] (Calculated) [facility] LIPIDS HDL 31 mg/dL >=61 mg/dL 02/20 [facility] LIPIDS Chol 181 mg/dL <=199 02/20 [facility] mgdL [facility] LIPIDS Trig 101 mg/dL <=149 02/20 [facility] mg/dL [facility] LIPIDS CHD Risk 5.84 3.90 - 02/20 [facility] 5.80 [facility] SPECIAL Hgb A1C 7.0 % <=5.6 % 02/20 [facility] CHEM PANEL eGFR 45 02/20 Result Comment: The eGFR is calculated using the CKD-EPI formula. In most young, healthy individuals the eGFR will be >90 mL/ min/1.73m2. The eGFR declines with age. An eGFR of 60-89 may be normal in [facility] mL/min/1.7 some populations, particularly the elderly, for whom the CKD-EPI formula has not been extensively validated. Use of the eGFR is not recommended in the following populations: [address] Individuals with unstable creatinine concentrations, including [...] Total 0.4 mg/dL 0.2 - 1.3 02/20 [facility] CHEM PANEL CO2 27 meq/L 24 - 32 02/20 [facility] CHEM PANEL Calcium Lvl 8.8 mg/dL 8.5 - 10.5 02/20 [facility] CHEM PANEL AST 11 unit/L 0 - 37 02/20 [facility] CHEM PANEL ALT 9 unit/L 0 - 65 02/20 [facility] CHEM PANEL Alk Phos 120 unit/L 39 - 136 02/20 [facility] CHEM PANEL Potassium Lvl 4.2 meq/L 3.5 - 5.1 02/20 [facility] CHEM PANEL Chloride Lvl 105 meq/L 95 - 109 02/20 [facility] CHEM PANEL Sodium Lvl 141 meq/L 135 - 145 02/20 [facility] CHEM PANEL Albumin Lvl 3.6 g/dL 3.5 - 5.0 02/20 [facility] CHEM PANEL Total Protein 7.3 g/dL 6.4 - 8.4 02/20 [facility] CHEM PANEL BUN 21 mg/dL - 02/20 [facility] CHEM PANEL Creatinine 1.12 mg/dL 0.50 - 02/20 [facility] Lvl 1.40 [facility] CHEM PANEL Glucose Lvl 125 mg/dL 70 - 99 02/20 [facility] CHEM PANEL A/G Ratio 1.0 0.7 - 1.6 02/20 [facility] CHEM PANEL Globulin 3.7 g/dL 2.0 - 4.0 02/20 [facility] CHEM PANEL AGAP 13.2 meq/L 10.0 - 02/20 20.0 [facility] CHEM PANEL B/C Ratio 19 6 - 25 02/20 [facility] DRUG SCREEN U Amph Scr Negative Negative 02/20 [facility] *NA* Center (02/21/16 1:34 AM) DRUG SCREEN U Lilian Scr Negative Negative 02/20 [facility] Center (02/21/16 1:34 AM) DRUG SCREEN U Cannab Scr Negative Negative 02/20 [facility] Center (02/21/16 1:34 AM) DRUG SCREEN U Phencyc Scr Negative Negative 02/20 [facility] (02/21/16 1:34 AM) DRUG SCREEN U Cocaine Scr Negative Negative 02/20 [facility]* Center (02/21/16 1:34 AM) DRUG SCREEN U Opiate Scr Negative Negative 02/20 [facility] *NA* [place] (02/21/16 1:34 AM) DRUG SCREEN U Benzodia Negative Negative 02/20 [facility] [place] [facility]02/21/16 1:34 AM) DRUG SCREEN UDS Note See Note 02/20 [facility] (02/21/16 1:34 AM) HEMATOLOGY INR 1.12 0.85 - 02/20 [facility] 1.17 /2015 [facility] HEMATOLOGY PT 14.7 s 12.0 - 02/20 [facility] 14.7 [facility] HEMATOLOGY PTT 31.5 s 22.9 - 02/20 [facility] 35.8 /2015 [facility] IMMUNOLOGY Treponemal Non Reactive Non 02/20 [facility] Scr [facility] (02/21/16 1:34 AM) URINE AND UA <=1.0 0.1 - 1.0 02/20 [facility] Urobilinogen mg/dL [facility] URINE AND UA Sq Epi None Seen 02/20 [facility] STOOL [facility] URINE AND UA [place] Yeast Occasional None Seen 02/20 [facility] STOOL /HPF /HPF /2015 [facility] URINE AND UA Bacteria Few /HPF None Seen 02/20 [facility] STOOL /HPF /2015 [facility] URINE AND UA Ketones Negative Negative 02/20 [facility] mg/dL mg/dL [facility] URINE AND UA Glucose Negative Negative 02/20 [facility] mg/dL mg/dL [facility] URINE AND UA Protein Negative Negative 02/20 [facility] mg/dL mg/dL [facility] URINE AND UA pH 5.0 5.0 - 8.0 02/20 [facility] STOOL [facility] URINE AND UA Spec Grav 1.005 <=1.030 02/20 [facility] STOOL [facility] URINE AND UA WBC 8 /HPF 0 - 5 02/20 [facility] URINE AND UA Leuk Est Large Negative 02/20 [facility] [place] (02/21/16 1:34 AM) URINE AND UA Nitrite Negative Negative 02/20 [facility] (02/21/16 1:34 AM) [place] URINE AND UA Blood Negative Negative 02/20 [facility] (02/21/16 1:34 AM) [place] URINE AND UA Bili Negative Negative 02/20 [facility] *NA* Center (02/21/16 1:34 AM) URINE AND UA Turbidity Slight Clear 02/20 [facility] *ABN* Center (02/21/16 1:34 AM) URINE AND UA Color Light Yellow Yellow 02/20 [facility]NA[facility] (02/21/16 1:34 AM) Brain/Neck Brain/Neck EXAM: CT ANGIOGRAM OF THE HEAD 02/20 [facility] CTA CTA - Medical EXAM: CT ANGIOGRAM [...] 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 Patent major neck arteries. All quantitative and qualitative measurements of the carotid arteries in the neck are performed utilizing the distal internal carotid artery for reference as per standard NASCET criteria. Brain wo Brain wo EXAM: MRI BRAIN WITHOUT CONTRAST 02/20 [facility] contrast contrast MRI /2015 - Medical MRI [...] than an ischemic insult in the right [employer] territory. 2. Underlying chronic microvascular ischemic changes. [...] [facility] [place] Height 167.64 cm 11/26/2016 [facility] BMI Calculated 30.73 11/26/2016 [facility] Respitory Rate 19 11/17/2016 [facility] Systolic (mm Hg) 137 11/17/2016 [facility] Diastolic (mm Hg) 90 11/17/2016 [facility] Heart Rate 87 11/17/2016 [facility] Temperature Oral (F) 97.8 F 11/17/2016 [facility] Temperature Oral (F) 97.6 F 11/17/2016 [facility] Respitory Rate 18 11/17/2016 [facility] Systolic (mm Hg) 135 11/17/2016 [facility] Diastolic (mm Hg) 89 11/17/2016 [facility] Heart Rate 80 11/17/2016 [facility] Respitory Rate 18 11/16/2016 [facility] Heart Rate 82 11/16/2016 [facility] Temperature Oral (F) 97.4 F 11/16/2016 [facility] Systolic (mm Hg) 139 11/16/2016 [facility] Diastolic (mm Hg) 96 11/16/2016 [facility] BMI Calculated 30.73 11/16/2016 [facility] Height 167.64 cm 11/16/2016 [facility] Weight 86.364 11/16/2016 [facility] Systolic (mm Hg) 136 09/19/2016 [facility] Diastolic (mm Hg) 74 09/19/2016 [facility] Heart Rate 80 09/19/2016 [facility] Height 167.64 cm 09/19/2016 [facility] Weight 86.875 09/19/2016 [facility] BMI Calculated 30.91 09/19/2016 [facility] BMI Calculated 28.3 03/12/2016 [facility] Weight 79.545 03/12/2016 [facility] Height 167.64 cm 03/12/2016 [facility] Heart Rate 74 03/12/2016 [facility] Systolic (mm Hg) 142 03/12/2016 [facility] Diastolic (mm Hg) 86 03/12/2016 [facility] Systolic (mm Hg) 142 03/05/2016 [facility] Diastolic (mm Hg) 78 03/05/2016 [facility] Height 167.64 cm 03/05/2016 [facility] BMI Calculated 28.3 03/05/2016 [facility] Weight 79.545 03/05/2016 [facility] Heart Rate 92 03/05/2016 [facility] Respitory Rate 20 02/22/2016 [facility] Systolic (mm Hg) 122 02/22/2016 [facility] Diastolic (mm Hg) 68 02/22/2016 [facility] Systolic (mm Hg) 168 02/22/2016 [facility] Diastolic (mm Hg) 80 02/22/2016 [facility] Respitory Rate 24 02/22/2016 [facility] Temperature Oral (F) 99.3 F 02/22/2016 [facility] Systolic (mm Hg) 116 02/22/2016 [facility] Diastolic (mm Hg) 55 02/22/2016 [facility] Respitory Rate 02/22/2016 [facility] Temperature Oral (F) 98.4 F 02/22/2016 [facility] Temperature Oral (F) 97.4 F 02/21/2016 [facility] Height 167.64 cm 02/21/2016 [facility] BMI Calculated 28.3 02/21/2016 [facility] Weight 79.545 02/21/2016 [facility] Encounters Location Location Encounter Encounter Reason Attending ADM DC Status Source Details Type Number For Provider Date Date Visit [facility] [id number] Stanton Brannon 02/20 02/21 Nazia Mcbride /2015 [facility] [id number] Girma 02/27 03/29 Nazia Mcbride Doty /2015 [facility] [id number] Non 09/19 10/19 Nazia Mcbride Physician /2016 [facility] Rec[facility] [id number] Non 10/28 11/27 Nazia Mcbride Physician /2016 [facility] [id number] Barbara 11/16 11/17 Nazia Mcbride Ann /2016 [facility] Observation [id number] 11/26 11/26 Reed Weimed /2016 [facility] [id number] Non 12/19 01/18 [facility] Procedures Procedure Code Date Perfomer Comments Source Open heart [id number] 07/28/1992 tumor 5cm [facility] surgery<sup>1</sup> [facility] Open heart [id number] 07/28/1992 tumor 5cm [facility]<sup>1</sup> [facility] Abdominal [id number] [facility] Endoscopic laser [id number] [facility] surgery on colon [facility] Mastectomy of right [id number] [facility] Open heart surgery [id number] [facility] Appendectomy [id number] [facility] Partial resection [id number] [facility] Abdominal [id number] [facility] hysterectomy [facility] Appendectomy [id number] [facility] Endoscopic laser [id number] [facility] surgery on colon [facility] Mastectomy of right [id number] [facility] breast [facility] Partial resection [id number] [facility]
[2018-08-16 19:31] LABS: Absolute Lymphocytes (CBC) 0.5 K/uL (0.7-4.9); Absolute Monocytes 0.6 K/uL (0.1-1.3); Absolute Neutrophil 2.7 K/uL (1.8-8.0); Eosinophils % 0.5 % (0-4.4); Hematocrit 40.7 % (36.0-45.0); Lymphocytes % 13.7 % (15.3-44.8); MPV 10.7 fL (7.6-11.3); Monocytes % 15.5 % (3.3-12.3); RBC Red Blood Cell Count 4.55 M/uL (3.86-4.86)
[2018-08-16 19:33] LABS: Protime INR 1.42
[2018-08-16] MEDS ORDERED: ADENOSINE 6 MG/ 2ML VIAL IV ONE (19:40)
[2018-08-16 19:46] LABS: Albumin 3.1 g/dL (3.4-5.0); Bilirubin Direct 0.4 mg/dL (0-0.2); Bilirubin Total 0.8 mg/dL (0.2-1.0); Magnesium 2.1 mg/dL (1.8-2.4); Potassium 3.9 mmol/L (3.5-5.1); Protein, Total 7.2 g/dL (6.4-8.2)
[2018-08-16] MEDS ORDERED: NA CHLORIDE 0.9% 1,000 ML ONE (19:48)
[2018-08-16] MEDS ORDERED: dilTIAZem HCl 25 MG/5 ML VIAL IV ONE (19:51)
--- NOTE | 2018-08-16 20:23 | RAD REPORT ---
EXAM DESCRIPTION: RAD - Chest Single View - 08/16/2018 7:54 pm CLINICAL HISTORY: Atrial fibrillation, supraventricular tachycardia COMPARISON: August 05 TECHNIQUE: AP portable chest image was obtained 1951 hours . FINDINGS: Lung volumes are low. No peripheral mass or consolidation. No significant pulmonary edema pattern. Lung markings are prominent but stable. Heart size and vasculature are normal range. Mediast inum is distorted by significant patient rotation. No measurable pleural effusion and no pneumothorax . No acute bony abnormality seen. No acute aortic findings suspected. IMPRESSION: Chronic interstitial lung disease. No acute finding compared to August 05.
[2018-08-16 20:45] LABS: Blood Morphology Comment NOTED (NOT SEEN); Burr Cells 1+; Platelet Estimate ADEQ; Urine White Blood Cell Casts OK
--- NOTE | 2018-08-16 21:54 | ER ---
Nurse's Notes [facility] Name: Kortney Brar Age: 88 yrs Sex: Female : 1930 Arrival Date: 08/16/2018 Time: 18:53 Bed 4 Private MD: Diagnosis: Chronic atrial fibrillation-with RVR;Candidiasis-oral Presentation: 08/16 18:57 Presenting complaint: EMS states: pt has weakness after couple days of not eating and ca1 drinking because of "oral thrush". She has N/V. Pt is Afib at 130-150 which the the caregiver says is relatively normal. Transition of care: patient was not received from another setting of care. Onset of symptoms was August 16, 2018. Risk Assessment: Do you want to hurt yourself or someone else? Patient reports no desire to harm self or others. Initial Sepsis Screen: Does the patient meet any 2 criteria? Temp <36.0*C (96.8*F)) or > 38.3*C (100.9*F). Does the patient have a suspected source of infection? Yes: Other: mouth sores. Care prior to arrival: None. 18:57 Method Of Arrival: EMS: [facility] ca1 18:57 Acuity: JASON 3 ca1 Triage Assessment: 18:57 General: Appears in no apparent distress. uncomfortable, Behavior is calm, cooperative, ca1 appropriate for age. EENT: Oral mucosa is moist. with mouth sores. . Respiratory: Airway is patent Respiratory effort is even, unlabored. 18:57 Pain: Denies pain. ca1 Historical: - Allergies: 19:09 Codeine; ca1 19:09 Demerol; ca1 19:09 Morphine; ca1 19:09 sulfamethoxazole; ca1 19:09 TRIMETHOPRIM; ca1 - PMHx: 19:09 Atrial Fib; chronic uti; Diabetes - NIDDM; GI Bleed; heart attack; stents; TIA; ca1 - PSHx: 19:09 Mastectomy, Right; ca1 - Immunization history:: Adult Immunizations up to date. - Social history:: Smoking status: Patient/guardian denies using tobacco. - Ebola Screening: : No symptoms or risks identified at this time. Screenin:07 Abuse screen: Denies threats or abuse. Nutritional screening: No deficits noted. tl2 Tuberculosis screening: No symptoms or risk factors identified. Fall Risk None identified. Assessment: 19:10 General: Appears in no apparent distress. uncomfortable, Behavior is flat, listless. tl2 Pain: Complains of pain in mouth. Neuro: Level of Consciousness is awake, alert, obeys commands, Oriented to person, place, time, situation. Cardiovascular: Denies chest pain, palpitations, shortness of breath. Cardiovascular: Rhythm is atrial fibrillation with rapid ventricular response. Respiratory: Airway is patent Respiratory effort is even, unlabored, Respiratory pattern is regular, symmetrical. GI: Reports anorexia. : No signs and/or symptoms were reported regarding the genitourinary system. Derm: Skin is pale. 19:15 Reassessment: EKG shows Afib with RVR at 162, notified PA. New orders see SEP. tl2 19:50 Reassessment: Repeat EKG after rhythm slowed to 110 post cardizem, given to PA. tl2 22:30 Reassessment: Patient and/or family updated on plan of care and expected duration. Pain ea level reassessed. Patient is alert, oriented x 3, equal unlabored respirations, skin warm/dry/pink. 23:00 Reassessment: Patient appears in no apparent distress at this time. Patient and/or tl2 family updated on plan of care and expected duration. Pain level reassessed. pt c/o pain in mouth, awaiting nystatin to be sent from the floor. 08/17 00:30 Reassessment: Patient appears in no apparent distress at this time. pt stable and ready tl2 for transport to floor. Vital Signs: 08/16 18:57 BP 116 / 73; Pulse 52; Resp 18; Temp 100; Pulse Ox 96% on R/A; Weight 79.38 kg; Height ca1 5 ft. 6 in. (167.64 cm); Pain 0/10; 19:15 BP 112 / 76; Pulse 162; Resp 18; Pulse Ox 95% on R/A; tl2 19:30 BP 113 / 81; Pulse 155; Resp 18; Pulse Ox 96% on R/A; tl2 20:00 BP 127 / 62; Pulse 106; Resp 18; Pulse Ox 96% on R/A; tl2 20:30 BP 114 / 63; Pulse 128; Resp 18; Pulse Ox 95% on R/A; tl2 21:04 BP 96 / 73; Pulse 131; Resp 20; Pulse Ox 95% on R/A; tl2 21:55 BP 125 / 71; Pulse 118; Resp 24; Pulse Ox 94% on R/A; tl2 22:48 BP 127 / 88; Pulse 117; Resp 18; Pulse Ox 96% on R/A; tl2 08/17 00:05 BP 123 / 54; Pulse 117; Resp 20; Temp 99.3; Pulse Ox 94% on R/A; tl2 08/16 18:57 Body Mass Index 28.25 (79.38 kg, 167.64 cm) ca1 ED Course: 08/16 18:53 Patient arrived in ED. ms 18:57 Arm band placed on right wrist. ca1 19:00 Triage completed. ca1 19:03 Buddy Silveira PA is PHCP. cp 19:03 Garrett Her MD is Attending Physician. cp 19:16 Simone Ferrari MD is Attending Physician. cp 19:47 Peyton Goode RN is Primary Nurse. tl2 19:50 Inserted saline lock: 22 gauge in left antecubital area, using aseptic technique. Blood ea collected. 20:00 Patient has correct armband on for positive identification. Bed in low position. Call ea light in reach. Side rails up X2. 21:52 Yoly Melara MD is Hospitalizing Provider. cp 22:30 Cardoso cath inserted, using sterile technique, 16 Fr., by nd, balloon inflated, to ea gravity drainage, urine specimen collected. 08/17 00:30 No provider procedures requiring assistance completed. Patient admitted, IV remains in ea place. Administered Medications: 08/16 19:49 Drug: NS 0.9% 1000 ml Route: IV; Rate: 1 bolus; Site: left antecubital; tl2 21:00 Follow up: Response: No adverse reaction; IV Status: Completed infusion; IV Intake: ea 1000ml 19:49 Drug: Cardizem 10 mg {Note: administered 5 mg of Cardizem and HR decreased to 110, PA tl2 ordered to hold remaining 5 mg .} Route: IVP; Site: left antecubital; 20:15 Follow up: Response: No adverse reaction; Cardiac rhythm changed tl2 21:55 Drug: Cardizem 5 mg Route: IVP; Site: left antecubital; tl2 23:50 Follow up: Response: No adverse reaction; Cardiac rhythm is unchanged tl2 22:30 Drug: Cardizem 5 mg Route: IVP; Site: left antecubital; tl2 23:00 Follow up: Response: No adverse reaction; Cardiac rhythm is unchanged tl2 22:36 Drug: Lovenox 1 mg/kg Route: Sub-Q; Site: right lower abdomen; ea 23:36 Follow up: Response: No adverse reaction ea 23:36 Drug: nystatin [id number] units Route: PO; ea 23:50 Follow up: Response: No adverse reaction; Marked relief of symptoms tl2 23:44 Drug: Cardizem 5 mg {Note: BP 124/94.} Route: IVP; Site: left antecubital; tl2 08/17 00:00 Follow up: Response: No adverse reaction; Cardiac rhythm is unchanged tl2 00:07 Not Given (Patient Refused): Rocephin - (cefTRIAXone) 1 grams IVPB once over 30 mins; tl2 (mix in 50 mL NS) 01:15 CANCELLED (wrong order): Cardizem 10 mg IVP once; Over 2 minutes tl2 Intake: 08/16 21:00 IV: 1000ml; Total: 1000ml. ea Outcome: 21:54 Decision to Hospitalize by Provider. cp 22:30 Instructed on the need for admit. ea 08/17 00:51 Condition: stable ea 00:51 Admitted to Med/surg accompanied by tech, family with patient, via stretcher, room 211, ea with chart, Report called to Receiving nurse on second floor 01:18 Patient left the ED. tl2 Signatures: Minnie Mercer ms, Corey, PA PA cp Knox, Taylor RN RN tl2 Carmen Michaels RN RN Amy Butcher RN RN ca1 Corrections: (The following items were deleted from the chart) 08/16 19:04 18:57 Arm band placed on ca1 ca1
--- NOTE | 2018-08-16 21:55 | EDPHYS ---
Physician Documentation [facility] Name: Kortney Brar Age: 88 yrs Sex: Female : 1930 Arrival Date: 08/16/2018 Time: 18:53 Bed 4 Private MD: ED Physician Simone Ferrari HPI: 08/16 19:15 This 88 yrs old Female presents to ER via EMS with complaints of general cp weakness. 19:15 The patient presents with redness, swelling, ulceration. cp 19:15 The problem is located in the mouth and oral mucosa. Onset: The symptoms/episode cp began/occurred gradually. Duration: The symptoms are continuous, and are steadily getting worse. Associated signs and symptoms: Pertinent positives: difficulty eating and drinking, general weakness. Severity of symptoms: in the emergency department the symptoms are unchanged, despite home interventions. The patient has been recently been admitted at [facility], was discharged last week. Historical: - Allergies: 19:09 Codeine; ca1 19:09 Demerol; ca1 19:09 Morphine; ca1 19:09 sulfamethoxazole; ca1 19:09 TRIMETHOPRIM; ca1 - PMHx: 19:09 Atrial Fib; chronic uti; Diabetes - NIDDM; GI Bleed; heart attack; stents; TIA; ca1 - PSHx: 19:09 Mastectomy, Right; ca1 - Immunization history:: Adult Immunizations up to date. - Social history:: Smoking status: Patient/guardian denies using tobacco. - Ebola Screening: : No symptoms or risks identified at this time. ROS: 19:20 Constitutional: Positive for poor PO intake, Negative for body aches, chills, fever. cp 19:20 Eyes: Negative for injury, pain, redness, and discharge. cp 19:20 ENT: Positive for difficulty swallowing, sore throat, Negative for drainage from ear(s), ear pain, difficulty handling secretions. 19:20 Cardiovascular: Negative for chest pain, edema. 19:20 Respiratory: Negative for cough, shortness of breath, wheezing. 19:20 Abdomen/GI: Positive for nausea, Negative for diarrhea, constipation, active vomiting. 19:20 Neuro: Positive for general weakness, Negative for altered mental status, headache. 19:20 All other systems are negative. Exam: 19:27 Constitutional: The patient appears in no acute distress, alert, awake, cp non-diaphoretic, non-toxic, well developed, well nourished. 19:27 Head/Face: Normocephalic, atraumatic. cp 19:27 Eyes: Periorbital structures: appear normal, Pupils: equal, round, and reactive to light and accomodation, Extraocular movements: intact throughout, Conjunctiva: normal, no exudate, no injection, Sclera: no appreciated abnormality, Lids and lashes: appear normal, bilaterally. 19:27 ENT: External ear(s): are unremarkable, Ear canal(s): are normal, clear, TM's: dullness, bilaterally, Nose: is normal, Mouth: Lips: lower lip, swelling, Oral mucosa: moist, noted to have ulceration(s), discharge, Gums: reddened, swollen, Posterior pharynx: Airway: no evidence of obstruction, patent. 19:27 Neck: ROM/movement: is normal, is supple, without pain, no range of motions limitations, no meningismus, no nuchal rigidity. 19:27 Chest/axilla: Inspection: normal, Palpation: is normal, no crepitus, no tenderness. 19:27 Cardiovascular: Rate: tachycardic, Rhythm: irregular, Edema: is not appreciated, JVD: is not appreciated. 19:27 Respiratory: the patient does not display signs of respiratory distress, Respirations: normal, no use of accessory muscles, no retractions, no splinting, no tachypnea, labored breathing, is not present, Breath sounds: decreased breath sounds, that are mild, throughout, stridor, is not appreciated, wheezing: is not appreciated. 19:27 Abdomen/GI: Inspection: abdomen appears normal, Bowel sounds: active, all quadrants, Palpation: soft, in all quadrants, nontender, in all quadrants. 19:27 Skin: cellulitis, is not appreciated, no rash present. 19:27 Neuro: Orientation: no acute changes, per family, Mentation: no acute changes, per family, Motor: moves all fours, Sensation: is normal. 19:30 ECG was reviewed by the Attending Physician. cp 20:00 ECG was reviewed by the Attending Physician. Vital Signs: 18:57 BP 116 / 73; Pulse 52; Resp 18; Temp 100; Pulse Ox 96% on R/A; Weight 79.38 kg; Height ca1 5 ft. 6 in. (167.64 cm); Pain 0/10; 19:15 BP 112 / 76; Pulse 162; Resp 18; Pulse Ox 95% on R/A; tl2 19:30 BP 113 / 81; Pulse 155; Resp 18; Pulse Ox 96% on R/A; tl2 20:00 BP 127 / 62; Pulse 106; Resp 18; Pulse Ox 96% on R/A; tl2 20:30 BP 114 / 63; Pulse 128; Resp 18; Pulse Ox 95% on R/A; tl2 21:04 BP 96 / 73; Pulse 131; Resp 20; Pulse Ox 95% on R/A; tl2 21:55 BP 125 / 71; Pulse 118; Resp 24; Pulse Ox 94% on R/A; tl2 22:48 BP 127 / 88; Pulse 117; Resp 18; Pulse Ox 96% on R/A; tl2 08/17 00:05 BP 123 / 54; Pulse 117; Resp 20; Temp 99.3; Pulse Ox 94% on R/A; tl2 08/16 18:57 Body Mass Index 28.25 (79.38 kg, 167.64 cm) ca1 MDM: 08/16 19:03 Patient medically screened. cp 21:00 Differential diagnosis: dental caries, gingivitis, dental abscess, aphthous ulcers, cp gingivostomatitis, sepsis, dehydration. 21:50 Data reviewed: vital signs, nurses notes, lab test result(s), EKG, radiologic studies, cp plain films. 21:50 Test interpretation: by ED physician or midlevel provider: ECG, plain radiologic cp studies. 21:50 Response to treatment: the patient's symptoms have markedly improved after treatment, cp and as a result, I will admit patient. 21:50 Physician consultation: Yoly Melara MD was called at 21:45, was contacted at 21:45, cp regarding admission, to the telemetry unit. patient's condition. 08/16 19:07 Order name: Basic Metabolic Panel cp 08/16 19:07 Order name: CBC with Diff cp 08/16 19:07 Order name: LFT's cp 08/16 19:07 Order name: Magnesium cp 08/16 19:07 Order name: PT-INR cp 08/16 19:10 Order name: Procalcitonin cp 08/16 19:47 Order name: Basic Metabolic Panel; Complete Time: 19:52 EDMS 08/16 19:53 Interpretation: Normal except: GLUC 136; GFR 53; CA 8.3. cp 08/16 19:48 Order name: Liver (Hepatic) Function; Complete Time: 19:52 EDMS 08/16 19:53 Interpretation: Normal except: AST 63; BILID 0.4; ALB 3.1; GLOB 4.1; A/G 0.8. cp 08/16 19:48 Order name: Magnesium; Complete Time: 19:52 EDMS 08/16 19:50 Order name: CBC with Automated Diff; Complete Time: 21:18 EDMS 08/16 19:53 Interpretation: Normal except: WBC 4.0; PLT 156; RDW 19.0; LYM% 13.7; MN% 15.5; LYMA cp 0.5. 08/16 20:00 Order name: Procalcitonin; Complete Time: 20:17 EDMS 08/16 20:04 Order name: Protime (+INR); Complete Time: 20:17 EDMS 08/16 20:17 Interpretation: Abnormal: PT 16.8. cp 08/16 20:46 Order name: CBC Smear Scan; Complete Time: 21:18 EDMS 08/16 21:45 Order name: Urine Microscopic Only cp 08/16 19:07 Order name: EKG; Complete Time: 19:10 cp 08/16 19:07 Order name: Cardiac monitoring; Complete Time: 19:46 cp 08/16 19:52 Order name: XRAY Chest (1 view) cp 08/16 20:24 Order name: RAD; Complete Time: 20:28 EDMS 08/16 20:28 Interpretation: Report reviewed. cp 08/16 22:45 Order name: Urine Dipstick--Ancillary (enter results) 08/16 23:00 Order name: Urine Microscopic Only; Complete Time: 23:12 EDMS 08/16 23:12 Interpretation: Normal except: UWBC >50; SQEPI 10-20. cp 08/16 23:15 Order name: Urine Dipstick-Ancillary; Complete Time: 23:21 EDMS 08/16 23:21 Interpretation: Normal except: UPROT 1+; UESTR 1+. cp 08/16 19:07 Order name: EKG - Nurse/Tech; Complete Time: 19:46 cp 08/16 19:07 Order name: IV Saline Lock; Complete Time: 19:46 cp 08/16 19:07 Order name: Labs collected and sent; Complete Time: :46 cp 08/16 18: Order name: O2 Per Protocol; Complete Time: :46 cp 08/16 19: Order name: O2 Sat Monitoring; Complete Time: :46 cp 08/16 21:45 Order name: Cath; Complete Time: 22:36 cp 08/16 21:45 Order name: Urine Dipstick-Ancillary (obtain specimen); Complete Time: 22:51 cp EC:30 Rate is 163 beats/min. Rhythm is irregular. QRS interval is prolonged at 102 msec. QT cp interval is normal. T waves are Inverted in lead III. Interpreted by me. Reviewed by me. 20:00 Rate is 106 beats/min. Rhythm is irregularly irregular. QRS interval is prolonged at cp 102 msec. QT interval is normal. Interpreted by me. Reviewed by me. Administered Medications: 19:49 Drug: NS 0.9% 1000 ml Route: IV; Rate: 1 bolus; Site: left antecubital; tl2 21:00 Follow up: Response: No adverse reaction; IV Status: Completed infusion; IV Intake: ea 1000ml 19:49 Drug: Cardizem 10 mg {Note: administered 5 mg of Cardizem and HR decreased to 110, PA tl2 ordered to hold remaining 5 mg .} Route: IVP; Site: left antecubital; 20:15 Follow up: Response: No adverse reaction; Cardiac rhythm changed tl2 21:55 Drug: Cardizem 5 mg Route: IVP; Site: left antecubital; tl2 23:50 Follow up: Response: No adverse reaction; Cardiac rhythm is unchanged tl2 22:30 Drug: Cardizem 5 mg Route: IVP; Site: left antecubital; tl2 23:00 Follow up: Response: No adverse reaction; Cardiac rhythm is unchanged tl2 22:36 Drug: Lovenox 1 mg/kg Route: Sub-Q; Site: right lower abdomen; ea 23:36 Follow up: Response: No adverse reaction ea 23:36 Drug: nystatin 218012 units Route: PO; ea 23:50 Follow up: Response: No adverse reaction; Marked relief of symptoms tl2 23:44 Drug: Cardizem 5 mg {Note: BP 124/94.} Route: IVP; Site: left antecubital; tl2 08/17 00:00 Follow up: Response: No adverse reaction; Cardiac rhythm is unchanged tl2 00:07 Not Given (Patient Refused): Rocephin - (cefTRIAXone) 1 grams IVPB once over 30 mins; tl2 (mix in 50 mL NS) 01:15 CANCELLED (wrong order): Cardizem 10 mg IVP once; Over 2 minutes tl2 Disposition: 08/16/18 21:54 Hospitalization ordered by Yoly Melara for Observation. Preliminary diagnosis are Chronic atrial fibrillation - with RVR, Candidiasis - oral. - Bed requested for Telemetry/MedSurg (observation). - Status is Observation. tl2 - Condition is Stable. - Problem is an acute exacerbation. - Symptoms have improved. UTI on Admission? No Addendum: 08/29/2018 07:02 Co-signature as Attending Physician, Simone Ferrari MD Available for consultation at p s1 all times. . Signatures: Dispatcher [employer] EDHI Rosita Ingram RN RN mw Page, Corey, PA PA cp Peyton Goode RN RN tl2 Carmen Michaels RN RN ea Singer, Phillip, MD MD ps1 Amy Butcher RN RN ca1 Corrections: (The following items were deleted from the chart) 08/16 19:53 19:53 Normal except: GLUC 136; GFR 53. cp cp 19:53 19:53 Normal except: WBC 4.0; PLT 156; RDW 19.0; LYM% 13.7; MN% 15.5. cp cp 23:20 21:54 Hospitalization Ordered by Yoly Melara MD for Observation. Preliminary diagnosis is Chronic atrial fibrillation - with RVR; Candidiasis - oral. Bed requested for Telemetry/MedSurg (observation). Status is Observation. Condition is Stable. Problem is an acute exacerbation. Symptoms have improved. UTI on Admission? No. cp 08/17 01:15 01:15 Cardizem 10 mg IVP once; Over 2 minutes ordered. tl2 tl2 01:18 08/16 23:20 08/16/2018 21:54 Hospitalization Ordered by Yoly Melara MD for tl2 Observation. Preliminary diagnosis is Chronic atrial fibrillation - with RVR; Candidiasis - oral. Bed requested for Telemetry/MedSurg (observation). Status is Observation. Condition is Stable. Problem is an acute exacerbation. Symptoms have improved. UTI on Admission? No. mw
[2018-08-16] MEDS ORDERED: ENOXAPARIN 80 MG/0.8 ML SQ ONE (22:21)
[2018-08-16 23:00] LABS: Urine Bacteria <20 /HPF (<20); Urine Culture Reflex Order REFLEXED; Urine Mucus 1+ /HPF (NONE SEEN); Urine RBC <5 /HPF (NONE SEEN)
[2018-08-16] MEDS ORDERED: ALPRAZOLAM 0.25 MG TABLET PO PRN (23:09)
[2018-08-16] MEDS ORDERED: ACETAMINOPHEN 500 MG TAB PO PRN (23:09)
[2018-08-16] MEDS ORDERED: ONDANSETRON 4 MG/2 ML VIAL IV PRN (23:09)
[2018-08-16] MEDS ORDERED: MORPHINE 4 MG/ML SYR IV PRN (23:09)
[2018-08-16 23:15] LABS: Urine Blood NEGATIVE (NEG); Urine Glucose NEGATIVE (NEG); Urine Protein 1+ (NEG)
[2018-08-16] MEDS ORDERED: LIDOCAINE VISCOUS 2% SOLN 15 ML UDC ONE (23:32)
[2018-08-16] MEDS ORDERED: MAGNE/ALUM HYDROXD 30 ML UCUP ONE (23:32)
[2018-08-16] MEDS ORDERED: NYSTATIN 500,000 UNIT/5 ML UDC ONE (23:33)
[2018-08-16] MEDS ORDERED: ENOXAPARIN 100 MG/ML SYR SQ SCH (23:45)
[2018-08-17] MEDS ORDERED: NA CHLORIDE 0.9% 250 ML IV ONE (02:17)
[2018-08-17] MEDS: METOPROLOL TARTRATE 5 MG/5 ML INJ IV SCH ×3 (02:28→02:48)
[2018-08-17] MEDS ORDERED: NA CHLORIDE 0.9% 250 ML ONE (02:36)
[2018-08-17 06:13] LABS: Absolute Monocytes 0.7 K/uL (0.1-1.3); Absolute Neutrophil 2.1 K/uL (1.8-8.0); Basophils % 1.3 % (0-1.3); Eosinophils % 0.5 % (0-4.4); Hematocrit 38.2 % (36.0-45.0); Lymphocytes % 25.5 % (15.3-44.8); MPV 10.6 fL (7.6-11.3); Monocytes % 18.2 % (3.3-12.3); RBC Red Blood Cell Count 4.28 M/uL (3.86-4.86)
--- NOTE | 2018-08-17 06:23 | P.HP ---
Certification for Inpatient Patient admitted to: Inpatient With expected LOS: >2 Midnights Patient will require the following post-hospital care: None Practitioner: I am a practitioner with admitting privileges, knowledge of patient current condition, hospital course, and medical plan of care. Services: Services provided to patient in accordance with Admission requirements found in Title 42 Section 412.3 of the Code of Federal Regulations Patient History Date of Service: 08/16/18 Reason for admission: Severe oral candidiasis/atrial fibrillation with rapid ventricular response History of Present Illness: Patient is an 88-year-old female who is had repeated hospitalizations for numerous issues. She comes into the hospital on this admission with atrial fibrillation with rapid ventricular response. She also has severe oral candidiasis. This is actually caused her lips to bleed. She has been trying to take her Diflucan. If but she has had a hard time swallowing because of the severe oral candidiasis. Patient has numerous medical issues including stroke, Coronary artery disease, as well as increasing debility over the last couple of years. At this time she will be admitted to the hospital for better control of her cardiac rhythm. I will hold off on her Coumadin and she is bleeding. Will continue Diflucan as well as nystatin. We will give her viscous lidocaine for pain. Allergies codeine [Codeine] Allergy (Mild, Verified 08/17/18 01:08) Hives/Rash nitrofurantoin [From Macrobid] Allergy (Verified 08/17/18 01:08) Unknown nitrofurantoin macrocrystal [From Macrobid] Allergy (Verified 08/17/18 01:08) Unknown sulfamethoxazole [From Bactrim] Allergy (Verified 08/17/18 01:08) Itching/Hives/Rash trimethoprim [From Bactrim] Allergy (Verified 09/24/15 00:27) Itching/Hives/Rash morphine Adverse Reaction (Mild, Verified 08/17/18 01:08) Hives/Rash Doxycycline Allergy (Uncoded 08/17/18 01:08) Hives/Rash Home Medications: Atorvastatin Calcium [Lipitor] 80 mg PO BEDTIME 08/17/18 Cefuroxime [Ceftin*] 1 tab PO BID 08/17/18 Fluconazole 100 mg PO EVERY 3RD DAY 08/17/18 Levothyroxine Sodium [Synthroid] 150 mcg PO DAILY 08/17/18 Magic Mouthwash [Magic Mouthwash*] 15 ml QID PRN 08/17/18 Metoprolol Tartrate [Lopressor] 50 mg PO BID 08/17/18 Sitagliptin Phosphate [Januvia] 100 mg PO DAILY 08/17/18 Warfarin Sodium [Coumadin] 2 mg PO DAILY 5 PM 08/17/18 - Past Medical/Surgical History Has patient received pneumonia vaccine in the past: No Diabetic: Yes -: heart tumor -: stroke -: gastritis,with polyps -: gastric ulcers -: diverticuitis -: a-fib -: uterine prolapse -: hyperlipidemia -: hypothyroidism -: CAD -: cardiac stents -: UTI -: 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 -: colon resection -: masectomy right side -: hysterectomy -: cholecystectomy -: tonsilectomy -: cardiac stent s x2 -: APPENDECTOMY - Family History Mother Medical History: Heart disease, Diabetes - Social History Smoking Status: Never smoker Alcohol use: No CD- Drugs: No Caffeine use: No Place of Residence: Home Review of Systems 10-point ROS is otherwise unremarkable Physical Examination - Vital Signs Temperature: 97.2 F Blood Pressure: 174/95 Pulse: 88 Respirations: 16 Pulse Ox (%): 93 - Physical Exam General: Alert, In no apparent distress, Oriented x3 HEENT: Atraumatic, PERRLA, Other (Oral candidiasis with oral thrush/bleeding of the lips), EOMI, Sclerae nonicteric Neck: Supple, 2+ carotid pulse no bruit, No LAD, Without JVD or thyroid abnormality Respiratory: Clear to auscultation bilaterally, Normal air movement Cardiovascular: Irregular heart rate/rhythm, Systolic murmur Gastrointestinal: Normal bowel sounds, Soft and benign, Non-distended, No tenderness Musculoskeletal: No clubbing, No tenderness, Swelling Integumentary: No rashes Neurological: Normal speech, Normal tone, Sensation intact, Cranial nerves 3-12 intact, Normal affect, Abnormal gait, Abnormal strength Lymphatics: No axilla or inguinal lymphadenopathy - Studies Laboratory Data (last 24 hrs) 08/16/18 19:19: PT 16.8 H, INR 1.42 08/16/18 19:19: WBC 4.0 L D, Hgb 13.1, Hct 40.7, Plt Count 156 D 08/16/18 19:19: Sodium 142, Potassium 3.9, BUN 12, Creatinine 0.99, Glucose 136 H, Magnesium 2.1, Total Bilirubin 0.8, AST 63 H, ALT 21, Alkaline Phosphatase 116 Assessment & Plan - Problems (Diagnosis) (1) Oral pharyngeal candidiasis Current Visit: Yes Status: Acute (2) Mucositis Current Visit: Yes Status: Acute (3) Atrial fibrillation with rapid ventricular response Current Visit: Yes Status: Acute (4) CAD (coronary artery disease) Onset Date: 11/14/14 Current Visit: No Status: Chronic Qualifiers: (5) Hyperlipidemia Current Visit: No Status: Chronic Qualifiers: (6) Hypertension Onset Date: 06/22/18 Current Visit: No Status: Chronic Qualifiers: - Plan Plan: 1. Medication for rate control 2. Hold warfarin 3. Diflucan along with nystatin 4. Viscous lidocaine as needed 5. Cardiology consultation 6. Echocardiogram if not done in the last 6 months 7. NPO for now 8. Monitor liver function and electrolytes 9. GI and DVT prophylaxis - Advance Directives Does patient have a Living Will: Yes Does patient have a Durable POA for Healthcare: Yes - Code Status/Comfort Care Code Status Assessed: Yes Code Status: Full Code Critical Care: No Time Spent Managing PTS Care (In Minutes): 50
[2018-08-17 06:26] LABS: Magnesium 2.2 mg/dL (1.8-2.4); Phosphorus 2.8 mg/dL (2.5-4.9); Troponin I 0.03 ng/mL (0.0-0.045)
[2018-08-17] MEDS: METOPROLOL TAR 50 MG TAB PO SCH ×3 (06:29→21:24)
[2018-08-17] MEDS ORDERED: FLUCONAZOLE 100mg IVPB 100 MG/50 ML BAG IV SCH (07:00)
[2018-08-17] MEDS ORDERED: NYSTATIN 500,000 UNIT/5 ML UDC PO SCH ×2 (09:00→13:00)
[2018-08-17] MEDS ORDERED: HOME MED 1 EA UNK (Levothyroxine Sodium [Synthroid] 150 MCG) PO SCH (09:00)
[2018-08-17] MEDS ORDERED: METOPROLOL TAR 50 MG TAB PO SCH ×2 (09:00)
[2018-08-17] MEDS: GLUCERNA SHAKE 237 ML CAN PO SCH ×2 (09:20→21:39)
[2018-08-17] MEDS: FLUCONAZOLE 100mg IVPB 100 MG/50 ML BAG IV SCH (09:21)
[2018-08-17] MEDS: ENOXAPARIN 60 MG/0.6 ML SQ SCH ×2 (09:25→21:47)
[2018-08-17] MEDS: SUCRALFATE 1 GM TABLET PO SCH ×4 (09:26→21:22)
[2018-08-17] MEDS: SITAGLIPTIN PHOS 100 MG TAB PO SCH (09:26)
[2018-08-17] MEDS: LEVOTHYROXINE SOD 0.075 MG TAB PO SCH (09:26)
[2018-08-17] MEDS: MAGIC MOUTHWASH 180 ML BTL PO PRN ×2 (10:19→18:45)
--- NOTE | 2018-08-17 11:46 | EKG ---
Test Date: 2018-08-16 Test Time: 19:24:48 Lap Machine Operator: RYAN MEASUREMENT RESULTS: Intervals: Rate: 163 [place]: QRSD: 102 QT: 298 QTc: 490 [place]: P: [place]: QRS: 81 T: -5 INTERPRETIVE STATEMENTS: Supraventricular tachycardia Incomplete right bundle branch block ST depression, consider subendocardial injury Nonspecific T wave abnormality Abnormal ECG Compared to ECG 08/09/2018 03:09:44 No significant changes Electronically Signed On 08-17-18 11:43:02 SHOESHINER by Jeff Noguera
--- NOTE | 2018-08-17 11:46 | EKG ---
Test Date: 2018-08-16 Test Time: 19:52:13 Field Hockey Coach: RYAN MEASUREMENT RESULTS: Intervals: Rate: 106 PA: QRSD: 102 QT: 376 QTc: 499 [place]: P: PA: QRS: 77 T: 28 INTERPRETIVE STATEMENTS: Atrial fibrillation with rapid ventricular response Incomplete right bundle branch block Nonspecific ST and T wave abnormality Abnormal ECG Compared to ECG 08/16/2018 19:24:48 Supraventricular tachycardia no longer present T-wave abnormality no longer present ST (T wave) deviation still present Electronically Signed On 08-17-18 11:43:01 PHARMACY INFORMATICS MANAGER by Jeff Noguera
--- NOTE | 2018-08-17 12:14 | ECHO ---
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 DOPPLER/COLOR FLOW: MILD TRICUSPID REGURGITATION. COMMENTS: MILD TRICUSPID REGURGITATION NORMAL RIGHT VENTRICULAR SYSTOLIC PRESSURE. NORMAL LEFT VENTRICULAR SIZE AND FUNCTION. EJECTION FRACTION 57%. MITRAL ANNULAR CALCIFICATION. AORTIC SCLEROSIS TECHNOLOGIST: CHAUNCEY BOWSER
--- NOTE | 2018-08-17 13:58 | P.PN ---
Subjective Date of Service: 08/17/18 Primary Care Provider: Dr. Severino; Cardiology-Dr. Willard Chief Complaint: Severe oral candidiasis/atrial fibrillation with rapid ventricular response Subjective: Other (Pain to the oral cavity noted.) Physical Examination - Vital Signs Temperature: 97.8 F Blood Pressure: 124/63 Pulse: 108 Respirations: 20 Pulse Ox (%): 94 - Physical Exam General: Alert, In no apparent distress, Oriented x3, Cooperative HEENT: Atraumatic, Other (Inflammation to the oral cavity.) Neck: Supple Respiratory: Clear to auscultation bilaterally, Normal air movement Cardiovascular: Irregular heart rate/rhythm (Atrial fibrillation, rate controlled) Gastrointestinal: Normal bowel sounds, Soft and benign, Non-distended, No masses , No rebound, No guarding Musculoskeletal: No tenderness, No warmth Integumentary: No warmth, No cyanosis Neurological: Normal speech, Normal strength at 5/5 x4 extr, Normal tone, Normal affect - Studies Laboratory Data (last 24 hrs) 08/16/18 19:19: PT 16.8 H, INR 1.42 08/16/18 19:19: WBC 4.0 L D, Hgb 13.1, Hct 40.7, Plt Count 156 D 08/16/18 19:19: Sodium 142, Potassium 3.9, BUN 12, Creatinine 0.99, Glucose 136 H, Magnesium 2.1, Total Bilirubin 0.8, AST 63 H, ALT 21, Alkaline Phosphatase 116 Medications List Reviewed: Yes Assessment & Plan Discharge Plan: Other (Independent living facility) Plan to discharge in: 48 Hours Physician Review Additional Text: Impression: Poor oral intake with mild malnutrition secondary to Oral candidiasis Atrial fibrillation on chronic anti coagulation therapy on Coumadin Hyperlipidemia Hypothyroidism Acute renal insufficiency likely from dehydration Plan: Poor oral intake with mild malnutrition secondary to Oral candidiasis: Continue with IV and oral antifungal medication. Will start a full liquid diet and advance as tolerated. Will provides oral supplementation. Will also start Carafate. Oral candidiasis likely related to recent multiple admissions for infection and antibiotic therapy. Atrial fibrillation on chronic anti coagulation therapy on Coumadin: Continue with home medication. INR subtherapeutic. Patient on Lovenox. Will discontinue Lovenox when INR gets above 2.0. Hyperlipidemia: Continue the medication. Hypothyroidism: Continue medication. Acute renal insufficiency likely from dehydration: Encourage oral intake. Will monitor closely. Time Spent Managing Pts Care (In Minutes): 55
[2018-08-17] MEDS ORDERED: WARFARIN SODIUM 2 MG TAB PO SCH (17:00)
[2018-08-17] MEDS ORDERED: NA CHLORIDE 0.9% 500 ML IV ONE (18:44)
[2018-08-17] MEDS ORDERED: NA CHLORIDE 0.9% 1,000 ML ONE (18:52)
[2018-08-17] MEDS: NACHLORIDE 0.45% 1,000 ML IV SCH (19:47)
[2018-08-17] MEDS ORDERED: ATORVASTATIN 80 MG TAB PO SCH (21:00)
[2018-08-17] MEDS ORDERED: ATORVASTATIN 20 MG TAB PO SCH (21:00)
[2018-08-17] MEDS: ATORVASTATIN 40 MG TAB PO SCH (21:24)
[2018-08-18] MEDS: MAGIC MOUTHWASH 180 ML BTL PO PRN ×2 (01:12→06:20)
[2018-08-18] MEDS ORDERED: DIGOXIN 0.25 MG/ML AMP IV ONE (05:54)
[2018-08-18] MEDS: NACHLORIDE 0.45% 1,000 ML IV SCH ×2 (06:19→21:49)
[2018-08-18] MEDS: PANTOPRAZOLE 40MG TABLET PO SCH (06:19)
[2018-08-18 06:22] LABS: Protime INR 1.43
[2018-08-18 06:25] LABS: Absolute Lymphocytes (CBC) 1.1 K/uL (0.7-4.9); Absolute Monocytes 0.6 K/uL (0.1-1.3); Absolute Neutrophil 2.4 K/uL (1.8-8.0); Basophils % 1.2 % (0-1.3); Eosinophils % 1.2 % (0-4.4); Hematocrit 41.3 % (36.0-45.0); Lymphocytes % 25.5 % (15.3-44.8); MPV 10.6 fL (7.6-11.3); Monocytes % 13.9 % (3.3-12.3); RBC Red Blood Cell Count 4.59 M/uL (3.86-4.86)
[2018-08-18 06:29] LABS: Magnesium 2.1 mg/dL (1.8-2.4); Potassium 4.1 mmol/L (3.5-5.1)
--- NOTE | 2018-08-18 06:50 | CON ---
Date of Consultation: 08/17/2018 Ms. Brar was admitted on 08/16/[address] Stiles' service. I saw the patient on 08/17/2018. Reason For Consultation: Weakness, atrial fibrillation. History Of Present Illness: Ms. Brar is an 88-year-old woman, has had an extensive past medical h istory including atrial fibrillation, has had a right mastectomy, UTI that is chronic, has a history of diabetes, TIA, coronary artery disease status post stent in the past. She had a stent in the LAD and the circumflex. Last catheterization in 2014 showed patent stents bilaterally. She came in hype rtensive with blood pressure 174/95, was found to have UTI. Her atrial fibrillation was chronic, but had a rapid rate. Ms. Brar has been suffering with oral candidiasis and has been on fluconazole and Ceftin and nystatin swish and swallow. She has been taking Coumadin and her INR is 1.4, probably secondary to her antifungal medication. She denies any chest pain or syncope. Her main complaint r eally is overall weakness. Denied dyspnea on exertion. Allergies: SHE IS ALLERGIC TO CODEINE, SULFA AND MORPHINE. Review of Systems: Negative. Social History: Negative. Family History: Negative. Medications At Home: Include Lipitor, Synthroid, fluconazole, Ceftin, Coumadin, Lopressor, and Januv ia. Physical Examination: GENERAL: She appeared to be in no acute distress. She was in atrial fibrillation at a rate of 110. HEENT: Negative. Neck: Supple without any bruit, lymphadenopathy, JVD, or thyromegaly. CHEST: Clear to auscultation, percussion. CARDIAC: Revealed atrial fibrillation with a rapid ventricular response. No gallops or rubs. ABDOMEN: Benign. EXTREMITIES: Revealed no clubbing, cyanosis, or edema. NEUROLOGIC: She was nonfocal. SKIN: Dry and intact. Pulses were present bilaterally. Diagnostic Data: Fairly unremarkable except for INR of 1.4. She just had an echocardiogram in 2017 which was normal. Chest x-ray showed chronic interstitial lung disease. UTI was present . Impression And Plan: 1.Chronic atrial fibrillation with rapid ventricular response secondary to being ill from urinary tr act infection and oral candidiasis. We can certainly increase her Lopressor as needed. I will hesham nue the Coumadin. We may have to give her a higher dose to keep her INR adequate considering she is on antifungal antibiotic medication. There is another echocardiogram pending. I fear if that shows anything different. 2.Coronary artery disease status post stent in the LAD and circumflex, both of them were open in 201 5. No cardiac symptoms reported. 3.Hypothyroidism. 4.Dyslipidemia, stable on Lipitor. 5.Diabetes, on Januvia. 6.History of transient ischemic attack. 7.History of right mastectomy. I will discuss the case further with Dr. Stiles, but from my standpo int she can go home whenever it is okay with him as well as the echocardiogram looks good. ASIF/WHIT Voice ID: [id number] Report ID: [id number]
[2018-08-18] MEDS: SUCRALFATE 1 GM TABLET PO SCH ×4 (07:30→21:48)
[2018-08-18] MEDS ORDERED: CEFTRIAXONE 1 GM/NS 50 ML 1 GM/50 ML BAG IV SCH (09:00)
[2018-08-18] MEDS ORDERED: CEFTRIAXONE/SWI 1gm 1 GM/10 ML SYR IV SCH (09:00)
[2018-08-18] MEDS: MAGIC MOUTHWASH 180 ML BTL PO SCH ×4 (09:00→21:48)
[2018-08-18] MEDS: METOPROLOL TAR 50 MG TAB PO SCH ×2 (09:00→21:48)
[2018-08-18] MEDS: NYSTATIN 500,000 UNIT/5 ML UDC PO SCH ×4 (09:00→21:47)
[2018-08-18] MEDS: FLUCONAZOLE 100mg IVPB 100 MG/50 ML BAG IV SCH (09:34)
[2018-08-18] MEDS: GLUCERNA SHAKE 237 ML CAN PO SCH ×2 (09:35→21:47)
[2018-08-18] MEDS: ENOXAPARIN 60 MG/0.6 ML SQ SCH ×2 (09:36→21:47)
[2018-08-18] MEDS: SITAGLIPTIN PHOS 100 MG TAB PO SCH (09:36)
[2018-08-18] MEDS: LEVOTHYROXINE SOD 0.075 MG TAB PO SCH (09:37)
[2018-08-18] MEDS ORDERED: DIGOXIN 0.25 MG/ML AMP IV SCH (12:00)
--- NOTE | 2018-08-18 13:39 | P.PN ---
Subjective Date of Service: 08/18/18 Primary Care Provider: Dr. Severino; Cardiology-Dr. Willard Chief Complaint: Severe oral candidiasis/atrial fibrillation with rapid ventricular response Subjective: Doing well (Patient is doing better today. Patient given IV fluid hydration last night. Patient required digoxin IV to help with her rate.) Physical Examination - Vital Signs Temperature: 97.6 F Blood Pressure: 138/60 Pulse: 80 Respirations: 18 Pulse Ox (%): 93 - Physical Exam General: Alert, Cooperative HEENT: Atraumatic, Other (Oral cavity swelling improved. Less erythema.) Neck: Supple Respiratory: Clear to auscultation bilaterally, Normal air movement Cardiovascular: Irregular heart rate/rhythm (Atrial fibrillation rate controlled ) Gastrointestinal: Normal bowel sounds, Soft and benign, Non-distended Musculoskeletal: No erythema, No tenderness, No warmth Integumentary: No tenderness/swelling, No erythema, No warmth, No cyanosis Neurological: Normal speech, Normal strength at 5/5 x4 extr, Normal tone, Normal affect - Studies Medications List Reviewed: Yes Assessment & Plan Discharge Plan: Other (Skilled facility) Plan to discharge in: 48 Hours Physician Review Additional Text: Impression: Poor oral intake with mild malnutrition secondary to Oral candidiasis Atrial fibrillation on chronic anti coagulation therapy on Coumadin Hyperlipidemia Hypothyroidism Acute renal insufficiency likely from dehydration Plan: Poor oral intake with mild malnutrition secondary to Oral candidiasis: Continue with IV and oral antifungal medication. IV fluids added yesterday. Will continue with IV fluids and toe she is able to take better oral intake. Will monitor closely. Will also schedule Magic mouthwash 4 times a day. Continue with medication. No need for antibiotics at this time. Atrial fibrillation on chronic anti coagulation therapy on Coumadin: Continue with home medication. INR subtherapeutic. Patient on Lovenox. Will discontinue Lovenox when INR gets above 2.0. Will increase Coumadin to 3 mg daily. Continue to monitor closely. Patient was given IV digoxin last night. Rate better controlled. Will discuss case with cardiology to see if patient will need to continue with oral digoxin. Rate better controlled. Hyperlipidemia: Continue the medication. Hypothyroidism: Tsh abnormal. Will decrease thyroid medication. Continue medication. Acute renal insufficiency likely from dehydration: Encourage oral intake. Will monitor closely. Time Spent Managing Pts Care (In Minutes): 55
--- NOTE | 2018-08-18 14:15 | RAD REPORT ---
EXAM DESCRIPTION: Leonard Single View08/18/2018 2:08 pm CLINICAL HISTORY: Shortness of breath COMPARISON: August 24, 2018 FINDINGS: Medial right upper lobe opacity is present. Mild interstitial pulmonary opacities are present The heart is mildly enlarged. Postsurgical change involve the chest IMPRESSION: Medial right upper lobe opacity may represent pneumonia Mild bilateral interstitial opacities probably represent a combination of mild interstitial pulmonary edema and chronic changes
[2018-08-18] MEDS: WARFARIN SODIUM 3 MG TAB PO SCH (17:24)
[2018-08-18] MEDS: ATORVASTATIN 40 MG TAB PO SCH (21:48)
[2018-08-19] MEDS: LEVOTHYROXINE SOD 0.05 MG TABLET PO SCH (05:32)
[2018-08-19] MEDS: LEVOTHYROXINE SOD 0.075 MG TAB PO SCH (05:32)
[2018-08-19] MEDS: PANTOPRAZOLE 40MG TABLET PO SCH (06:30)
[2018-08-19] MEDS: SUCRALFATE 1 GM TABLET PO SCH ×4 (07:30→22:04)
[2018-08-19 07:45] LABS: Absolute Lymphocytes (CBC) 0.7 K/uL (0.7-4.9); Absolute Monocytes 0.4 K/uL (0.1-1.3); Absolute Neutrophil 2.7 K/uL (1.8-8.0); Basophils % 1.5 % (0-1.3); Eosinophils % 2.5 % (0-4.4); Lymphocytes % 17.4 % (15.3-44.8); MPV 9.7 fL (7.6-11.3); Monocytes % 9.9 % (3.3-12.3); RBC Red Blood Cell Count 4.35 M/uL (3.86-4.86)
[2018-08-19 07:57] LABS: Magnesium 1.9 mg/dL (1.8-2.4); Potassium 3.4 mmol/L (3.5-5.1)
[2018-08-19] MEDS: FLUCONAZOLE 100mg IVPB 100 MG/50 ML BAG IV SCH (08:00)
[2018-08-19] MEDS: NACHLORIDE 0.45% 1,000 ML IV SCH ×2 (08:00→17:18)
[2018-08-19 08:01] LABS: Protime INR 1.62
[2018-08-19] MEDS: KCL 20 MEQ/100 mL IVPB 20 MEQ/100 ML BAG IV SCH ×2 (09:00→11:00)
[2018-08-19] MEDS: METOPROLOL TAR 50 MG TAB PO SCH ×2 (09:00→22:04)
[2018-08-19] MEDS: ENOXAPARIN 60 MG/0.6 ML SQ SCH ×2 (09:00→22:04)
[2018-08-19] MEDS: SITAGLIPTIN PHOS 100 MG TAB PO SCH (09:00)
[2018-08-19] MEDS: MAGIC MOUTHWASH 180 ML BTL PO SCH ×4 (09:00→21:00)
[2018-08-19] MEDS: NYSTATIN 500,000 UNIT/5 ML UDC PO SCH (09:00)
[2018-08-19] MEDS: GLUCERNA SHAKE 237 ML CAN PO SCH ×2 (09:00→21:00)
--- NOTE | 2018-08-19 10:46 | P.PN ---
Subjective Date of Service: 08/19/18 Primary Care Provider: Dr. Severino; Cardiology-Dr. Willard Chief Complaint: Severe oral candidiasis/atrial fibrillation with rapid ventricular response Subjective: Improving (Mouth sores slowly improving. Patient stable. Patient working with physical therapy.) Physical Examination - Vital Signs Temperature: 97.1 F Blood Pressure: 148/66 Pulse: 87 Respirations: 20 Pulse Ox (%): 94 - Physical Exam General: Alert, In no apparent distress, Oriented x3, Cooperative HEENT: Atraumatic, Other (Oral cavity improved) Neck: Supple Respiratory: Diminished (To the bases but good air flow) Cardiovascular: Abnormal pulses Gastrointestinal: Normal bowel sounds, Soft and benign, Non-distended, No tenderness, No masses, No rebound, No guarding Musculoskeletal: No erythema, No tenderness, No warmth Integumentary: No tenderness/swelling, No erythema, No warmth, No cyanosis Neurological: Normal speech, Normal strength at 5/5 x4 extr, Normal tone, Normal affect - Studies Microbiology Data (last 24 hrs): 08/16/18 22:39 Clean Catch Urine [place] Count - Final <10,000 CFU/ML. Medications List Reviewed: Yes Assessment & Plan Discharge Plan: Other ([facility] facility) Plan to discharge in: 48 Hours Physician Review Additional Text: Impression: Poor oral intake with mild malnutrition secondary to Oral candidiasis Atrial fibrillation on chronic anti coagulation therapy on Coumadin Hyperlipidemia Hypothyroidism Acute renal insufficiency likely from dehydration Atelectasis Hypokalemia Plan: Poor oral intake with mild malnutrition secondary to Oral candidiasis: Continue with IV and oral antifungal medication. Patient is slowly improving. Will decrease IV fluids. Encourage ambulation. Will continue to provide oral supplementation to help with her malnutrition. Case discussed with case management about skilled placement. Patient agrees. If taking good oral intake will discontinue IV fluids. Atrial fibrillation on chronic anti coagulation therapy on Coumadin: Continue with home medication. Patient now in normal sinus rhythm. Patient doing well. Hyperlipidemia: Continue the medication. Hypothyroidism: Tsh abnormal. Thyroid medication decreased. Recommend to recheck tsh and free T4 in 4-6 weeks to further address. Continue medication. Acute renal insufficiency likely from dehydration: Encourage oral intake. Will monitor closely. This continues to improve. Will discontinue IV fluids if taking good oral intake. Atelectasis: Continue with incentive spirometer Hypokalemia: Will continue to monitor and replace appropriately. Time Spent Managing Pts Care (In Minutes): 55
[2018-08-19] MEDS: WARFARIN SODIUM 3 MG TAB PO SCH (16:49)
[2018-08-19] MEDS: ATORVASTATIN 40 MG TAB PO SCH (22:03)
[2018-08-20] MEDS ORDERED: KCL 20 MEQ/100 mL IVPB 20 MEQ/100 ML BAG IV SCH (02:00)
[2018-08-20] MEDS: NACHLORIDE 0.45% 1,000 ML IV SCH ×2 (04:00→11:58)
[2018-08-20 04:35] LABS: Absolute Lymphocytes (CBC) 0.8 K/uL (0.7-4.9); Absolute Monocytes 0.4 K/uL (0.1-1.3); Absolute Neutrophil 2.1 K/uL (1.8-8.0); Basophils % 0.8 % (0-1.3); Eosinophils % 3.8 % (0-4.4); Hematocrit 37.9 % (36.0-45.0); Lymphocytes % 23.8 % (15.3-44.8); MPV 9.5 fL (7.6-11.3); Monocytes % 10.7 % (3.3-12.3); RBC Red Blood Cell Count 4.27 M/uL (3.86-4.86)
[2018-08-20 04:50] LABS: Magnesium 1.9 mg/dL (1.8-2.4)
[2018-08-20 04:56] LABS: Protime INR 1.84
[2018-08-20] MEDS: LEVOTHYROXINE SOD 0.075 MG TAB PO SCH (05:48)
[2018-08-20] MEDS: PANTOPRAZOLE 40MG TABLET PO SCH (05:48)
[2018-08-20] MEDS: LEVOTHYROXINE SOD 0.05 MG TABLET PO SCH (05:48)
[2018-08-20] MEDS: SUCRALFATE 1 GM TABLET PO SCH ×4 (07:54→21:44)
[2018-08-20] MEDS: MAGIC MOUTHWASH 180 ML BTL PO SCH ×4 (07:55→21:45)
[2018-08-20] MEDS: GLUCERNA SHAKE 237 ML CAN PO SCH ×2 (10:59→21:00)
[2018-08-20] MEDS: FLUCONAZOLE 100mg IVPB 100 MG/50 ML BAG IV SCH (10:59)
[2018-08-20] MEDS: SITAGLIPTIN PHOS 100 MG TAB PO SCH (10:59)
[2018-08-20] MEDS: METOPROLOL TAR 50 MG TAB PO SCH ×2 (11:00→21:45)
[2018-08-20] MEDS: ENOXAPARIN 60 MG/0.6 ML SQ SCH ×2 (11:00→21:45)
--- NOTE | 2018-08-20 12:57 | P.PN ---
Subjective Date of Service: 08/20/18 Primary Care Provider: Dr. Severino; Cardiology-Dr. Willard Chief Complaint: Severe oral candidiasis/atrial fibrillation with rapid ventricular response Subjective: Improving Physical Examination - Vital Signs Temperature: 97.2 F Blood Pressure: 143/69 Pulse: 79 Respirations: 18 Pulse Ox (%): 94 - Physical Exam General: Alert, In no apparent distress, Oriented x3, Cooperative HEENT: Atraumatic, Other (oral cavity is better. ) Neck: Supple Respiratory: Clear to auscultation bilaterally, Normal air movement Cardiovascular: Normal pulses, Regular rate/rhythm Gastrointestinal: Normal bowel sounds, Soft and benign, Non-distended Musculoskeletal: No erythema, No tenderness, No warmth Integumentary: No erythema, No warmth, No cyanosis Neurological: Normal speech, Normal strength at 5/5 x4 extr, Normal tone, Normal affect - Studies Microbiology Data (last 24 hrs): 08/16/18 22:39 Clean Catch Urine [place] Count - Final <10,000 CFU/ML. 08/16/18 22:39 Clean Catch Urine - Final Medications List Reviewed: Yes Assessment & Plan Discharge Plan: Other Plan to discharge in: 24 Hours Physician Review Additional Text: Impression: Poor oral intake with mild malnutrition secondary to Oral candidiasis Atrial fibrillation on chronic anti coagulation therapy on Coumadin Hyperlipidemia Hypothyroidism Acute renal insufficiency likely from dehydration Atelectasis Hypokalemia Plan: Poor oral intake with mild malnutrition secondary to Oral candidiasis: Continue with IV antifungal medication. Patient appears to be improving well. Continue IV fluids. Encourage oral intake. Patient working with physical therapy. Case discussed with case management. Possible placement to skilled facility tomorrow if taking good oral intake. Atrial fibrillation on chronic anti coagulation therapy on Coumadin: Continue with home medication. Patient now in normal sinus rhythm. Patient doing well. Hyperlipidemia: Continue the medication. Hypothyroidism: Tsh abnormal. Thyroid medication decreased. Recommend to recheck tsh and free T4 in 4-6 weeks to further address. Continue medication. Acute renal insufficiency likely from dehydration: Encourage oral intake. Will monitor closely. This continues to improve. Will discontinue IV fluids if taking good oral intake. Atelectasis: Continue with incentive spirometer Hypokalemia: Will continue to monitor and replace appropriately. Time Spent Managing Pts Care (In Minutes): 55
[2018-08-20 15:30] VITALS: BMI 29.8
[2018-08-20] MEDS: WARFARIN SODIUM 3 MG TAB PO SCH (17:03)
[2018-08-20] MEDS: ATORVASTATIN 40 MG TAB PO SCH (21:44)
[2018-08-21] MEDS: NACHLORIDE 0.45% 1,000 ML IV SCH ×2 (03:38)
[2018-08-21] MEDS: LEVOTHYROXINE SOD 0.05 MG TABLET PO SCH ×2 (05:40→05:42)
[2018-08-21] MEDS: PANTOPRAZOLE 40MG TABLET PO SCH ×2 (05:40→05:42)
[2018-08-21] MEDS: LEVOTHYROXINE SOD 0.075 MG TAB PO SCH ×2 (05:40→05:42)
[2018-08-21 05:51] VITALS: O2SAT 94
[2018-08-21 07:52] LABS: Absolute Lymphocytes (CBC) 0.8 K/uL (0.7-4.9); Absolute Monocytes 0.4 K/uL (0.1-1.3); Absolute Neutrophil 2.2 K/uL (1.8-8.0); Basophils % 1.1 % (0-1.3); Eosinophils % 5.1 % (0-4.4); Hematocrit 38.5 % (36.0-45.0); Lymphocytes % 21.7 % (15.3-44.8); Monocytes % 10.7 % (3.3-12.3); Protime INR 2.35; RBC Red Blood Cell Count 4.36 M/uL (3.86-4.86)
[2018-08-21 08:00] LABS: Magnesium 1.9 mg/dL (1.8-2.4); Potassium 3.7 mmol/L (3.5-5.1)
[2018-08-21] MEDS: FLUCONAZOLE 100mg IVPB 100 MG/50 ML BAG IV SCH (08:00)
[2018-08-21] MEDS: GLUCERNA SHAKE 237 ML CAN PO SCH (09:00)
[2018-08-21] MEDS: METOPROLOL TAR 50 MG TAB PO SCH (09:20)
[2018-08-21] MEDS: SUCRALFATE 1 GM TABLET PO SCH ×2 (09:20→11:46)
[2018-08-21] MEDS: SITAGLIPTIN PHOS 100 MG TAB PO SCH (09:21)
[2018-08-21] MEDS: MAGIC MOUTHWASH 180 ML BTL PO SCH ×2 (09:22→13:00)
[2018-08-21 09:23] VITALS: BP 143/64
--- NOTE | 2018-08-21 10:04 | P.DS ---
Admission Date: 08/16/18 Discharge Date: 08/21/18 Primary Care Provider: Dr. Severino; Cardiology-Dr. Willard Disposition: TRANSFER TO SNF - MEDICAL Discharge Condition: GOOD Reason for Admission: Severe oral candidiasis/atrial fibrillation with rapid ventricular response Consultations: Cardiology-Dr. Noguera Procedures: CXR: COMPARISON: August 05 TECHNIQUE: AP portable chest image was obtained 1951 hours . FINDINGS: Lung volumes are low. No peripheral mass or consolidation. No significant pulmonary edema pattern. Lung markings are prominent but stable. Heart size and vasculature are normal range. Mediastinum is distorted by significant patient rotation. No measurable pleural effusion and no pneumothorax. No acute bony abnormality seen. No acute aortic findings suspected. IMPRESSION: Chronic interstitial lung disease. No acute finding compared to August 05. ECHO: Ejection fraction 57% LEFT VENTRICULAR WALL MOTION: NORMAL. DOPPLER/COLOR FLOW: MILD TRICUSPID REGURGITATION. COMMENTS: MILD TRICUSPID REGURGITATION NORMAL RIGHT VENTRICULAR SYSTOLIC PRESSURE. NORMAL LEFT VENTRICULAR SIZE AND FUNCTION. EJECTION FRACTION 57%. MITRAL ANNULAR CALCIFICATION. AORTIC SCLEROSIS Medical Problem List: Poor oral intake with mild malnutrition secondary to Oral candidiasis Atrial fibrillation on chronic anti coagulation therapy on Coumadin Hyperlipidemia Hypothyroidism Acute renal insufficiency likely from dehydration Atelectasis Hypokalemia Diabetes mellitus type 2 History of CAD with prior stent History of TIA Hypertension Brief History of Present Illness: 88-year-old female presented to the emergency room with worsening oral candidiasis. Patient has not been able take oral intake well. She was recently hospitalized for multiple infections over the past several months. Patient also presented with AFib with RVR. Patient on chronic anti coagulation therapy and medication. Patient admitted for further treatment. Hospital Course: Patient presented with poor oral intake with mild malnutrition secondary to oral candidiasis. Patient was started on IV antifungal medication along with medication to help sooth the pain. Patient did well during the course of her stay. Patient now able to eat appropriately. Oral candidiasis under control. At discharge she will continue with Diflucan 100 mg daily for 5 days. Patient will also use magic mouth wash 4 times a day to help sooth her mouth. This can be discontinued when it is no longer needed. Patient also given Protonix 40 mg daily and Carafate 1 g 3 times a day. At discharge patient will go to a skilled facility to recuperate and increase her physical status. Patient can be transitioned to home once stable. Patient may follow up with GI if this persists. We will refrain from antibiotic therapy if no need as this exacerbated the oral candidiasis. Patient with atrial fibrillation on chronic anti coagulation therapy-Coumadin. Patient presented with RVR. This resolved with hydration. Patient seen by Cardiology. No intervention recommended at this time. INR now therapeutic. Patient will continue with her current medications of Coumadin 2 mg daily. Recommend to recheck INR in 1 week. Further adjustment can be done by cardiology. Patient will also continue with metoprolol 50 mg 1 pill twice daily. Patient may follow up with cardiology as directed. Patient has hyperlipidemia. Patient will continue with her medication-Lipitor 80 mg daily. Patient has hypothyroidism. Tsh was abnormal. Thyroid medication was decreased. Patient will continue with levothyroxine 125 mcg daily. Recommend to recheck tsh and free T4 in 4-6 weeks to monitor her progress. Further adjustment can be done by her PCP. Patient presented with acute renal insufficiency the likely from dehydration and poor oral intake. This has resolved. Patient doing well this time. Patient may continue with a GI soft diet. Patient noted with atelectasis. Patient will continue with incentive spirometer. No indication or need for antibiotic therapy at this time. Patient had electrolyte imbalance. This resolved with replacement. Recommend to recheck lab-BMP in 1 week to monitor progress. Patient has diabetes mellitus type 2. This remained stable. Patient will continue with Januvia 100 mg daily. Recommendation is to maintain blood sugars less 140 fasting and less than 200 after meals. Further adjustment can be done by her PCP. Patient has hypertension. Patient will continue with metoprolol 50 mg 1 pill twice daily. Recommend to maintain blood pressures less 150/80. Further adjustment can be done by her PCP. Patient with history of CAD with prior stent and TIA. Patient stable this time. Vital Signs/Physical Exam: Temp Pulse Resp BP Pulse Ox 97.3 F 78 18 143/64 H 94 08/21/18 04:00 08/21/18 09:20 08/21/18 04:00 08/21/18 09:20 08/21/18 04:00 General: Alert, In no apparent distress, Oriented x3, Cooperative HEENT: Atraumatic, Other (Oral cavity appears stable. No significant erythema.) Neck: Supple Respiratory: Clear to auscultation bilaterally, Normal air movement Cardiovascular: Normal pulses, Regular rate/rhythm Gastrointestinal: Normal bowel sounds, Soft and benign, Non-distended, No tenderness, No masses, No rebound, No guarding Musculoskeletal: No erythema, No tenderness, No warmth Integumentary: No tenderness/swelling, No erythema, No warmth, No cyanosis Neurological: Normal speech, Normal strength at 5/5 x4 extr, Normal tone, Normal affect Laboratory Data at Discharge: WBC 3.6 K/uL (4.3-10.9) L 08/21/18 07:32 Hgb 12.6 g/dL (12.0-15.0) 08/21/18 07:32 Hct 38.5 % (36.0-45.0) 08/21/18 07:32 Plt Count 156 K/uL (152-406) D 08/21/18 07:32 PT 28.0 SECONDS (9.5-12.5) H 08/21/18 07:32 INR 2.35 08/21/18 07:32 Sodium 143 mmol/L (136-145) 08/21/18 07:32 Potassium 3.7 mmol/L (3.5-5.1) 08/21/18 07:32 BUN 6 mg/dL (7-18) L 08/21/18 07:32 Creatinine 0.71 mg/dL (0.55-1.3) 08/21/18 07:32 Glucose 75 mg/dL (74-106) 08/21/18 07:32 Phosphorus 2.8 mg/dL (2.5-4.9) 08/17/18 05:44 Magnesium 1.9 mg/dL (1.8-2.4) 08/21/18 07:32 Total Bilirubin 0.8 mg/dL (0.2-1.0) 08/16/18 19:19 AST 63 U/L (15-37) H 08/16/18 19:19 ALT 21 U/L (12-78) 08/16/18 19:19 Alkaline Phosphatase 116 U/L (45-117) 08/16/18 19:19 Troponin I 0.03 ng/mL (0.0-0.045) 08/17/18 12:59 Triglycerides 69 mg/dL (<150) 08/17/18 05:44 Cholesterol 71 mg/dL (<200) 08/17/18 05:44 HDL Cholesterol 20 mg/dL (40-60) L 08/17/18 05:44 Cholesterol/HDL Ratio 3.55 08/17/18 05:44 Home Medications: Atorvastatin Calcium [Lipitor] 80 mg PO BEDTIME 08/17/18 Metoprolol Tartrate [Lopressor*] 50 mg PO BID 08/17/18 Sitagliptin Phosphate [Januvia*] 100 mg PO DAILY 08/17/18 Warfarin Sodium [Coumadin*] 2 mg PO DAILY 5 PM 08/17/18 Fluconazole [Diflucan] 100 mg PO DAILY #5 tablet 08/21/18 Glucerna Shake [Glucerna*] 237 ml PO BID #60 can 08/21/18 Levothyroxine [Synthroid*] 125 mcg PO [id number] #30 tab 08/21/18 Magic Mouthwash [Magic Mouthwash*] 15 ml PO QID #1 btl 08/21/18 Pantoprazole [Protonix Tab*] 40 mg PO DAILYAC #30 tab 08/21/18 Sucralfate [Carafate*] 1 gm PO ACHS #90 tab 08/21/18 New Medications: Fluconazole [Diflucan] 100 mg PO DAILY #5 tablet Glucerna Shake [Glucerna*] 237 ml PO BID #60 can Levothyroxine [Synthroid*] 125 mcg PO [id number] #30 tab Magic Mouthwash [Magic Mouthwash*] 15 ml PO QID #1 btl Pantoprazole [Protonix Tab*] 40 mg PO DAILYAC #30 tab Sucralfate [Carafate*] 1 gm PO ACHS #90 tab Patient Discharge Instructions: 1. Patient will go to skilled facility continue rehabilitation. Patient may follow up with PCP after that time. 2. Patient presented with poor oral intake with mild malnutrition secondary to oral candidiasis. Patient was started on IV antifungal medication along with medication to help sooth the pain. Patient did well during the course of her stay. Patient now able to eat appropriately. Oral candidiasis under control. At discharge she will continue with Diflucan 100 mg daily for 5 days. Patient will also use magic mouth wash 4 times a day to help sooth her mouth. This can be discontinued when it is no longer needed. Patient also given Protonix 40 mg daily and Carafate 1 g 3 times a day. At discharge patient will go to a skilled facility to recuperate and increase her physical status. Patient can be transitioned to home once stable. Patient may follow up with GI if this persists. We will refrain from antibiotic therapy if no need as this exacerbated the oral candidiasis. 3. Patient with atrial fibrillation on chronic anti coagulation therapy-Coumadin. Patient presented with RVR. This resolved with hydration. Patient seen by Cardiology. No intervention recommended at this time. INR now therapeutic. Patient will continue with her current medications of Coumadin 2 mg daily. Recommend to recheck INR in 1 week. Further adjustment can be done by cardiology. Patient will also continue with metoprolol 50 mg 1 pill twice daily. Patient may follow up with cardiology as directed. 4. Patient has hyperlipidemia. Patient will continue with her medication-Lipitor 80 mg daily. 5. Patient has hypothyroidism. Tsh was abnormal. Thyroid medication was decreased. Patient will continue with levothyroxine 125 mcg daily. Recommend to recheck tsh and free T4 in 4-6 weeks to monitor her progress. Further adjustment can be done by her PCP. 6. Patient presented with acute renal insufficiency the likely from dehydration and poor oral intake. This has resolved. Patient doing well this time. Patient may continue with a GI soft diet. 7. Patient noted with atelectasis. Patient will continue with incentive spirometer. No indication or need for antibiotic therapy at this time. 8. Patient had electrolyte imbalance. This resolved with replacement. Recommend to recheck lab-BMP in 1 week to monitor progress. 9. Patient has diabetes mellitus type 2. This remained stable. Patient will continue with Januvia 100 mg daily. Recommendation is to maintain blood sugars less 140 fasting and less than 200 after meals. Further adjustment can be done by her PCP. 10. Patient has hypertension. Patient will continue with metoprolol 50 mg 1 pill twice daily. Recommend to maintain blood pressures less 150/80. Further adjustment can be done by her PCP. 11. Patient with history of CAD with prior stent and TIA. Patient stable this time. Diet: GI soft diet Activity: Fall precautions Time spent managing pt's care (in minutes): 55
[2018-08-21] MEDS ORDERED: POTASSIUM CL SA 10 MEQ TAB PO ONE (10:13)
[2018-08-21 11:05] VITALS: TEMP 98
--- NOTE | 2018-08-21 21:23 | EKG ---
Test Date: 2018-08-20 Test Time: 21:31:27 Stand In: RT-O MEASUREMENT RESULTS: Intervals: Rate: 78 CO: 264 QRSD: 108 QT: 388 QTc: 442 [place]: P: 67 CO: 264 QRS: 50 T: 2 INTERPRETIVE STATEMENTS: Sinus rhythm with 1st degree AV block Incomplete right bundle branch block Nonspecific ST abnormality Abnormal ECG Compared to ECG 08/16/2018 19:52:13 First degree AV block now present Atrial fibrillation no longer present ST (T wave) deviation still present Electronically Signed On 08-21-18 21:20:38 CHEMISTRY ASSOCIATE by Jeff Noguera
[2018-08-22] MEDS ORDERED: FLUCONAZOLE 100 MG TAB PO SCH (09:00)
== END 2018-08-21 14:58 | DRG 158 ==
LOC: ER 18:50 → 2ND 23:57
PROVIDERS: ADMIT Hospitalist; ATTEND Family Medicine
DX: B37.0 Candidal stomatitis (principal); E44.1 Mild protein-calorie malnutrition; N39.0 Urinary tract infection, site not specified; J98.11 Atelectasis; I48.2 Chronic atrial fibrillation; I25.10 Atherosclerotic heart disease of native coronary artery without angina pectoris; K12.30 Oral mucositis (ulcerative), unspecified; E86.0 Dehydration; N28.9 Disorder of kidney and ureter, unspecified; E87.6 Hypokalemia; E87.8 Other disorders of electrolyte and fluid balance, not elsewhere classified; E11.9 Type 2 diabetes mellitus without complications; I10 Essential (primary) hypertension; E78.5 Hyperlipidemia, unspecified; E03.9 Hypothyroidism, unspecified; Z68.29 Body mass index [BMI] 29.0-29.9, adult; Z79.01 Long term (current) use of anticoagulants; Z90.11 Acquired absence of right breast and nipple; Z86.73 Personal history of transient ischemic attack (TIA), and cerebral infarction without residual deficits
CPT/HCPCS: 36415; 51702; 71045; 80048; 80061; 80076; 81003; 81015; 83605; 83735; 84100; 84132; 84145; 84443; 84484; 85025; 85610; 87086; 87088; 93005; 93306; 96361; 96372; 96374; 97116; 97163; 97530; 99285; J0153; J0696; J1160; J1450; J1650; J2405; J7030

== ENCOUNTER 2018-10-22 20:02 | Emergency (ER) | payer OTHER ==
--- OUTSIDE RECORDS SUMMARY | 2018-10-22 20:05 | XMS REPORT | Clinical Summary ---
:1930 Author Organization [facility] Address [address] [place] [address] Care Team Providers Name Role Phone Pop [...] Signs Not on file Plan of Treatment Date Type Specialty Care Team Description 11/17/2018 Hospital Encounter Gastroenterology Solitario Simms MD [address] [place] [address] 11/17/2018 Surgery Gastroenterology Solitario Simms, ERCP,DIRECT MD [facility]UAL[facility]ATION SP[facility] [address] [place] [address] Results Not on fileafter 10/21/2017 Insurance Payer Benefit Plan / Group Subscriber ID Type Phone Address MEDICARE MEDICARE A B xxxxxxxxxx Medicare [employer] - MGD CARE [employer] INDEMNITY NON CONTR xxxxxxxxx Comm
--- OUTSIDE RECORDS SUMMARY | 2018-10-22 20:09 | XMS REPORT | Continuity of Care Document ---
:1930 Author Organization Interface Problems Problem Status Onset Classification Date Comments Source Date Reported COAG Active 12/20/[address] LOW BLOOD Active 11/26/19 [facility] PRESSURE, [address] [place] [address] WEAKNESS ATRIAL Active 11/26/19 [facility] FIBRILLATION WITH 17 [facility] RAPID VENTRICUL FALL Active 11/17/[address] FALL Active 11/17/[address] COAG - ATRIAL FIB Active 09/18/[address] COAG - ATRIAL Active 02/22/20 [facility] [address] LFLT TRANSFER Active 02/20/20 [facility] #[id number] [place] [address] ISCHEMIC STROKE Active 02/20/[address] Breast ca Resolved Problem 01/20/2017 [facility] Diverticulosis of Resolved Problem 01/20/2017 [facility] colon [facility] DM (<span Resolved Problem 01/20/2017 [facility] ID="[id number]" Medical >Confirmed</span> Center, ) [facility] Heart attack Resolved Problem 01/20/2017 [facility] TIA Resolved Problem 01/20/2017 [facility] Atrial Active Problem 01/20/2017 [facility] fibrillation [facility] CEREBRAL Active [facility] ANEURYSM, Medical NONRUPTURED Center UNSPECIFIED Active [facility] ATRIAL Medical FIBRILLATION Center,[facility] Medications Medication Details Route Status Patient Ordering Order Source Instructions Provider Date levothyroxine 125 microgram=1 Active 12/30/ [facility] 125 mcg (0.125 tab, PO, Daily, # 2017 Medical mg) oral tablet 30 tab, 0 Center Refill(s) metoprolol 25 mg=0.5 tab, Active 12/30/ [facility] tartrate 50 mg PO, BID, # 180 2017 Medical oral tablet tab, 0 Refill(s) [place] Thyroxine 125 microgram, No Longer Route: PO, Drug Active 2016 [facility] form: TAB, Daily, [facility] Dosing Weight 89.455, kg, Start date: 11/27/16 [...] Q4H, MG Oral Tablet PRN Abnormal Lab [[place] 10/325] Result, Start date: 11/26/16 16:47:00 CDT, Duration: 30 day, Stop date: 12/26/16 16:46:00 CDTNotes: Do not exceed 4gm/day of acetaminophen. (Same as: [place] 325/10) Protonix 40 mg, Route: Inactive IVP, [...] 25 mg 25 mg=1 tab, PO, Active [facility] oral tablet TID, PRN 2017 Medical Other-See Center Comments, # 30 tab, 0 Refill(s) Acetaminophen 1 tab, PO, Q4H, Active [place] 325 MG / PRN for pain, # 2017 Medical Hydrocodone 24 tab, 0 Center Bitartrate 10 Refill(s) MG Oral Tablet [[place] 10/325] Zofran 4 mg, 1 tab, Inactive [facility] Route: PO, Drug 2015 Medical form: TABDIS, Center ONCE, Dosing Weight 79.545, kg, Priority: STAT, Start date: 02/22/16 11:09:00 CDT, Stop date: 02/22/16 11:09:00 CDTNotes: (Same as: Zofran ODT) Warfarin Sodium 5 mg=1 tab, PO, Active [facility] 5 MG Oral Daily, # 10 tab, 2016 Medical Tablet 0 Refill(s) Center [Coumadin] Warfarin Sodium 5 mg=1 tab, PO, Inactive [facility] 5 MG Oral Daily, # 10 tab, 2016 Medical Tablet 0 Refill(s), Center [Coumadin] other Cetirizine 10 mg, 1 tab, Inactive [facility] Route: PO, Drug 2015 Medical form: TAB, ONCE, Center Dosing Weight 79.545, kg, Priority: STAT, Start date: 02/22/16 8:14:00 CDT, Stop date: 02/22/16 8:14:00 CDTNotes: (Same As: Zyrtec) lisinopril 10 10 mg=1 tab, PO, Active [facility] mg oral tablet Daily, # 90 tab, 2016 Medical 0 Refill(s) Center atorvastatin 80 80 mg=1 tab, PO, Active [facility] mg oral tablet Bedtime, # 90 2016 Medical tab, 0 Refill(s) Center Aspirin 81 MG 81 mg=1 tab, PO, Active [facility] Enteric Coated Daily, # 90 tab, 2016 Medical Tablet 0 Refill(s) Center Zofran 4 mg, 1 tab, No Longer [place] Route: PO, Drug Active 2015 Medical form: TAB, Q8H, Center Dosing Weight 79.545, kg, PRN Nausea, Priority: NOW, Start date: 02/21/16 21:10:00 CDT, Duration: 30 day, Stop date: 03/22/16 21:09:00 CDTNotes: (Same as: Zofran) Lipitor 10 mg, 1 tab, No Longer [facility] Route: PO, Drug Active 2015 Medical form: TAB, Center Bedtime, Start date: 02/21/16 21:00:00 CDT, Duration: 30 day, Stop date: 03/21/16 21:00:00 CDTNotes: (Same As: Lipitor) Lovastatin 20 mg, Route: PO, Inactive [facility] Drug form: TAB, 2016 Medical Bedtime, Dosing Center Weight 79.545, kg, Start date: 02/21/16 21:00:00 CDT, Duration: 30 day, Stop date: 03/21/16 21:00:00 CDT Warfarin 5 mg, 1 tab, Inactive [facility] Route: PO, Drug 2015 Medical form: [...] Lisinopril 10 mg, 1 tab, No Longer [place] Route: PO, Drug Active 2015 Medical form: TAB, Daily, Center Dosing Weight 79.545, kg, Priority: NOW, Start date: 02/21/16 16:48:00 CDT, Duration: 30 day, Stop date: 03/22/16 9:00:00 CDTNotes: (Same as: Prinivil, Zestril) Rosuvastatin 10 mg=1 tab, PO, No Longer [place] calcium 10 MG Bedtime, 0 Active 2015 Medical Oral Tablet Refill(s) Center [Crestor] levothyroxine 125 microgram=1 Active [facility] 125 mcg (0.125 tab, PO, Daily, 0 2015 Medical mg) oral tablet Refill(s) Center Zolpidem 10 mg=1 tab, PO, Active [facility] tartrate 10 MG Bedtime, 0 2015 Medical Oral Tablet Refill(s) Center [Ambien] cetirizine 10 10 mg=1 tab, PO, Active [facility] mg oral tablet Daily, 0 2015 Medical Refill(s) Center metoprolol 25 mg=1 tab, PO, Active [facility] tartrate 25 mg Daily, 0 2015 Medical oral tablet Refill(s) Center omeprazole 10 10 mg=1 cap, PO, Active [facility] mg oral delayed Daily, 0 2015 Medical release capsule Refill(s) Center isosorbide 30 mg=1 tab, PO, Active [facility] mononitrate 30 QAM, 0 Refill(s) 2015 Medical mg oral tablet, Center extended release Aspirin 81 MG 81 mg=1 tab, PO, No Longer [facility] Enteric Coated Daily, # 90 tab, Active 2015 Medical Tablet 3 Refill(s) [place] Saline Flush 10 ml, Route: No Longer [facility] 0.9% IVP, Drug Form: Active 2015 Medical INJ, Dosing Center Weight 79.545, kg, Q12H, Start date: 02/21/16 9:00:00 CDT, Duration: 30 day, Stop date: 03/21/16 21:00:00 CDTNotes: Same as: BD Posiflush Sterile Aspirin 325 MG 325 mg, 1 tab, No Longer [facility] Enteric Coated Route: PO, Drug Active 2015 Medical Tablet form: ECTAB, Center Daily, Dosing Weight 79.545, kg, Start date: 02/21/16 9:00:00 CDT, Duration: 30 day, Stop date: 03/21/16 9:00:00 CDTNotes: (Do Not Crush) Do not crush or chew. pantoprazole 40 mg, Route: No Longer [facility] IVP, Drug form: Active 2015 Medical INJ, Daily, Center Dosing Weight 79.545, kg, Start date: 02/21/16 9:00:00 CDT, Duration: 30 day, Stop date: 03/21/16 9:00:00 CDTNotes: For IV push reconstitute with 10 ml 0.9% sodium chloride and push over 2 minutes. (Same as: Protonix) Rocephin 1 gm, Route: No Longer [facility] IVPB, Drug form: Active 2015 Medical PDR/INJ, [id number], Center Dosing Weight 79.545, kg, Start date: 02/21/16 7:00:00 CDT, Duration: 30 day, Stop date: 03/21/16 7:00:00 CDTNotes: (Same As: Rocephin). Use with 100 mL NS and infuse over 30 min MEDICATION WASTE Product Size: 1000 mg Product Wasted: ___ mg Ativan 0.5 mg, 0.25 mL, No Longer [place] Route: IV, Drug Active 2015 Medical form: INJ, Center Q15Min, Dosing Weight 79.545, kg, PRN Anxiety, Start date: 02/21/16 3:55:00 CDT, Duration: 2 doses or times, Stop date: Limited # of timesNotes: (Same as: Ativan) iodixanol 60 mL, Route: Inactive [place] IVP, Drug Form: 2015 Medical SOLN, Dosing Center Weight 79.545, kg, ONCALL, STAT, Start date: 02/21/16 3:22:00 CDT, Duration: 1 doses or times, Dose=2.2ml/kg, Max zddo=064dm -- "To be infused by Radiology Staff ONLY" Ativan 0.5 mg, 1 tab, Inactive [facility] Route: PO, Drug 2015 Medical form: TAB, TID, Center Dosing Weight 79.545, kg, PRN Anxiety, Start date: 02/21/16 3:16:00 CDT, Duration: 2 doses or times, Stop date: Limited # of timesNotes: (Same as: Ativan) heparin 5,000 unit, 1 mL, No Longer [facility] Route: SUB-Q, Active 2015 Medical Drug form: INJ, Center Q8H, Dosing Weight 79.545, kg, (For patients weighing Notes: porcine heparin Saline Flush 10 ml, Route: No Longer [facility] 0.9% IVP, Drug Form: Active 2016 Medical INJ, Dosing Center Weight 79.545, kg, PRN, PRN Line Flush, Start date: 02/20/16 23:33:00 CDT, Duration: 30 day, Stop date: 03/21/16 23:32:00 CDTNotes: Same as: [place] Posiflush Sterile Allergies, Adverse Reactions, Alerts Substance Category Reaction Severity Reaction Status Date Comments Source type Reported morphine Assertion Allergy to Active [facility] sulfa drugs Assertion Drug Active [facility] allergy [facility] Immunizations Immunization Date Given Site Status Last Comments Source Updated pneumococcal 11/26/2016 Not Given [facility] 13-valent Medical vaccine<sup>2</ Center, p> [facility] pneumococcal 11/26/2016 Left completed Mer Result [facility] 13-valent deltoid Comment: Medical vaccine<sup>1</ patient Center, p> refused [facility] Results Order Name Results Value Reference Date Interpretation Comments Source Range HEMATOLOGY POC PT 18.2 s 12.0 - 12/30 [facility] 14.7 [facility] HEMATOLOGY POC INR 1.6 0.9 - 1.2 12/30 [facility] HEMATOLOGY POC INR 1.9 0.9 - 1.2 12/19 [facility] HEMATOLOGY POC PT 22.0 s 12.0 - 12/19 [facility] 14.7 [facility] CARDIAC CK MB Index 1.6 0.0 - 2.5 11/26 [facility] CARDIAC Troponin-I null 0.00 - 11/26 [facility] 0.40 /2017 [facility] CARDIAC CK MB 1.8 ng/mL 0.5 - 3.6 11/26 [facility] CARDIAC Total CK 112 unit/L 12 - 191 11/26 [facility] CHEM PANEL Magnesium Lvl 2.1 mg/dL 1.8 - 2.4 11/26 [facility] CHEM PANEL Lipase Lvl 272 unit/L 73 - 393 11/26 [facility] ELECTROLYTE Sodium Lvl 143 meq/L 135 - 145 11/26 S [facility] ELECTROLYTE Potassium Lvl 3.7 meq/L 3.5 - 5.1 11/26 [facility] ELECTROLYTE Chloride Lvl 107 meq/L 95 - 109 11/26 [facility] ELECTROLYTE CO2 25 meq/L 24 - 32 11/26 [facility] ELECTROLYTE Calcium Lvl 8.4 mg/dL 8.5 - 10.5 11/26 [facility] ELECTROLYTE Glucose Lvl 168 mg/dL 70 - 99 11/26 [facility] ELECTROLYTE BUN 16 mg/dL 7 - 22 11/26 [facility] ELECTROLYTE Creatinine 1.06 mg/dL 0.50 - 11/26 S Lvl 1.40 /2016 [facility] ELECTROLYTE A/G Ratio 1.0 0.7 - 1.6 11/26 [facility] ELECTROLYTE Bili Total 0.5 mg/dL 0.2 - 1.3 11/26 [facility] ELECTROLYTE AGAP 14.7 meq/L 10.0 - 11/26 S 20.0 /2016 [facility] ELECTROLYTE B/C Ratio 15 6 - 25 11/26 [facility] ELECTROLYTE Globulin 3.9 g/dL 2.7 - 4.2 11/26 [facility] ELECTROLYTE Alk Phos 117 unit/L 39 - 136 11/26 [facility] ELECTROLYTE Total Protein 7.8 g/dL 6.4 - 8.4 11/26 [facility] ELECTROLYTE Albumin Lvl 3.9 g/dL 3.5 - 5.0 11/26 [facility] ELECTROLYTE ALT 10 unit/L 0 - 65 11/26 [facility] ELECTROLYTE AST 19 unit/L 0 - 37 11/26 [facility] ELECTROLYTE eGFR 47 11/26 Result Comment: The [...] 4.3 K/CMM 1.5 - 8.1 / [facility] HEMATOLOGY Lymphocytes # 1.3 K/CMM 1.0 - 5.5 / [facility] HEMATOLOGY Monocytes # 0.4 K/CMM 0.0 - 0.8 / [facility] HEMATOLOGY Eosinophils 1.8 % 0.0 - 4.0 / [facility] HEMATOLOGY Lymphocytes 21.0 % 20.0 - 05/ MH 40.0 /2016 [facility] HEMATOLOGY Monocytes 6.6 % 2.0 - 12.0 / [facility] HEMATOLOGY Basophils 0.6 % 0.0 - 1.0 11/26 [facility] HEMATOLOGY Eosinophils # 0.1 K/CMM 0.0 - 0.5 11/26 [facility] HEMATOLOGY Segs 70.0 % 45.0 - 05 MH 75.0 /2017 [facility] HEMATOLOGY PT 16.9 s 12.0 - 05/ MH 14.7 /2017 [facility] HEMATOLOGY INR 1.35 0.85 - 05/ MH 1.17 /2016 [facility] HEMATOLOGY PTT 33.5 s 22.9 - / MH 35.8 /2017 [facility] HEMATOLOGY RBC 4.34 M/CMM 4.20 - 05/02 MH 5.40 /2017 [facility] HEMATOLOGY MCV 89.8 fL 80.0 - / MH 98.0 /2017 [facility] HEMATOLOGY Hct 39.0 % 36.0 - 05 MH 48.0 /2017 [facility] HEMATOLOGY Hgb 12.5 g/dL 12.0 - 05/ MH 16.0 /2017 [facility] HEMATOLOGY MCH 28.7 pg 27.0 - 05/ MH 31.0 /2017 [facility] HEMATOLOGY MPV 8.7 fL 7.4 - 10.4 11/26 [facility] HEMATOLOGY WBC 6.1 K/CMM 3.7 - 10.4 / [facility] HEMATOLOGY MCHC 32.0 g/dL 32.0 - 05/ MH 36.0 /2016 [facility] HEMATOLOGY Platelet 159 K/CMM 133 - 450 05/2017 [facility] HEMATOLOGY RDW 17.2 % 11.5 - 11/26 14.5 [facility] Brain wo Brain wo Patient Name: LOUISA PALMA 11/25 - contrast CT contrast CT [facility] : 1930; Age: 86 years y/o [place] MR: [id number] Read by: Steven Stahl MD Dictated Date/time: [...] CHEST 1 VIEW 11/25 DX DX - [facility] DATE: 11/25/2016 7:51 PM CDT Read by: [...] mild pulmonary edema or atypical infection. SL: [id number] HEMATOLOGY POC INR 1.5 0.9 - 1.2 11/[address] HEMATOLOGY POC PT 17.4 s 12.0 - 11/18 [facility] 14.7 [facility] ELECTROLYTE AGAP 11.7 meq/L 10.0 - 11/16 [facility] 20.0 [facility] ELECTROLYTE Glucose Lvl 168 mg/dL 70 - 99 11/[address] ELECTROLYTE BUN 23 mg/dL 7 - 11/[address] ELECTROLYTE eGFR 36 11/16 Result Comment: The eGFR is calculated using the CKD-EPI formula. In most young, healthy individuals the eGFR will be >90 mL/ min/1.73m2. The eGFR declines with age. An eGFR of 60-89 may be normal in [facility] mL/min/1. some populations, particularly the elderly, for whom the CKD-EPI formula has not been extensively validated. Use of the eGFR is not recommended in the following populations: [address] Individuals with unstable creatinine concentrations, including [...] Lvl 8.4 mg/dL 8.5 - 10.5 11/[address] ELECTROLYTE CO2 29 meq/L 24 - 32 11/[address] ELECTROLYTE Chloride Lvl 107 meq/L 95 - 109 11/[address] ELECTROLYTE Potassium Lvl 3.7 meq/L 3.5 - 5.1 11/[address] ELECTROLYTE Sodium Lvl 144 meq/L 135 - 145 11/16 [facility] S [facility] ELECTROLYTE Creatinine 1.34 mg/dL 0.50 - 11/16 [facility] S Lvl 1.40 [facility] HEMATOLOGY INR 2.03 0.85 - 11/16 [place] 1.17 [facility] HEMATOLOGY PT 23.3 s 12.0 - 11/16 14.7 [facility] HEMATOLOGY Hgb 11.9 g/dL 12.0 - 11/16 16.0 [facility] HEMATOLOGY MCV 88.3 fL 80.0 - 11/16 98.0 [facility] HEMATOLOGY Hct 36.1 % 36.0 - 11/16 48.0 [facility] HEMATOLOGY MCH 29.1 pg 27.0 - 11/16 [facility] 31.0 [facility] HEMATOLOGY RBC 4.09 M/CMM 4.20 - 11/16 [facility] 5.40 [facility] HEMATOLOGY WBC 4.5 K/CMM 3.7 - 10.4 11/16 [facility] HEMATOLOGY MCHC 32.9 g/dL 32.0 - 11/16 [facility] 36.0 [facility] HEMATOLOGY MPV 9.0 fL 7.4 - 10.4 11/16 [facility] HEMATOLOGY Platelet 145 K/CMM 133 - 450 11/16 [facility] HEMATOLOGY RDW 17.7 % 11.5 - 11/16 [facility] 14.5 [facility] HEMATOLOGY Monocytes # 0.3 K/CMM 0.0 - 0.8 11/16 [facility] HEMATOLOGY Eosinophils # 0.2 K/CMM 0.0 - 0.5 11/16 [facility] HEMATOLOGY Monocytes 7.5 % 2.0 - 12.0 11/16 [facility] HEMATOLOGY Eosinophils 4.5 % 0.0 - 4.0 11/16 [facility] HEMATOLOGY Lymphocytes 24.0 % 20.0 - 11/16 40.0 [facility] HEMATOLOGY Segs-Bands # 2.9 K/CMM 1.5 - 8.1 11/16 [facility] HEMATOLOGY Basophils 0.5 % 0.0 - 1.0 11/16 [facility] HEMATOLOGY Lymphocytes # 1.1 K/CMM 1.0 - 5.5 11/16 [facility] /2016 [facility] HEMATOLOGY Segs 63.5 % 45.0 - 11/16 [facility] 75.0 [facility] Pelvis AP Pelvis AP DX EXAM: XR PELVIS 1 VIEW 11/16 - [facility] - [facility] DATE: 11/16/2016 5:34 PM CDT [...] XR RIGHT KNEE 3 VIEWS 11/16 - [facility] views DX - [facility] EXAM: XR RIGHT TIBIA-FIBULA 2 VIEWS [place] EXAM: XR RIGHT ANKLE 3 VIEWS Read [...] POC INR 2.1 0.9 - 1.2 09/19 [facility] HEMATOLOGY POC PT 24.6 s 12.0 - 09/19 [place] [facility] HEMATOLOGY POC 40.0 % 36.0 - 03/12 [facility] Hematocrit 48.0 [facility] HEMATOLOGY POC 13.6 g/dL 12.0 - 03/12 [facility] Hemoglobin 16.0 [facility] HEMATOLOGY POC PT 37.1 s 12.0 - 03/12 [place] 14. [facility] HEMATOLOGY POC INR 3.3 0.9 - 1.2 03/12 [facility] HEMATOLOGY POC PT 35.1 s 12.0 - 03/05 [place] 14. [facility] HEMATOLOGY POC INR 3.1 0.9 - 1.2 03/05 [facility] HEMATOLOGY POC INR 1.8 0.9 - 1.2 02/27 [facility] HEMATOLOGY POC PT 20.7 s 12.0 - 02/27 [place] 14. [facility] HEMATOLOGY PT 14.3 s 12.0 - 02/21 [place] 14. [facility] HEMATOLOGY INR 1.08 0.85 - 02/21 [place] 1.17 [facility] HEMATOLOGY PTT 31.3 s 22.9 - 02/21 [place] 35.8 [facility] CHEM PANEL eGFR 39 02/21 Result Comment: The eGFR is calculated using the CKD-EPI formula. In most young, healthy individuals the eGFR will be >90 mL/ min/1.73m2. The eGFR declines with age. An eGFR of 60-89 may be normal in [facility] mL/min/1. some populations, particularly the elderly, [...] PANEL AGAP 14.0 meq/L 10.0 - 02/21 [facility] 20.0 [facility] CHEM PANEL Calcium Lvl 8.6 mg/dL 8.5 - 10.5 02/[address] CHEM PANEL Glucose Lvl 196 mg/dL 70 - 99 02/[address] CHEM PANEL BUN 22 mg/dL 7 - 22 02/[address] CHEM PANEL Potassium Lvl 4.0 meq/L 3.5 - 5.1 02/[address] CHEM PANEL Chloride Lvl 106 meq/L 95 - 109 02/[address] CHEM PANEL Creatinine 1.26 mg/dL 0.50 - 02/21 [facility] Lvl 1.40 [facility] CHEM PANEL Sodium Lvl 142 meq/L 135 - 145 02/[address] CHEM PANEL CO2 26 meq/L 24 - 32 02/[address] HEMATOLOGY Segs 63.9 % 45.0 - 02/21 [facility] 75.0 [facility] HEMATOLOGY Lymphocytes 22.6 % 20.0 - 02/21 40.0 [facility] HEMATOLOGY Eosinophils 5.2 % 0.0 - 4.0 02/[address] HEMATOLOGY Monocytes 7.4 % 2.0 - 12.0 02/[address] HEMATOLOGY Basophils 0.9 % 0.0 - 1.0 02/[address] HEMATOLOGY Segs-Bands # 3.3 K/CMM 1.5 - 8.1 02/[address] HEMATOLOGY Lymphocytes # 1.2 K/CMM 1.0 - 5.5 02/[address] HEMATOLOGY Eosinophils # 0.3 K/CMM 0.0 - 0.5 02/[address] HEMATOLOGY Monocytes # 0.4 K/CMM 0.0 - 0.8 02/[address] HEMATOLOGY MPV 9.4 fL 7.4 - 10.4 02/21 [facility] HEMATOLOGY MCHC 32.0 g/dL 32.0 - 02/21 [place] 36.0 [facility] HEMATOLOGY RDW 16.9 % 11.5 - 02/21 [place] 14.5 [facility] HEMATOLOGY Platelet 133 K/CMM 133 - 450 02/21 [facility] HEMATOLOGY WBC 5.1 K/CMM 3.7 - 10.4 02/21 [facility] HEMATOLOGY RBC 4.16 M/CMM 4.20 - 02/21 [facility] 5.40 [facility] HEMATOLOGY Hgb 11.2 g/dL 12.0 - 02/21 [facility] 16.0 [facility] HEMATOLOGY Hct 35.2 % 36.0 - 02/21 [facility] 48.0 [facility] HEMATOLOGY MCV 84.5 fL 80.0 - 02/21 [facility] 98.0 [facility] HEMATOLOGY MCH 27.0 pg 27.0 - 02/21 [place] 31.0 [facility] ELECTROLYTE AGAP 14.3 meq/L 10.0 - 02/20 [facility] S 20.0 [facility] ELECTROLYTE eGFR 45 02/20 Result Comment: The eGFR is calculated using the CKD-EPI formula. In most young, healthy individuals the eGFR will be >90 mL/ min/1.73m2. The eGFR declines with age. An eGFR of 60-89 may be normal in [facility] mL/min/1. some populations, particularly the elderly, for whom the CKD-EPI formula has not been extensively validated. Use of the eGFR is not recommended in the following populations: [address] Individuals with unstable creatinine concentrations, including [...] Lvl 104 meq/L 95 - 109 02/20 [facility] ELECTROLYTE Potassium Lvl 4.3 meq/L 3.5 - 5.1 02/20 [facility] ELECTROLYTE Calcium Lvl 8.8 mg/dL 8.5 - 10.5 02/20 [facility] ELECTROLYTE CO2 27 meq/L 24 - 32 02/20 [facility] ELECTROLYTE Creatinine 1.12 mg/dL 0.50 - 02/20 [facility] S Lvl 1.40 [facility] ELECTROLYTE Sodium Lvl 141 meq/L 135 - 145 02/20 [facility] ELECTROLYTE Glucose Lvl 123 mg/dL 70 - 99 02/20 [facility] ELECTROLYTE BUN 21 mg/dL 7 - 22 02/20 [facility] HEMATOLOGY Basophils # 0.1 K/CMM 0.0 - 0.2 02/20 [facility] HEMATOLOGY Eosinophils # 0.2 K/CMM 0.0 - 0.5 02/20 [facility] HEMATOLOGY Monocytes # 0.4 K/CMM 0.0 - 0.8 02/20 [facility] HEMATOLOGY Monocytes 7.3 % 2.0 - 12.0 02/20 [facility] [facility] HEMATOLOGY Segs 65.3 % 45.0 - 02/20 75.0 [facility] HEMATOLOGY Lymphocytes 23.4 % 20.0 - 02/20 40.0 [facility] HEMATOLOGY Lymphocytes # 1.3 K/CMM 1.0 - 5.5 02/20 [facility] HEMATOLOGY Basophils 1.0 % 0.0 - 1.0 02/20 [facility] HEMATOLOGY Eosinophils 3.0 % 0.0 - 4.0 02/20 [facility] HEMATOLOGY Segs-Bands # 3.6 K/CMM 1.5 - 8.1 02/20 [facility] HEMATOLOGY RBC 4.09 M/CMM 4.20 - 02/20 5.40 [facility] HEMATOLOGY Hgb 11.2 g/dL 12.0 - 02/20 16.0 [facility] HEMATOLOGY WBC 5.5 K/CMM 3.7 - 10.4 02/20 [facility] HEMATOLOGY Hct 34.5 % 36.0 - 02/20 [place] 48.0 [facility] HEMATOLOGY MCV 84.3 fL 80.0 - 02/20 98.0 [facility] HEMATOLOGY RDW 16.6 % 11.5 - 02/20 [facility] 14.5 [facility] HEMATOLOGY MCH 27.3 pg 27.0 - 02/20 [facility] 31.0 [facility] HEMATOLOGY MCHC 32.4 g/dL 32.0 - 02/20 [facility] 36.0 [facility] HEMATOLOGY Platelet 131 K/CMM 133 - 450 02/20 [facility] HEMATOLOGY MPV 9.6 fL 7.4 - 10.4 02/20 [facility] LIPIDS VLDL 20 02/20 [facility] LIPIDS LDL 130 mg/dL <=99 mg/dL 02/20 [facility] (Calculated) [facility] LIPIDS HDL 31 mg/dL >=61 mg/dL 02/20 [facility] LIPIDS Chol 181 mg/dL <=199 02/20 [facility] mgdL [facility] LIPIDS Trig 101 mg/dL <=149 02/20 [facility] mg/dL [facility] LIPIDS CHD Risk 5.84 3.90 - 02/20 [facility] 5.80 [facility] SPECIAL Hgb A1C 7.0 % <=5.6 % 02/20 [facility] CHEM PANEL eGFR 45 02/20 Result Comment: The eGFR is calculated using the CKD-EPI formula. In most young, healthy individuals the eGFR will be >90 mL/ min/1.73m2. The eGFR declines with age. An eGFR of 60-89 may be normal in [facility] mL/min/1.7 some populations, particularly the elderly, for whom the CKD-EPI formula has not been extensively validated. Use of the eGFR is not recommended in the following populations: [address] Individuals with unstable creatinine concentrations, including [...] Total 0.4 mg/dL 0.2 - 1.3 02/20 [facility] CHEM PANEL CO2 27 meq/L 24 - 32 02/20 [facility] CHEM PANEL Calcium Lvl 8.8 mg/dL 8.5 - 10.5 02/20 [facility] CHEM PANEL AST 11 unit/L 0 - 37 02/20 [facility] CHEM PANEL ALT 9 unit/L 0 - 65 02/20 [facility] CHEM PANEL Alk Phos 120 unit/L 39 - 136 02/20 [facility] CHEM PANEL Potassium Lvl 4.2 meq/L 3.5 - 5.1 02/20 [facility] CHEM PANEL Chloride Lvl 105 meq/L 95 - 109 02/20 [facility] CHEM PANEL Sodium Lvl 141 meq/L 135 - 145 02/20 [facility] CHEM PANEL Albumin Lvl 3.6 g/dL 3.5 - 5.0 02/20 [facility] CHEM PANEL Total Protein 7.3 g/dL 6.4 - 8.4 02/20 [facility] CHEM PANEL BUN 21 mg/dL - 02/20 [facility] CHEM PANEL Creatinine 1.12 mg/dL 0.50 - 02/20 [facility] Lvl 1.40 [facility] CHEM PANEL Glucose Lvl 125 mg/dL 70 - 99 02/20 [facility] CHEM PANEL A/G Ratio 1.0 0.7 - 1.6 02/20 [facility] CHEM PANEL Globulin 3.7 g/dL 2.0 - 4.0 02/20 [facility] CHEM PANEL AGAP 13.2 meq/L 10.0 - 02/20 20.0 [facility] CHEM PANEL B/C Ratio 19 6 - 25 02/20 [facility] DRUG SCREEN U Amph Scr Negative Negative 02/20 [facility] (02/21/16 1:34 AM) DRUG SCREEN U Lilian Scr Negative Negative 02/20 [facility] (02/21/16 1:34 AM) DRUG SCREEN U Cannab Scr Negative Negative 02/20 [facility] (02/21/16 1:34 AM) DRUG SCREEN U Phencyc Scr Negative Negative 02/20 [facility] (02/21/16 1:34 AM) DRUG SCREEN U Cocaine Scr Negative Negative 02/20 [facility] (02/21/16 1:34 AM) DRUG SCREEN U Opiate Scr Negative Negative 02/20 [facility] *NA* [place] (02/21/16 1:34 AM) DRUG SCREEN U Benzodia Negative Negative 02/20 [facility] [place] [facility] 1:[facility]UG SCREEN UDS Note See Note 02[facility] [place] (02/21/16 1:34 AM) HEMATOLOGY INR 1.12 0.85 - 02/20 [facility] 1.17 /2015 [facility] HEMATOLOGY PT 14.7 s 12.0 - 02/20 [facility] 14.7 [facility] HEMATOLOGY PTT 31.5 s 22.9 - 02/20 [facility] 35.8 /2015 [facility] IMMUNOLOGY Treponemal Non Reactive Non 02/20 [facility] [place] (02/21/16 1:34 AM) URINE AND UA <=1.0 0.1 - 1.0 02/20 [facility] Urobilinogen mg/dL [facility] URINE AND UA Sq Epi None Seen 02/20 [facility] STOOL [facility] URINE AND UA [place] Yeast Occasional None Seen 02/20 [facility] STOOL /HPF /HPF /2015 [facility] URINE AND UA Bacteria Few /HPF None Seen 02/20 [facility] STOOL /HPF /2015 [facility] URINE AND UA Ketones Negative Negative 02/20 [facility] mg/dL mg/dL [facility] URINE AND UA Glucose Negative Negative 02/20 [facility] mg/dL mg/dL [facility] URINE AND UA Protein Negative Negative 02/20 [facility] mg/dL mg/dL [facility] URINE AND UA pH 5.0 5.0 - 8.0 02/20 [facility] STOOL [facility] URINE AND UA Spec Grav 1.005 <=1.030 02/20 [facility] STOOL [facility] URINE AND UA WBC 8 /HPF 0 - 5 02/20 [facility] URINE AND UA Leuk Est Large Negative 02/20 [facility] [place] (02/21/16 1:34 AM) URINE AND UA Nitrite Negative Negative 02/20 [facility] (02/21/16 1:34 AM) [place] URINE AND UA Blood Negative Negative 02/20 [facility] (02/21/16 1:34 AM) [place] URINE AND UA Bili Negative Negative 02/20 [facility]NA* [facility] (02/21/16 1:34 AM) URINE AND UA Turbidity Slight Clear 02/20 [facility] *ABN* Center (02/21/16 1:34 AM) URINE AND UA Color Light Yellow Yellow 02/20 [facility] (02/21/16 1:34 AM) Brain/Neck Brain/Neck EXAM: CT ANGIOGRAM OF THE HEAD 02/20 [facility] CTA CTA - Medical EXAM: CT [...] 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 Patent major neck arteries. All quantitative and qualitative measurements of the carotid arteries in the neck are performed utilizing the distal internal carotid artery for reference as per standard NASCET criteria. Brain wo Brain wo EXAM: MRI BRAIN WITHOUT CONTRAST 02/20 [facility] contrast contrast MRI /2015 - Medical [...] than an ischemic insult in the right [employer] territory. 2. Underlying chronic microvascular ischemic changes. [...] [facility] [place] Height 167.64 cm 11/26/2016 [facility] BMI Calculated 30.73 11/26/2016 [facility] Respitory Rate 19 11/17/2016 [facility] Systolic (mm Hg) 137 11/17/2016 [facility] Diastolic (mm Hg) 90 11/17/2016 [facility] Heart Rate 87 11/17/2016 [facility] Temperature Oral (F) 97.8 F 11/17/2016 [facility] Temperature Oral (F) 97.6 F 11/17/2016 [facility] Respitory Rate 18 11/17/2016 [facility] Systolic (mm Hg) 135 11/17/2016 [facility] Diastolic (mm Hg) 89 11/17/2016 [facility] Heart Rate 80 11/17/2016 [facility] Respitory Rate 18 11/16/2016 [facility] Heart Rate 82 11/16/2016 [facility] Temperature Oral (F) 97.4 F 11/16/2016 [facility] Systolic (mm Hg) 139 11/16/2016 [facility] Diastolic (mm Hg) 96 11/16/2016 [facility] BMI Calculated 30.73 11/16/2016 [facility] Height 167.64 cm 11/16/2016 [facility] Weight 86.364 11/16/2016 [facility] Systolic (mm Hg) 136 09/19/2016 [facility] Diastolic (mm Hg) 74 09/19/2016 [facility] Heart Rate 80 09/19/2016 [facility] Height 167.64 cm 09/19/2016 [facility] Weight 86.875 09/19/2016 [facility] BMI Calculated 30.91 09/19/2016 [facility] BMI Calculated 28.3 03/12/2016 [facility] Weight 79.545 03/12/2016 [facility] Height 167.64 cm 03/12/2016 [facility] Heart Rate 74 03/12/2016 [facility] Systolic (mm Hg) 142 03/12/2016 [facility] Diastolic (mm Hg) 86 03/12/2016 [facility] Systolic (mm Hg) 142 03/05/2016 [facility] Diastolic (mm Hg) 78 03/05/2016 [facility] Height 167.64 cm 03/05/2016 [facility] BMI Calculated 28.3 03/05/2016 [facility] Weight 79.545 03/05/2016 [facility] Heart Rate 92 03/05/2016 [facility] Respitory Rate 20 02/22/2016 [facility] Systolic (mm Hg) 122 02/22/2016 [facility] Diastolic (mm Hg) 68 02/22/2016 [facility] Systolic (mm Hg) 168 02/22/2016 [facility] Diastolic (mm Hg) 80 02/22/2016 [facility] Respitory Rate 24 02/22/2016 [facility] Temperature Oral (F) 99.3 F 02/22/2016 [facility] Systolic (mm Hg) 116 02/22/2016 [facility] Diastolic (mm Hg) 55 02/22/2016 [facility] Respitory Rate 02/22/2016 [facility] Temperature Oral (F) 98.4 F 02/22/2016 [facility] Temperature Oral (F) 97.4 F 02/21/2016 [facility] Height 167.64 cm 02/21/2016 [facility] BMI Calculated 28.3 02/21/2016 [facility] Weight 79.545 02/21/2016 [facility] Encounters Location Location Encounter Encounter Reason Attending ADM DC Status Source Details Type Number For Provider Date Date Visit [facility] [id number] Stanton Brannon 02/20 02/21 Nazia Mcbride /2015 [facility] Rec[facility]ring [id number] Girma 02/27 03/29 Nazia Mcbride Doty /2015 [facility] Recurring [id number] Non 09/19 10/19 Nazia Mcbride Physician /2016 [facility] Recurring [id number] Non 10/28 11/27 Nazia Mcbride Physician /2016 [facility] Emergency [id number] Barbara 11/16 11/17 Nazia Mcbride Ann /2016 [facility] Observation [id number] 11/26 11/26 Reed Weimed /2016 [facility] Recurring [id number] Non 12/19 01[facility] Procedures Procedure Code Date Perfomer Comments Source Open heart [id number] 07/28/1992 tumor 5cm [facility] surgery<sup>1</sup> [facility] Open heart [id number] 07/28/1992 tumor 5cm [facility]<sup>1</sup> [facility] Abdominal [id number] [facility] Endoscopic laser [id number] [facility] surgery on colon [facility] Mastectomy of right [id number] [facility] Open heart surgery [id number] [facility] Appendectomy [id number] [facility] Partial resection [id number] [facility] Abdominal [id number] [facility] hysterectomy [facility] Appendectomy [id number] [facility] Endoscopic laser [id number] [facility] surgery on colon [facility] Mastectomy of right [id number] [facility] breast [facility] Partial resection [id number] [facility]
--- NOTE | 2018-10-22 21:03 | ER ---
Nurse's Notes [facility] Name: Kortney Brar Age: 88 yrs Sex: Female : 1930 Arrival Date: 10/22/2018 Time: 20:03 Bed 20 Private MD: Diagnosis: Upper abdominal pain, unspecified Presentation: 10/22 20:03 Presenting complaint: EMS states: right sided lower abdominal pain that started prior cc3 to consult. EMS stated that the patient had one vomiting episode then after she vomited she became obtunded, having blank stare and had atrial tachycardia rhythm then back to atrial fibrillation rhythm. Patient was relieved with abdominal pain after she vomited as per EMS. Patient mentions NOT TO GIVE HER ANY ANTIBIOTICS. Transition of care: patient was not received from another setting of care. Onset of symptoms was October 22, 2018. Risk Assessment: Do you want to hurt yourself or someone else? Patient reports no desire to harm self or others. Initial Sepsis Screen: Does the patient meet any 2 criteria? No. Patient's initial sepsis screen is negative. Does the patient have a suspected source of infection? No. Patient's initial sepsis screen is negative. Care prior to arrival: Medication(s) given: zofran intravenously given by EMS. 20:03 Method Of Arrival: EMS: [facility] cc3 20:03 Acuity: JASON 3 cc3 Historical: - Allergies: 21:01 Codeine; gs 21:01 Demerol; gs 21:01 Morphine; gs 21:01 sulfamethoxazole; gs 21:01 TRIMETHOPRIM; gs - PMHx: 21:01 Atrial Fib; Diabetes - NIDDM; chronic uti; TIA; stents; heart attack; GI Bleed; gs - PSHx: 21:01 Cholecystectomy; gs - Social history:: The patient lives at home. Screenin:15 Abuse screen: Denies threats or abuse. Nutritional screening: No deficits noted. jb4 Tuberculosis screening: No symptoms or risk factors identified. Fall Risk IV access (20 points). Total Dyson Fall Scale indicates No Risk (0-24 pts). Assessment: 20:15 General: Appears in no apparent distress. comfortable, Behavior is calm, cooperative, jb4 appropriate for age. Pain: Complains of pain in abdomen Pain does not radiate. Pain currently is 0 out of 10 on a pain scale. at worst was 8 out of 10 on a pain scale. Quality of pain is described as twisting. Neuro: Level of Consciousness is awake, alert, obeys commands, Oriented to person, place, time, situation. Cardiovascular: Patient's skin is warm and dry. Respiratory: Airway is patent Respiratory effort is even, unlabored, Respiratory pattern is regular, symmetrical. GI: Abdomen is non-distended, obese, Bowel sounds present X 4 quads. Abd is soft and non tender X 4 quads. Reports lower abdominal pain, upper abdominal pain, nausea, vomiting. : No signs and/or symptoms were reported regarding the genitourinary system. EENT: No signs and/or symptoms were reported regarding the EENT system. Derm: Skin is intact, Skin is pink, warm \T\ dry. Musculoskeletal: Circulation, motion, and sensation intact. 21:13 Reassessment: Patient appears in no apparent distress at this time. Patient and/or jb4 family updated on plan of care and expected duration. Pain level reassessed. Patient is alert, oriented x 3, equal unlabored respirations, skin warm/dry/pink. Patient states feeling better. Vital Signs: 20:04 BP 119 / 53; Pulse 52; Resp 19 S; Pulse Ox 96% on R/A; Weight 72.57 kg (R); Height 5 cc3 ft. 6 in. (167.64 cm) (R); Pain 0/10; 20:25 BP 128 / 47; Pulse 50; Resp 16; Pulse Ox 95% on R/A; mt 21:13 BP 132 / 52; Pulse 57; Resp 16; Pulse Ox 93% on R/A; jb4 20:04 Body Mass Index 25.82 (72.57 kg, 167.64 cm) cc3 ED Course: 20:03 Patient arrived in ED. ds1 20:15 Patient has correct armband on for positive identification. Bed in low position. Call jb4 light in reach. Side rails up X 1. Pulse ox on. NIBP on. 20:18 Tyrese Bush MD is Attending Physician. gs 20:48 Marco A Terrazas, RN is Primary Nurse. jb4 21:03 Triage completed. cc3 21:14 No provider procedures requiring assistance completed. IV discontinued, intact, jb4 bleeding controlled. Administered Medications: No medications were administered Outcome: 21:02 Discharge ordered by . mahnaz 21:14 Discharged to home via wheelchair, with family. jb4 21:14 Condition: stable 21:14 Discharge instructions given to patient, family, Instructed on discharge instructions, follow up and referral plans. Demonstrated understanding of instructions, follow-up care. 21:15 Patient left the ED. jb4 Signatures: Sriram Gabrielle ds1 Marco A Terrazas RN RN jb4 Maureen Merrill mt, Gregory, MD MD gs Cordel, Charlene cc3 Corrections: (The following items were deleted from the chart) 21:05 20:03 Presenting complaint: EMS states: right sided lower abdominal pain that started cc3 prior to consult. EMS stated that the patient had one vomiting episode then after she vomited she became obtunded, having blank stare and had atrial tachycardia rhythm then back to atrial fibrillation rhythm. Patient was relieved with abdominal pain after she vomited as per EMS. cc3
--- NOTE | 2018-10-22 21:03 | EDPHYS ---
Physician Documentation [facility] Name: Kortney Brar Age: 88 yrs Sex: Female : 1930 Arrival Date: 10/22/2018 Time: 20:03 Bed 20 Private MD: ED Physician Tyrese Bush HPI: 10/22 21:00 This 88 yrs old Female presents to ER via Unassigned with complaints of gs Abdominal Pain. 21:00 The patient presents with abdominal pain in the right upper quadrant. Onset: The gs symptoms/episode began/occurred just prior to arrival. Associated signs and symptoms: Pertinent positives: vomiting, x1. The symptoms are described as crampy. Modifying factors: The symptoms are alleviated by nothing, the symptoms are aggravated by nothing. Severity of pain: At its worst the pain was moderate in the emergency department the pain has resolved. The patient has experienced similar episodes in the past, several times. Historical: - Allergies: 21:01 Codeine; gs 21:01 Demerol; gs 21:01 Morphine; gs 21:01 sulfamethoxazole; gs 21:01 TRIMETHOPRIM; gs - PMHx: 21:01 Atrial Fib; Diabetes - NIDDM; chronic uti; TIA; stents; heart attack; GI Bleed; gs - PSHx: 21:01 Cholecystectomy; gs - Social history:: The patient lives at home. ROS: 21:01 All other systems are negative. gs Exam: 21:01 Head/Face: Normocephalic, atraumatic. Eyes: Pupils equal round and reactive to light, gs extra-ocular motions intact. Lids and lashes normal. Conjunctiva and sclera are non-icteric and not injected. Cornea within normal limits. Periorbital areas with no swelling, redness, or edema. ENT: Nares patent. No nasal discharge, no septal abnormalities noted. Tympanic membranes are normal and external auditory canals are clear. Oropharynx with no redness, swelling, or masses, exudates, or evidence of obstruction, uvula midline. Mucous membranes moist. Neck: Trachea midline, no thyromegaly or masses palpated, and no cervical lymphadenopathy. Supple, full range of motion without nuchal rigidity, or vertebral point tenderness. No Meningismus. Chest/axilla: Normal chest wall appearance and motion. Nontender with no deformity. No lesions are appreciated. Cardiovascular: Regular rate and rhythm with a normal S1 and S2. No gallops, murmurs, or rubs. Normal PMI, no JVD. No pulse deficits. Respiratory: Lungs have equal breath sounds bilaterally, clear to auscultation and percussion. No rales, rhonchi or wheezes noted. No increased work of breathing, no retractions or nasal flaring. Abdomen/GI: Soft, non-tender, with normal bowel sounds. No distension or tympany. No guarding or rebound. No evidence of tenderness throughout. Back: No spinal tenderness. No costovertebral tenderness. Full range of motion. Skin: Warm, dry with normal turgor. Normal color with no rashes, no lesions, and no evidence of cellulitis. MS/ Extremity: Pulses equal, no cyanosis. Neurovascular intact. Full, normal range of motion. Neuro: Awake and alert, GCS 15, oriented to person, place, time, and situation. Cranial nerves II-XII grossly intact. Motor strength 5/5 in all extremities. Sensory grossly intact. Cerebellar exam normal. Normal gait. 21:01 Constitutional: The patient appears in no acute distress, alert, awake. Vital Signs: 20:04 BP 119 / 53; Pulse 52; Resp 19 S; Pulse Ox 96% on R/A; Weight 72.57 kg (R); Height 5 cc3 ft. 6 in. (167.64 cm) (R); Pain 0/10; 20:25 BP 128 / 47; Pulse 50; Resp 16; Pulse Ox 95% on R/A; mt 21:13 BP 132 / 52; Pulse 57; Resp 16; Pulse Ox 93% on R/A; jb4 20:04 Body Mass Index 25.82 (72.57 kg, 167.64 cm) cc3 MDM: 20:50 Patient medically screened. gs 21:01 Data reviewed: vital signs, nurses notes, old medical records. ED course: says pain gs gone after vomited wants to go home no work up. Administered Medications: No medications were administered Disposition: 10/22/18 21:02 Discharged to Home. Impression: Upper abdominal pain, unspecified. - Condition is Stable. - Discharge Instructions: Abdominal Pain, Adult. - Medication Reconciliation Form, Thank You Letter, Antibiotic Education, Prescription Opioid Use form. - Follow up: Private Physician; When: 1 - 2 days; Reason: Re-evaluation by your physician. Signatures: Marco A Terrazas RN RN jb4 Tyrese Bush MD MD gs Corrections: (The following items were deleted from the chart) 21:15 21:02 10/22/2018 21:02 Discharged to Home. Impression: Upper abdominal pain, jb4 unspecified. Condition is Stable. Forms are Medication Reconciliation Form, Thank You Letter, Antibiotic Education, Prescription Opioid Use. Follow up: Private Physician; When: 1 - 2 days; Reason: Re-evaluation by your physician. gs
[2018-10-22 21:31] VITALS: BP 132/52; O2SAT 93
== END 2018-10-22 21:15 | disposition home or self-care (01) ==
LOC: ER 20:02
DX: R10.11 Right upper quadrant pain (principal); R11.10 Vomiting, unspecified; I48.91 Unspecified atrial fibrillation; E11.9 Type 2 diabetes mellitus without complications; Z86.73 Personal history of transient ischemic attack (TIA), and cerebral infarction without residual deficits; Z88.1 Allergy status to other antibiotic agents; Z88.5 Allergy status to narcotic agent
CPT/HCPCS: 99283

== ENCOUNTER 2019-02-04 20:33 | Observation (INO) | payer OTHER ==
--- OUTSIDE RECORDS SUMMARY | 2019-02-04 20:36 | XMS REPORT | Clinical Summary ---
:1930 Author Organization [facility] Address [address] [place] [address] Care Team Providers Name Role Phone Pop Severino Ramana Primary Care Provider Allergies Active Allergy Reactions Severity Noted Date Comments Codeine Itching 09/28/2015 Doxycycline 09/28/2015 UNKNOWN Morphine 09/28/2015 AWARENESS Nitrofuran Analogues 09/28/2015 UNKNOWN Sulfa (Sulfonamide Antibiotics) 09/28/2015 ORAL BLISTERS Medications Medication Sig Dispensed Refills Start Date End Date Status metoprolol Take 50 mg by 0 Active (LOPRESSOR) 50 MG mouth 2 (two) tablet times daily. levothyroxine Take 150 mcg by 0 Active (SYNTHROID, mouth Every LEVOTHROID) 150 MCG morning on an tablet empty stomach. SITagliptin Take 100 mg by 0 Active (JANUVIA) 100 MG mouth daily. tablet atorvastatin Take 80 mg by 0 Active (LIPITOR) 80 MG mouth daily. tablet warfarin (COUMADIN) Take 3 mg by 0 Active 3 MG tablet mouth daily. pantoprazole Take 40 mg by 0 Active (PROTONIX) 40 MG mouth daily. tablet ALPRAZolam (XANAX Take 0.5 mg by 0 Discontinued XR) 0.5 MG 24 hr mouth as needed. 9 tablet HYDROmorphone Take 2 mg by 0 Discontinued (DILAUDID) 2 MG mouth every 4 9 tablet (four) hours as needed for Pain. isosorbide Take 30 mg by 0 Discontinued mononitrate (IMDUR) mouth daily. 9 30 MG [address] 0.4 mg 0 Discontinued (NITROSTAT) 0.4 MG under the tongue 9 SL tablet every 5 (five) minutes as needed for Chest pain Put 1 pill under tongue every 5min as needed for chest pain.No more than 3 doses in 15min.Call 911 if pain is unrelieved 5min after 1st dose . omeprazole Take 40 mg by 0 Discontinued (PRILOSEC) 40 MG mouth daily. 9 capsule zolpidem (AMBIEN) Take 10 mg by 0 Discontinued 10 mg tablet mouth every 9 night as needed for Insomnia. rosuvastatin Take 10 mg by 0 Discontinued (CRESTOR) 10 MG mouth daily. 9 tablet aspirin 81 MG EC Take 81 mg by 0 Discontinued tablet mouth daily. 9 Active Problems Not on file Encounters Date Type Specialty Care Team Description 11/17/2018 Anesthesia Event Gastroenterology Alia Myrick, CARRIER LOADER 11/17/2018 Surgery Gastroenterology Solitario Simms, ERCP,DIRECT MD VISUALIZATION [place] 11/17/2018 Hospital Gastroenterology Solitario Simms, Encounter 10/23/2018 Hospital Pre-Admission Testing Solitario Simms, Encounter Resource, Oqmt Preadmit Phone after 02/03/2018 Social History Tobacco Use Types Packs/Day Years Used Date Never Smoker Smokeless Tobacco: Never Used Alcohol Use Drinks/Week oz/Week Comments No Sex Assigned at Date Recorded Not on file Job Start Date Occupation Industry Not on file Not on file Not on file Travel History Travel Start Travel End No recent travel history available. Last Filed Vital Signs Vital Sign Reading Time Taken Blood Pressure 182/77 11/17/2018 2:33 PM CDT Pulse 54 11/17/2018 2:33 PM CDT Temperature 37 C (98.6 F) 11/17/2018 2:18 PM CDT Respiratory Rate 18 11/17/2018 2:33 PM CDT Oxygen Saturation 99% 11/17/2018 2:33 PM CDT Inhaled Oxygen Concentration - - Weight 71.5 kg (157 lb 9.6 oz) 11/17/2018 11:01 AM CDT Height 167.6 cm (5' 6") 11/17/2018 11:01 AM CDT Body Mass Index 25.44 11/17/2018 11:01 AM CDT Plan of Treatment Not on file Procedures Procedure Name Priority Date/Time Associated Diagnosis Comments REPORT OF PROCEDURE 11/17/2018 2:11 - ENDOSCOPY URL PM CDT [place] ERCP Routine 11/17/2018 2:05 Results for this PM CDT procedure are in the results section. POCT-GLUCOSE METER Routine 11/17/2018 11:36 Results for this AM CDT procedure are in the results section. PROTHROMBIN STAT 11/17/2018 11:32 Results for this TIME/INR AM CDT procedure are in the results section. ERCP,BALLOON 11/17/2018 11:00 Abnormal findings on DILATATION AM CDT radiological examination of gastrointestinal tract Calculus of bile duct without cholecystitis and without obstruction Special Needs (C-ARM, SPYGL[place]) ERCP,BALLOON SWEEPING 11/17/2018 11:00 AM CDT Abnormal findings on radiological examination of gastrointestinal tract Calculus of bile duct without cholecystitis and without obstruction Special Needs (C-ARM, SPYGLASS) PROCEDURE W/ C-ARM 11/17/2018 11:00 AM CDT Abnormal findings on radiological examination of gastrointestinal tract Calculus of bile duct without cholecystitis and without obstruction Special Needs (C-ARM, SPYGLASS) ERCP,DIRECT VISUALIZATION 11/17/2018 11:00 AM CDT Abnormal findings on SPY [place]ASS radiological examination of gastrointestinal tract Calculus of bile duct without cholecystitis and without obstruction Special Needs (C-ARM, SPYGLASS) after 02/03/2018 Results REPORT OF PROCEDURE - ENDOSCOPY URL (11/17/2018 2:11 PM CDT) Narrative Performed At [place] Endoscopic Retrograde Cholangiopancreatography (11/17/2018 2:05 PM CDT) Specimen Narrative Performed At FINAL REPORT [facility] ERCP, 11/17/2018 Clinical History: Abnormal imaging Impression: Intraoperative images are obtained. The radiologist is not present during the procedure. Fluoroscopy was not performed by the undersigned.Images are presented for interpretation at the completion of the procedure.Please refer to the procedure report for more details. Seven images are submitted demonstrating ERCP. Fluoroscopy time is 3.1 minutes. Signed: Tony Aguirre MD Report Verified Date/Time:11/17/2018 16:21:28 Reading Location: [address] Radiology Reading Room Procedure Note Interface, External Ris In - 11/17/2018 4:23 PM CDT FINAL REPORT ERCP, 11/17/2018 Clinical History: Abnormal imaging Impression: Intraoperative images are obtained. The radiologist is not present during the procedure. Fluoroscopy was not performed by the undersigned. Images are presented for interpretation at the completion of the procedure. Please refer to the procedure report for more details. Seven images are submitted demonstrating ERCP. Fluoroscopy time is 3.1 minutes. Signed: Tony Aguirre MD Report Verified Date/Time: 11/17/2018 16:21:28 Reading Location: [address] Radiology Reading Room Performing Organization Address [facility] Phone Number GE RIS POC-Glucose meter (11/17/2018 11:36 AM CDT) POC-Glucose Meter 101Comment: TESTED AT 70 - 110 mg/dL [address] [id number] Specimen Blood Performing Organization Address [facility] Phone Number [address] [address] [phone] [place] Prothrombin time/INR (11/17/2018 11:32 AM CDT) Protime 18.1 (H) 11.7 - 14.7 seconds [facility] INR 1.5 <=5.9 [facility] Specimen Blood Narrative Performed At RECOMMENDED COUMADIN/WARFARIN INR THERAPY [facility] RANGES STANDARD DOSE: 2.0 - 3.0 Includes: PROPHYLAXIS for venous thrombosis, systemic embolization; TREATMENT for venous thrombosis and/or pulmonary embolus. HIGH RISK: Target INR is 2.5-3.5 for patients with mechanical heart valves. Performing Organization Address [facility] Phone Number [address] [address] [place] after 02/03/2018 Insurance Payer Benefit Plan / Group Subscriber ID Type Phone Address MEDICARE MEDICARE A B xxxxxxxxxxx Medicare AETNA - MGD CARE AET[employer] INDEMNITY NON CONTR xxxxxxxxx Comm
--- OUTSIDE RECORDS SUMMARY | 2019-02-04 20:38 | XMS REPORT | Continuity of Care Document ---
:1930 Author Organization [employer] Care Team Providers Name Role Phone [employer] Unavailable Unavailable Problems Problem Status Onset Classification Date Comments Source Date Reported COAG Active 12/20/[address] LOW BLOOD Active 11/26/19 [facility] PRESSURE, 17 [facility] WEAKNESS ATRIAL Active 11/26/19 [facility] FIBRILLATION WITH [address] [place] [address] RAPID VENTRICUL FALL Active 11/17/[address] FALL Active 11/17/[address] COAG - ATRIAL FIB Active 09/18/[address] COAG - ATRIAL Active 02/22/20 [facility] FIB. [address] [place] [address] ISCHEMIC STROKE Active 02/20/[address] LFLT TRANSFER Active 02/20/20 [facility] #[id number] [place] [address] Breast ca Resolved Problem 01/20/2017 [facility] Diverticulosis of Resolved Problem 01/20/2017 [facility] colon [facility] DM (Confirmed) Resolved Problem 01/20/2017 [facility] Heart attack Resolved Problem 01/20/2017 [facility] TIA Resolved Problem 01/20/2017 [facility] Atrial Active Problem 01/20/2017 [facility] fibrillation [facility] CEREBRAL Active [facility] ANEURYSM, Medical NONRUPTURED Center UNSPECIFIED Active [facility] ATRIAL Medical FIBRILLATION Center,[facility] Medications Medication Details Route Status Patient Ordering Order Source Instructions Provider Date levothyroxine 125 microgram=1 Active 12/30/ [facility] 125 mcg (0.125 tab, PO, Daily, # 2017 Medical mg) oral tablet 30 tab, 0 Center Refill(s) metoprolol 25 mg=0.5 tab, Active 12/30/ [facility] tartrate 50 mg PO, BID, # 180 2017 Medical oral tablet tab, 0 Refill(s) [facility] Thyroxine 125 microgram, No Longer Route: PO, Drug Active 2016 [facility] form: TAB, Daily, [facility] Dosing Weight 89.455, kg, Start [...] atorvastatin 80 80 mg=1 tab, PO, Active [facility] mg oral tablet Bedtime, # 90 2017 [facility] tab, 0 Refill(s) [place] aspirin 81 mg 81 mg=1 tab, PO, Active tablet, enteric Daily, # 90 tab, 2017 [facility] coated 0 Refill(s) [place] warfarin 7.5 mg 7.5 mg=1 tab, PO, Active oral tablet Q5PM, # 30 tab, 0 2016 [facility] Refill(s) [facility] levothyroxine 150 microgram=1 Active 150 mcg (0.15 tab, PO, Q630AM, 2016 [facility] mg) oral tablet # 100 tab, [...] Q4H, MG Oral Tablet PRN Abnormal Lab [[place] 10/325] Result, Start date: 11/26/16 16:47:00 CDT, Duration: 30 day, Stop date: 12/26/16 16:46:00 CDTNotes: Do not exceed 4gm/day of acetaminophen. (Same as: [place] 325/10) Protonix 40 mg, Route: Inactive IVP, Drug form: 2016 INJ, Daily, [facility] Dosing Weight 86.364, kg, Patient is NPO, Start date: 11/26/16 9:00:00 CDT, Duration: 30 day, Stop date: 12/25/16 9:00:00 CDTNotes: For IV push reconstitute with 10 ml 0.9% sodium chloride and push over 2 minutes. (Same as: Protonix) Thyroxine 150 microgram, 1 Inactive tab, Route: PO, 2016 Drug form: TAB, [facility] Q630AM, Dosing Weight 86.364, kg, Start date: [...] PO, Drug Active 2016 [facility] form: TAB, Q5PM, [place] Dosing Weight [...] 2 tab, Inactive [place] Route: PO, Drug 2016 Medical form: TAB, ONCE, Center Dosing Weight 86.364, kg, Priority: STAT, Start date: 11/16/16 19:48:00 CDT, Stop date: 11/16/16 19:48:00 CDTNotes: Do not exceed 4 gm/day. (Same as: Tylenol) meclizine 25 mg 25 mg=1 tab, PO, Active [facility] oral tablet TID, PRN 2017 Medical Other-See Center Comments, # 30 tab, 0 Refill(s) Acetaminophen 1 tab, PO, Q4H, Active [place] 325 MG / PRN for pain, # 2017 Medical Hydrocodone 24 tab, 0 Center Bitartrate 10 Refill(s) MG Oral Tablet [[place] 10/325] Zofran 4 mg, 1 tab, Inactive [facility] Route: PO, Drug 2015 Medical form: TABDIS, Center ONCE, Dosing Weight 79.545, kg, Priority: STAT, Start date: 02/22/16 11:09:00 CDT, Stop date: 02/22/16 11:09:00 CDTNotes: (Same as: Zofran ODT) Warfarin Sodium 5 mg=1 tab, PO, Active [facility] 5 MG Oral Daily, # 10 tab, 2016 Medical Tablet 0 Refill(s) Center [Coumadin] Warfarin Sodium 5 mg=1 tab, PO, Inactive [facility] 5 MG Oral Daily, # 10 tab, 2016 Medical Tablet 0 Refill(s), Center [Coumadin] other Cetirizine 10 mg, 1 tab, Inactive [facility] Route: PO, Drug 2015 Medical form: TAB, ONCE, Center Dosing Weight 79.545, kg, Priority: STAT, Start date: 02/22/16 8:14:00 CDT, Stop date: 02/22/16 8:14:00 CDTNotes: (Same As: Zyrtec) lisinopril 10 10 mg=1 tab, PO, Active [facility] mg oral tablet Daily, # 90 tab, 2016 Medical 0 Refill(s) Center atorvastatin 80 80 mg=1 tab, PO, Active [place] mg oral tablet Bedtime, # 90 2016 Medical tab, 0 Refill(s) Center Aspirin 81 MG 81 mg=1 tab, PO, Active [facility] Enteric Coated Daily, # 90 tab, 2016 Medical Tablet 0 Refill(s) Center Zofran 4 mg, 1 tab, No Longer [place] Route: PO, Drug Active 2015 Medical form: TAB, Q8H, Center Dosing Weight 79.545, kg, PRN Nausea, Priority: NOW, Start date: 02/21/16 21:10:00 CDT, Duration: 30 day, Stop date: 03/22/16 21:09:00 CDTNotes: (Same as: Zofran) Lipitor 10 mg, 1 tab, No Longer [place] Route: PO, Drug Active 2015 Medical form: TAB, Center Bedtime, Start date: 02/21/16 21:00:00 CDT, Duration: 30 day, Stop date: 03/21/16 21:00:00 CDTNotes: (Same As: Lipitor) Lovastatin 20 mg, Route: PO, Inactive [place] Drug form: TAB, 2015 Medical Bedtime, Dosing Center Weight 79.545, kg, Start date: 02/21/16 21:00:00 CDT, Duration: 30 day, Stop date: 03/21/16 21:00:00 CDT Warfarin 5 mg, 1 tab, Inactive [place] Route: PO, Drug 2015 Medical form: TAB, [...] Refill(s) Center [Crestor] levothyroxine 125 microgram=1 Active [facility] 125 mcg (0.125 tab, PO, Daily, 0 2015 Medical mg) oral tablet Refill(s) Center Zolpidem 10 mg=1 tab, PO, Active [facility] tartrate 10 MG Bedtime, 0 2015 Medical Oral Tablet Refill(s) Center [Ambien] cetirizine 10 10 mg=1 tab, PO, Active [facility] mg oral tablet Daily, 0 2015 Medical Refill(s) Center metoprolol 25 mg=1 tab, PO, Active [facility] tartrate 25 mg Daily, 0 2015 Medical oral tablet Refill(s) Center omeprazole 10 10 mg=1 cap, PO, Active [facility] mg oral delayed Daily, 0 2015 Medical release capsule Refill(s) [facility] isosorbide 30 mg=1 tab, PO, Active [facility] mononitrate 30 QAM, 0 Refill(s) 2015 Medical mg oral tablet, Center extended release Aspirin 81 MG 81 mg=1 tab, PO, No Longer [facility] Enteric Coated Daily, # 90 tab, Active 2015 Medical Tablet 3 Refill(s) [facility] Saline Flush 10 ml, Route: No Longer [facility] 0.9% IVP, Drug Form: Active 2015 Medical INJ, Dosing Center Weight 79.545, kg, Q12H, Start date: 02/21/16 9:00:00 CDT, Duration: 30 day, Stop date: 03/21/16 21:00:00 CDTNotes: Same as: BD Posiflush Sterile Aspirin 325 MG 325 mg, 1 tab, No Longer [facility] Enteric Coated Route: PO, Drug Active 2015 Medical Tablet form: ECTAB, Center Daily, Dosing Weight 79.545, kg, Start date: 02/21/16 9:00:00 CDT, Duration: 30 day, Stop date: 03/21/16 9:00:00 CDTNotes: (Do Not Crush) Do not crush or chew. pantoprazole 40 mg, Route: No Longer [facility] IVP, Drug form: Active 2015 Medical INJ, Daily, Center Dosing Weight 79.545, kg, Start date: 02/21/16 9:00:00 CDT, Duration: 30 day, Stop date: 03/21/16 9:00:00 CDTNotes: For IV push reconstitute with 10 ml 0.9% sodium chloride and push over 2 minutes. (Same as: Protonix) Rocephin 1 gm, Route: No Longer [facility] IVPB, Drug form: Active 2015 Medical PDR/INJ, [id number], Center Dosing Weight 79.545, kg, Start date: [...] Duration: 1 doses or times, Dose=2.2ml/kg, Max [id number] -- "To be infused by Radiology Staff ONLY" Ativan 0.5 mg, 1 tab, Inactive [place] Route: PO, Drug 2015 Medical form: TAB, TID, Center Dosing Weight 79.545, kg, PRN Anxiety, Start date: 02/21/16 3:16:00 CDT, Duration: 2 doses or times, Stop date: Limited # of timesNotes: (Same as: Ativan) heparin 5,000 unit, 1 mL, No Longer [facility] Route: SUB-Q, Active 2015 Medical Drug form: INJ, Center Q8H, Dosing Weight 79.545, kg, (For patients weighing Notes: porcine heparin Saline Flush 10 ml, Route: No Longer [facility] 0.9% IVP, Drug Form: Active 2016 Medical INJ, Dosing Center Weight 79.545, kg, PRN, PRN Line Flush, Start date: 02/20/16 23:33:00 CDT, Duration: 30 day, Stop date: 03/21/16 23:32:00 CDTNotes: Same as: [facility] Posiflush Sterile Allergies, Adverse Reactions, Alerts Substance Category Reaction Severity Reaction Status Date Comments Source type Reported morphine Assertion Allergy to Active [facility] [place] sulfa drugs Assertion Drug Active [facility] allergy [facility] Immunizations Immunization Date Given Site Status Last Comments Source Updated pneumococcal 11/26/2016 Not Given [facility] 13-valent Medical vaccine<sup>2</ Center, p> [facility] pneumococcal 11/26/2016 Left completed [facility] Result [facility] vaccine<sup>1</ patient Center, p> refused [facility] Results Order Name Results Value Reference Date Interpretation Comments Source Range HEMATOLOGY POC PT 18.2 12.0 - 12/30 [facility] 14.7 [facility] HEMATOLOGY POC INR 1.6 0.9 - 1.2 12/30 [facility] HEMATOLOGY POC INR 1.9 0.9 - 1.2 12/19 [facility] /2016 [facility] HEMATOLOGY POC PT 22.0 12.0 - 12/19 [facility] 14.7 /2016 [facility] CARDIAC CK MB Index 1.6 0.0 - 2.5 11/26 [facility] /2016 [facility] CARDIAC Troponin-I <0.02 0.00 - 11/26 [facility] 0.40 /2017 [facility] CARDIAC CK MB 1.8 0.5 - 3.6 11/26 [facility] CARDIAC Total CK 112 12 - 191 11/26 [facility] /2016 [facility] CHEM PANEL Magnesium Lvl 2.1 1.8 - 2.4 11/26 [facility] CHEM PANEL Lipase Lvl 272 73 - 393 11/26 [facility] ELECTROLYTE Sodium Lvl 143 135 - 145 11/26 S /2016 [facility] ELECTROLYTE Potassium Lvl 3.7 3.5 - 5.1 11/26 S [facility] ELECTROLYTE Chloride Lvl 107 95 - 109 11/26 [facility] S /2016 [facility] ELECTROLYTE CO2 25 24 - 32 / MH S /2016 [facility] ELECTROLYTE Calcium Lvl 8.4 8.5 - 10.5 11/26 S [facility] ELECTROLYTE Glucose Lvl 168 70 - 99 / MH S /2016 [facility] ELECTROLYTE BUN 16 7 - 22 11/26 S /2016 [facility] ELECTROLYTE Creatinine 1.06 0.50 - / MH S Lvl 1.40 /2016 [facility] ELECTROLYTE A/G Ratio 1.0 0.7 - 1.6 11/26 S /2016 [facility] ELECTROLYTE Bili Total 0.5 0.2 - 1.3 11/26 [facility] S /2016 [facility] ELECTROLYTE AGAP 14.7 10.0 - 05/ MH S 20.0 /2017 [facility] ELECTROLYTE B/C Ratio 15 6 - 25 11/26 [facility] S /2016 [facility] ELECTROLYTE Globulin 3.9 2.7 - 4.2 11/26 S /2016 [facility] ELECTROLYTE Alk Phos 117 39 - 136 / S /2016 [facility] ELECTROLYTE Total Protein 7.8 6.4 - 8.4 11/26 S /2016 [facility] ELECTROLYTE Albumin Lvl 3.9 3.5 - 5.0 11/26 S /2016 [facility] ELECTROLYTE ALT 10 0 - 65 / MH S /2016 [facility] ELECTROLYTE AST 19 0 - 37 / MH S /2016 [facility] ELECTROLYTE eGFR 47 / MH S Comment: The [facility] eGFR is [place] calculated using the CKD-EPI formula. In most young, healthy individuals the eGFR will be >90 mL/min/1.73m2 . The eGFR declines with age. An eGFR of 60-89 may be normal in some populations, particularly the elderly, for whom the CKD-EPI formula has not been extensively validated. Use of the eGFR is not recommended in the following populations:< br/>
Maxine viduals with unstable creatinine concentration s, including patients and those with serious co-morbid conditions.<b r/>
Patie nts with extremes in muscle mass or diet.

The data above are obtained from the National Kidney Disease Education Program (NKDEP) which additionally recommends that when the eGFR is used in patients with extremes of body mass index for purposes of drug dosing, the eGFR should be multiplied by the estimated BMI. HEMATOLOGY Segs-Bands # 4.3 1.5 - 8.1 05/ MH /2016 [facility] HEMATOLOGY Lymphocytes # 1.3 1.0 - 5.5 05/ MH /2016 [facility] HEMATOLOGY Monocytes # 0.4 0.0 - 0.8 05/ MH /2016 [facility] [place] HEMATOLOGY Eosinophils 1.8 0.0 - 4.0 05/ MH /2016 [facility] HEMATOLOGY Lymphocytes 21.0 20.0 - 05/ 40.0 /2017 [facility] HEMATOLOGY Monocytes 6.6 2.0 - 12.0 05/ MH /2016 [facility] HEMATOLOGY Basophils 0.6 0.0 - 1.0 05/ MH /2016 [facility] HEMATOLOGY Eosinophils # 0.1 0.0 - 0.5 05/ MH /2016 [facility] HEMATOLOGY Segs 70.0 45.0 - 05/ 75.0 /2017 [facility] HEMATOLOGY PT 16.9 12.0 - 05 14.7 /2016 [facility] HEMATOLOGY INR 1.35 0.85 - 11/26 1.17 /2016 [facility] HEMATOLOGY PTT 33.5 22.9 - 05/ 35.8 /2017 [facility] HEMATOLOGY RBC 4.34 4.20 - 05/ 5.40 /2017 [facility] HEMATOLOGY MCV 89.8 80.0 - 05/ 98.0 /2017 [facility] HEMATOLOGY Hct 39.0 36.0 - 05/ 48.0 /2017 [facility] HEMATOLOGY Hgb 12.5 12.0 - 05/ 16.0 /2017 [facility] HEMATOLOGY MCH 28.7 27.0 - 05/ 31.0 /2017 [facility] HEMATOLOGY MPV 8.7 7.4 - 10.4 05/ MH /2016 [facility] HEMATOLOGY WBC 6.1 3.7 - 10.4 05/ MH /2016 [facility] HEMATOLOGY MCHC 32.0 32.0 - 05/ 36.0 /2017 [facility] HEMATOLOGY Platelet 159 133 - 450 11/26 [facility] HEMATOLOGY RDW 17.2 11.5 - 05 14.5 [facility] HEMATOLOGY POC INR 1.5 0.9 - 1.2 11/18 [place] [facility] HEMATOLOGY POC PT 17.4 12.0 - 11/18 [facility] 14 [facility] ELECTROLYTE AGAP 11.7 10.0 - 11/16 [facility] S 20.0 [facility] ELECTROLYTE Glucose Lvl 168 70 - 99 11/16 [facility] ELECTROLYTE BUN 23 7 - 22 11/16 [facility] ELECTROLYTE eGFR 36 11/16 Result Comment: [facility] eGFR is Center calculated using the CKD-EPI formula. In most young, healthy individuals the eGFR will be >90 mL/min/1.73m2 . The eGFR declines with age. An eGFR of 60-89 may be normal in some populations, particularly the elderly, for whom the CKD-EPI formula has not been extensively validated. Use of the eGFR is not recommended in the following populations:< br/>
Maxine viduals with unstable creatinine concentration s, including patients and those with serious co-morbid conditions.<b r/>
Patie nts with extremes in muscle mass or diet.

The data above are obtained from the National Kidney Disease Education Program (NKDEP) which additionally recommends that when the eGFR is used in patients with extremes of body mass index for purposes of drug dosing, the eGFR should be multiplied by the estimated BMI. ELECTROLYTE Calcium Lvl 8.4 8.5 - 10.5 11/16 [facility] ELECTROLYTE CO2 29 24 - 32 11/16 [facility] ELECTROLYTE Chloride Lvl 107 95 - 109 11/16 [facility] ELECTROLYTE Potassium Lvl 3.7 3.5 - 5.1 11/16 [facility] ELECTROLYTE Sodium Lvl 144 135 - 145 11/16 [facility] ELECTROLYTE Creatinine 1.34 0.50 - 11/16 [facility] Lvl 1.40 /2016 [facility] HEMATOLOGY INR 2.03 0.85 - 11/16 [place] 1.17 [facility] HEMATOLOGY PT 23.3 12.0 - 11/16 [place] 14.7 [facility] HEMATOLOGY Hgb 11.9 12.0 - 11/16 [place] 16.0 [facility] HEMATOLOGY MCV 88.3 80.0 - 11/16 [place] 98.0 /2016 [facility] HEMATOLOGY Hct 36.1 36.0 - 11/16 [place] 48.0 [facility] HEMATOLOGY MCH 29.1 27.0 - 11/16 [facility] [place] 31.0 /2016 [facility] HEMATOLOGY RBC 4.09 4.20 - 11/16 [place] 5.40 /2016 [facility] HEMATOLOGY WBC 4.5 3.7 - 10.4 11/16 [facility] HEMATOLOGY MCHC 32.9 32.0 - 11/16 [place] 36.0 [facility] HEMATOLOGY MPV 9.0 7.4 - 10.4 11/16 [facility] HEMATOLOGY Platelet 145 133 - 450 11/16 [facility] HEMATOLOGY RDW 17.7 11.5 - 11/16 [place] 14.5 [facility] HEMATOLOGY Monocytes # 0.3 0.0 - 0.8 11/16 [facility] HEMATOLOGY Eosinophils # 0.2 0.0 - 0.5 11/16 [facility] HEMATOLOGY Monocytes 7.5 2.0 - 12.0 11/16 [facility] HEMATOLOGY Eosinophils 4.5 0.0 - 4.0 11/16 [facility] HEMATOLOGY Lymphocytes 24.0 20.0 - 11/16 [place] 40.0 [facility] HEMATOLOGY Segs-Bands # 2.9 1.5 - 8.1 11/16 [facility] HEMATOLOGY Basophils 0.5 0.0 - 1.0 11/16 [facility] HEMATOLOGY Lymphocytes # 1.1 1.0 - 5.5 11/16 [facility] HEMATOLOGY Segs 63.5 45.0 - 11/16 [place] 75.0 [facility] HEMATOLOGY POC INR 2.1 0.9 - 1.2 09/19 [facility] HEMATOLOGY POC PT 24.6 12.0 - 09/19 [place] 14. [facility] HEMATOLOGY POC 40.0 36.0 - 03/12 [facility] Hematocrit 48.0 /2015 [facility] HEMATOLOGY POC 13.6 12.0 - 03/12 [facility] Hemoglobin 16.0 [facility] HEMATOLOGY POC PT 37.1 12.0 - 03/12 [place] 14. [facility] HEMATOLOGY POC INR 3.3 0.9 - 1.2 03/12 [facility] HEMATOLOGY POC PT 35.1 12.0 - 03/05 [place] 14. [facility] HEMATOLOGY POC INR 3.1 0.9 - 1.2 03/05 [facility] HEMATOLOGY POC INR 1.8 0.9 - 1.2 02/27 [facility] HEMATOLOGY POC PT 20.7 12.0 - 02/27 [facility] 14.7 [facility] HEMATOLOGY PT 14.3 12.0 - 02/21 [facility] 14. [facility] HEMATOLOGY INR 1.08 0.85 - 02/21 [facility] 1.17 [facility] HEMATOLOGY PTT 31.3 22.9 - 02/21 [place] 35.8 [facility] CHEM PANEL eGFR 39 02/21 Result Comment: [facility] eGFR is Center calculated using the CKD-EPI formula. In most young, healthy individuals the eGFR will be >90 mL/min/1.73m2 . The eGFR declines with age. An eGFR of 60-89 may be normal in some populations, particularly the elderly, for whom the CKD-EPI formula has not been extensively validated. Use of the eGFR is not recommended in the following populations:< br/>
Maxine viduals with unstable creatinine concentration s, including patients and those with serious co-morbid conditions.<b r/>
Patie nts with extremes in muscle mass or diet.

The data above are obtained from the National Kidney Disease Education Program (NKDEP) which additionally recommends that when the eGFR is used in patients with extremes of body mass index for purposes of drug dosing, the eGFR should be multiplied by the estimated BMI. CHEM PANEL AGAP 14.0 10.0 - 02/21 [facility] 20. [facility] CHEM PANEL Calcium Lvl 8.6 8.5 - 10.5 02/21 [facility] CHEM PANEL Glucose Lvl 196 70 - 99 02/21 [facility] CHEM PANEL BUN 22 7 - 22 02/21 [facility] CHEM PANEL Potassium Lvl 4.0 3.5 - 5.1 02/21 [facility] CHEM PANEL Chloride Lvl 106 95 - 109 02/21 [facility] CHEM PANEL Creatinine 1.26 0.50 - 02/21 [facility] Lvl 1.40 /2015 [facility] CHEM PANEL Sodium Lvl 142 135 - 145 02/21 [facility] CHEM PANEL CO2 26 24 - 32 02/21 [facility] HEMATOLOGY Segs 63.9 45.0 - 02/21 [place] 75.0 /2016 [facility] HEMATOLOGY Lymphocytes 22.6 20.0 - 02/21 [place] 40.0 [facility] HEMATOLOGY Eosinophils 5.2 0.0 - 4.0 02/21 [facility] HEMATOLOGY Monocytes 7.4 2.0 - 12.0 02/21 [facility] HEMATOLOGY Basophils 0.9 0.0 - 1.0 02/21 [facility] HEMATOLOGY Segs-Bands # 3.3 1.5 - 8.1 02/21 [facility] HEMATOLOGY Lymphocytes # 1.2 1.0 - 5.5 02/21 2015 [facility] HEMATOLOGY Eosinophils # 0.3 0.0 - 0.5 02/21 2015 [facility] HEMATOLOGY Monocytes # 0.4 0.0 - 0.8 02/21 [facility] HEMATOLOGY MPV 9.4 7.4 - 10.4 02/21 [facility] HEMATOLOGY MCHC 32.0 32.0 - 02/21 [place] 36.0 [facility] HEMATOLOGY RDW 16.9 11.5 - 02/21 [place] 14.5 [facility] HEMATOLOGY Platelet 133 133 - 450 02/21 [facility] HEMATOLOGY WBC 5.1 3.7 - 10.4 02/21 [facility] HEMATOLOGY RBC 4.16 4.20 - 02/21 [place] 5.40 /2015 [facility] HEMATOLOGY Hgb 11.2 12.0 - 02/21 [place] 16.0 [facility] HEMATOLOGY Hct 35.2 36.0 - 02/21 [place] 48.0 [facility] HEMATOLOGY MCV 84.5 80.0 - 02/21 [place] 98.0 [facility] HEMATOLOGY MCH 27.0 27.0 - 02/21 [place] 31.0 2016 [facility] ELECTROLYTE AGAP 14.3 10.0 - 02/20 [place] S 20.0 [facility] ELECTROLYTE eGFR 45 02/20 Result [facility] Comment: The Medical eGFR is Center calculated using the CKD-EPI formula. In most young, healthy individuals the eGFR will be >90 mL/min/1.73m2 . The eGFR declines with age. An eGFR of 60-89 may be normal in some populations, particularly the elderly, for whom the CKD-EPI formula has not been extensively validated. Use of the eGFR is not recommended in the following populations:< br/>
Maxine viduals with unstable creatinine concentration s, including patients and those with serious co-morbid conditions.<b r/>
Patie nts with extremes in muscle mass or diet.

The data above are obtained from the National Kidney Disease Education Program (NKDEP) which additionally recommends that when the eGFR is used in patients with extremes of body mass index for purposes of drug dosing, the eGFR should be multiplied by the estimated BMI. ELECTROLYTE Chloride Lvl 104 95 - 109 02/20 [facility] 2015 [facility] ELECTROLYTE Potassium Lvl 4.3 3.5 - 5.1 02/20 [facility]2015 [facility] ELECTROLYTE Calcium Lvl 8.8 8.5 - 10.5 02/[address] ELECTROLYTE CO2 27 24 - 32 02/[address] ELECTROLYTE Creatinine 1.12 0.50 - 02/20 [facility] Lvl 1.40 [facility] ELECTROLYTE Sodium Lvl 141 135 - 145 02/[address] ELECTROLYTE Glucose Lvl 123 70 - 99 02/[address] ELECTROLYTE BUN 21 7 - 22 02/[address] HEMATOLOGY Basophils # 0.1 0.0 - 0.2 02/[address] HEMATOLOGY Eosinophils # 0.2 0.0 - 0.5 02/[address] HEMATOLOGY Monocytes # 0.4 0.0 - 0.8 02/[address] HEMATOLOGY Monocytes 7.3 2.0 - 12.0 02/[address] HEMATOLOGY Segs 65.3 45.0 - 02/20 [place] 75.0 [facility] HEMATOLOGY Lymphocytes 23.4 20.0 - 02/20 [facility] 40.0 [facility] HEMATOLOGY Lymphocytes # 1.3 1.0 - 5.5 02/[address] HEMATOLOGY Basophils 1.0 0.0 - 1.0 02/[address] HEMATOLOGY Eosinophils 3.0 0.0 - 4.0 02/[address] HEMATOLOGY Segs-Bands # 3.6 1.5 - 8.1 02/20 [facility] HEMATOLOGY RBC 4.09 4.20 - 02/20 [facility] 5.40 [facility] HEMATOLOGY Hgb 11.2 12.0 - 02/20 16.0 [facility] HEMATOLOGY WBC 5.5 3.7 - 10.4 02/20 [facility] HEMATOLOGY Hct 34.5 36.0 - 02/20 48.0 [facility] HEMATOLOGY MCV 84.3 80.0 - 02/20 [facility] 98.0 [facility] HEMATOLOGY RDW 16.6 11.5 - 02/20 [facility] 14.5 [facility] HEMATOLOGY MCH 27.3 27.0 - 02/20 [facility] 31.0 [facility] HEMATOLOGY MCHC 32.4 32.0 - 02/20 [facility] 36.0 [facility] HEMATOLOGY Platelet 131 133 - 450 02/20 [facility] HEMATOLOGY MPV 9.6 7.4 - 10.4 02/20 [facility] LIPIDS VLDL 20 02/20 [facility] LIPIDS LDL 130 <=99 mg/dL 02/20 [facility] (Calculated) [facility] LIPIDS HDL 31 >=61 mg/dL 02/20 [facility] LIPIDS Chol 181 <=199 02/20 [facility] mg/dL [facility] LIPIDS Trig 101 <=149 02/20 [facility] mg/dL [facility] LIPIDS CHD Risk 5.84 3.90 - 02/20 [facility] 5.80 [facility] SPECIAL Hgb A1C 7.0 <=5.6 % 02/20 [facility] CHEMISTRY [facility] CHEM PANEL eGFR 45 02/20 Result Comment: The [facility] eGFR is Center calculated using the CKD-EPI formula. In most young, healthy individuals the eGFR will be >90 mL/min/1.73m2 . The eGFR declines with age. An eGFR of 60-89 may be normal in some populations, particularly the elderly, for whom the CKD-EPI formula has not been extensively validated. Use of the eGFR is not recommended in the following populations:< br/>
Maxine viduals with unstable creatinine concentration s, including patients and those with serious co-morbid conditions.<b r/>
Patie nts with extremes in muscle mass or diet.

The data above are obtained from the National Kidney Disease Education Program (NKDEP) which additionally recommends that when the eGFR is used in patients with extremes of body mass index for purposes of drug dosing, the eGFR should be multiplied by the estimated BMI. CHEM PANEL Bili Total 0.4 0.2 - 1.3 02/20 [facility] CHEM PANEL CO2 27 24 - 32 02/20 2015 [facility] CHEM PANEL Calcium Lvl 8.8 8.5 - 10.5 02/20 [facility] CHEM PANEL AST 11 0 - 37 02/20 2015 [facility] CHEM PANEL ALT 9 0 - 65 02/20 2015 [facility] CHEM PANEL Alk Phos 120 39 - 136 02/20 2015 [facility] CHEM PANEL Potassium Lvl 4.2 3.5 - 5.1 02/20 2015 [facility] CHEM PANEL Chloride Lvl 105 95 - 109 02/20 2015 [facility] CHEM PANEL Sodium Lvl 141 135 - 145 02/20 2015 [facility] CHEM PANEL Albumin Lvl 3.6 3.5 - 5.0 02/20 [facility] CHEM PANEL Total Protein 7.3 6.4 - 8.4 02/20 [facility] CHEM PANEL BUN 21 7 - 22 02/20 2015 [facility] CHEM PANEL Creatinine 1.12 0.50 - 02/20 [facility] Lvl 1.40 [facility] CHEM PANEL Glucose Lvl 125 70 - 99 02/20 2015 [facility] CHEM PANEL A/G Ratio 1.0 0.7 - 1.6 02/20 [facility] CHEM PANEL Globulin 3.7 2.0 - 4.0 02/20 [facility] CHEM PANEL AGAP 13.2 10.0 - 02/20 [place] 20.0 [facility] CHEM PANEL B/C Ratio 19 6 - 25 02/20 2015 [facility] DRUG SCREEN U Amph Scr Negative Negative 02/20 [facility] *NA* [facility] (02/21/16 1:34 AM) Center DRUG SCREEN U Lilian Scr Negative Negative 02/20 [facility] *NA* [facility] (02/21/16 1:34 AM) Center DRUG SCREEN U Cannab Scr Negative Negative 02/20 [facility] *NA* /2015 Medical (02/21/16 1:34 AM) Center DRUG SCREEN U Phencyc Scr Negative Negative 02/20 [facility] *NA* /2015 [facility] (02/21/16 1:34 AM) Center DRUG SCREEN U Cocaine Scr Negative Negative 02/20 [facility] *NA* /2016 [facility] (02/21/16 1:34 AM) Center DRUG SCREEN U Opiate Scr Negative Negative 02/20 [place] *NA* /2015 [facility] (02/21/16 1:34 AM) Center DRUG SCREEN U Benzodia Negative Negative 02/20 [facility] Scr *NA* /2016 [facility] (02/21/16 1:34 AM) Center DRUG SCREEN UDS Note See Note 02/20 [facility] *NA* /2015 [facility] (02/21/16 1:34 AM) [facility] HEMATOLOGY INR 1.12 0.85 - 02/20 [facility] 1.17 [facility] HEMATOLOGY PT 14.7 12.0 - 02/20 [facility] 14.7 [facility] HEMATOLOGY PTT 31.5 22.9 - 02/20 [facility] 35.8 /2015 [facility] IMMUNOLOGY Treponemal Non Reactive Non 02/20 [facility] Scr *NA* Reactive /2015 [facility] (02/21/16 1:34 AM) [place] URINE AND UA <=1.0 0.1 - 1.0 02/20 [facility] Urobilinogen mg/dL /2015 [facility] URINE AND UA Sq Epi None Seen 02/20 [facility] /2015 [facility] URINE AND UA [place] Yeast Occasional None Seen 02/20 [facility] STOOL /HPF /HPF /2015 [facility] URINE AND UA Bacteria Few /HPF None Seen 02/20 [facility] STOOL /HPF /2015 [facility] URINE AND UA Ketones Negative Negative 02/20 [facility] STOOL mg/dL mg/dL /2015 [facility] URINE AND UA Glucose Negative Negative 02/20 [facility] mg/dL mg/dL /2015 [facility] URINE AND UA Protein Negative Negative 02/20 [facility] mg/dL mg/dL /2015 [facility] URINE AND UA pH 5.0 5.0 - 8.0 02/20 [facility] /2015 [facility] URINE AND UA Spec Grav 1.005 <=1.030 02/20 [facility] /2015 [facility] URINE AND UA WBC 8 0 - 5 02/20 [facility] /2015 [facility] URINE AND UA Leuk Est Large Negative 02/20 [facility] STOOL *ABN* /2015 [facility] (02/21/16 1:34 AM) [place] URINE AND UA Nitrite Negative Negative 02/20 [facility] (02/21/16 1:34 AM) /2015 [facility] URINE AND UA Blood Negative Negative 02/20 [facility] (02/21/16 1:34 AM) /2015 [facility] URINE AND UA Bili Negative Negative 02/20 [facility] STOOL *NA* /2015 [facility] (02/21/16 1:34 AM) [place] URINE AND UA Turbidity Slight Clear 02/20 [facility] STOOL *ABN* Medical (02/21/16 1:34 AM) [place] URINE AND UA Color Light Yellow Yellow 02/20 [facility] STOOL *NA* /2015 [facility] (02/21/16 1:34 AM) [facility] Pathology Reports No Data Provided for This Section Diagnostic Reports Report Value Date Source Brain wo contrast CT Patient Name: LOUISA PALMA 11/25/2016 [facility] : 1930; Age: 86 years y/o Female MR: [id number] Study: Brain wo contrast CT 11/25/2016 7:52 [...] subinsular cortex bilaterally, right thalamus, basal ganglia bilaterally , anterior and posterior limbs of the left [...] sulci are within normal limits for the patient's age. ORBITS, MASTOIDS AND PARANASAL SINUSES: The [...] Otherwise unremarkable head CT without contrast. SL: CSODERSTROM-PC Chest 1view DX EXAM: XR CHEST 1 VIEW 11/25/2016 [facility] DATE: 11/25/2016 7:51 PM CDT INDICATION: Shortness of Breath. COMPARISON: 02/21/2016. TECHNIQUE: [...] mild pulmonary edema or atypical infection. SL: [id number] Pelvis AP DX EXAM: XR PELVIS 1 VIEW 11/16/2016 [facility] DATE: 11/16/2016 5:34 PM CDT Center INDICATION: right hip pain - right hip [...] joints 2. No acute fracture or dislocation Tibia fibula series EXAM: XR RIGHT KNEE 3 VIEWS 11/16/2016 [facility] DX EXAM: XR RIGHT TIBIA-FIBULA 2 VIEWS Center EXAM: XR RIGHT ANKLE 3 VIEWS EXAM: XR RIGHT FOOT 3 VIEWS DATE: 11/16/2016 5:01 PM CDT INDICATION: Pain [...] changes of the knee joint. Foot series DX EXAM: XR RIGHT KNEE 3 VIEWS 11/16/2016 [facility] Medical EXAM: XR RIGHT TIBIA-FIBULA 2 VIEWS Center EXAM: XR RIGHT ANKLE 3 VIEWS EXAM: XR RIGHT FOOT 3 VIEWS DATE: 11/16/2016 5:01 PM CDT INDICATION: Pain [...] changes of the knee joint. Ankle 3 views DX EXAM: XR RIGHT KNEE 3 VIEWS 11/16/2016 [facility] EXAM: XR RIGHT TIBIA-FIBULA 2 VIEWS Center EXAM: XR RIGHT ANKLE 3 VIEWS EXAM: XR RIGHT FOOT 3 VIEWS DATE: 11/16/2016 5:01 PM CDT INDICATION: Pain [...] Minimal degenerative changes of the knee joint. Knee 3 views DX EXAM: XR RIGHT KNEE 3 VIEWS 11/16/2016 [facility] EXAM: XR RIGHT TIBIA-FIBULA 2 VIEWS Center EXAM: XR RIGHT ANKLE 3 VIEWS EXAM: XR RIGHT FOOT 3 VIEWS DATE: 11/16/2016 5:01 PM CDT INDICATION: Pain [...] Minimal degenerative changes of the knee joint. 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 Patent major neck arteries. All quantitative and qualitative measurements of the carotid arteries in the neck are performed utilizing the distal internal carotid artery for reference as per standard NASCET criteria. Brain wo contrast MRI EXAM: MRI BRAIN WITHOUT CONTRAST 02/21/2016 [facility] DATE: 02/21/2016 04:20 AM CDT Center INDICATION: Acute cognitive change ADDITIONAL DATA: Presenting [...] than an ischemic insult in the right DIGITAL MEASUREMENT ADVISOR territory. 2. Underlying chronic microvascular ischemic changes. Consultation Notes No Data Provided for This Section Discharge Summaries No Data Provided for This Section History and Physicals No Data Provided for This Section Vital Signs Vital Sign Value Date Comments Source Heart Rate 88 11/26/2016 [facility] Respitory Rate 18 11/26/2016 [facility] Systolic (mm Hg) 154 11/26/2016 [facility] Diastolic (mm Hg) 81 11/26/2016 [facility] Temperature Oral (F) 97.5 F 11/26/2016 [facility] Systolic (mm Hg) 146 11/26/2016 [facility] Diastolic (mm Hg) 68 11/26/2016 [facility] Respitory Rate 18 11/26/2016 [facility] Temperature Oral (F) 97.4 F 11/26/2016 [facility] Heart Rate 84 11/26/2016 [facility] Systolic (mm Hg) 121 11/26/2016 [facility] Diastolic (mm Hg) 74 11/26/2016 [facility] Respitory Rate 18 11/26/2016 [facility] Heart Rate 86 11/26/2016 [facility] Temperature Oral (F) 97.3 F 11/26/2016 [facility] Weight 89.455 11/26/2016 [facility] BMI Calculated 31.83 11/26/2016 [facility] Height 167.64 cm 11/26/2016 [facility] Height 167.64 cm 11/26/2016 [facility] Weight 86.364 11/26/2016 [facility] Height 167.64 cm 11/26/2016 [facility] BMI Calculated 30.73 11/26/2016 [facility] Respitory Rate 19 11/17/2016 [facility] Center Systolic (mm Hg) 137 11/17/2016 [facility] Center Diastolic (mm Hg) 90 11/17/2016 [facility] Heart Rate 87 11/17/2016 [facility] Temperature Oral (F) 97.8 F 11/17/2016 [facility] Temperature Oral (F) 97.6 F 11/17/2016 [facility] Center Respitory Rate 18 11/17/2016 [facility] Center Systolic (mm Hg) 135 11/17/2016 [facility] Center Diastolic (mm Hg) 89 11/17/2016 [facility] Heart Rate 80 11/17/2016 [facility] Center Respitory Rate 18 11/16/2016 [facility] Heart Rate 82 11/16/2016 [facility] Temperature Oral (F) 97.4 F 11/16/2016 [facility] Systolic (mm Hg) 139 11/16/2016 [facility] Center Diastolic (mm Hg) 96 11/16/2016 [facility] BMI Calculated 30.73 11/16/2016 [facility] Height 167.64 cm 11/16/2016 [facility] Weight 86.364 11/16/2016 [facility] Center Systolic (mm Hg) 136 09/19/2016 [facility] Center Diastolic (mm Hg) 74 09/19/2016 [facility] Heart Rate 80 09/19/2016 [facility] Height 167.64 cm 09/19/2016 [facility] Weight 86.875 09/19/2016 [facility] BMI Calculated 30.91 09/19/2016 [facility] BMI Calculated 28.3 03/12/2016 [facility] Weight 79.545 03/12/2016 [facility] Height 167.64 cm 03/12/2016 [facility] Heart Rate 74 03/12/2016 [facility] Systolic (mm Hg) 142 03/12/2016 [facility] Center Diastolic (mm Hg) 86 03/12/2016 [facility] Systolic (mm Hg) 142 03/05/2016 [facility] Center Diastolic (mm Hg) 78 03/05/2016 [facility] Height 167.64 cm 03/05/2016 [facility] BMI Calculated 28.3 03/05/2016 [facility] Weight 79.545 03/05/2016 [facility] Heart Rate 92 03/05/2016 [facility] Respitory Rate 20 02/22/2016 [facility] Systolic (mm Hg) 122 02/22/2016 [facility] Center Diastolic (mm Hg) 68 02/22/2016 [facility] Systolic (mm Hg) 168 02/22/2016 [facility] Center Diastolic (mm Hg) 80 02/22/2016 [facility] Respitory Rate 24 02/22/2016 [facility] Temperature Oral (F) 99.3 F 02/22/2016 [facility] Systolic (mm Hg) 116 02/22/2016 [facility] Center Diastolic (mm Hg) 55 02/22/2016 [facility] Respitory Rate 27 02/22/2016 [facility] Temperature Oral (F) 98.4 F 02/22/2016 [facility] Temperature Oral (F) 97.4 F 02/21/2016 [facility] Height 167.64 cm 02/21/2016 [facility] BMI Calculated 28.3 02/21/2016 [facility] Weight 79.545 02/21/2016 [facility] Encounters Location Location Encounter Encounter Reason Attending ADM DC Status Source Details Type Number For Provider Date Date Visit [facility] [id number] Stanton Brannon 02/20 02/21 [facility] Reed /2015 [facility] Recurring [id number] Girma 02/27 03/29 [facility] Doty /2015 [facility] Memorial Recurring [id number] Non 09/19 10/19 Nazia Mcbride Physician /2016 [facility] Memorial Recurring [id number] Non 10/28 11/27 [facility]2016 [facility] Emergency [id number] Barbara 11/16 11/17 [facility] Ann /2016 [facility] Memorial Observation [id number] Connor 11/26 11[facility] Recurring [id number] Non 12/19 01/18 [facility] Physician /2016 [facility] Procedures Procedure Code Date Perfomer Comments Source Open heart [id number] 07/28/1992 tumor 5cm [facility] surgery<sup>1</sup> [facility] Open heart [id number] 07/28/1992 tumor 5cm [facility] surgery<sup>1</sup> [facility] Abdominal [id number] [facility] Endoscopic laser [id number] [facility] surgery [facility] Mastectomy of right [id number] [facility] Open heart surgery [id number] [facility] Appendectomy [id number] [facility] Partial resection [id number] [facility] Abdominal [id number] [facility] Appendectomy [id number] [facility] Endoscopic laser [id number] [facility] surgery on [facility] Mastectomy of right [id number] [facility] Partial resection [id number] [facility] Assessment and Plan No Data Provided for This Section Plan of Care No Data Provided for This Section Social History Social History Date Source Social History TypeResponse 11/26/2016 [facility] Substance Abuse Use: None. Alcohol Past, Type Beer. Frequency: 1-2 times per year. Smoking Status Never smoker; Exposure to Tobacco Smoke None; Cigarette Smoking Last 365 Days No; Reg Smoking Cessation Counseling No Social History TypeResponse 11/26/2016 [facility] Substance Abuse Use: None. Alcohol Past, Type Beer. Frequency: 1-2 times per year. Smoking Status Never smoker; Exposure to Tobacco Smoke None; Cigarette Smoking Last 365 Days No; Reg Smoking Cessation Counseling No Family History No Data Provided for This Section Advance Directives No Data Provided for This Section Functional Status No Data Provided for This Section
--- OUTSIDE RECORDS SUMMARY | 2019-02-04 20:39 | XMS REPORT ---
:1930 Author Organization [facility] Address [address] [place] [address] [address]. [address] [place] [address] Care Team Providers Name Role Phone ALEXX CARABALLO Unavailable Unavailable Problems This patient has no known problems. Allergies, Adverse Reactions, Alerts This patient has no known allergies or adverse reactions. Medications This patient has no known medications. Results Test Description Test Time Test Comments Text Results Atomic Results Result Comments [place], ERCP 2018-11-17 16:21:00 Reason for exam:->abnormal FINAL REPORT PATIENT ID: imaging,calculus of bile [id number] ERCP, 11/17/2018 duct Clinical History: Abnormal imaging Impression: Intraoperative images are obtained. The radiologist is not present during the procedure. Fluoroscopy was not performed by the undersigned. Images are presented for interpretation at the completion of the procedure. Please refer to the procedure report for more details. Seven images are submitted demonstrating ERCP. Fluoroscopy time is 3.1 minutes. Signed: Tony Aguirre Verified Date/Time: 11/17/2018 16:21:28 Reading Location: [address] Radiology Reading Room HROMBIN TIME/INR 2018-11-17 12:25:00 Test Item Value Reference Range Comments PROTIME (BEAKER) (test [id number]) 18.1 seconds 11.7-14.7 INR (BEAKER) (test [id number]=[id number]) 1.5 <=5.9 RECOMMENDED COUMADIN/WARFARIN INR THERAPY RANGESSTANDARD DOSE: 2.0 - 3.0 Includes: PROPHYLAXIS forvenous thrombosis, systemic embolization; TREATMENT for venous thrombosis and/or pulmonary embolus.HIGH RISK: Target INR is 2.5-3.5 for patients with mechanical heart valves.POCT-GLUCOSE [id number] 11:40:00 Test Item Value Reference Range Comments POC-GLUCOSE METER ([place]) 101 mg/dL 70-110 TESTED AT [facility] [address] (test [id number]) [facility] [id number]
--- NOTE | 2019-02-04 21:45 | RAD REPORT ---
EXAM DESCRIPTION: RAD - Chest Single View - 02/04/2019 9:40 pm CLINICAL HISTORY: MALAISE Chest pain. COMPARISON: <Comparisons> FINDINGS: Portable technique limits examination quality. Mild interstitial pulmonary edema suspected. The heart is upper limit normal in size with sternotomy wires present. No displaced fractures. IMPRESSION: Mild CHF.
[2019-02-04 22:17] LABS: Absolute Lymphocytes (CBC) 0.8 K/uL (0.7-4.9); Basophils % 0.7 % (0-1.3); Hematocrit 37.9 % (36.0-45.0); MPV 9.6 fL (7.6-11.3); Monocytes % 8.8 % (3.3-12.3); RBC Red Blood Cell Count 4.26 M/uL (3.86-4.86)
[2019-02-04 22:20] LABS: Potassium 3.8 mmol/L (3.5-5.1)
[2019-02-04 22:25] LABS: Protime INR 1.75
--- NOTE | 2019-02-04 23:13 | ER ---
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 Transition of care: patient was not received from another setting of care. Onset of symptoms was February 04, 2019. Risk Assessment: Do you want to hurt yourself or someone else? Patient reports no desire to harm self or others. Initial Sepsis Screen: Does the patient meet any 2 criteria? No. Patient's initial sepsis screen is negative. Does the patient have a suspected source of infection? No. Patient's initial sepsis screen is negative. Care prior to arrival: None. 20:39 Method Of Arrival: EMS: [facility] bb 20:39 Acuity: JASON 3 bb Historical: - Allergies: 20:42 Codeine; bb 20:42 Demerol; bb 20:42 Morphine; bb 20:42 sulfamethoxazole; bb 20:42 TRIMETHOPRIM; bb - Home Meds: 23:35 Coumadin 3 mg oral tab 1 tab once daily [Active]; Januvia 100 mg oral tab 1 tab once ak1 daily [Active]; levothyroxine 125 mcg tab 1 tab once daily [Active]; Lopressor 50 mg Oral tab 1 tab 2 times per day [Active]; atorvastatin 80 mg oral tab 1 tab once daily [Active]; Coumadin 1 mg Oral tab 1 tab once daily [Active]; - PMHx: 20:42 Atrial Fib; chronic uti; Diabetes - NIDDM; GI Bleed; heart attack; stents; TIA; bb - PSHx: 20:42 Cholecystectomy; bb - Immunization history:: Adult Immunizations up to date. - Social history:: Smoking status: Patient/guardian denies using tobacco. - Ebola Screening: : No symptoms or risks identified at this time. Screenin:43 Abuse screen: Denies threats or abuse. Nutritional screening: No deficits noted. bb Tuberculosis screening: No symptoms or risk factors identified. Fall Risk Secondary diagnosis (15 points) impaired mobility, IV access (20 points). Ambulatory Aid- None/Bed Rest/Nurse Assist (0 pts). Gait- Weak (10 pts.). Mental Status- Overestimates/Forgets Limitations (15 pts.). Total Dyson Fall Scale indicates High Risk Score (45 or more points). Fall prevention measures have been instituted. Side Rails Up X 2 As available patient and family educated on Fall Prevention Program and Strategies. 20:50 VAN Screening: Arm Drift: Patient shows no arm weakness. Patient is VAN negative. ao Visual Disturbance: No visual disturbance noted. Aphasia: No aphasia noted. Neglect: No neglect noted. Patient has been NPO before screening. The patient is alert, able to follow commands. The patient does not exhibit slurred or garbled speech The patient is not exhibiting difficulty speaking. The patient does not exhibit difficulty understanding words. The patient is able to swallow own secretions with no drooling or need for suction. Patient tolerated one teaspoon of water. No drooling, immediate coughing, gurgling, or clearing of the throat was noted. The patient tolerated 90mL of water. No drooling, immediate coughing, gurgling, or clearing of the throat was noted. The patient passed the bedside swallow screening. Oral medications may be given as ordered. Contact Physician for further diet orders. Provider notified of bedside swallow screening results: Tyrese Bush MD. Assessment: 20:48 General: Appears in no apparent distress. comfortable, Behavior is anxious, ao inappropriate for age. Pain: Denies pain. Neuro: Level of Consciousness is awake, alert, obeys commands, Oriented to person, place, time, situation, Appropriate for age Moves all extremities. Full function Speech is normal, Facial symmetry appears normal. Cardiovascular: Heart tones S1 S2 Capillary refill < 3 seconds Patient's skin is warm and dry. Respiratory: Airway is patent Respiratory effort is even, unlabored, Respiratory pattern is regular, symmetrical. GI: Abdomen is obese. : No signs and/or symptoms were reported regarding the genitourinary system. EENT: No signs and/or symptoms were reported regarding the EENT system. Derm: No signs and/or symptoms reported regarding the dermatologic system. Musculoskeletal: Circulation, motion, and sensation intact. Range of motion: intact in all extremities. 20:50 Reassessment: Dr Bush at bedside. Dr Bush wants to work stroke but no need to call ao stroke per Dr Bush. 21:30 Reassessment: Patient appears in no apparent distress at this time. Patient and/or ao family updated on plan of care and expected duration. Pain level reassessed. Patient out for CT. To get and IV when patient is back. 22:30 Reassessment: Patient appears in no apparent distress at this time. Patient and/or ao family updated on plan of care and expected duration. Pain level reassessed. Waiting on CT report. 23:37 Reassessment: Patient appears in no apparent distress at this time. Patient and/or ao family updated on plan of care and expected duration. Pain level reassessed. Patient to be admitted to the hospital. Waiting on room assigment. 02/05 00:29 Reassessment: Patient appears in no apparent distress at this time. Patient and/or ao family updated on plan of care and expected duration. Pain level reassessed. Called for report and was told by charge nurse that nurse will call back. Waiting on nurse to call back for report. 00:37 Reassessment: Report given to DEWEY Stein. Patient to be taken to her room. ao Vital Signs: 02/04 20:42 BP 140 / 78; Pulse 63; Resp 16 S; Temp 98.3(O); Pulse Ox 99% on R/A; Weight 68.04 kg bb (R); Height 5 ft. 6 in. (167.64 cm) (R); Pain 0/10; 22:30 BP 128 / 61; Pulse 78; Resp 18; Pulse Ox 91% on R/A; tl2 23:37 BP 128 / 66; Pulse 78; Resp 13; Pulse Ox 95% on R/A; ao 02/05 00:29 BP 128 / 66; Pulse 76; Resp 16; Pulse Ox 96% on R/A; ao 02/04 20:42 Body Mass Index 24.21 (68.04 kg, 167.64 cm) bb Vitals: 02/04 22:30 Cardiac Rhythm Assessment Atrial fibrillation. tl2 NIH Stroke Scale Scores: 20:50 NIHSS Score: 0 ao 21:20 NIHSS Score: 0 gs ED Course: 20:38 Patient arrived in ED. bb 20:41 Triage completed. bb 20:42 Arm band placed on Patient placed in an exam room, on a stretcher, on bus driver/monitor, bb on pulse oximetry. 20:43 Patient has correct armband on for positive identification. Bed in low position. Call bb light in reach. Side rails up X2. monitoring and evaluation advisor on. Pulse ox on. NIBP on. 20:48 Jose Elias Lora RN is Primary Nurse. ao 21:09 Tyrese Bush MD is Attending Physician. gs 21:37 CT completed. Patient tolerated procedure well. Patient moved to CT via stretcher. Patient moved to radiology. 21:40 Stroke CXR 1 View In Process Unspecified. EDMS 21:47 Head Brain Wo Cont In Process Unspecified. EDMS 22:05 Inserted saline lock: 22 gauge in left forearm, using aseptic technique. Blood ao collected. 23:12 Kaden Duncan MD is Hospitalizing Provider. 02/05 00:41 No provider procedures requiring assistance completed. Patient admitted, IV remains in ao place. Administered Medications: No medications were administered Outcome: 02/04 23:12 Decision to Hospitalize by Provider. 02/05 00:41 Admitted to Tele accompanied by nurse, room 414. ao Condition: stable Instructed on the need for admit. 00:55 Patient left the ED. ao NIH Stroke Scale - NIH Stroke Score Date: 02/04/2019 Time: 20:50 Total Score = 0 1a. Level of Consciousness (LOC) - 0(Alert) 1b. Level of Consciousness (LOC) (Year \T\ Age) - 0(Both) 1c. LOC Commands (Open \T\ Closes Eyes/Professor Of Latin American Studies) - 0(Both) 2. Best Gaze (Lateral Gaze Paresis) - 0(Normal) 3. Visual Field Loss - 0(No visual loss) 4. Facial Palsy - 0(Normal) 5a. Left Arm: Motor (10-second hold) - 0(No drift) 5b. Right Arm: Motor (10-second hold) - 0(No drift) 6a. Left Leg: Motor (5-second hold - always test supine) - 0(No drift) 6b. Right Leg: Motor (5-second hold - always test supine) - 0(No drift) 7. Limb Ataxia (finger/nose \T\ heel/rodriguez - test with eyes open) - 0(Absent) 8. Sensory Loss (pinprick arms/legs/face) - 0(Normal) 9. Best Language: Aphasia (description/naming/reading) - 0(No aphasia) 10. Dysarthria (speech clarity - read or repeat words) - 0(Normal) 11. Extinction and Inattention (visual/tactile/auditory/spatial/personal) - 0(No abnormality) Initials: aguila NIH Stroke Scale - NIH Stroke Score Date: 02/04/2019 Time: 21:20 Total Score = 0 1a. Level of Consciousness (LOC) - 0(Alert) 1b. Level of Consciousness (LOC) (Year \T\ Age) - 0(Both) 1c. LOC Commands (Open \T\ Closes Eyes/Professor Of Latin [employer] Studies) - 0(Both) 2. Best Gaze (Lateral Gaze Paresis) - 0(Normal) 3. Visual Field Loss - 0(No visual loss) 4. Facial Palsy - 0(Normal) 5a. Left Arm: Motor (10-second hold) - 0(No drift) 5b. Right Arm: Motor (10-second hold) - 0(No drift) 6a. Left Leg: Motor (5-second hold - always test supine) - 0(No drift) 6b. Right Leg: Motor (5-second hold - always test supine) - 0(No drift) 7. Limb Ataxia (finger/nose \T\ heel/rodriguez - test with eyes open) - 0(Absent) 8. Sensory Loss (pinprick arms/legs/face) - 0(Normal) 9. Best Language: Aphasia (description/naming/reading) - 0(No aphasia) 10. Dysarthria (speech clarity - read or repeat words) - 0(Normal) 11. Extinction and Inattention (visual/tactile/auditory/spatial/personal) - 0(No abnormality) Initials: Signatures: Dispatcher [employer] EDRobert Whitt Brenda, RN RN bb Krenek, Amber RN RN [email or web address] Jose Elias Lora RN Peyton Jara RN RN tl2 Tyrese Bush MD MD
--- NOTE | 2019-02-04 23:13 | EDPHYS ---
Physician Documentation [facility] Name: Kortney Brar Age: 88 yrs Sex: Female : 1930 Arrival Date: 02/04/2019 Time: 20:38 Bed 2 Private MD: ED Physician Tyrese Bush HPI: 02/04 23:08 This 88 yrs old Female presents to ER via EMS with complaints of Dizziness. gs 23:08 The patient presents with sense of spinning, vertigo. Onset: The symptoms/episode gs began/occurred acutely, at 20:00. Context: occurred while the patient was sitting. Modifying factors: The symptoms are alleviated by nothing, the symptoms are aggravated by nothing. Associated signs and symptoms: Pertinent negatives: focal weakness, vomiting. Severity of symptoms: At their worst the symptoms were severe in the emergency department the symptoms have improved mildly. The patient has not experienced similar symptoms in the past. The patient has not recently seen a physician. Historical: - Allergies: 20:42 Codeine; bb 20:42 Demerol; bb 20:42 Morphine; bb 20:42 sulfamethoxazole; bb 20:42 TRIMETHOPRIM; bb - Home Meds: 23:35 Coumadin 3 mg oral tab 1 tab once daily [Active]; Januvia 100 mg oral tab 1 tab once ak1 daily [Active]; levothyroxine 125 mcg tab 1 tab once daily [Active]; Lopressor 50 mg Oral tab 1 tab 2 times per day [Active]; atorvastatin 80 mg oral tab 1 tab once daily [Active]; Coumadin 1 mg Oral tab 1 tab once daily [Active]; - PMHx: 20:42 Atrial Fib; chronic uti; Diabetes - NIDDM; GI Bleed; heart attack; stents; TIA; bb - PSHx: 20:42 Cholecystectomy; bb - Immunization history:: Adult Immunizations up to date. - Social history:: Smoking status: Patient/guardian denies using tobacco. - Ebola Screening: : No symptoms or risks identified at this time. ROS: 23:08 All other systems are negative. gs Exam: 23:08 Head/Face: Normocephalic, atraumatic. Eyes: Pupils equal round and reactive to light, gs extra-ocular motions intact. Lids and lashes normal. Conjunctiva and sclera are non-icteric and not injected. Cornea within normal limits. Periorbital areas with no swelling, redness, or edema. ENT: Nares patent. No nasal discharge, no septal abnormalities noted. Tympanic membranes are normal and external auditory canals are clear. Oropharynx with no redness, swelling, or masses, exudates, or evidence of obstruction, uvula midline. Mucous membranes moist. Neck: Trachea midline, no thyromegaly or masses palpated, and no cervical lymphadenopathy. Supple, full range of motion without nuchal rigidity, or vertebral point tenderness. No Meningismus. Chest/axilla: Normal chest wall appearance and motion. Nontender with no deformity. No lesions are appreciated. Cardiovascular: Regular rate and rhythm with a normal S1 and S2. No gallops, murmurs, or rubs. Normal PMI, no JVD. No pulse deficits. Respiratory: Lungs have equal breath sounds bilaterally, clear to auscultation and percussion. No rales, rhonchi or wheezes noted. No increased work of breathing, no retractions or nasal flaring. Abdomen/GI: Soft, non-tender, with normal bowel sounds. No distension or tympany. No guarding or rebound. No evidence of tenderness throughout. Back: No spinal tenderness. No costovertebral tenderness. Full range of motion. Skin: Warm, dry with normal turgor. Normal color with no rashes, no lesions, and no evidence of cellulitis. MS/ Extremity: Pulses equal, no cyanosis. Neurovascular intact. Full, normal range of motion. 23:08 Constitutional: The patient appears alert, awake. 23:08 ECG was reviewed by the Attending Physician. 23:08 Neuro: Orientation: is normal, Mentation: is normal, Cranial nerves: CN II- XII are normal as tested, Cerebellar function: dysmetria is noted on the right, equivocal, Motor: is normal, moves all fours, strength is 5/5 in all extremities, Sensation: no obvious gross deficits. Vital Signs: 20:42 BP 140 / 78; Pulse 63; Resp 16 S; Temp 98.3(O); Pulse Ox 99% on R/A; Weight 68.04 kg bb (R); Height 5 ft. 6 in. (167.64 cm) (R); Pain 0/10; 22:30 BP 128 / 61; Pulse 78; Resp 18; Pulse Ox 91% on R/A; tl2 23:37 BP 128 / 66; Pulse 78; Resp 13; Pulse Ox 95% on R/A; ao 02/05 00:29 BP 128 / 66; Pulse 76; Resp 16; Pulse Ox 96% on R/A; ao 02/04 20:42 Body Mass Index 24.21 (68.04 kg, 167.64 cm) bb NIH Stroke Scale Scores: 02/04 20:50 NIHSS Score: 0 ao 21:20 NIHSS Score: 0 gs MDM: 21:18 Patient medically screened. gs 23:08 Differential diagnosis: CVA, generalized weakness, idiopathic dizziness, TIA, vertigo. gs Data reviewed: vital signs, nurses notes, lab test result(s), EKG, radiologic studies. Counseling: I had a detailed discussion with the patient and/or guardian regarding: the historical points, exam findings, and any diagnostic results supporting the discharge/admit diagnosis, the need for further work-up and treatment in the hospital. Response to treatment: the patient's symptoms have markedly improved after treatment, and as a result, I will admit patient. ED course: no tpa nihss 0. 02/04 21:19 Order name: Protime (+inr); Complete Time: 23:24 02/04 21:19 Order name: Basic Metabolic Panel; Complete Time: 23:24 02/04 21:19 Order name: CBC with Diff; Complete Time: 23:24 02/04 21:19 Order name: Stroke CXR 1 View; Complete Time: 23:24 02/04 21:33 Order name: Head Brain Wo Cont EDMS 02/04 21:19 Order name: EKG; Complete Time: 21:20 02/04 21:19 Order name: Accucheck; Complete Time: 21:54 02/04 21:19 Order name: Cardiac monitoring; Complete Time: 21:52 02/04 21:19 Order name: EKG - Nurse/Tech; Complete Time: 22:21 02/04 21:19 Order name: IV Saline Lock; Complete Time: 22:02 02/04 21:19 Order name: Labs collected and sent; Complete Time: 22:02 02/04 21:19 Order name: NPO; Complete Time: 21:52 02/04 21:19 Order name: O2 Per Protocol; Complete Time: 21:52 02/04 21:19 Order name: O2 Sat Monitoring; Complete Time: 21:53 gs 02/04 21:19 Order name: Stroke Swallow Screen; Complete Time: 21:53 gs EC:08 Rate is 74 beats/min. Rhythm is regular. QRS interval is prolonged. T waves are Normal. gs No ST changes noted. Clinical impression: Abnormal EKG without significant change. Interpreted by me. Administered Medications: No medications were administered Disposition: 02/04/19 23:12 Hospitalization ordered by Kaden Duncan for Observation. Preliminary diagnosis is Vertiginous syndromes in diseases classified elsewhere. - Bed requested for Telemetry/MedSurg (observation). - Status is Observation. ao - Condition is Stable. - Problem is new. - Symptoms are unchanged. UTI on Admission? No NIH Stroke Scale - NIH Stroke Score Date: 02/04/2019 Time: 20:50 Total Score = 0 1a. Level of Consciousness (LOC) - 0(Alert) 1b. Level of Consciousness (LOC) (Year \T\ Age) - 0(Both) 1c. LOC Commands (Open \T\ Closes Eyes/Sports Book Board Attendant) - 0(Both) 2. Best Gaze (Lateral Gaze Paresis) - 0(Normal) 3. Visual Field Loss - 0(No visual loss) 4. Facial Palsy - 0(Normal) 5a. Left Arm: Motor (10-second hold) - 0(No drift) 5b. Right Arm: Motor (10-second hold) - 0(No drift) 6a. Left Leg: Motor (5-second hold - always test supine) - 0(No drift) 6b. Right Leg: Motor (5-second hold - always test supine) - 0(No drift) 7. Limb Ataxia (finger/nose \T\ heel/rodriguez - test with eyes open) - 0(Absent) 8. Sensory Loss (pinprick arms/legs/face) - 0(Normal) 9. Best Language: Aphasia (description/naming/reading) - 0(No aphasia) 10. Dysarthria (speech clarity - read or repeat words) - 0(Normal) 11. Extinction and Inattention (visual/tactile/auditory/spatial/personal) - 0(No abnormality) Initials: ao NIH Stroke Scale - NIH Stroke Score Date: 02/04/2019 Time: 21:20 Total Score = 0 1a. Level of Consciousness (LOC) - 0(Alert) 1b. Level of Consciousness (LOC) (Year \T\ Age) - 0(Both) 1c. LOC Commands (Open \T\ Closes Eyes/Sports Book Board Attendant) - 0(Both) 2. Best Gaze (Lateral Gaze Paresis) - 0(Normal) 3. Visual Field Loss - 0(No visual loss) 4. Facial Palsy - 0(Normal) 5a. Left Arm: Motor (10-second hold) - 0(No drift) 5b. Right Arm: Motor (10-second hold) - 0(No drift) 6a. Left Leg: Motor (5-second hold - always test supine) - 0(No drift) 6b. Right Leg: Motor (5-second hold - always test supine) - 0(No drift) 7. Limb Ataxia (finger/nose \T\ heel/rodriguez - test with eyes open) - 0(Absent) 8. Sensory Loss (pinprick arms/legs/face) - 0(Normal) 9. Best Language: Aphasia (description/naming/reading) - 0(No aphasia) 10. Dysarthria (speech clarity - read or repeat words) - 0(Normal) 11. Extinction and Inattention (visual/tactile/auditory/spatial/personal) - 0(No abnormality) Initials: Signatures: Dispatcher [employer] Faina Gomez RN Cecy Wong, RN RN [id number] Lee Ann Sylvester RN RN cg Ortiz, Alex, RN Tyrese Blair MD MD Corrections: (The following items were deleted from the chart) 21:33 21:20 CT-STROKE BRAIN W/O CONTRAST+CT.RAD.BRZ ordered. [facility] 02/05 00:23 02/04 23:12 Hospitalization Ordered by Kaden Duncan MD for Observation. Preliminary diagnosis is Vertiginous syndromes in diseases classified elsewhere. Bed requested for Telemetry/MedSurg (observation). Status is Observation. Condition is Stable. Problem is new. Symptoms are unchanged. UTI on Admission? No. 02/05 00:55 00:23 02/04/2019 23:12 Hospitalization Ordered by Kaden Duncan MD for ao Observation. Preliminary diagnosis is Vertiginous syndromes in diseases classified elsewhere. Bed requested for Telemetry/MedSurg (observation). Status is Observation. Condition is Stable. Problem is new. Symptoms are unchanged. UTI on Admission? No. cg
--- NOTE | 2019-02-05 00:05 | P.HP ---
Certification for Inpatient Patient admitted to: Observation With expected LOS: <2 Midnights Practitioner: I am a practitioner with admitting privileges, knowledge of patient current condition, hospital course, and medical plan of care. Services: Services provided to patient in accordance with Admission requirements found in Title 42 Section 412.3 of the Code of Federal Regulations Patient History Date of Service: 02/04/19 Reason for admission: dizziness History of Present Illness: Ms Dallas is an 88 years old woman with history of HTN, CVA, CAD s/p stent placement, paroxysmal A.Fib on warfarin, who came to ED complaining of dizziness. The patient states that when she stand up to go to the bathroom, she become dizzy. She also had nausea but no vomiting. The symptoms got better when she returned to her bed. No numbness, tingling or weakness. She denied palpitations, fever or chills. Lab work mostly unremarkable, CT head shows no acute abnormalities, EKG SR at 65 bpm, RBBB. Allergies codeine [Codeine] Allergy (Mild, Verified 08/17/18 01:08) Hives/Rash nitrofurantoin [From Macrobid] Allergy (Verified 08/17/18 01:08) Unknown nitrofurantoin macrocrystal [From Macrobid] Allergy (Verified 08/17/18 01:08) Unknown sulfamethoxazole [From Bactrim] Allergy (Verified 08/17/18 01:08) Itching/Hives/Rash trimethoprim [From Bactrim] Allergy (Verified 09/24/15 00:27) Itching/Hives/Rash morphine Adverse Reaction (Mild, Verified 08/17/18 01:08) Hives/Rash Doxycycline Allergy (Uncoded 08/17/18 01:08) Hives/Rash Home Medications: Atorvastatin Calcium [Lipitor] 80 mg PO BEDTIME 08/17/18 Metoprolol Tartrate [Lopressor*] 50 mg PO BID 08/17/18 Sitagliptin Phosphate [Januvia*] 100 mg PO DAILY 08/17/18 Warfarin Sodium [Coumadin*] 2 mg PO DAILY 5 PM 08/17/18 Fluconazole [Diflucan] 100 mg PO DAILY #5 tablet 08/21/18 Glucerna Shake [Glucerna*] 237 ml PO BID #60 can 08/21/18 Levothyroxine [Synthroid*] 125 mcg PO [id number] #30 tab 08/21/18 Magic Mouthwash [Magic Mouthwash*] 15 ml PO QID #1 btl 08/21/18 Pantoprazole [Protonix Tab*] 40 mg PO DAILYAC #30 tab 08/21/18 Sucralfate [Carafate*] 1 gm PO ACHS #90 tab 08/21/18 - Past Medical/Surgical History Diabetic: Yes -: heart tumor -: stroke -: gastritis,with polyps -: gastric ulcers -: diverticuitis -: a-fib -: uterine prolapse -: hyperlipidemia -: hypothyroidism -: CAD -: cardiac stents -: UTI -: 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 moist/pink, EOMI, Sclerae nonicteric Neck: Supple, 2+ carotid pulse no bruit, No LAD, Without JVD or thyroid abnormality Respiratory: Clear to auscultation bilaterally, Normal air movement Cardiovascular: Regular rate/rhythm, Normal S1 S2 Gastrointestinal: Normal bowel sounds, No tenderness Musculoskeletal: No tenderness Integumentary: No rashes Neurological: Normal speech, Normal strength at 5/5 x4 extr, Normal tone, Normal affect Lymphatics: No axilla or inguinal lymphadenopathy - Studies Laboratory Data (last 24 hrs) 02/04/19 21:55: WBC 4.2 L, Hgb 12.1, Hct 37.9, Plt Count 108 L 02/04/19 21:55: Sodium 143, Potassium 3.8, BUN 13, Creatinine 0.97, Glucose 94 02/04/19 21:55: PT 20.2 H, INR 1.75 Assessment and Plan - Problems (Diagnosis) (1) Dizziness Current Visit: Yes Status: Acute (2) Paroxysmal A-fib Current Visit: Yes Status: Acute (3) CAD (coronary artery disease) Onset Date: 11/14/14 Current Visit: No Status: Chronic Qualifiers: Coronary Disease-Associated Artery/Lesion type: [place] artery [place] vs. transplanted heart: [place] heart Associated angina: without angina Qualified Code(s): I25.10 - Atherosclerotic heart disease of [place] coronary artery without angina pectoris (4) Hypertension Onset Date: 06/22/18 Current Visit: No Status: Chronic Qualifiers: Hypertension type: essential hypertension (5) Diabetes mellitus Current Visit: Yes Status: Acute Qualifiers: Diabetes mellitus type: type 2 Diabetes mellitus residential insulin use: without intermediate designer use Diabetes mellitus complication status: with other specified complication Qualified Code(s): E11.69 - Type 2 diabetes mellitus with other specified complication - Plan The patient will be admitted for dizziness. Differential diagnosis include, CVA , vertigo, orthostatic hypotension. Will observe the patient overnight, order brain MRI in am. - Advance Directives Does patient have a Living Will: Yes Does patient have a Durable POA for Healthcare: Yes
[2019-02-05] MEDS ORDERED: ONDANSETRON 4 MG/2 ML VIAL IV PRN (00:36)
[2019-02-05] MEDS: NA CHLORIDE 0.9% 1,000 ML IV SCH ×5 (00:36→14:01)
[2019-02-05 02:11] VITALS: O2SAT 96
[2019-02-05 02:37] VITALS: BMI 24.2
[2019-02-05 06:34] LABS: Absolute Lymphocytes (CBC) 0.9 K/uL (0.7-4.9); Basophils % 0.8 % (0-1.3); Eosinophils % 4.9 % (0-4.4); Hematocrit 33.8 % (36.0-45.0); Lymphocytes % 27.1 % (15.3-44.8); MPV 9.7 fL (7.6-11.3); Monocytes % 9.8 % (3.3-12.3); Protime INR 1.8; RBC Red Blood Cell Count 3.84 M/uL (3.86-4.86)
[2019-02-05 06:43] LABS: Magnesium 1.9 mg/dL (1.8-2.4); Potassium 3.6 mmol/L (3.5-5.1)
[2019-02-05] MEDS: INSULIN -REGULAR HUMAN 50 UNIT/0.5 ML ML SQ SCH ×4 (07:30→21:00)
--- NOTE | 2019-02-05 07:34 | EKG ---
Test Date: 2019-02-04 Test Time: 22:22:34 Server Programmer: RYAN MEASUREMENT RESULTS: Intervals: Rate: 74 PA: QRSD: 116 QT: 432 QTc: 479 [place]: P: PA: QRS: 48 T: 21 INTERPRETIVE STATEMENTS: Undetermined rhythm Incomplete right bundle branch block Possible Lateral infarct, age undetermined Abnormal ECG Compared to ECG 08/20/2018 21:31:27 Myocardial infarct finding now present Sinus rhythm no longer present First degree AV block no longer present ST (T wave) deviation no longer present Electronically Signed On 02-05-19 07:33:46 CDT by Jeff Noguera
[2019-02-05 07:40] LABS: Urine Appearance CLOUDY; Urine Bilirubin NEGATIVE (NEG); Urine Blood NEGATIVE (NEG); Urine Color YELLOW; Urine Glucose NEGATIVE (NEG); Urine Protein NEGATIVE (NEG); Urine Specific Gravity <=1.005 (1.005-1.030); Urine Urobilinogen 0.2 mg/dL (0.2-1.0)
[2019-02-05 07:42] LABS: Urine Microscopic Reflex ORDER UMIC
[2019-02-05] MEDS ORDERED: POTASSIUM CL SA 10 MEQ TAB PO ONE (09:00)
[2019-02-05 09:03] LABS: Urine Bacteria 20-50 /HPF (<20); Urine Culture Reflex Order REFLEXED; Urine RBC <5 /HPF (NONE SEEN)
[2019-02-05] MEDS ORDERED: METOPROLOL TAR 25 MG TAB PO SCH (09:44)
[2019-02-05] MEDS: LEVOTHYROXINE SOD 0.125 MG TAB PO SCH (10:38)
--- NOTE | 2019-02-05 11:01 | RAD REPORT ---
EXAM DESCRIPTION: CT Head Without Intravenous Contrast CLINICAL HISTORY: The patient is 88 years old and is Female; DIZZINESS TECHNIQUE: Axial computed tomography images of the head/brain without intravenous contrast. Sagitt al and coronal reformatted images were created and reviewed. This CT exam was performed using one o r more of the following dose reduction techniques: automated exposure control, adjustment of the mA and/or kV according to patient size, and/or use of iterative reconstruction technique. COMPARISON: May 28, 2016 FINDINGS: Brain: Periventricular and deep white matter hypodensities, most commonly due to nonspec [facility] white matter chronic microvascular ischemia. Mild cerebral atrophy. No hemorrhage. Ventricles: Unremarkable. No ventriculomegaly. Bones/joints: Unremarkable. No acute fracture. Soft tissues: Unremarkable. Vasculature: Vascular calcifications. Sinuses: Unremarkable as visualized. No acute sinusitis. Mastoid air cells: Unremarkable as visualized. No mastoid effusion. IMPRESSION: No acute intracranial findings. Mild cerebral atrophy and nonspecific chronic microvascu lar ischemic changes. Electronically signed by: Jacques Gilmore MD 02/04/2019 9:52 PM CDT Due to temporary technical issues with the PACS/Fluency reporting system, reports are being signed by the in house radiologist as a courtesy to ensure prompt reporting. The interpreting radiologist is f ully responsible for the content of the report.
--- NOTE | 2019-02-05 15:32 | PN ---
Date of Progress Note: 02/05/2019 Subjective: The patient seen and examined. Chart reviewed and case discussed with RN. The patient states that she has been feeling dizzy when she gets up. Otherwise, she explained to me that she has received antibiotics previously for frequent UTIs due to her bladder prolapse. However, she is refusing antibiotics at this time because it results in thrush. Her urine is positive for UTI. Medications list reviewed. Code Status: Full code. Physical Examination: Vital Signs: Temperature 97.5, heart rate 79, blood pressure 136/54, respirations 18, O2 96% on room air. General: Awake, alert, oriented x3, in some mild distress. Elderly female. CV: S1, S2. Regular rate and rhythm. Peripheral pulses weak. Respiratory: Moving air well bilaterally. Gastrointestinal: Abdomen is soft, nontender, nondistended. Positive bowel sounds. Extremities: No clubbing, cyanosis, or edema. Neuro: The patient has weakness on the left side, chronic. Laboratory Data: Sodium 145, potassium 3.6, chloride 111, CO2 26, BUN 11, creatinine 0.82, glucose 90, calcium 8.5, magnesium 1.9. INR 1.8. WBC 3.2, H and H 11.1 and 33.8, platelets 106. Urine cultures pending. Assessment And Plan: 1. Dizziness, unclear etiology, may be related to cerebrovascular accident, vertigo, or orthostatic hypotension. We will check orthostatic vital signs. MRI of the brain is pending. The patient does take beta blockers for her atrial fibrillation. She is on a large dose of 50 mg twice a day. We will decrease dose to 25 mg twice a day. 2. Acute cystitis without hematuria. The patient does report symptoms of urinary frequency. Denies any dysuria, likely has chronic bacteruria due to her bladder prolapse, likely asymptomatic bacteriuria. We will monitor urine culture. Patient refuses Abx. 3. Paroxysmal atrial fibrillation, currently in sinus rhythm. We will continue with beta-sabas at a lower dose of 25 mg p.o. b.i.d. The patient is on Coumadin for anticoagulation. INR is subtherapeutic at 1.8. We will continue Coumadin dose, adjust as necessary. 4. Coronary artery disease, [place] artery and [place] heart without angina, stable. Resume home medications. 5. Essential hypertension, stable. We will resume home medications. We will check orthostatic vital signs. 6. Diabetes mellitus type 2 without long-term use of insulin with hyperglycemia. We will resume home medications. Continue sliding scale insulin and monitor Accu-Cheks. 7. Deep venous thrombosis prophylaxis. The patient is already on Coumadin. 8. Mixed hyperlipidemia. Continue statin. 9. Hypothyroidism, continue levothyroxine. Plan: Reduce IV fluids to 75 mL/h. Check orthostatic vital signs. Follow up on MRI, likely discharge in a.m. if continues to improve. ADDENDUM: Patient unable to have MRI due to her back. The coils will not fit on her back due to the curvature of her back. Spoke w on call pharmacy technician SA/WHIT Voice ID: [id number] Report ID: [id number] MELODY
[2019-02-05] MEDS: SITAGLIPTIN PHOS 100 MG TAB PO SCH (16:51)
[2019-02-05] MEDS ORDERED: WARFARIN SODIUM 4 MG TAB PO SCH (17:00)
[2019-02-05] MEDS ORDERED: ATORVASTATIN 40 MG TAB PO SCH (21:00)
[2019-02-05] MEDS ORDERED: PANTOPRAZOLE 40MG TABLET PO SCH (21:00)
[2019-02-05] MEDS: METOPROLOL TAR 25 MG TAB PO SCH (21:04)
[2019-02-05] MEDS: ENSURE HIGH PROTEIN 237 ML CAN PO SCH (21:05)
[2019-02-05] MEDS ORDERED: WARFARIN SODIUM 4 MG TAB PO ONE (23:52)
[2019-02-06] MEDS: NA CHLORIDE 0.9% 1,000 ML IV SCH ×3 (00:20→13:40)
[2019-02-06] MEDS: LEVOTHYROXINE SOD 0.125 MG TAB PO SCH (05:53)
[2019-02-06 06:11] LABS: Absolute Lymphocytes (CBC) 1.1 K/uL (0.7-4.9); Basophils % 0.6 % (0-1.3); Eosinophils % 3.8 % (0-4.4); Hematocrit 33.8 % (36.0-45.0); Lymphocytes % 25.1 % (15.3-44.8); MPV 9.8 fL (7.6-11.3); RBC Red Blood Cell Count 3.85 M/uL (3.86-4.86)
[2019-02-06 06:17] LABS: Potassium 4.3 mmol/L (3.5-5.1)
[2019-02-06 06:20] LABS: Protime INR 2.07
[2019-02-06] MEDS: INSULIN -REGULAR HUMAN 50 UNIT/0.5 ML ML SQ SCH (07:30)
[2019-02-06] MEDS ORDERED: HYDROCORTISONE 1 % CREAM 30GM TOP PRN (08:45)
[2019-02-06] MEDS: SITAGLIPTIN PHOS 100 MG TAB PO SCH (08:54)
[2019-02-06] MEDS: METOPROLOL TAR 25 MG TAB PO SCH (08:55)
[2019-02-06 08:58] VITALS: BP 119/58
[2019-02-06] MEDS: ENSURE HIGH PROTEIN 237 ML CAN PO SCH (08:58)
[2019-02-06 09:17] VITALS: TEMP 97.4
--- NOTE | 2019-02-06 09:57 | EKG ---
Test Date: 2019-02-05 Test Time: 21:22:37 Associate Publisher: RT Morales MEASUREMENT RESULTS: Intervals: Rate: 65 AL: QRSD: 114 QT: 456 QTc: 474 [place]: P: [place]: QRS: 66 T: 26 INTERPRETIVE STATEMENTS: Atrial fibrillation Low voltage QRS Incomplete right bundle branch block Abnormal ECG Compared to ECG 02/04/2019 22:22:34 Low QRS voltage now present Myocardial infarct finding no longer present Electronically Signed On 02-06-19 09:56:31 CDT by Matthew Willard
[2019-02-06] MEDS ORDERED: CEFTRIAXONE 1 GM/NS 50 ML 1 GM/50 ML BAG IV SCH (10:00)
[2019-02-06] MEDS ORDERED: FLUCONAZOLE 100 MG TAB PO SCH (10:15)
[2019-02-06] MEDS ORDERED: CEFTRIAXONE/SWI 1gm 1 GM/10 ML SYR IV SCH (10:30)
[2019-02-06] MEDS ORDERED: INSULIN -REGULAR HUMAN 50 UNIT/0.5 ML ML SQ SCH (16:30)
[2019-02-07] MEDS ORDERED: CEFTRIAXONE 1 GM/NS 50 ML 1 GM/50 ML BAG IV SCH (09:00)
--- NOTE | 2019-02-07 21:25 | DS ---
Date of Discharge: 02/06/2019 Admitting Diagnoses: 1.Dizziness. 2.Paroxysmal atrial fibrillation. 3.Coronary artery disease. 4.Hypertension. 5.Diabetes mellitus type 2. Discharge Diagnoses: 1.Dizziness, resolved. 2.Acute cystitis without hematuria. The patient refuse antibiotics. 3.Paroxysmal atrial fibrillation, currently in sinus rhythm. 4.Coronary artery disease, [place] artery and [place] heart without angina, stable. 5.Essential hypertension, stable. 6.Diabetes mellitus type 2 without long-term use of insulin with hyperglycemia. 7.Mixed hyperlipidemia, stable. 8.Hypothyroidism. Hospital Course: The patient is an 88-year-old female who came into the hospital with dizziness. Th e patient was started on IV fluids. Orthostatic vital signs were initially positive. This was felt to be due to a large dose of her metoprolol. She was taking 50 mg p.o. b.i.d. Another etiology may be her UTI. However, the patient refuse antibiotics. She stated that previously she developed thrus h and was very painful. Therefore, does not want any antibiotics. She does have a chronic urinary b ladder prolapse and has proved to infections. She does not complain of any dysuria. Her cultures to day have grown gram-negative rods. The patient understands the risk of refusing IV antibiotic treatm ent for cystitis. She understands that she may develop worsening cystitis leading to pyelonephritis, even leading to sepsis and possibly . The patient was even offered Diflucan for any possible p revention of vaginal candidiasis or nystatin for oral thrush, however, the patient refused. She was awake, alert, oriented x3. No family is at the bedside. The patient's metoprolol dose was titrated down. Even with 25 mg b.i.d., she was getting dizzy and o rthostatic. She worked well with physical therapy. Her metoprolol dose was again decreased to 12.5 b.i.d., which she was able to tolerate and not getting dizzy. Her heart rate remained either in sinus rhythm or atrial fibrillation in the 70s to 80s. The patient was able to work well with physical [facility]. She was no longer feeling dizzy. She was stable for discharge. Home health was reactivated with [facility] with PT. She was discharged to home in a stable condition. Antibiotics were prescribed marline ng with Diflucan p.r.n. The patient will likely not take these antibiotics as she has refused previo usly; however, she has the option. She is to follow up with her primary care physician in 2-3 days a nd return to ER for worsening condition. Diet: Diabetic heart healthy diet. Activity: Ambulate with assist. Physical Examination: General: Alert and oriented x3, elderly female. CV: S1, S2. Respiratory: Moving air well bilaterally. Abdomen: Soft, nontender, nondistended. Positive bowel sounds. Extremities: No clubbing, cyanosis, or edema. Neuro: Nonfocal. SA/MODL Voice ID: [id number] Report ID: [id number]
== END 2019-02-06 15:53 | disposition home health service (06) ==
LOC: ER 20:33 → ERHOLD 02-05 00:10 → 4TH 02-05 00:48
PROVIDERS: ADMIT Internal Medicine; ATTEND Family Medicine
DX: R42 Dizziness and giddiness (principal); N30.00 Acute cystitis without hematuria; N81.10 Cystocele, unspecified; I48.0 Paroxysmal atrial fibrillation; I25.10 Atherosclerotic heart disease of native coronary artery without angina pectoris; I10 Essential (primary) hypertension; E11.65 Type 2 diabetes mellitus with hyperglycemia; E78.2 Mixed hyperlipidemia; E03.9 Hypothyroidism, unspecified; I45.10 Unspecified right bundle-branch block; R94.31 Abnormal electrocardiogram [ECG] [EKG]; Z79.01 Long term (current) use of anticoagulants; Z79.84 Long term (current) use of oral hypoglycemic drugs; Z79.899 Other long term (current) drug therapy; Z95.5 Presence of coronary angioplasty implant and graft
CPT/HCPCS: 93005 ×2; 87088; 85025 ×3; 87086; 80048 ×3; 36415 ×2; 83735; 85610 ×3; 82962 ×8; 87077; 87186; 70450; 71045; 97116; 97163; 97530; 99285; J7030 ×3; G0378 ×2; 81003; 81015